=== PATIENT | female | born 1955 | race Caucasian/White ===

== ENCOUNTER 2017-03-27 11:51 | Observation (INO) | payer MEDICARE, SELFPAY ==
[2017-03-27] VITALS (12 sets, daily range): BP systolic 101–133; BP diastolic 47–97; PULSE 84–109; RESP 16–44; TEMP 36.7–36.9; O2SAT 94–100; BMI 29.2; BMI 29.9; BMI 27.9
--- NOTE | 2017-03-27 12:28 | EKG12_ITS ---
Test Reason : FALL Blood Pressure : / mmHG Vent. Rate : 087 BPM Atrial Rate : 087 BPM P-R Int : 110 ms QRS Dur : 068 ms QT Int : 394 ms P-R-T Axes : 049 041 -49 degrees QTc Int : 474 ms Sinus rhythm with short VA with Premature atrial complexes ST & T wave abnormality, consider inferior ischemia ST & T wave abnormality, consider anterior ischemia Abnormal ECG Confirmed by VIRGINIA LUEVANO ([id number]), editor house organ JOSE SOARES ([id number] on 03/30/2017 1:23:25 PM Referred By: MICHAEL Confirmed By:VIRGINIA LUEVANO
--- NOTE | 2017-03-27 12:28 | RAD_ITS ---
STUDY: X-RAY CHEST REASON FOR EXAM: Female, 61 years old. Chest pain. Cough. TECHNIQUE: Single AP portable view of the chest. COMPARISON: Comparison is made with prior study dated March 25, 2017. FINDINGS: EKG electrodes are seen. Mild degree of increased markings at the right lung base suggestive of a basilar atelectasis. No definite infiltration is seen. There is no demonstrated pleural abnormality. Normal size heart. Normal mediastinum and krystyna. Normal visualized pulmonary arteries. Normal visualized aortic arch and descending thoracic aorta. Normal visualized thoracic spine. Findings suggestive of an old right scapular fracture. There is no demonstrated abnormality of the visualized soft tissue structures of the upper abdomen. RAD/Chest 1 View (Portable) IMPRESSION: Increased markings in the right infrahilar region suggestive of atelectasis. Electronically Signed: Héctor Calabrese MD at 13:18 EST Tel [phone], Service support ,
[2017-03-27 12:38] LABS: Absolute Lymphocyte Count 1.27 X10^3/ul (0.83-4.51); Absolute Neutrophil Count 9.4 X10^3/uL (2.0-7.7); Basophil# 0.01 X10^3/uL; Basophil% 0.1 % (0-1); Hematocrit 34.8 % (37-47); Hemoglobin 10.9 g/dl (12.0-15.0); Lymphocyte # 1.27 X10^3/ul (4.0); Lymphocyte % 10.9 % (19-41); Mean Corp Hgb Conc 31.3 g/gl (32-36); Mean Corpuscular Volume 92.6 fL (81-99); Mean Platelet Vol. 13.8 fl (6.2-12.0); Monocyte% 7.7 % (0-10); Neutrophil # 9.41 X10^3/uL (2.7-7.7); Platelet Count 188 K/mm3 (150-450); RBC Distribution Width CV 15.3 % (11.6-14.6); RBC Distribution Width SD 51.4 fl (35.1-43.9); Red Blood Count 3.76 M/mm3 (4.2-5.4); White Blood Count 11.6 K/mm3 (4.4-11.0)
[2017-03-27] MEDS: Ondansetron 4 MG/2 ML Vial IV ×2 (12:38→20:41)
[2017-03-27] MEDS: 0.9% Normal Saline 1,000 ML 1000 ML IV (12:38)
[2017-03-27 12:55] LABS: Anion Gap 12 (5-15); BUN 22 mg/dL (7-18); Calcium,Total 8.6 mg/dL (8.5-10.1); Chloride 103 mmol/L (98-107); Creatinine, Serum 1.05 mg/dL (0.55-1.02); EST Glomerular Filtration Rate 56 mL/min (>60); Est Glom Filt Rate - Afr Amer 68 mL/min (>60); Estimated Creatinine Clearance 53.01 ml/min; Glucose 92 mg/dL (70-110); POSITIVE COUNT NO; POSITIVE DIFFERENTIAL NO; POSITIVE MORPHOLOGY NO; Potassium 3.8 mmol/L (3.5-5.1); Sodium Level 139 mmol/L (136-145)
--- NOTE | 2017-03-27 13:06 | NURSING ---
NEEDS VERIFIED. NO LW OR POA
[2017-03-27 14:21] LABS: Base Excess 0 mmol/L (-2 to +2); Bicarbonate 25.4 mmol/L (22-26); Blood Gas Specimen Type ART; O2 Delivery Device Nasal Can; PO2 64 mmHG (75-100); SITE L Brachial; SO2 91 % (95-99); Time Given 1412; Total Carbon Dioxide 27 mmol/L; pCO2 44.2 mmHg (35-45); pH 7.37 (7.35-7.45)
[2017-03-27 14:33] LABS: Bacteria 0 SEEN /hpf (None Seen); Mucous, Urine 0 SEEN /hpf (<or=2+); Red Blood Cells-Urine 0 SEEN /hpf (0-5); Squamous Epithelial Cells - UA 0 SEEN /hpf (5-10)
[2017-03-27 14:40] LABS: Color, Urine Yellow (Yellow); Glucose, Dipstick Normal (Normal); Ketone-Dipstick 5 mg/dl (Negative); Leukocyte Esterase-Dipstick 25 /ul (Negative); Nitrite-Dipstick Negative (Negative); Occult Blood-Urine Negative /ul (Negative); Protein-Dipstick Negative (Negative); Urine Bilirubin Dipstick Negative (Negative); Urine Clarity Sl. Cloudy (Clear); Urine Urobilinogen 1 mg/dl (Normal)
--- NOTE | 2017-03-27 14:44 | CT_ITS ---
STUDY: CTA CHEST REASON FOR EXAM: Female, 61 years old. History of right clavicular fracture and right rib fracture. Shortness of breath. RADIATION DOSAGE (If Supplied By Facility): CTDIvol = ( 6.98 ) mGy, DLP = ( 237.75 ) mGycm TECHNIQUE: The examination was performed with the intravenous administration of 75cc ml of Isovue 370 contrast material. Post-processing of the angiographic images was performed, with multiplanar reformation and 3D reconstruction. Individualized dose optimization techniques were used for this CT. COMPARISON: None. FINDINGS: Normal enhancement of the main pulmonary artery and right and left pulmonary arteries. Normal enhancement of the bilateral peripheral pulmonary arteries. There is no demonstrated pulmonary embolism. Normal thoracic aorta and visualized great vessels. There is no demonstrated aortic dissection. There is cardiomegaly. There are calcifications of the coronary arteries. Normal mediastinum. Normal hilar regions. Normal visualized trachea and bronchi. The lungs are well expanded. Mild degree of increased linear markings with focal infiltrate in the peripheral aspect of the right lower lobe. Bibasilar atelectasis worse on the right side. Normal pleura. Normal chest wall structures. The mineralization of the thoracic vertebra with loss of height of the lower dorsal vertebrae. Increased kyphosis. The distal lateral portion of the right clavicle is not well visualized. Normal visualized upper abdomen. CT/CTA Chest W/WO Contrast IMPRESSION: Bibasilar atelectasis slightly worse on the right side. Cardiomegaly. There is no evidence of pneumothorax. Electronically Signed: Héctor Calabrese MD at 15:43 EST Tel [phone], Service support ,
[2017-03-27 14:49] LABS: White Blood Cells 0-5 SEEN /hpf (0-5)
--- NOTE | 2017-03-27 15:51 | ED.DCSUM_ITS ---
- ER Visit Summary Date of Service: 03/27/17 Chief Complaint: Generalized weakness History of Present Illness: The patient is a [address] Mclaughlin. She reports that she has generalized weakness that began 2 days ago. States she has had a very poor appetite. On review of systems she reports that she has a cough every once in a while. She denies any abdominal pain. She does report she has been nausea and vomited 4 times a day. No blood or emesis. No diarrhea. Her last bowel movement was yesterday. He denies any other complaints. Physical Examination: Vitals: Stable. Afebrile. General: Well-nourished and well-developed. Head: Normocephalic atraumatic. Neck: Supple, no lymphadenopathy. No JVD. Nontender. Dry mucous membranes. Cardiovascular: Regular rate and rhythm. 2 out of 6 systolic murmur. Respiratory: No respiratory distress. Clear to auscultation bilaterally. Abdominal: Soft, nontender, nondistended, normal bowel sounds. No guarding, rebound, or peritoneal signs. Back: Nontender. Extremities: Nontender, no edema. Skin: Normal color, no rash. Neurologic: Alert and oriented ?3. Cranial nerves II through XII are intact. Normal strength and sensation. Psych: Depressed. Test Results: EKG is sinus at [address] changes. Is unchanged 2013. Troponin is negative. UA is negative. Chest x-ray shows increased markings right infrahilar region likely atelectasis. CBC is marked for a white count of 11.6 with 81 7 neutrophils and 11 lymphocytes. H&H of 10 point and 34.8. Chem- 7 more for BUN 22 and creatinine 1.05. CTA of the chest shows no PE or pneumothorax. There is a focal infiltrate in the peripheral right lower lobe. Emergency Department Course and Treatment: During her stay in the emergency department patient's pulse ox decreased into the 70s. She had oxygen placed and her pulse ox came back into the mid 90s. An ABG was obtained. She has a sat of 91% on 2 L nasal cannula. Given dose of Levaquin IV. Treatment Plan: Patient will be admitted to the hospital for further evaluation and treatment. Disposition: Admitted in improved condition. Impression: 1. Generalized weakness. 2. Hypoxia. 3. Pneumonia, community-acquired. This note was generated with Dragon dictation software. It may contain incorrect words, spelling, and punctuation that were not noted in review of the chart prior to signing ED Disposition - Plan for ED Patient: Chief Complaint: Fall Referrals: Dante Mclaughlin MD [Primary Care Provider] -
--- NOTE | 2017-03-27 16:10 | NURSING ---
MED SURG OBS RLL CAP YARELI
--- NOTE | 2017-03-27 16:57 | PCM.HP.STD ---
<Kait Rodriguez - Last Filed: 03/27/17 18:09> Problem List (1) GERD (gastroesophageal reflux disease) Status: Chronic (2) Depression Status: Chronic (3) CAP (community acquired pneumonia) Status: Acute History of Present Illness Date of Admission: 03/27/17 Chief Complaint: Weakness, nausea/vomiting, right rib pain. The patient is a 61 year old F who presents to the emergency room with generalized weakness, nausea/vomiting, right rib pain x2days. Recently presented to ED 03/25/2017 where she was found to have a right rib fractures and clavicle fracture status post mechanical fall. She complains of associated diaphoresis. Denies diarrhea. She states her rib pain from recent fracture is has not been well controlled at home on [place] which she was discharged with from ER. Patient states she has been unable to keep food/liquid down which has made her very weak and tired. She denies shortness of breath, cough. Her past medical history includes GERD, depression. She states she has been told her whole life she has a cardiac murmur. She states she has had an echocardiogram and no major issues were found. Denies other chronic/past medical history. Past Medical History Past Medical History (Chronic Problems): Chronic Problems GERD (gastroesophageal reflux disease) (Chronic) Depression (Chronic) Allergies No Known Allergies Allergy (Verified 03/27/17 11:57) Home Medications: Ambulatory Orders Medication Instructions Recorded Esomeprazole Mag Trihydrate 40 mg PO DAILY 03/30/13 [Nexium] Citalopram Hydrobromide [Celexa] 40 mg PO DAILY 04/14/13 Hydrocodone Bitart/Apap 5-325 1 - 2 tablet PO Q6H PRN PRN #20 03/25/17 [[place] 5/325] tablet Surgical History: appendectomy, tonsillectomy, - - Hand surgery and back surgery Psychiatric History: No pertinent psych hx CAN SLIDER History: No pertinent CAN SLIDER history Smoking Status: Never smoker Alcohol: None Drugs: None - *Family History Maternal History Items: Diabetes Paternal History Items: Cancer - Lung Review of Systems Constitutional: Reports: Chills, Weakness, Fatigue, - - Poor appetite. Denies: Fever HEENT: Denies: Head Aches, Sinus Congestion, Sinus Drainage Cardiovascular: Reports: Light Headedness. Denies: Chest Pain, Palpitations, Syncope Respiratory: Denies: Cough, Shortness of breath at rest, Sputum production Gastrointestinal: Denies: Abdominal Pain, Nausea, Vomiting Genitourinary: Denies: Dysuria Musculoskeletal: Reports: - - Right rib pain.. Denies: Joint Pain, Joint Tenderness Skin: Denies: Rash, Wounds Neurological: Denies: Numbness, Tingling, Focal weakness Psychiatric: Reports: Depression. Denies: Anxiety, Homicidal Ideations, Suicidal Ideations Hematologic/ Lymphatic: Denies: Easy Bruising, Easy Bleeding VTE Information - Inpt Only VTE Present on Admission: No VTE Mechan Device Prophylaxis: None VTE Pharm Prophylaxis ordered?: Yes Patient Problems: Active and Suspected Problems CAP (community acquired pneumonia) (Acute) - Physical Exam General: Alert, Oriented x3, Cooperative, No apparent distress HEENT: Atraumatic, PERRLA, EOMI, Normocephalic Oral: Dry Mucosa Neck: Supple, No JVD, Negative Carotid Bruits Lungs: Clear to auscultation, Diminished Cardiovascular: Regular rate, Regular Rhythm, Normal S1, Normal S2, Murmur Abdomen: Bowel Sounds Present, Soft, Non Tender, Non-Distended Extremities: No clubbing, No cyanosis, No edema, Capillary Refill Less than 3 Seconds Skin: No rashes, No breakdown Musculoskeletal: No Tenderness to Palpation of Joints or Extremities Neurological: Cranial nerves II-XII grossly intact, Neuro grossly intact Psych/Mental Status: Normal Affect, Appropriate Vital Signs Temp Pulse Resp BP Pulse Ox 98.5 F 94 16 102/59 L 100 03/27/17 11:52 03/27/17 16:37 03/27/17 16:37 03/27/17 16:37 03/27/17 16:37 Laboratory Tests Past 24 Hrs 03/27/17 16:15 Lactic Acid Pending Assessment/Plan Active and Suspected Problems CAP (community acquired pneumonia) (Acute) 1. Acute right lower lobe community-acquired pneumonia-chest x-ray in ER shows increased markings in the right infrahilar region. CTA showed bibasilar atelectasis slightly worse on the right side. WBC 11.6. Afebrile. Patient tachypneic on admission. Mild hypoxia. Blood cultures pending. IS/PEP therapy. DuoNeb and albuterol aerosols. Mucinex twice daily. Continue oxygen supplementation to maintain O2 at or above 90%, wean as tolerated. IV Rocephin and azithromycin. Send urine for strep and Legionella. Send sputum for culture. 2. Acute hypoxia-secondary to #1. Continue oxygen supplementation to maintain O2 at or above 90%. 3. Recent right rib fractures/clavicle fracture secondary to mechanical fall-IV morphine for pain. Patient can follow-up with ortho at discharge as previously scheduled. PT/OT. 4. Nausea/vomiting-associated mild dehydration. Suspect this is secondary to patient taking narcotic pain medication on an empty stomach. Possible gastroenteritis. Zofran as needed for nausea. IV fluids. Patient denies diarrhea. 5. GERD-continue home Nexium regimen. 6. Depression-continue Celexa. 7. Chronic normochromic normocytic anemia-at baseline, monitor CBC. 8. Cardiac murmur-echocardiogram 03/26/2012 shows an estimated ejection fraction of 55%, mild mitral valve prolapse, mild mitral valve insufficiency, pulmonary artery systolic pressure 44. DVT prophylaxis-heparin subcu. This patient was seen by LAMONT Grijalva under the supervision of Dr. Garsia. <Devin Garsia - Last Filed: 03/27/17 19:32> History of Present Illness Seen and examined. She came to ER with right-sided chest pain/rib pain from recent rib fracture along with tachypnea, hypoxia and feeling generalized weakness. She also complains of nausea/vomiting for past 2 days. [] Past Medical History Allergies No Known Allergies Allergy (Verified 03/27/17 11:57) - Physical Exam General: Alert, Oriented x3, Cooperative HEENT: Atraumatic, PERRLA, EOMI, Normocephalic Neck: Supple, No JVD, Negative Carotid Bruits Lungs: Clear to auscultation, No rhonchi, No wheeze, No rales, Diminished Cardiovascular: Regular rate, Murmur Abdomen: Bowel Sounds Present, Soft, Non Tender, Non-Distended Extremities: No edema, Capillary Refill Less than 3 Seconds Skin: No rashes, No breakdown Musculoskeletal: No Tenderness to Palpation of Joints or Extremities, Arthritic Changes Neurological: Cranial nerves II-XII grossly intact Psych/Mental Status: Normal Affect, Appropriate Vital Signs Temp Pulse Resp BP Pulse Ox 98.1 F 85 20 H 109/58 L 100 03/27/17 18:01 03/27/17 18:10 03/27/17 18:01 03/27/17 18:01 03/27/17 18:01 Oxygen Flow Rate 2 Oxygen Delivery Method Nasal Cannula Weight: 129 lb Body Mass Index (BMI) 27.9 Laboratory Tests Past 24 Hrs 03/27/17 16:15 Lactic Acid 1.6 Assessment/Plan This patient was seen in conjunction with LEGAL ACTIVITY ADJUDICATORKait. I have independently interviewed and examined the patient and reviewed pertinent history, examination findings, laboratory and plan of management. I have reviewed the note and agree with the documented findings with the few additional points. In brief, patient is admitted for acute right lower lobe community-acquired pneumonia with acute hypoxia respiratory failure. On IV Rocephin and Zithromax. I have discussed my assessment with Kait ANTONIO and orders have been reviewed. Code Visit Inpatient E&M: 55205 Init Hosp L3
--- NOTE | 2017-03-27 17:06 | HP.PCM_ITS ---
<Kait Rodriguez - Last Filed: 03/27/17 18:09> Problem List (1) GERD (gastroesophageal reflux disease) Status: Chronic (2) Depression Status: Chronic (3) CAP (community acquired pneumonia) Status: Acute History of Present Illness Date of Admission: 03/27/17 Chief Complaint: Weakness, nausea/vomiting, right rib pain. The patient is a 61 year old F who presents to the emergency room with generalized weakness, nausea/vomiting, right rib pain x2days. Recently presented to ED 03/25/2017 where she was found to have a right rib fractures and clavicle fracture status post mechanical fall. She complains of associated diaphoresis. Denies diarrhea. She states her rib pain from recent fracture is has not been well controlled at home on [place] which she was discharged with from ER. Patient states she has been unable to keep food/liquid down which has made her very weak and tired. She denies shortness of breath, cough. Her past medical history includes GERD, depression. She states she has been told her whole life she has a cardiac murmur. She states she has had an echocardiogram and no major issues were found. Denies other chronic/past medical history. Past Medical History Past Medical History (Chronic Problems): Chronic Problems GERD (gastroesophageal reflux disease) (Chronic) Depression (Chronic) Allergies No Known Allergies Allergy (Verified 03/27/17 11:57) Home Medications: Ambulatory Orders Medication Instructions Recorded Esomeprazole Mag Trihydrate 40 mg PO DAILY 03/30/13 [Nexium] Citalopram Hydrobromide [Celexa] 40 mg PO DAILY 04/14/13 Hydrocodone Bitart/Apap 5-325 1 - 2 tablet PO Q6H PRN PRN #20 03/25/17 [[place] 5/325] tablet Surgical History: appendectomy, tonsillectomy, - - Hand surgery and back surgery Psychiatric History: No pertinent psych hx FITNESS TECHNICIAN History: No pertinent FITNESS TECHNICIAN history Smoking Status: Never smoker Alcohol: None Drugs: None - *Family History Maternal History Items: Diabetes Paternal History Items: Cancer - Lung Review of Systems Constitutional: Reports: Chills, Weakness, Fatigue, - - Poor appetite. Denies: Fever HEENT: Denies: Head Aches, Sinus Congestion, Sinus Drainage Cardiovascular: Reports: Light Headedness. Denies: Chest Pain, Palpitations, Syncope Respiratory: Denies: Cough, Shortness of breath at rest, Sputum production Gastrointestinal: Denies: Abdominal Pain, Nausea, Vomiting Genitourinary: Denies: Dysuria Musculoskeletal: Reports: - - Right rib pain.. Denies: Joint Pain, Joint Tenderness Skin: Denies: Rash, Wounds Neurological: Denies: Numbness, Tingling, Focal weakness Psychiatric: Reports: Depression. Denies: Anxiety, Homicidal Ideations, Suicidal Ideations Hematologic/ Lymphatic: Denies: Easy Bruising, Easy Bleeding VTE Information - Inpt Only VTE Present on Admission: No VTE Mechan Device Prophylaxis: None VTE Pharm Prophylaxis ordered?: Yes Patient Problems: Active and Suspected Problems CAP (community acquired pneumonia) (Acute) - Physical Exam General: Alert, Oriented x3, Cooperative, No apparent distress HEENT: Atraumatic, PERRLA, EOMI, Normocephalic Oral: Dry Mucosa Neck: Supple, No JVD, Negative Carotid Bruits Lungs: Clear to auscultation, Diminished Cardiovascular: Regular rate, Regular Rhythm, Normal S1, Normal S2, Murmur Abdomen: Bowel Sounds Present, Soft, Non Tender, Non-Distended Extremities: No clubbing, No cyanosis, No edema, Capillary Refill Less than 3 Seconds Skin: No rashes, No breakdown Musculoskeletal: No Tenderness to Palpation of Joints or Extremities Neurological: Cranial nerves II-XII grossly intact, Neuro grossly intact Psych/Mental Status: Normal Affect, Appropriate Vital Signs Temp Pulse Resp BP Pulse Ox 98.5 F 94 16 102/59 L 100 03/27/17 11:52 03/27/17 16:37 03/27/17 16:37 03/27/17 16:37 03/27/17 16:37 Laboratory Tests Past 24 Hrs 03/27/17 16:15 Lactic Acid Pending Assessment/Plan Active and Suspected Problems CAP (community acquired pneumonia) (Acute) 1. Acute right lower lobe community-acquired pneumonia-chest x-ray in ER shows increased markings in the right infrahilar region. CTA showed bibasilar atelectasis slightly worse on the right side. WBC 11.6. Afebrile. Patient tachypneic on admission. Mild hypoxia. Blood cultures pending. IS/PEP therapy. DuoNeb and albuterol aerosols. Mucinex twice daily. Continue oxygen supplementation to maintain O2 at or above 90%, wean as tolerated. IV Rocephin and azithromycin. Send urine for strep and Legionella. Send sputum for culture. 2. Acute hypoxia-secondary to #1. Continue oxygen supplementation to maintain O2 at or above 90%. 3. Recent right rib fractures/clavicle fracture secondary to mechanical fall- IV morphine for pain. Patient can follow-up with ortho at discharge as previously scheduled. PT/OT. 4. Nausea/vomiting-associated mild dehydration. Suspect this is secondary to patient taking narcotic pain medication on an empty stomach. Possible gastroenteritis. Zofran as needed for nausea. IV fluids. Patient denies diarrhea. 5. GERD-continue home Nexium regimen. 6. Depression-continue Celexa. 7. Chronic normochromic normocytic anemia-at baseline, monitor CBC. 8. Cardiac murmur-echocardiogram 03/26/2012 shows an estimated ejection fraction of 55%, mild mitral valve prolapse, mild mitral valve insufficiency, pulmonary artery systolic pressure 44. DVT prophylaxis-heparin subcu. This patient was seen by LAMONT Grijalva under the supervision of Dr. Garsia. <Devin Garsia - Last Filed: 03/27/17 19:32> History of Present Illness Seen and examined. She came to ER with right-sided chest pain/rib pain from recent rib fracture along with tachypnea, hypoxia and feeling generalized weakness. She also complains of nausea/vomiting for past 2 days. [] Past Medical History Allergies No Known Allergies Allergy (Verified 03/27/17 11:57) - Physical Exam General: Alert, Oriented x3, Cooperative HEENT: Atraumatic, PERRLA, EOMI, Normocephalic Neck: Supple, No JVD, Negative Carotid Bruits Lungs: Clear to auscultation, No rhonchi, No wheeze, No rales, Diminished Cardiovascular: Regular rate, Murmur Abdomen: Bowel Sounds Present, Soft, Non Tender, Non-Distended Extremities: No edema, Capillary Refill Less than 3 Seconds Skin: No rashes, No breakdown Musculoskeletal: No Tenderness to Palpation of Joints or Extremities, Arthritic Changes Neurological: Cranial nerves II-XII grossly intact Psych/Mental Status: Normal Affect, Appropriate Vital Signs Temp Pulse Resp BP Pulse Ox 98.1 F 85 20 H 109/58 L 100 03/27/17 18:01 03/27/17 18:10 03/27/17 18:01 03/27/17 18:01 03/27/17 18:01 Oxygen Flow Rate 2 Oxygen Delivery Method Nasal Cannula Weight: 129 lb Body Mass Index (BMI) 27.9 Laboratory Tests Past 24 Hrs 03/27/17 16:15 Lactic Acid 1.6 Assessment/Plan This patient was seen in conjunction with SANITARY AIDEKait. I have independently interviewed and examined the patient and reviewed pertinent history, examination findings, laboratory and plan of management. I have reviewed the note and agree with the documented findings with the few additional points. In brief, patient is admitted for acute right lower lobe community-acquired pneumonia with acute hypoxia respiratory failure. On IV Rocephin and Zithromax. I have discussed my assessment with Kait ANTONIO and orders have been reviewed. Code Visit Inpatient E&M: 28774 Init Hosp L3
[2017-03-27 17:12] LABS: Lactic Acid 1.6 mmol/L (0.4-2.0)
[2017-03-27] MEDS: Ceftriaxone 1 GM/50 ML BAG IV (19:21)
[2017-03-27] MEDS: LORazepam 0.5 MG Tablet PO (21:37)
[2017-03-27] MEDS: Ipratropium/Albuterol Sulfate 3 ML AMPUL.NEB INHALATION (22:40)
[2017-03-28] VITALS (13 sets, daily range): BP systolic 95–115; BP diastolic 47–66; PULSE 80–128; RESP 18–20; TEMP 36.8–37.1; O2SAT 92–100
--- NOTE | 2017-03-28 05:07 | NURSING ---
pt not drinking enough. Pt encouraged to drink. If pt is not compliant and doesn't urinate soon will contact .
[2017-03-28] MEDS: 0.9% Normal Saline 1,000 ML 1000 ML IV (05:23)
[2017-03-28 06:09] LABS: Absolute Lymphocyte Count 1.24 X10^3/ul (0.83-4.51); Absolute Neutrophil Count 5.6 X10^3/uL (2.0-7.7); Basophil# 0.01 X10^3/uL; Basophil% 0.1 % (0-1); Eosinophil# 0.02 X10^3/uL; Eosinophils% 0.3 % (0-5); Hematocrit 30.9 % (37-47); Hemoglobin 9.7 g/dl (12.0-15.0); Lymphocyte # 1.24 X10^3/ul (4.0); Lymphocyte % 16.2 % (19-41); Mean Corp Hgb Conc 31.4 g/gl (32-36); Mean Corpuscular Hgb 29.2 pg (27.0-32.0); Mean Corpuscular Volume 93.1 fL (81-99); Mean Platelet Vol. 13.9 fl (6.2-12.0); Monocyte# 0.72 X10^3/uL; Monocyte% 9.4 % (0-10); Neutrophil # 5.64 X10^3/uL (2.7-7.7); Neutrophil % 73.7 % (47-70); Platelet Count 150 K/mm3 (150-450); RBC Distribution Width CV 15.1 % (11.6-14.6); RBC Distribution Width SD 50.4 fl (35.1-43.9); Red Blood Count 3.32 M/mm3 (4.2-5.4); White Blood Count 7.7 K/mm3 (4.4-11.0)
[2017-03-28 06:13] LABS: Anion Gap 8 (5-15); BUN 19 mg/dL (7-18); BUN/Creat Ratio 21.5 RATIO (10-20); Calcium,Total 7.9 mg/dL (8.5-10.1); Chloride 106 mmol/L (98-107); Creatinine, Serum 0.88 mg/dL (0.55-1.02); EST Glomerular Filtration Rate 68 mL/min (>60); Est Glom Filt Rate - Afr Amer 83 mL/min (>60); Estimated Creatinine Clearance 60.44 ml/min; Glucose 90 mg/dL (70-110); Potassium 3.8 mmol/L (3.5-5.1); Sodium Level 139 mmol/L (136-145)
[2017-03-28 06:19] LABS: POSITIVE COUNT NO; POSITIVE DIFFERENTIAL NO; POSITIVE MORPHOLOGY NO
[2017-03-28] MEDS: 0.9% Normal Saline 1,000 ML 100 ML IV ×2 (07:15→16:41)
[2017-03-28] MEDS: Ipratropium/Albuterol Sulfate 3 ML AMPUL.NEB INHALATION ×4 (07:16→19:24)
[2017-03-28] MEDS: guaiFENesin 600 MG Tablet 1200 MG PO (09:08)
[2017-03-28] MEDS: Pantoprazole Sodium 40 MG Tablet PO (09:08)
[2017-03-28] MEDS: Citalopram 40 MG TABLET PO (09:08)
[2017-03-28] MEDS: oxyCODONE 5 MG Tablet PO ×3 (10:27→21:53)
--- NOTE | 2017-03-28 10:39 | PCM.PROGNOTE ---
<Kait Rodriguez - Last Filed: 03/28/17 10:51> Patient Problems: Active and Suspected Problems CAP (community acquired pneumonia) (Acute) Subjective: Patient seen and examined. Continues to complain of right rib pain, nausea, generalized weakness. Denies shortness of breath, chest pain. Denies fever, chills. Denies cough. Denies other complaints. - Physical Exam General: Alert, Oriented x3, Cooperative, No apparent distress HEENT: Atraumatic, PERRLA, EOMI, Normocephalic Neck: Supple, No JVD, Negative Carotid Bruits Lungs: Clear to auscultation, Diminished Cardiovascular: Regular Rhythm, Normal S1, Normal S2, Murmur, Tachycardic Abdomen: Bowel Sounds Present, Soft, Non Tender, Non-Distended Extremities: No clubbing, No cyanosis, No edema Skin: No rashes, No breakdown Musculoskeletal: No Tenderness to Palpation of Joints or Extremities Neurological: Cranial nerves II-XII grossly intact Psych/Mental Status: Normal Affect, Appropriate Vital Signs Temp Pulse Resp BP Pulse Ox 98.7 F 113 H 20 H 104/56 L 96 03/28/17 09:05 03/28/17 09:05 03/28/17 09:05 03/28/17 09:05 03/28/17 09:05 Oxygen Flow Rate 1 Oxygen Delivery Method Room Air Weight: 58.513 kg Body Mass Index (BMI) 27.9 Intake and Output for Last 24 Hours 03/26/17 03/27/17 03/28/17 23:59 23:59 23:59 Intake Total 1309 / 1309 Output Total 300 / 300 Balance 1009 / 1009 Microbiology Past 72 Hours 03/28/17 07:10 Legionella Antigen - Final Urine, Clean Catch 03/28/17 07:10 Streptococcus pneumoniae Antigen (M - Final Urine, Clean Catch Laboratory Tests Past 24 Hrs 03/27/17 03/28/17 03/28/17 16:15 05:35 05:35 WBC 7.7 RBC 3.32 L Hgb 9.7 L Hct 30.9 L MCV 93.1 MCH 29.2 MCHC 31.4 L RDW 15.1 H RDW Differential 50.4 H Plt Count 150 MPV 13.9 H Immature Gran % (Auto) 0.300 Neut % (Auto) 73.7 H Lymph % (Auto) 16.2 L [place] % (Auto) 9.4 Eos % (Auto) 0.3 Baso % (Auto) 0.1 Absolute Neuts (auto) 5.6 Absolute Lymphs (auto) 1.24 Total Counted Not Reportable Sodium 139 Potassium 3.8 Chloride 106 Carbon Dioxide 25.0 Anion Gap 8 BUN 19 H Creatinine 0.88 Estim Creat Clear Calc 60.44 Est GFR (MDRD) Af Amer 83 Est GFR (MDRD) Non-Af 68 BUN/Creatinine Ratio 21.5 H Glucose 90 Lactic Acid 1.6 Calcium 7.9 L Assessment/Plan Active and Suspected Problems CAP (community acquired pneumonia) (Acute) Patient is a 61-year-old female admitted 03/27/2017 due to weakness, nausea/vomiting, right rib pain. 1. Acute right lower lobe community-acquired pneumonia-ruled out. Chest x-ray in ER shows increased markings in the right infrahilar region. CTA showed bibasilar atelectasis slightly worse on the right side. No leukocytosis. Patient is afebrile. Blood cultures were drawn in the emergency room, pending. Mild hypoxia on admission. DuoNeb and albuterol aerosols. Oxygen now stable on room air. Continue oxygen supplementation to maintain O2 at or above 90%, wean as tolerated. Suspect atelectasis is secondary to pain from rib fractures, causing respiratory splinting. Antibiotics discontinued. Continue to manage pain. Ambulate frequently, as tolerated. IS/PEP therapy. Urine negative for strep and Legionella. PT/OT. 2. Recent right rib fractures/clavicle fracture secondary to mechanical fall-IV morphine for pain. Patient can follow-up with ortho at discharge as previously scheduled. PT/OT. 3. Acute hypoxia-secondary to #2. Continue oxygen supplementation to maintain O2 at or above 90%. 4. Nausea/vomiting-associated mild dehydration. Suspect mild gastroenteritis. Zofran as needed for nausea. IV fluids. Patient denies diarrhea. Continue clear liquid diet. Can advance as tolerated. 5. GERD-continue home Nexium regimen. 6. Depression-continue Celexa. 7. Chronic normochromic normocytic anemia-at baseline, monitor CBC. 8. Cardiac murmur-echocardiogram 03/26/2012 shows an estimated ejection fraction of 55%, mild mitral valve prolapse, mild mitral valve insufficiency, pulmonary artery systolic pressure 44. DVT prophylaxis-heparin subcu. This patient was seen by LAMONT Grijalva under the supervision of Dr. Mckeon. <Maryanne Mckeon - Last Filed: 03/28/17 10:57> - Physical Exam Vital Signs Temp Pulse Resp BP Pulse Ox 98.7 F 113 H 20 H 104/56 L 96 03/28/17 09:05 03/28/17 09:05 03/28/17 09:05 03/28/17 09:05 03/28/17 09:05 Oxygen Flow Rate 1 Oxygen Delivery Method Room Air Weight: 58.513 kg Body Mass Index (BMI) 27.9 Intake and Output for Last 24 Hours 03/26/17 03/27/17 03/28/17 23:59 23:59 23:59 Intake Total 1309 / 1309 Output Total 300 / 300 Balance 1009 / 1009 Microbiology Past 72 Hours 03/28/17 07:10 Legionella Antigen - Final Urine, Clean Catch 03/28/17 07:10 Streptococcus pneumoniae Antigen (M - Final Urine, Clean Catch Laboratory Tests Past 24 Hrs 03/27/17 03/28/17 03/28/17 16:15 05:35 05:35 WBC 7.7 RBC 3.32 L Hgb 9.7 L Hct 30.9 L MCV 93.1 MCH 29.2 MCHC 31.4 L RDW 15.1 H RDW Differential 50.4 H Plt Count 150 MPV 13.9 H Immature Gran % (Auto) 0.300 Neut % (Auto) 73.7 H Lymph % (Auto) 16.2 L [place] % (Auto) 9.4 Eos % (Auto) 0.3 Baso % (Auto) 0.1 Absolute Neuts (auto) 5.6 Absolute Lymphs (auto) 1.24 Total Counted Not Reportable Sodium 139 Potassium 3.8 Chloride 106 Carbon Dioxide 25.0 Anion Gap 8 BUN 19 H Creatinine 0.88 Estim Creat Clear Calc 60.44 Est GFR (MDRD) Af Amer 83 Est GFR (MDRD) Non-Af 68 BUN/Creatinine Ratio 21.5 H Glucose 90 Lactic Acid 1.6 Calcium 7.9 L Assessment/Plan Seen patient and examined independently of nurse practitioner. History physical findings and assessment as above Patient was noted to be dizzy this morning at the time of exam. Vitals reviewed; will check orthostatic vitals. Patient physically examined, tender on the right side of the chest, labs reviewed, imaging reviewed, doubt pneumonia, believe is all due to atelectasis, will control pain, encourage use of incentive spirometer, continue to monito Code Visit Inpatient E&M: 10638 Subs Hosp L2
--- NOTE | 2017-03-28 10:49 | PN_ITS ---
<Kait Rodriguez - Last Filed: 03/28/17 10:51> Patient Problems: Active and Suspected Problems CAP (community acquired pneumonia) (Acute) Subjective: Patient seen and examined. Continues to complain of right rib pain, nausea, generalized weakness. Denies shortness of breath, chest pain. Denies fever, chills. Denies cough. Denies other complaints. - Physical Exam General: Alert, Oriented x3, Cooperative, No apparent distress HEENT: Atraumatic, PERRLA, EOMI, Normocephalic Neck: Supple, No JVD, Negative Carotid Bruits Lungs: Clear to auscultation, Diminished Cardiovascular: Regular Rhythm, Normal S1, Normal S2, Murmur, Tachycardic Abdomen: Bowel Sounds Present, Soft, Non Tender, Non-Distended Extremities: No clubbing, No cyanosis, No edema Skin: No rashes, No breakdown Musculoskeletal: No Tenderness to Palpation of Joints or Extremities Neurological: Cranial nerves II-XII grossly intact Psych/Mental Status: Normal Affect, Appropriate Vital Signs Temp Pulse Resp BP Pulse Ox 98.7 F 113 H 20 H 104/56 L 96 03/28/17 09:05 03/28/17 09:05 03/28/17 09:05 03/28/17 09:05 03/28/17 09:05 Oxygen Flow Rate 1 Oxygen Delivery Method Room Air Weight: 58.513 kg Body Mass Index (BMI) 27.9 Intake and Output for Last 24 Hours 03/26/17 03/27/17 03/28/17 23:59 23:59 23:59 Intake Total 1309 / 1309 Output Total 300 / 300 Balance 1009 / 1009 Microbiology Past 72 Hours 03/28/17 07:10 Legionella Antigen - Final Urine, Clean Catch 03/28/17 07:10 Streptococcus pneumoniae Antigen (M - Final Urine, Clean Catch Laboratory Tests Past 24 Hrs 03/27/17 03/28/17 03/28/17 16:15 05:35 05:35 WBC 7.7 RBC 3.32 L Hgb 9.7 L Hct 30.9 L MCV 93.1 MCH 29.2 MCHC 31.4 L RDW 15.1 H RDW Differential 50.4 H Plt Count 150 MPV 13.9 H Immature Gran % (Auto) 0.300 Neut % (Auto) 73.7 H Lymph % (Auto) 16.2 L [place] % (Auto) 9.4 Eos % (Auto) 0.3 Baso % (Auto) 0.1 Absolute Neuts (auto) 5.6 Absolute Lymphs (auto) 1.24 Total Counted Not Reportable Sodium 139 Potassium 3.8 Chloride 106 Carbon Dioxide 25.0 Anion Gap 8 BUN 19 H Creatinine 0.88 Estim Creat Clear Calc 60.44 Est GFR (MDRD) Af Amer 83 Est GFR (MDRD) Non-Af 68 BUN/Creatinine Ratio 21.5 H Glucose 90 Lactic Acid 1.6 Calcium 7.9 L Assessment/Plan Active and Suspected Problems CAP (community acquired pneumonia) (Acute) Patient is a 61-year-old female admitted 03/27/2017 due to weakness, nausea/ vomiting, right rib pain. 1. Acute right lower lobe community-acquired pneumonia-ruled out. Chest x-ray in ER shows increased markings in the right infrahilar region. CTA showed bibasilar atelectasis slightly worse on the right side. No leukocytosis. Patient is afebrile. Blood cultures were drawn in the emergency room, pending. Mild hypoxia on admission. DuoNeb and albuterol aerosols. Oxygen now stable on room air. Continue oxygen supplementation to maintain O2 at or above 90%, wean as tolerated. Suspect atelectasis is secondary to pain from rib fractures , causing respiratory splinting. Antibiotics discontinued. Continue to manage pain. Ambulate frequently, as tolerated. IS/PEP therapy. Urine negative for strep and Legionella. PT/OT. 2. Recent right rib fractures/clavicle fracture secondary to mechanical fall- IV morphine for pain. Patient can follow-up with ortho at discharge as previously scheduled. PT/OT. 3. Acute hypoxia-secondary to #2. Continue oxygen supplementation to maintain O2 at or above 90%. 4. Nausea/vomiting-associated mild dehydration. Suspect mild gastroenteritis. Zofran as needed for nausea. IV fluids. Patient denies diarrhea. Continue clear liquid diet. Can advance as tolerated. 5. GERD-continue home Nexium regimen. 6. Depression-continue Celexa. 7. Chronic normochromic normocytic anemia-at baseline, monitor CBC. 8. Cardiac murmur-echocardiogram 03/26/2012 shows an estimated ejection fraction of 55%, mild mitral valve prolapse, mild mitral valve insufficiency, pulmonary artery systolic pressure 44. DVT prophylaxis-heparin subcu. This patient was seen by LAMONT Grijalva under the supervision of Dr. Mckeon. <Maryanne Mckeon - Last Filed: 03/28/17 10:57> - Physical Exam Vital Signs Temp Pulse Resp BP Pulse Ox 98.7 F 113 H 20 H 104/56 L 96 03/28/17 09:05 03/28/17 09:05 03/28/17 09:05 03/28/17 09:05 03/28/17 09:05 Oxygen Flow Rate 1 Oxygen Delivery Method Room Air Weight: 58.513 kg Body Mass Index (BMI) 27.9 Intake and Output for Last 24 Hours 03/26/17 03/27/17 03/28/17 23:59 23:59 23:59 Intake Total 1309 / 1309 Output Total 300 / 300 Balance 1009 / 1009 Microbiology Past 72 Hours 03/28/17 07:10 Legionella Antigen - Final Urine, Clean Catch 03/28/17 07:10 Streptococcus pneumoniae Antigen (M - Final Urine, Clean Catch Laboratory Tests Past 24 Hrs 03/27/17 03/28/17 03/28/17 16:15 05:35 05:35 WBC 7.7 RBC 3.32 L Hgb 9.7 L Hct 30.9 L MCV 93.1 MCH 29.2 MCHC 31.4 L RDW 15.1 H RDW Differential 50.4 H Plt Count 150 MPV 13.9 H Immature Gran % (Auto) 0.300 Neut % (Auto) 73.7 H Lymph % (Auto) 16.2 L [place] % (Auto) 9.4 Eos % (Auto) 0.3 Baso % (Auto) 0.1 Absolute Neuts (auto) 5.6 Absolute Lymphs (auto) 1.24 Total Counted Not Reportable Sodium 139 Potassium 3.8 Chloride 106 Carbon Dioxide 25.0 Anion Gap 8 BUN 19 H Creatinine 0.88 Estim Creat Clear Calc 60.44 Est GFR (MDRD) Af Amer 83 Est GFR (MDRD) Non-Af 68 BUN/Creatinine Ratio 21.5 H Glucose 90 Lactic Acid 1.6 Calcium 7.9 L Assessment/Plan Seen patient and examined independently of nurse practitioner. History physical findings and assessment as above Patient was noted to be dizzy this morning at the time of exam. Vitals reviewed ; will check orthostatic vitals. Patient physically examined, tender on the right side of the chest, labs reviewed, imaging reviewed, doubt pneumonia, believe is all due to atelectasis, will control pain, encourage use of incentive spirometer, continue to monito Code Visit Inpatient E&M: 41710 Subs Hosp L2
[2017-03-28] MEDS: Ondansetron 4 MG/2 ML Vial IV (16:44)
--- NOTE | 2017-03-28 16:59 | CHAPLAIN ---
patient was asleep and did not disturb her
[2017-03-28] MEDS: 0.9% Normal Saline 1,000 ML 125 ML IV (23:21)
[2017-03-29] VITALS (18 sets, daily range): BP systolic 110–129; BP diastolic 52–82; PULSE 93–109; RESP 16–19; TEMP 36.5–37.7; O2SAT 60–99
[2017-03-29] MEDS: 0.9% Normal Saline 1,000 ML 999 ML IV ×2 (01:39→05:11)
[2017-03-29] MEDS: oxyCODONE 5 MG Tablet PO ×3 (05:11→21:25)
[2017-03-29] MEDS: Ipratropium/Albuterol Sulfate 3 ML AMPUL.NEB INHALATION ×3 (06:23→14:41)
--- NOTE | 2017-03-29 07:00 | RAD_ITS ---
STUDY: X-RAY CHEST REASON FOR EXAM: Female, 61 years old. Cough. TECHNIQUE: Single AP portable view of the chest. COMPARISON: Comparison is made with prior examination dated March 27, 2017. FINDINGS: EKG electrodes are seen. New increased markings at the left lung base suggestive of left basilar atelectasis. The right lung base is clear. There is no demonstrated pleural abnormality. Normal size heart. Normal mediastinum and krystyna. Normal visualized pulmonary arteries. There is atherosclerotic tortuosity of the aortic arch and descending thoracic aorta. Normal visualized thoracic spine. Normal visualized ribs, clavicles, and shoulders. There is no demonstrated abnormality of the visualized soft tissue structures of the upper abdomen. RAD/Chest 1 View (Portable) IMPRESSION: Mild increased markings at the left lung base suggestive of atelectasis. Electronically Signed: Héctor Calabrese MD at 9:22 EST Tel [phone], Service support ,
[2017-03-29 07:44] LABS: Anion Gap 11 (5-15); BUN 16 mg/dL (7-18); BUN/Creat Ratio 20.4 RATIO (10-20); Calcium,Total 7.2 mg/dL (8.5-10.1); Chloride 111 mmol/L (98-107); Creatinine, Serum 0.78 mg/dL (0.55-1.02); EST Glomerular Filtration Rate 79 mL/min (>60); Est Glom Filt Rate - Afr Amer 95 mL/min (>60); Estimated Creatinine Clearance 68.19 ml/min; Glucose 96 mg/dL (70-110); Potassium 3.6 mmol/L (3.5-5.1); Sodium Level 142 mmol/L (136-145)
[2017-03-29 08:07] LABS: Hematocrit 30.5 % (37-47); Hemoglobin 9.4 g/dl (12.0-15.0); Mean Corp Hgb Conc 30.8 g/gl (32-36); Mean Corpuscular Hgb 29.4 pg (27.0-32.0); Mean Corpuscular Volume 95.3 fL (81-99); Mean Platelet Vol. 14.4 fl (6.2-12.0); Platelet Count 151 K/mm3 (150-450); RBC Distribution Width CV 15.5 % (11.6-14.6); RBC Distribution Width SD 51.8 fl (35.1-43.9); White Blood Count 6.8 K/mm3 (4.4-11.0)
[2017-03-29] MEDS: 0.9% Normal Saline 1,000 ML 125 ML IV ×2 (08:10→21:14)
[2017-03-29 08:18] LABS: Scan Indicated on CBC? Y/N NO
--- NOTE | 2017-03-29 09:02 | PCM.PN.HOSP ---
Patient Problems: Active and Suspected Problems CAP (community acquired pneumonia) (Acute) Subjective: Patient was seen and examined. Still complains of right-sided chest pain. Noted events with patient had very low urine output and has received some boluses. Straight cath overnight and had less than 100 mils of urine, bladder scan showed no much urine. Patient denies being incontinent of urine. Denies any fever or chills. Remains on 2 L of oxygen. Objective: Physical Exam General: Alert, Oriented x3, Cooperative, No apparent distress HEENT: Atraumatic, PERRLA, EOMI, Normocephalic Neck: Supple, No JVD, Negative Carotid Bruits Lungs: Clear to auscultation, Diminished, tenderness over right lower ribs. Cardiovascular: Regular Rhythm, Normal S1, Normal S2, Murmur, Tachycardic Abdomen: Bowel Sounds Present, Soft, Non Tender, Non-Distended Extremities: No edema Skin: No rashes, No breakdown Musculoskeletal: No Tenderness to Palpation of Joints or Extremities Neurological: Cranial nerves II-XII grossly intact Psych/Mental Status: Normal Affect, Appropriate Vitals/I&O's: Vital Signs Temp Pulse Resp BP Pulse Ox 97.9 F 102 H 18 120/58 L 92 03/29/17 08:00 03/29/17 08:00 03/29/17 08:00 03/29/17 08:00 03/29/17 08:00 Oxygen Flow Rate 2 Oxygen Delivery Method Nasal Cannula Weight: 58.513 kg Body Mass Index (BMI) 27.9 Orthostatic Vital Signs Start: 03/28/17 11:40 Freq: PRN Status: Active Protocol: Activity Type Activity Date Activity User E-Sign Co-Sign Detail Recorded Client Recorded Date Recorded By Document 03/28/17 11:40 MAB [id number] 03/28/17 11:42 MAB 03/28/17 11:40 Orthostatic Vitals Standing -Blood Pressure (90/60-120/80) 114/66 -Extremity Use Left Arm -Pulse Rate (60-100) 128 H Sitting -Blood Pressure (90/60-120/80) 102/52 L -Extremity Use Left Arm -Pulse Rate (60-100) 123 H Lying -Blood Pressure (90/60-120/80) 95/47 L -Extremity Use Left Arm -Pulse Rate (60-100) 126 H Intake and Output for Last 24 Hours 03/27/17 03/28/17 03/29/17 23:59 23:59 23:59 Intake Total 4024 / 4024 2285 / 2285 Output Total 300 / 300 125 / 125 Balance 3724 / 3724 2160 / 2160 Microbiology Past 72 Hours 03/27/17 16:15 Blood Culture (Wb) - Anticubital Right Bacteria Detection (PCR) - Preliminary Staphylococcus epidermidis 03/27/17 16:15 Blood Culture (Wb) - Anticubital Right Blood Culture - Preliminary 03/28/17 07:10 Urine, Clean Catch Legionella Antigen - Final 03/28/17 07:10 Urine, Clean Catch Streptococcus pneumoniae Antigen (M - Final Laboratory Results 03/29/17 06:06: WBC 6.8, RBC 3.20 L, Hgb 9.4 L, Hct 30.5 L, MCV 95.3, MCH 29.4, MCHC 30.8 L, RDW 15.5 H, RDW Differential 51.8 H, Plt Count 151, MPV 14.4 H 03/29/17 06:06: Sodium 142, Potassium 3.6, Chloride 111 H, Carbon Dioxide 20.0 L, Anion Gap 11, BUN 16, Creatinine 0.78, Estim Creat Clear Calc 68.19, Est GFR (MDRD) Af Amer 95, Est GFR (MDRD) Non-Af 79, BUN/Creatinine Ratio 20.4 H, Glucose 96, Calcium 7.2 L Current Medications Acetaminophen (Tylenol) 650 mg PO Q4H PRN PRN PRN Reason: FEVER Albuterol Sulfate (Ventolin Aerosols) 2.5 mg INHALATION Q2H PRN PRN PRN Reason: SHORTNESS OF BREATH Albuterol/Ipratropium (Duoneb) 3 ml INHALATION Q4H.RT [facility] Last Admin: 03/29/17 06:23 Dose: 3 ml Citalopram Hydrobromide (Celexa) 40 mg PO DAILY [facility] Last Admin: 03/28/17 09:08 Dose: 40 mg Heparin Sodium (Porcine) (Heparin Na) 5,000 unit SC Q8 [facility] Last Admin: 03/29/17 05:11 Dose: 5,000 u Sodium Chloride () 1,000 mls @ 125 mls/hr IV .Q8H [facility] Last Admin: 03/29/17 08:10 Dose: 125 mls/hr Lorazepam (Ativan) 0.5 mg PO Q8H PRN PRN PRN Reason: ANXIETY Last Admin: 03/27/17 21:37 Dose: 0.5 mg Morphine Sulfate (Morphine) 2 - 4 mg IV Q3H PRN PRN PRN Reason: Severe Pain (pain scale 6-10) Last Admin: 03/28/17 07:15 Dose: 2 mg Morphine Sulfate (Morphine) 2 - 4 mg IV Q3H PRN PRN PRN Reason: Severe Pain (pain scale 6-10) Nutritional Formula (Lactose Free) (Ensure Clear) 120 ml PO 4X/DAY [facility] Last Admin: 03/28/17 21:53 Dose: 120 ml Ondansetron HCl (Zofran) 4 mg IV Q8H PRN PRN PRN Reason: NAUSEA Last Admin: 03/28/17 16:44 Dose: 4 mg Oxycodone HCl (Oxyir) 5 mg PO Q4H PRN PRN PRN Reason: SEVERE PAIN (6-10/10) Last Admin: 03/29/17 05:11 Dose: 5 mg Pantoprazole Sodium (Protonix) 40 mg PO DAILY [facility] Last Admin: 03/28/17 09:08 Dose: 40 mg Sodium Chloride () 5 - 30 ml IV UD PRN PRN Reason: SALINE FLUSH Assessment/Plan Active and Suspected Problems CAP (community acquired pneumonia) (Acute) Seen patient and examined independently of nurse practitioner. History physical findings and assessment as above Patient was noted to be dizzy this morning at the time of exam. Vitals reviewed; will check orthostatic vitals. Patient physically examined, tender on the right side of the chest, labs reviewed, imaging reviewed, doubt pneumonia, believe is all due to atelectasis, will control pain, encourage use of incentive spirometer, continue to monito
[2017-03-29] MEDS: Citalopram 40 MG TABLET PO (09:46)
[2017-03-29] MEDS: Ondansetron 4 MG/2 ML Vial IV (09:46)
[2017-03-29] MEDS: LORazepam 0.5 MG Tablet PO (09:46)
[2017-03-29] MEDS: Pantoprazole Sodium 40 MG Tablet PO (09:46)
[2017-03-29] MEDS: 0.9% NaCl Peripheral Flush Adult/Peds IV (09:46)
--- NOTE | 2017-03-29 10:30 | PCM.PROGNOTE ---
<Kait Rodriguez - Last Filed: 03/29/17 10:51> Patient Problems: Active and Suspected Problems CAP (community acquired pneumonia) (Acute) Subjective: Patient seen and examined. Complains of generalized weakness, nausea, right rib pain. She states she had a bad night. Nursing reports patient had urinary retention in which she was straight cathed. It reportedly took for nurses to straight cath the patient due to difficult insertion. Lerma catheter was placed this morning. Patient states she feels she may need to go to care home facility prior to discharge home. She lives alone and has had a recent fall at home resulting in right rib fractures. - Physical Exam General: Alert, Oriented x3, Cooperative, No apparent distress HEENT: Atraumatic, PERRLA, EOMI, Normocephalic Neck: Supple, No JVD, Negative Carotid Bruits Lungs: Clear to auscultation, Diminished Cardiovascular: Regular Rhythm, Normal S1, Normal S2, Murmur, Tachycardic Abdomen: Bowel Sounds Present, Soft, Non Tender, Non-Distended Extremities: No clubbing, No cyanosis, No edema, Capillary Refill Less than 3 Seconds Skin: No rashes, No breakdown Musculoskeletal: No Tenderness to Palpation of Joints or Extremities Neurological: Cranial nerves II-XII grossly intact, Neuro grossly intact Psych/Mental Status: Normal Affect, Appropriate Vital Signs Temp Pulse Resp BP Pulse Ox 97.7 F L 99 18 124/69 H 93 03/29/17 09:50 03/29/17 09:50 03/29/17 09:50 03/29/17 09:50 03/29/17 09:50 Oxygen Flow Rate 2 Oxygen Delivery Method Nasal Cannula Weight: 58.513 kg Body Mass Index (BMI) 27.9 Orthostatic Vital Signs Start: 03/28/17 11:40 Freq: PRN Status: Active Protocol: Activity Type Activity Date Activity User E-Sign Co-Sign Detail Recorded Client Recorded Date Recorded By Document 03/28/17 11:40 MAB [id number] 03/28/17 11:42 MAB 03/28/17 11:40 Orthostatic Vitals Standing -Blood Pressure (90/60-120/80) 114/66 -Extremity Use Left Arm -Pulse Rate (60-100) 128 H Sitting -Blood Pressure (90/60-120/80) 102/52 L -Extremity Use Left Arm -Pulse Rate (60-100) 123 H Lying -Blood Pressure (90/60-120/80) 95/47 L -Extremity Use Left Arm -Pulse Rate (60-100) 126 H Intake and Output for Last 24 Hours 03/27/17 03/28/17 03/29/17 23:59 23:59 23:59 Intake Total 4024 / 4024 2285 / 2285 Output Total 300 / 300 125 / 125 Balance 3724 / 3724 2160 / 2160 Microbiology Past 72 Hours 03/27/17 16:15 Bacteria Detection (PCR) - Preliminary Blood Culture (Wb) - Anticubital Right Staphylococcus epidermidis Blood Culture - Preliminary 03/28/17 07:10 Legionella Antigen - Final Urine, Clean Catch 03/28/17 07:10 Streptococcus pneumoniae Antigen (M - Final Urine, Clean Catch Laboratory Tests Past 24 Hrs 03/29/17 03/29/17 06:06 06:06 WBC 6.8 RBC 3.20 L Hgb 9.4 L Hct 30.5 L MCV 95.3 MCH 29.4 MCHC 30.8 L RDW 15.5 H RDW Differential 51.8 H Plt Count 151 MPV 14.4 H Sodium 142 Potassium 3.6 Chloride 111 H Carbon Dioxide 20.0 L Anion Gap 11 BUN 16 Creatinine 0.78 Estim Creat Clear Calc 68.19 Est GFR (MDRD) Af Amer 95 Est GFR (MDRD) Non-Af 79 BUN/Creatinine Ratio 20.4 H Glucose 96 Calcium 7.2 L Assessment/Plan Active and Suspected Problems CAP (community acquired pneumonia) (Acute) Patient is a 61-year-old female admitted 03/27/2017 due to weakness, nausea/vomiting, right rib pain. 1. Acute right lower lobe community-acquired pneumonia-ruled out. Chest x-ray in ER shows increased markings in the right infrahilar region. CTA showed bibasilar atelectasis slightly worse on the right side. No leukocytosis. Patient is afebrile. Blood cultures were drawn in the emergency room, pending. Mild hypoxia on admission. DuoNeb and albuterol aerosols. Oxygen now stable on room air. Continue oxygen supplementation to maintain O2 at or above 90%, wean as tolerated. Suspect atelectasis is secondary to pain from rib fractures, causing respiratory splinting. Antibiotics discontinued. Continue to manage pain. Ambulate frequently, as tolerated. IS/PEP therapy. Urine negative for strep and Legionella. PT/OT. Possible discharge to TCU or SNF. 2. Recent right rib fractures/clavicle fracture secondary to mechanical fall-IV morphine for pain. Patient can follow-up with ortho at discharge as previously scheduled. PT/OT. 3. Acute hypoxia-secondary to #2. Continue oxygen supplementation to maintain O2 at or above 90%. 4. Nausea/vomiting-associated mild dehydration. Suspect mild gastroenteritis. Zofran as needed for nausea. IV fluids. Patient denies diarrhea. Continue clear liquid diet. Can advance as tolerated. 5. Urinary retention-nursing reports patient had difficulty urinating overnight and had to be straight cathed, nursing had a difficult time completing straight cath. Lerma catheter placed this morning. Continue to monitor. Urinalysis and ER unremarkable. 6. GERD-continue home Nexium regimen. 7. Depression-continue Celexa. 8. Chronic normochromic normocytic anemia-at baseline, monitor CBC. 9. Cardiac murmur-echocardiogram 03/26/2012 shows an estimated ejection fraction of 55%, mild mitral valve prolapse, mild mitral valve insufficiency, pulmonary artery systolic pressure 44. Discharge planning: Patient discussed possibly going to TCU or other facility temporarily due to generalized weakness. She lives home alone with recent fall at home. Discussed with social work. DVT prophylaxis-heparin subcu. This patient was seen by LAMONT Grijalva under the supervision of Dr. Mckeon. <Maryanne Mckeon - Last Filed: 03/29/17 23:41> - Physical Exam Vital Signs Temp Pulse Resp BP Pulse Ox 98.5 F 93 18 122/81 H 99 03/29/17 20:55 03/29/17 20:55 03/29/17 20:55 03/29/17 20:55 03/29/17 20:55 Oxygen Flow Rate 2 Oxygen Delivery Method Nasal Cannula Weight: 58.513 kg Body Mass Index (BMI) 27.9 Intake and Output for Last 24 Hours 03/27/17 03/28/17 03/29/17 23:59 23:59 23:59 Intake Total 4024 / 4024 3485 / 3485 Output Total 300 / 300 400 / 400 Balance 3724 / 3724 3085 / 3085 Microbiology Past 72 Hours 03/27/17 16:15 Bacteria Detection (PCR) - Preliminary Blood Culture (Wb) - Anticubital Right Staphylococcus epidermidis Blood Culture - Preliminary 03/28/17 07:10 Legionella Antigen - Final Urine, Clean Catch 03/28/17 07:10 Streptococcus pneumoniae Antigen (M - Final Urine, Clean Catch Laboratory Tests Past 24 Hrs 03/29/17 03/29/17 06:06 06:06 WBC 6.8 RBC 3.20 L Hgb 9.4 L Hct 30.5 L MCV 95.3 MCH 29.4 MCHC 30.8 L RDW 15.5 H RDW Differential 51.8 H Plt Count 151 MPV 14.4 H Sodium 142 Potassium 3.6 Chloride 111 H Carbon Dioxide 20.0 L Anion Gap 11 BUN 16 Creatinine 0.78 Estim Creat Clear Calc 68.19 Est GFR (MDRD) Af Amer 95 Est GFR (MDRD) Non-Af 79 BUN/Creatinine Ratio 20.4 H Glucose 96 Calcium 7.2 L Assessment/Plan Patient was seen and examined independently of nurse practitioner. Hx and exam as above as well as assessment. Noted reports of low urine output with boluses of fluid given overnight, patient straight cath. Patient on IVF, unclear of urine incontinence. Will keep pt on lerma catheter for strict I & Os. Will continue with pain control. Blood culture growing staph epidemidis is likely a skin contaminant. Code Visit Inpatient E&M: 51556 Subs Hosp L2
--- NOTE | 2017-03-29 10:48 | PN_ITS ---
<Kait Rodriguez - Last Filed: 03/29/17 10:51> Patient Problems: Active and Suspected Problems CAP (community acquired pneumonia) (Acute) Subjective: Patient seen and examined. Complains of generalized weakness, nausea, right rib pain. She states she had a bad night. Nursing reports patient had urinary retention in which she was straight cathed. It reportedly took for nurses to straight cath the patient due to difficult insertion. Lerma catheter was placed this morning. Patient states she feels she may need to go to senior living facility prior to discharge home. She lives alone and has had a recent fall at home resulting in right rib fractures. - Physical Exam General: Alert, Oriented x3, Cooperative, No apparent distress HEENT: Atraumatic, PERRLA, EOMI, Normocephalic Neck: Supple, No JVD, Negative Carotid Bruits Lungs: Clear to auscultation, Diminished Cardiovascular: Regular Rhythm, Normal S1, Normal S2, Murmur, Tachycardic Abdomen: Bowel Sounds Present, Soft, Non Tender, Non-Distended Extremities: No clubbing, No cyanosis, No edema, Capillary Refill Less than 3 Seconds Skin: No rashes, No breakdown Musculoskeletal: No Tenderness to Palpation of Joints or Extremities Neurological: Cranial nerves II-XII grossly intact, Neuro grossly intact Psych/Mental Status: Normal Affect, Appropriate Vital Signs Temp Pulse Resp BP Pulse Ox 97.7 F L 99 18 124/69 H 93 03/29/17 09:50 03/29/17 09:50 03/29/17 09:50 03/29/17 09:50 03/29/17 09:50 Oxygen Flow Rate 2 Oxygen Delivery Method Nasal Cannula Weight: 58.513 kg Body Mass Index (BMI) 27.9 Orthostatic Vital Signs Start: 03/28/17 11:40 Freq: PRN Status: Active Protocol: Activity Type Activity Date Activity User E-Sign Co-Sign Detail Recorded Client Recorded Date Recorded By Document 03/28/17 11:40 MAB [id number] 03/28/17 11:42 MAB 03/28/17 11:40 Orthostatic Vitals Standing -Blood Pressure (90/60-120/80) 114/66 -Extremity Use Left Arm -Pulse Rate (60-100) 128 H Sitting -Blood Pressure (90/60-120/80) 102/52 L -Extremity Use Left Arm -Pulse Rate (60-100) 123 H Lying -Blood Pressure (90/60-120/80) 95/47 L -Extremity Use Left Arm -Pulse Rate (60-100) 126 H Intake and Output for Last 24 Hours 03/27/17 03/28/17 03/29/17 23:59 23:59 23:59 Intake Total 4024 / 4024 2285 / 2285 Output Total 300 / 300 125 / 125 Balance 3724 / 3724 2160 / 2160 Microbiology Past 72 Hours 03/27/17 16:15 Bacteria Detection (PCR) - Preliminary Blood Culture (Wb) - Anticubital Right Staphylococcus epidermidis Blood Culture - Preliminary 03/28/17 07:10 Legionella Antigen - Final Urine, Clean Catch 03/28/17 07:10 Streptococcus pneumoniae Antigen (M - Final Urine, Clean Catch Laboratory Tests Past 24 Hrs 03/29/17 03/29/17 06:06 06:06 WBC 6.8 RBC 3.20 L Hgb 9.4 L Hct 30.5 L MCV 95.3 MCH 29.4 MCHC 30.8 L RDW 15.5 H RDW Differential 51.8 H Plt Count 151 MPV 14.4 H Sodium 142 Potassium 3.6 Chloride 111 H Carbon Dioxide 20.0 L Anion Gap 11 BUN 16 Creatinine 0.78 Estim Creat Clear Calc 68.19 Est GFR (MDRD) Af Amer 95 Est GFR (MDRD) Non-Af 79 BUN/Creatinine Ratio 20.4 H Glucose 96 Calcium 7.2 L Assessment/Plan Active and Suspected Problems CAP (community acquired pneumonia) (Acute) Patient is a 61-year-old female admitted 03/27/2017 due to weakness, nausea/ vomiting, right rib pain. 1. Acute right lower lobe community-acquired pneumonia-ruled out. Chest x-ray in ER shows increased markings in the right infrahilar region. CTA showed bibasilar atelectasis slightly worse on the right side. No leukocytosis. Patient is afebrile. Blood cultures were drawn in the emergency room, pending. Mild hypoxia on admission. DuoNeb and albuterol aerosols. Oxygen now stable on room air. Continue oxygen supplementation to maintain O2 at or above 90%, wean as tolerated. Suspect atelectasis is secondary to pain from rib fractures , causing respiratory splinting. Antibiotics discontinued. Continue to manage pain. Ambulate frequently, as tolerated. IS/PEP therapy. Urine negative for strep and Legionella. PT/OT. Possible discharge to TCU or SNF. 2. Recent right rib fractures/clavicle fracture secondary to mechanical fall- IV morphine for pain. Patient can follow-up with ortho at discharge as previously scheduled. PT/OT. 3. Acute hypoxia-secondary to #2. Continue oxygen supplementation to maintain O2 at or above 90%. 4. Nausea/vomiting-associated mild dehydration. Suspect mild gastroenteritis. Zofran as needed for nausea. IV fluids. Patient denies diarrhea. Continue clear liquid diet. Can advance as tolerated. 5. Urinary retention-nursing reports patient had difficulty urinating overnight and had to be straight cathed, nursing had a difficult time completing straight cath. Lerma catheter placed this morning. Continue to monitor. Urinalysis and ER unremarkable. 6. GERD-continue home Nexium regimen. 7. Depression-continue Celexa. 8. Chronic normochromic normocytic anemia-at baseline, monitor CBC. 9. Cardiac murmur-echocardiogram 03/26/2012 shows an estimated ejection fraction of 55%, mild mitral valve prolapse, mild mitral valve insufficiency, pulmonary artery systolic pressure 44. Discharge planning: Patient discussed possibly going to TCU or other facility temporarily due to generalized weakness. She lives home alone with recent fall at home. Discussed with social work. DVT prophylaxis-heparin subcu. This patient was seen by LAMONT Grijalva under the supervision of Dr. Mckeon. <Maryanne Mckeon - Last Filed: 03/29/17 23:41> - Physical Exam Vital Signs Temp Pulse Resp BP Pulse Ox 98.5 F 93 18 122/81 H 99 03/29/17 20:55 03/29/17 20:55 03/29/17 20:55 03/29/17 20:55 03/29/17 20:55 Oxygen Flow Rate 2 Oxygen Delivery Method Nasal Cannula Weight: 58.513 kg Body Mass Index (BMI) 27.9 Intake and Output for Last 24 Hours 03/27/17 03/28/17 03/29/17 23:59 23:59 23:59 Intake Total 4024 / 4024 3485 / 3485 Output Total 300 / 300 400 / 400 Balance 3724 / 3724 3085 / 3085 Microbiology Past 72 Hours 03/27/17 16:15 Bacteria Detection (PCR) - Preliminary Blood Culture (Wb) - Anticubital Right Staphylococcus epidermidis Blood Culture - Preliminary 03/28/17 07:10 Legionella Antigen - Final Urine, Clean Catch 03/28/17 07:10 Streptococcus pneumoniae Antigen (M - Final Urine, Clean Catch Laboratory Tests Past 24 Hrs 03/29/17 03/29/17 06:06 06:06 WBC 6.8 RBC 3.20 L Hgb 9.4 L Hct 30.5 L MCV 95.3 MCH 29.4 MCHC 30.8 L RDW 15.5 H RDW Differential 51.8 H Plt Count 151 MPV 14.4 H Sodium 142 Potassium 3.6 Chloride 111 H Carbon Dioxide 20.0 L Anion Gap 11 BUN 16 Creatinine 0.78 Estim Creat Clear Calc 68.19 Est GFR (MDRD) Af Amer 95 Est GFR (MDRD) Non-Af 79 BUN/Creatinine Ratio 20.4 H Glucose 96 Calcium 7.2 L Assessment/Plan Patient was seen and examined independently of nurse practitioner. Hx and exam as above as well as assessment. Noted reports of low urine output with boluses of fluid given overnight, patient straight cath. Patient on IVF, unclear of urine incontinence. Will keep pt on lerma catheter for strict I & Os. Will continue with pain control. Blood culture growing staph epidemidis is likely a skin contaminant. Code Visit Inpatient E&M: 50696 Subs Hosp L2
--- NOTE | 2017-03-29 10:58 | CASEMGMT ---
Addendum entered by Tati Macias 03/29/17 12:18: SW spoke w/Yam[facility] in TCU, they can take pt and she will start precert. SW let pt know, she is agreeable. SW will continue to follow. LOCO Abbasi, SERVICE OFFICER Original Note: SW spoke w/pt in room in regard to discharge plan. Pt normally lives home alone, independent with all ADL's, uses no DME. Pt states her grandson comes over to help her once in a while but otherwise has no assist at home. Pt states feels she cannot care for herself at present, would not be able to return home. Pt agreeable to referral to TCU, she has not been there before. SW explained will find out about bed availability and let her know. SW called Yam[facility] in TCU, message left. SW awaiting a call back. LOCO Abbasi, SERVICE OFFICER
--- NOTE | 2017-03-29 15:53 | CHAPLAIN ---
Type of Pastoral Visit _x__ Initial Visit ___ Follow-up Visit ___ On-call Visit ___ General Patient Visit ___ Spiritual Assessment ___ Family Conference ___ Bereavement ___ Rapid Response ___ Code Blue ___ Other (describe below) Pastoral Care Referral From _x__ Patient ___ Family ___ Nurse ___ Physician ___ Instrument Technologist ___ Online Marketer ___ Other (describe below) Sacrament/Intervention _x__ Active listening ___ Anointing ___ Taoist ___ Bereavement ___ Communion ___ Jerica exploration ___ ___ Life review _x__ Prayer ___ Reconciliation ___ Sacrament of Sick ___ Supportive presence ___ Wedding ___ Other (describe below) Pastoral Comments patient says that she has had a hard life but that she was able to take care of herself up until now; pt says I'm feeling depressed because I'm not like I was before and I'm doing dumb things and forgetting; pt says her support is her one son and three grandchildren
[2017-03-30] VITALS (12 sets, daily range): BP systolic 100–126; BP diastolic 49–70; PULSE 86–100; RESP 18–20; TEMP 36.7–37; O2SAT 85–100
[2017-03-30] MEDS: 0.9% NaCl Peripheral Flush Adult/Peds IV (03:23)
[2017-03-30] MEDS: Ondansetron 4 MG/2 ML Vial IV (03:23)
[2017-03-30] MEDS: 0.9% Normal Saline 1,000 ML 125 ML IV ×3 (05:15→22:12)
[2017-03-30] MEDS: oxyCODONE 5 MG Tablet PO (05:34)
[2017-03-30] MEDS: Ipratropium/Albuterol Sulfate 3 ML AMPUL.NEB INHALATION ×3 (06:55→20:04)
[2017-03-30 07:30] LABS: Hematocrit 29.3 % (37-47); Hemoglobin 9.1 g/dl (12.0-15.0); Mean Corp Hgb Conc 31.1 g/gl (32-36); Mean Corpuscular Hgb 29.5 pg (27.0-32.0); Mean Corpuscular Volume 95.1 fL (81-99); Mean Platelet Vol. 13.7 fl (6.2-12.0); Platelet Count 148 K/mm3 (150-450); RBC Distribution Width CV 15.4 % (11.6-14.6); RBC Distribution Width SD 50.3 fl (35.1-43.9); Red Blood Count 3.08 M/mm3 (4.2-5.4); White Blood Count 5.3 K/mm3 (4.4-11.0)
[2017-03-30 07:38] LABS: Anion Gap 10 (5-15); BUN 14 mg/dL (7-18); BUN/Creat Ratio 20.1 RATIO (10-20); Calcium,Total 7.4 mg/dL (8.5-10.1); Chloride 113 mmol/L (98-107); EST Glomerular Filtration Rate 90 mL/min (>60); Est Glom Filt Rate - Afr Amer 109 mL/min (>60); Estimated Creatinine Clearance 75.99 ml/min; Glucose 86 mg/dL (70-110); Potassium 3.4 mmol/L (3.5-5.1); Sodium Level 144 mmol/L (136-145)
[2017-03-30 07:54] LABS: Scan Indicated on CBC? Y/N NO
[2017-03-30] MEDS: Pantoprazole Sodium 40 MG Tablet PO (09:44)
[2017-03-30] MEDS: Citalopram 40 MG TABLET PO (09:44)
--- NOTE | 2017-03-30 12:23 | CASEMGMT ---
Addendum entered by Tati Macias 03/30/17 16:26: SW spoke w/[facility], if pt decides to return home, they would be able to take pt for home health. SW will follow up tomorrow. LOCO Abbasi, DROP WIRE ALINER Original Note: Addendum entered by Tati Macias 03/30/17 16:07: SW spoke w/therapy after they worked w/pt this afternoon, they are still recommending short term placement. They explained spoke w/pt about it and explained to her that they do not feel she is safe to go home. SW met again w/pt this afternoon. Pt is somewhat agreeable to go for a short time, but still plans to speak w/her grandson tonjustice about staying w/her. SW inquired if her grandson would help her get dressed, as she is having a difficult time with this. She states will speak w/him. She states she does not want to go to a chcf. SW explained that this would be for short term, in TCU here in the hospital, not at a chcf in the community, with the idea of getting her stronger and then going home. SW asked if we can continue to see if insurance would authorize. Pt is okay with continuing the process for TCU, and may be agreeable to go to TCU short term. SW will follow up tomorrow. LOCO Abbasi, DROP WIRE ALINER Original Note: Pt told physician she can go home, does not need to go to TCU now. SW looked at OT, pt declined to participate today. SW met w/pt in room. Pt states she is feeling like she can go home, does not think she needs to go anywhere. SW inquired how it went with therapy today, she states she got up with the help of one person. SW confirmed pt lives alone, she states she has her walker and can use that to get ups. She also states her grandson who is 21 can stay w/her and help her, she states he already stays w/her about 4 nights per week. SW inquired if he is working, she states no, he stays home and helps his brother. SW inquired if her grandson stays w/her, who will help the other grandson. She states he will be fine on his own. SW looked up PT notes for today, pt also declined to participate w/PT. SW explained that she should participate in therapy so we can get a true sense of whether or not pt can go home. SW called therapy, they will come back this afternoon to see pt again. SW explained that therapy will be back later today, and encouraged her to participate. SW also asked her to call her grandson to see if he can truly stay w/her. If he is able, she may be able to return home safely. SW expressed concern about pt returning home and not truly being able to manage if by herself. Pt states understanding. SW will await for pt to see PT later today. LOCO Abbasi, DROP WIRE ALINER
--- NOTE | 2017-03-30 13:51 | PCM.PN.HOSP ---
Patient Problems: Active and Suspected Problems CAP (community acquired pneumonia) (Acute) Subjective: Patient was seen and examined. Complains still of feeling weak and having pain in the right side. Also has a wet cough, remains on 2 L of oxygen. Urine output still remains fair. Labs reviewed, Cr/BUN is normal. Waiting on insurance precertification to TCU Objective: Physical Exam General: Alert, Oriented x3, Cooperative, No apparent distress HEENT: Atraumatic, PERRLA, EOMI, Normocephalic Neck: Supple, No JVD, Negative Carotid Bruits Lungs: Clear to auscultation, diminished, tender over right side of chest Cardiovascular: Regular Rhythm, Normal S1, Normal S2, Murmur, Tachycardic Abdomen: Bowel Sounds Present, Soft, Non Tender, Non-Distended Extremities: Trace bilateral edema Skin: No rashes, No breakdown Musculoskeletal: No Tenderness to Palpation of Joints or Extremities Neurological: Cranial nerves II-XII grossly intact, Neuro grossly intact Psych/Mental Status: Normal Affect, Appropriate Vitals/I&O's: Vital Signs Temp Pulse Resp BP Pulse Ox 98.3 F 86 20 H 111/55 L 85 03/30/17 09:04 03/30/17 10:37 03/30/17 10:37 03/30/17 09:04 03/30/17 09:45 Oxygen Flow Rate 2 Oxygen Delivery Method Room Air Weight: 58.513 kg Body Mass Index (BMI) 27.9 Intake and Output for Last 24 Hours 03/28/17 03/29/17 03/30/17 23:59 23:59 23:59 Intake Total 4024 / 4024 3485 / 3485 1070 / 1070 Output Total 300 / 300 400 / 400 200 / 200 Balance 3724 / 3724 3085 / 3085 870 / 870 Microbiology Past 72 Hours 03/27/17 16:15 Blood Culture (Wb) - Anticubital Right Bacteria Detection (PCR) - Preliminary Staphylococcus epidermidis 03/27/17 16:15 Blood Culture (Wb) - Anticubital Right Blood Culture - Preliminary 03/28/17 07:10 Urine, Clean Catch Legionella Antigen - Final 03/28/17 07:10 Urine, Clean Catch Streptococcus pneumoniae Antigen (M - Final Laboratory Results 03/30/17 06:38: WBC 5.3, RBC 3.08 L, Hgb 9.1 L, Hct 29.3 L, MCV 95.1, MCH 29.5, MCHC 31.1 L, RDW 15.4 H, RDW Differential 50.3 H, Plt Count 148 L, MPV 13.7 H 03/30/17 06:38: Sodium 144, Potassium 3.4 L, Chloride 113 H, Carbon Dioxide 21.0, Anion Gap 10, BUN 14, Creatinine 0.70, Estim Creat Clear Calc 75.99, Est GFR (MDRD) Af Amer 109, Est GFR (MDRD) Non-Af 90, BUN/Creatinine Ratio 20.1 H, Glucose 86, Calcium 7.4 L Current Medications Acetaminophen (Tylenol) 650 mg PO Q4H PRN PRN PRN Reason: FEVER Albuterol Sulfate (Ventolin Aerosols) 2.5 mg INHALATION Q2H PRN PRN PRN Reason: SHORTNESS OF BREATH Albuterol/Ipratropium (Duoneb) 3 ml INHALATION Q4HWA.RT [facility] Citalopram Hydrobromide (Celexa) 40 mg PO DAILY [facility] Last Admin: 03/30/17 09:44 Dose: 40 mg Heparin Sodium (Porcine) (Heparin Na) 5,000 unit SC Q8 [facility] Last Admin: 03/30/17 05:35 Dose: 5,000 u Sodium Chloride () 1,000 mls @ 125 mls/hr IV .Q8H [facility] Last Admin: 03/30/17 12:34 Dose: 125 mls/hr Lorazepam (Ativan) 0.5 mg PO Q8H PRN PRN PRN Reason: ANXIETY Last Admin: 03/29/17 09:46 Dose: 0.5 mg Morphine Sulfate (Morphine) 2 - 4 mg IV Q3H PRN PRN PRN Reason: Severe Pain (pain scale 6-10) Last Admin: 03/28/17 07:15 Dose: 2 mg Morphine Sulfate (Morphine) 2 - 4 mg IV Q3H PRN PRN PRN Reason: Severe Pain (pain scale 6-10) Nutritional Formula (Lactose Free) (Ensure Clear) 120 ml PO 4X/DAY [facility] Last Admin: 03/30/17 09:43 Dose: 120 ml Ondansetron HCl (Zofran) 4 mg IV Q8H PRN PRN PRN Reason: NAUSEA Last Admin: 03/30/17 03:23 Dose: 4 mg Oxycodone HCl (Oxyir) 5 mg PO Q4H PRN PRN PRN Reason: SEVERE PAIN (6-10/10) Last Admin: 03/30/17 05:34 Dose: 5 mg Pantoprazole Sodium (Protonix) 40 mg PO DAILY [facility] Last Admin: 03/30/17 09:44 Dose: 40 mg Sodium Chloride () 5 - 30 ml IV UD PRN PRN Reason: SALINE FLUSH Last Admin: 03/30/17 03:23 Dose: 10 ml Assessment/Plan Active and Suspected Problems CAP (community acquired pneumonia) (Acute) Patient is a 61-year-old female admitted on 03/27/2017 due to weakness, nausea/vomiting, right rib pain. 1. Acute right sided chest pain secondary to rib fractures, acute lower lobe community-acquired pneumonia-ruled out. Pain is fairly controlled, using incentive spirometer 2. Recent right rib fractures/clavicle fracture secondary to mechanical fall, pain is controlled, on oxyir, IV morphine. 3. Acute hypoxia secondary to atelectasis, continues to be on incentive spirometer, wean off oxygen for SPo2>94% 4. Acute urinary retention, with low urine output, s/p lerma catheter, will continue to monitor urine output. 5. GERD-on Nexium 6. Depression, on Celexa. 7. Chronic normochromic normocytic anemia 8. Discharge planning: Discharge to TCU when bed is ready 9. DVT prophylaxis-heparin subcu.
--- NOTE | 2017-03-30 14:15 | PN_ITS ---
Patient Problems: Active and Suspected Problems CAP (community acquired pneumonia) (Acute) Subjective: Patient was seen and examined. Complains still of feeling weak and having pain in the right side. Also has a wet cough, remains on 2 L of oxygen. Urine output still remains fair. Labs reviewed, Cr/BUN is normal. Waiting on insurance precertification to TCU Objective: Physical Exam General: Alert, Oriented x3, Cooperative, No apparent distress HEENT: Atraumatic, PERRLA, EOMI, Normocephalic Neck: Supple, No JVD, Negative Carotid Bruits Lungs: Clear to auscultation, diminished, tender over right side of chest Cardiovascular: Regular Rhythm, Normal S1, Normal S2, Murmur, Tachycardic Abdomen: Bowel Sounds Present, Soft, Non Tender, Non-Distended Extremities: Trace bilateral edema Skin: No rashes, No breakdown Musculoskeletal: No Tenderness to Palpation of Joints or Extremities Neurological: Cranial nerves II-XII grossly intact, Neuro grossly intact Psych/Mental Status: Normal Affect, Appropriate Vitals/I&O's: Vital Signs Temp Pulse Resp BP Pulse Ox 98.3 F 86 20 H 111/55 L 85 03/30/17 09:04 03/30/17 10:37 03/30/17 10:37 03/30/17 09:04 03/30/17 09:45 Oxygen Flow Rate 2 Oxygen Delivery Method Room Air Weight: 58.513 kg Body Mass Index (BMI) 27.9 Intake and Output for Last 24 Hours 03/28/17 03/29/17 03/30/17 23:59 23:59 23:59 Intake Total 4024 / 4024 3485 / 3485 1070 / 1070 Output Total 300 / 300 400 / 400 200 / 200 Balance 3724 / 3724 3085 / 3085 870 / 870 Microbiology Past 72 Hours 03/27/17 16:15 Blood Culture (Wb) - Anticubital Right Bacteria Detection ( PCR) - Preliminary Staphylococcus epidermidis 03/27/17 16:15 Blood Culture (Wb) - Anticubital Right Blood Culture - Preliminary 03/28/17 07:10 Urine, Clean Catch Legionella Antigen - Final 03/28/17 07:10 Urine, Clean Catch Streptococcus pneumoniae Antigen (M - Final Laboratory Results 03/30/17 06:38: WBC 5.3, RBC 3.08 L, Hgb 9.1 L, Hct 29.3 L, MCV 95.1, MCH 29.5, MCHC 31.1 L, RDW 15.4 H, RDW Differential 50.3 H, Plt Count 148 L, MPV 13.7 H 03/30/17 06:38: Sodium 144, Potassium 3.4 L, Chloride 113 H, Carbon Dioxide 21.0 , Anion Gap 10, BUN 14, Creatinine 0.70, Estim Creat Clear Calc 75.99, Est GFR ( MDRD) Af Amer 109, Est GFR (MDRD) Non-Af 90, BUN/Creatinine Ratio 20.1 H, Glucose 86, Calcium 7.4 L Current Medications Acetaminophen (Tylenol) 650 mg PO Q4H PRN PRN PRN Reason: FEVER Albuterol Sulfate (Ventolin Aerosols) 2.5 mg INHALATION Q2H PRN PRN PRN Reason: SHORTNESS OF BREATH Albuterol/Ipratropium (Duoneb) 3 ml INHALATION Q4HWA.RT [facility] Citalopram Hydrobromide (Celexa) 40 mg PO DAILY [facility] Last Admin: 03/30/17 09:44 Dose: 40 mg Heparin Sodium (Porcine) (Heparin Na) 5,000 unit SC Q8 [facility] Last Admin: 03/30/17 05:35 Dose: 5,000 u Sodium Chloride () 1,000 mls @ 125 mls/hr IV .Q8H [facility] Last Admin: 03/30/17 12:34 Dose: 125 mls/hr Lorazepam (Ativan) 0.5 mg PO Q8H PRN PRN PRN Reason: ANXIETY Last Admin: 03/29/17 09:46 Dose: 0.5 mg Morphine Sulfate (Morphine) 2 - 4 mg IV Q3H PRN PRN PRN Reason: Severe Pain (pain scale 6-10) Last Admin: 03/28/17 07:15 Dose: 2 mg Morphine Sulfate (Morphine) 2 - 4 mg IV Q3H PRN PRN PRN Reason: Severe Pain (pain scale 6-10) Nutritional Formula (Lactose Free) (Ensure Clear) 120 ml PO 4X/DAY [facility] Last Admin: 03/30/17 09:43 Dose: 120 ml Ondansetron HCl (Zofran) 4 mg IV Q8H PRN PRN PRN Reason: NAUSEA Last Admin: 03/30/17 03:23 Dose: 4 mg Oxycodone HCl (Oxyir) 5 mg PO Q4H PRN PRN PRN Reason: SEVERE PAIN (6-10/10) Last Admin: 03/30/17 05:34 Dose: 5 mg Pantoprazole Sodium (Protonix) 40 mg PO DAILY [facility] Last Admin: 03/30/17 09:44 Dose: 40 mg Sodium Chloride () 5 - 30 ml IV UD PRN PRN Reason: SALINE FLUSH Last Admin: 03/30/17 03:23 Dose: 10 ml Assessment/Plan Active and Suspected Problems CAP (community acquired pneumonia) (Acute) Patient is a 61-year-old female admitted on 03/27/2017 due to weakness, nausea/ vomiting, right rib pain. 1. Acute right sided chest pain secondary to rib fractures, acute lower lobe community-acquired pneumonia-ruled out. Pain is fairly controlled, using incentive spirometer 2. Recent right rib fractures/clavicle fracture secondary to mechanical fall, pain is controlled, on oxyir, IV morphine. 3. Acute hypoxia secondary to atelectasis, continues to be on incentive spirometer, wean off oxygen for SPo2>94% 4. Acute urinary retention, with low urine output, s/p lerma catheter, will continue to monitor urine output. 5. GERD-on Nexium 6. Depression, on Celexa. 7. Chronic normochromic normocytic anemia 8. Discharge planning: Discharge to TCU when bed is ready 9. DVT prophylaxis-heparin subcu.
[2017-03-31] VITALS (7 sets, daily range): BP systolic 116–122; BP diastolic 65–97; PULSE 91–103; RESP 18–19; TEMP 36.6; O2SAT 94–99
[2017-03-31] MEDS: Ondansetron 4 MG/2 ML Vial IV (01:41)
[2017-03-31] MEDS: 0.9% NaCl Peripheral Flush Adult/Peds IV (01:42)
[2017-03-31] MEDS: oxyCODONE 5 MG Tablet PO (05:03)
[2017-03-31] MEDS: 0.9% Normal Saline 1,000 ML 125 ML IV (05:06)
--- NOTE | 2017-03-31 09:46 | CASEMGMT ---
Addendum entered by Tati Macias 03/31/17 11:18: SW spoke w/pt, she is agreeable to go to TCU today. She states does not want to be there too long. SW reassured pt that her insurance will not authorize her for too long, most likely. Pt states understanding. SW faxed discharge instructions to TCU, no further needs. LOCO Abbasi, [employer]IVER BOX TOE Original Note: Addendum entered by Tati Macias 03/31/17 11:13: Pt is approved to go to TCU, physician is aware and working on the discharge. LOCO Abbasi, [employer]IVER [employer]OX TOE Original Note: SW spoke w/physician, she spoke w/pt this morning and she is still agreeable to go to TCU. SW left Yamile a message in TCU to inquire about precert. SW will continue to follow. LOCO Abbasi, [employer]IVER BOX TOE
[2017-03-31] MEDS: Citalopram 40 MG TABLET PO (10:30)
[2017-03-31] MEDS: Pantoprazole Sodium 40 MG Tablet PO (10:30)
--- NOTE | 2017-03-31 11:06 | PCM.TXEXTCAR ---
- Diet Regular diet - Routine Orders/Code Status O2 Liters per Minute: 2L O2 Frequency: Continuous Keep PO Greater than or Equal to (%): 94 Routine Lab Work: CBC - in 3 days, BMP - in 1 day - Therapies Physical Therapy: Eval and Treat Occupational Therapy: Eval and Treat - Allergies/Procedures Done in Hospital Allergies/Adverse Reactions: Allergies No Known Allergies Allergy (Verified 03/27/17 11:57) Procedures: None - Type of Care/Length of Stay Estimated LOS: Convalescent Care Less Than 30 days Type of Care Needed: Skilled Rehab Potential: Good Prognosis: Good - Additional Orders/Day of Discharge Additional Orders: Encourage use of incentive spirometer Day of Discharge: 03/31/17 - Dietary and Speech Recommendations Dietitian Recommendations/Changes: Recommend advance LINH to Regular, No Gastric Stimulus/Low Residue modification when medically able. If po intake continues to be poor, consider alternate nutrition therapy. Please consult RD for recommendations. - Follow Up Care Primary Care Physician: Dante Mclaughlin MD [Primary Care Provider] - Please follow up with your Primary Care Physician in: within 2 weeks Please Follow Up With: Justo Coulter MD When: in 2-4 weeks
--- NOTE | 2017-03-31 11:16 | PCM.DC.SUM ---
Discharge Date and Diagnosis - Problem List Patient Problems: Active and Suspected Problems Weakness (Acute) Fall (Acute) Rib fracture (Acute) Clavicle fracture (Acute) Constipation (Acute) Date of Admission: 03/27/17 Date of Discharge: 03/31/17 - Primary Discharge Diagnosis Active and Suspected Problems CAP (community acquired pneumonia) (Acute) - Secondary Discharge Diagnosis Chronic Problems GERD (gastroesophageal reflux disease) (Chronic) Depression (Chronic) Hospital Course and Treatment Imaging Results: Clinical Impression(s) from Imaging Studies Chest X-Ray 03/27/17 12:28 IMPRESSION: Increased markings in the right infrahilar region suggestive of atelectasis. Electronically Signed: Héctor Calabrese MD at 13:18 EST Tel [phone], Service support , Chest CTA 03/27/17 14:44 IMPRESSION: Bibasilar atelectasis slightly worse on the right side. Cardiomegaly. There is no evidence of pneumothorax. Electronically Signed: Héctor Calabrese MD at 15:43 EST Tel [phone], Service support , Chest X-Ray 03/29/17 07:00 IMPRESSION: Mild increased markings at the left lung base suggestive of atelectasis. Electronically Signed: Héctor Calabrese MD at 9:22 EST Tel [phone], Service support , None Operations: None Procedures: None Summary of Care Provided: 61-year-old female admitted on 03/27/2017 due to weakness, nausea/vomiting, right rib pain. Had an episode of poor urine output, lerma catheter placed, IV fluids were given and fluid input and output were monitored. Active management was as follows: 1. Acute right sided chest pain secondary to rib fractures, acute lower lobe community-acquired pneumonia-ruled out. Pain is fairly controlled, encouraged using incentive spirometer 2. Recent right rib fractures/clavicle fracture secondary to mechanical fall, pain is controlled, on oxyir 3. Acute hypoxia secondary to atelectasis, continues to be on incentive spirometer, wean off oxygen for SPo2>94% 4. Acute urinary retention, with low urine output, s/p lerma catheter, will continue to monitor urine output. 5. GERD-on Nexium 6. Depression, on Celexa. 7. Chronic normochromic normocytic anemia Discharge Diet: Low fat/ Low Cholesterol, 2000 mg Sodium Diet Discharge Activity: Return to Normal Activity Home Medications: Medications to take at Discharge Esomeprazole Mag Trihydrate [Nexium] 40 mg PO DAILY 03/30/13 Citalopram Hydrobromide [Celexa] 40 mg PO DAILY 04/14/13 Bisacodyl [Dulcolax] 5 mg PO DAILY 03/31/17 Ensure Clear 120 ml PO 4X/DAY 03/31/17 Heparin Na 5,000 unit SC Q8 03/31/17 Ipratropium/Albuterol Sulfate [Duoneb] 3 ml INHALATION Q4HWA.RT 03/31/17 Lorazepam [Ativan] 0.5 mg PO BID PRN PRN #10 tab 03/31/17 Oxycodone [Oxyir] 5 mg PO Q4H PRN PRN #20 tab 03/31/17 Senna/Docusate Sodium [Senokot-S] 2 tablet PO BID PRN tablet 03/31/17 Following Prescrptions Were Given to Patient: Oxycodone [Oxyir] 5 mg PO Q4H PRN PRN #20 tab PRN Reason: Severe Pain (6-10/10) Lorazepam [Ativan] 0.5 mg PO BID PRN PRN #10 tab PRN Reason: Anxiety Primary Care Physician: Dante Mclaughlin MD [Primary Care Provider] - Please follow up with your Primary Care Physician in: within 2 weeks Please Follow Up With: Justo Coulter MD When: in 2-4 weeks Disposition: Group Home facility Minutes spent on discharge:: 25 Patient Condition:: Stable Meaningful Use Info Meaningful Use Diagnoses (Choose all that apply): None applicable Code Visit Inpatient E&M: 50737 Disch Hosp
[2017-03-31] MEDS: Bisacodyl 5 MG Tablet PO (15:07)
--- NOTE | 2017-03-31 15:41 | NURSING ---
LATE ENTRY - 1530 - PT TO TCU VIA BED
== END 2017-03-31 15:20 | disposition skilled nursing facility (03) ==
LOC: ED 12:36 → MS2 16:21
PROVIDERS: Nurse Practitioner Family; Admitting Provider Internal Medicine; Emergency Provider Emergency Medicine; Family Provider Family Medicine; PCP Family Medicine; Visit Provider Internal Medicine
DX: R53.1 Weakness (principal); J18.9 Pneumonia, unspecified organism; S22.31XA Fracture of one rib, right side, initial encounter for closed fracture; S42.001A Fracture of unspecified part of right clavicle, initial encounter for closed fracture; W18.30XA Fall on same level, unspecified, initial encounter; R01.1 Cardiac murmur, unspecified; K21.9 Gastro-esophageal reflux disease without esophagitis; F32.9 Major depressive disorder, single episode, unspecified; E86.0 Dehydration; D64.9 Anemia, unspecified; R33.9 Retention of urine, unspecified; Y92.009 Unspecified place in unspecified non-institutional (private) residence as the place of occurrence of the external cause; Z79.899 Other long term (current) drug therapy; R09.02 Hypoxemia; K59.00 Constipation, unspecified
CPT/HCPCS: 36415; 36600; 71045; 71275; 80048; 81001; 82803; 83605; 84484; 85025; 85027; 87040; 87149; 87449; 93005; 94640; 94667; 94668; 96361; 96365; 96367; 96372; 96375; 96376; 97110; 97116; 97162; 97166; 97535; 97802; 99218; 99285; J7030; J7050; Q9967; A4216; G0378; J0696; J2405

== ENCOUNTER 2017-03-31 15:46 | Inpatient (IN) | payer MEDICARE, SELFPAY ==
[2017-03-31 15:55] VITALS: BMI 32.9
--- NOTE | 2017-03-31 15:55 | NURSING ---
Pt arrived from [facility] at 15:45 via bed
--- NOTE | 2017-03-31 16:07 | PCM.HP.STD ---
Problem List (1) Weakness Status: Acute (2) Fall Status: Acute (3) Rib fracture Status: Acute (4) Clavicle fracture Status: Acute (5) Constipation Status: Acute (6) GERD (gastroesophageal reflux disease) Status: Chronic (7) Depression Status: Chronic (8) CAP (community acquired pneumonia) Status: Acute History of Present Illness Date of Admission: 03/31/17 Chief Complaint: Here for rehabilitation, strengthening, prior to discharge home alone. The patient is a 61 year old Female with below past medical history presented [address] [place] [address] Emergency Department 03/27/2017 with weakness. 03/27/2017 Chest X-ray right infrahilar atelectasis. 03/27/2017 EKG sinus rhythm with short WI interval, premature atrial contractions, ST&T wave abnormality, consider inferior ischemia, ST&T wave abnormality, consider anterior ischemia. 03/27/2017 CTA chest bibasilar atelectasis worse on right side, cardiomegaly, negative pulmonary embolism. Weakness x 3 days. Poor appetite. Occasional cough. Nausea, vomiting x 4 days. Troponin negative, UA negative, WBC 11.6 left shift, Hemoglobin 10, Hematocrit 34.8, BUN 22, Cr 1.05. Right lower lobe infiltrate noted. Levaquin IV given. 03/27/2017 Admit to Hospital. Recent fall with right rib fracture, right clavicle fracture. Pain not well controlled, stopped eating. IV Rocephin, Azithromycin, sputum, aerosol, urine antigen for s. pneumo, legionella. IV Morphine for rib fracture. Zofran for nausea. 03/29/2017 Chest X-ray left basilar atelectasis. 03/31/2017 Admit to TCU for rehabilitation, strengthening, prior to discharge home alone. Past Medical History Past Medical History (Chronic Problems): Chronic Problems GERD (gastroesophageal reflux disease) (Chronic) Depression (Chronic) Allergies No Known Allergies Allergy (Verified 03/27/17 11:57) Home Medications: Ambulatory Orders Medication Instructions Recorded Esomeprazole Mag Trihydrate 40 mg PO DAILY 03/30/13 [Nexium] Citalopram Hydrobromide [Celexa] 40 mg PO DAILY 04/14/13 Bisacodyl [Dulcolax] 5 mg PO DAILY 03/31/17 Ensure Clear 120 ml PO 4X/DAY 03/31/17 Heparin Na 5,000 unit SC Q8 03/31/17 Ipratropium/Albuterol Sulfate 3 ml INHALATION Q4HWA.RT 03/31/17 [Duoneb] Lorazepam [Ativan] 0.5 mg PO BID PRN PRN #10 tab 03/31/17 Oxycodone [Oxyir] 5 mg PO Q4H PRN PRN #20 tab 03/31/17 Senna/Docusate Sodium [Senokot-S] 2 tablet PO BID PRN tablet 03/31/17 Surgical History: appendectomy, tonsillectomy, - - Hand surgery, back surgery Psychiatric History: Depression 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 Denies: Chills, Fever, Weight Change HEENT: Denies: Head Aches, Sinus Congestion, Sinus Drainage Cardiovascular: Denies: Chest Pain, Palpitations Respiratory: Denies: Cough, Shortness of breath at rest, Sputum production Gastrointestinal: Denies: Abdominal Pain, Nausea, Vomiting Genitourinary: Denies: Dysuria Musculoskeletal: Denies: Joint Pain, Joint Tenderness Skin: Denies: Rash, Wounds Neurological: Denies: Numbness, Tingling, Focal weakness Psychiatric: Denies: Anxiety, Depression, Homicidal Ideations, Suicidal Ideations Hematologic/ Lymphatic: Denies: Easy Bruising, Easy Bleeding VTE Information - Inpt Only VTE Present on Admission: No VTE Mechan Device Prophylaxis: Knee High DAVY Hose VTE Pharm Prophylaxis ordered?: Yes Patient Problems: Active and Suspected Problems Weakness (Acute) Fall (Acute) Rib fracture (Acute) Clavicle fracture (Acute) Constipation (Acute) - Physical Exam General: Alert, Oriented x3, Cooperative HEENT: Atraumatic, PERRLA, EOMI, Normocephalic Neck: Supple, No JVD, Negative Carotid Bruits Lungs: Clear to auscultation, Normal air movement Cardiovascular: Regular rate, No murmurs Abdomen: Bowel Sounds Present, Soft, Non Tender, - - Full of stool. Extremities: No edema, Capillary Refill Less than 3 Seconds Skin: No rashes, No breakdown Musculoskeletal: No Tenderness to Palpation of Joints or Extremities Neurological: Cranial nerves II-XII grossly intact Psych/Mental Status: Normal Affect, Appropriate Assessment/Plan Active and Suspected Problems Weakness (Acute) Fall (Acute) Rib fracture (Acute) Clavicle fracture (Acute) Constipation (Acute) 61 year old female with below past medical history hospitalized for community acquired pneumonia, complicated by intractable pain from rib, clavicle fracture, admitted to TCU for rehabilitation, strengthening, prior to discharge home. Debility - PT/OT. Pain - Tylenol 1000MG Q8H PRN mild pain, Oxycodone 5MG Q4H PRN severe pain. Bowel - Golytely 1 Liter PO x 1 dose, Soap suds enema x 1, then Miralax 17GM daily, Senna/colace 1 tablet BID, Dulcolax 10MG PO daily PRN. Pneumonia vaccination - Administer Prevnar 13 and/Pneumovax 23 as necessary. DVT prophylaxis - Lovenox 40MG SC daily. GERD - Esomeprazole 40MG daily. Depression - Citalopram 40MG daily. Nutrition - Ensure Clear 120ML 4x/day. Shortness of breath - Duoneb 3ML Q4H WART. Anxiety - Lorazepam 0.5MG BID PRN.
[2017-03-31 16:08] VITALS: BP 141/60; PULSE 89; RESP 18; TEMP 36.3; O2SAT 96
--- NOTE | 2017-03-31 16:17 | HP.PCM_ITS ---
Problem List (1) Weakness Status: Acute (2) Fall Status: Acute (3) Rib fracture Status: Acute (4) Clavicle fracture Status: Acute (5) Constipation Status: Acute (6) GERD (gastroesophageal reflux disease) Status: Chronic (7) Depression Status: Chronic (8) CAP (community acquired pneumonia) Status: Acute History of Present Illness Date of Admission: 03/31/17 Chief Complaint: Here for rehabilitation, strengthening, prior to discharge home alone. The patient is a 61 year old Female with below past medical history presented [address] [place] [address] Emergency Department 03/27/2017 with weakness. 03/27/2017 Chest X-ray right infrahilar atelectasis. 03/27/2017 EKG sinus rhythm with short [place] interval, premature atrial contractions , ST&T wave abnormality, consider inferior ischemia, ST&T wave abnormality, consider anterior ischemia. 03/27/2017 CTA chest bibasilar atelectasis worse on right side, cardiomegaly, negative pulmonary embolism. Weakness x 3 days. Poor appetite. Occasional cough. Nausea, vomiting x 4 days. Troponin negative, UA negative, WBC 11.6 left shift, Hemoglobin 10, Hematocrit 34.8, BUN 22, Cr 1.05. Right lower lobe infiltrate noted. Levaquin IV given. 03/27/2017 Admit to Hospital. Recent fall with right rib fracture, right clavicle fracture. Pain not well controlled, stopped eating. IV Rocephin, Azithromycin, sputum, aerosol, urine antigen for s. pneumo, legionella. IV Morphine for rib fracture. Zofran for nausea. 03/29/2017 Chest X-ray left basilar atelectasis. 03/31/2017 Admit to TCU for rehabilitation, strengthening, prior to discharge home alone. Past Medical History Past Medical History (Chronic Problems): Chronic Problems GERD (gastroesophageal reflux disease) (Chronic) Depression (Chronic) Allergies No Known Allergies Allergy (Verified 03/27/17 11:57) Home Medications: Ambulatory Orders Medication Instructions Recorded Esomeprazole Mag Trihydrate 40 mg PO DAILY 03/30/13 [Nexium] Citalopram Hydrobromide [Celexa] 40 mg PO DAILY 04/14/13 Bisacodyl [Dulcolax] 5 mg PO DAILY 03/31/17 Ensure Clear 120 ml PO 4X/DAY 03/31/17 Heparin Na 5,000 unit SC Q8 03/31/17 Ipratropium/Albuterol Sulfate 3 ml INHALATION Q4HWA.RT 03/31/17 [Duoneb] Lorazepam [Ativan] 0.5 mg PO BID PRN PRN #10 tab 03/31/17 Oxycodone [Oxyir] 5 mg PO Q4H PRN PRN #20 tab 03/31/17 Senna/Docusate Sodium [Senokot-S] 2 tablet PO BID PRN tablet 03/31/17 Surgical History: appendectomy, tonsillectomy, - - Hand surgery, back surgery Psychiatric History: Depression 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 Denies: Chills, Fever, Weight Change HEENT: Denies: Head Aches, Sinus Congestion, Sinus Drainage Cardiovascular: Denies: Chest Pain, Palpitations Respiratory: Denies: Cough, Shortness of breath at rest, Sputum production Gastrointestinal: Denies: Abdominal Pain, Nausea, Vomiting Genitourinary: Denies: Dysuria Musculoskeletal: Denies: Joint Pain, Joint Tenderness Skin: Denies: Rash, Wounds Neurological: Denies: Numbness, Tingling, Focal weakness Psychiatric: Denies: Anxiety, Depression, Homicidal Ideations, Suicidal Ideations Hematologic/ Lymphatic: Denies: Easy Bruising, Easy Bleeding VTE Information - Inpt Only VTE Present on Admission: No VTE Mechan Device Prophylaxis: Knee High DAVY Hose VTE Pharm Prophylaxis ordered?: Yes Patient Problems: Active and Suspected Problems Weakness (Acute) Fall (Acute) Rib fracture (Acute) Clavicle fracture (Acute) Constipation (Acute) - Physical Exam General: Alert, Oriented x3, Cooperative HEENT: Atraumatic, PERRLA, EOMI, Normocephalic Neck: Supple, No JVD, Negative Carotid Bruits Lungs: Clear to auscultation, Normal air movement Cardiovascular: Regular rate, No murmurs Abdomen: Bowel Sounds Present, Soft, Non Tender, - - Full of stool. Extremities: No edema, Capillary Refill Less than 3 Seconds Skin: No rashes, No breakdown Musculoskeletal: No Tenderness to Palpation of Joints or Extremities Neurological: Cranial nerves II-XII grossly intact Psych/Mental Status: Normal Affect, Appropriate Assessment/Plan Active and Suspected Problems Weakness (Acute) Fall (Acute) Rib fracture (Acute) Clavicle fracture (Acute) Constipation (Acute) 61 year old female with below past medical history hospitalized for community acquired pneumonia, complicated by intractable pain from rib, clavicle fracture , admitted to TCU for rehabilitation, strengthening, prior to discharge home. * Debility - PT/OT. * Pain - Tylenol 1000MG Q8H PRN mild pain, Oxycodone 5MG Q4H PRN severe pain. * Bowel - Golytely 1 Liter PO x 1 dose, Soap suds enema x 1, then Miralax 17GM daily, Senna/colace 1 tablet BID, Dulcolax 10MG PO daily PRN. * Pneumonia vaccination - Administer Prevnar 13 and/Pneumovax 23 as necessary. * DVT prophylaxis - Lovenox 40MG SC daily. * GERD - Esomeprazole 40MG daily. * Depression - Citalopram 40MG daily. * Nutrition - Ensure Clear 120ML 4x/day. * Shortness of breath - Duoneb 3ML Q4H WART. * Anxiety - Lorazepam 0.5MG BID PRN.
--- NOTE | 2017-03-31 16:49 | NURSING ---
Dr. Ayala updated that pt cannot remember when she last had a BM, per [facility] nurse, no BM documented while in the hospital since 03/27/17. N.O. received and pt aware.
--- NOTE | 2017-03-31 16:52 | NURSING ---
Code status discussed with pt, pt would like to be a Full Code
[2017-03-31 19:45] VITALS: O2SAT 99
[2017-03-31] MEDS: Electrolyte Solution/Peg's 4000 ML 1000 ML PO (20:06)
[2017-03-31] MEDS: Senna/Docusate Sodium 1 Tablet PO (20:07)
--- NOTE | 2017-04-01 01:07 | PCM.PN.RX ---
<Rick Sim D - Last Filed: 04/01/17 01:07> Progress Note - Pharmacy Subjective: TCU Admission Objective: Allergies No Known Allergies Allergy (Verified 03/27/17 11:57) Home Medications Medication Instructions Recorded Esomeprazole Mag Trihydrate 40 mg PO DAILY 03/30/13 [Nexium] Citalopram Hydrobromide [Celexa] 40 mg PO DAILY 04/14/13 Bisacodyl [Dulcolax] 5 mg PO DAILY 03/31/17 Ensure Clear 120 ml PO 4X/DAY 03/31/17 Heparin Na 5,000 unit SC Q8 03/31/17 Ipratropium/Albuterol Sulfate 3 ml INHALATION Q4HWA.RT 03/31/17 [Duoneb] Lorazepam [Ativan] 0.5 mg PO BID PRN PRN #10 tab 03/31/17 Oxycodone [Oxyir] 5 mg PO Q4H PRN PRN #20 tab 03/31/17 Senna/Docusate Sodium [Senokot-S] 2 tablet PO BID PRN tablet 03/31/17 Current Medications Generic Name Dose Route Start Last Admin Trade Name Freq PRN Reason Stop Dose Admin Acetaminophen 1,000 mg 03/31/17 16:25 Tylenol PO Q8H PRN PRN MILD PAIN (1-3/10) Bisacodyl 10 mg 03/31/17 16:26 Dulcolax PO DAILY PRN Constipation Enoxaparin Sodium 40 mg 04/01/17 06:00 Lovenox SC DAILY@0600 [facility] Multi-Ingredient Cream 1 applic 04/01/17 06:00 Eucerin TOPICAL BID [facility] Protocol Nystatin 1 applic 04/01/17 06:00 Mycostatin Powder TOPICAL BID [facility] Protocol Polyethylene Glycol 17 gm 04/01/17 06:00 Miralax PO DAILY [facility] Senna/Docusate Sodium 1 tablet 03/31/17 18:00 03/31/17 20:07 Senokot-S, Echo-Colace PO 1 tablet BID [facility] Administration Tuberculin PPD 5 tu 04/01/17 10:00 Tubersol, Aplisol, Ppd ID 04/01/17 10:01 X1 ONE Tuberculin PPD 5 tu 04/08/17 10:00 Tubersol, Aplisol, Ppd ID 04/08/17 10:01 X1 ONE Problem List Weakness (Acute) Fall (Acute) Rib fracture (Acute) Clavicle fracture (Acute) Constipation (Acute) Vital Signs Temp Pulse Resp BP Pulse Ox 97.3 F L 89 18 141/60 H 99 03/31/17 16:08 03/31/17 16:08 03/31/17 16:08 03/31/17 16:08 03/31/17 19:45 Oxygen Flow Rate 2 Oxygen Delivery Method Nasal Cannula Weight: 69 kg Body Mass Index (BMI) 32.9 Assessment/Plan: 1) Pain APAP for mild pain. Continue to monitor prn medication use, daily pain scores. 2) Derm Moisturizer, nystatin topically. Continue to monitor clinically. 3) DVT PPx Enoxaparin daily. Continue to monitor for s/s bleeding/clot. Psychotropic Medications: None Unnecessary Medications: None Bowel Regimen: 4) Senna/s, PEG, prn bisacodyl. Continue to monitor prn medication use, for constipation/diarrhea. Date of Note:: 04/01/17 - Provider Comments Provider responsibility: Provider responsible to enter orders to implement recommendations <Claudy Ayala Chi - Last Filed: 04/01/17 08:49> Progress Note - Pharmacy Subjective: [] Objective: Allergies No Known Allergies Allergy (Verified 03/27/17 11:57) Home Medications Medication Instructions Recorded Esomeprazole Mag Trihydrate 40 mg PO DAILY 03/30/13 [Nexium] Citalopram Hydrobromide [Celexa] 40 mg PO DAILY 04/14/13 Bisacodyl [Dulcolax] 5 mg PO DAILY 03/31/17 Ensure Clear 120 ml PO 4X/DAY 03/31/17 Heparin Na 5,000 unit SC Q8 03/31/17 Ipratropium/Albuterol Sulfate 3 ml INHALATION Q4HWA.RT 03/31/17 [Duoneb] Lorazepam [Ativan] 0.5 mg PO BID PRN PRN #10 tab 03/31/17 Oxycodone [Oxyir] 5 mg PO Q4H PRN PRN #20 tab 03/31/17 Senna/Docusate Sodium [Senokot-S] 2 tablet PO BID PRN tablet 03/31/17 Current Medications Generic Name Dose Route Start Last Admin Trade Name Freq PRN Reason Stop Dose Admin Acetaminophen 1,000 mg 03/31/17 16:25 04/01/17 04:08 Tylenol PO 1,000 mg Q8H PRN PRN Administration MILD PAIN (1-310) Bisacodyl 10 mg 03/31/17 16:26 Dulcolax PO DAILY PRN Constipation Enoxaparin Sodium 40 mg 04/01/17 06:00 04/01/17 05:42 Lovenox SC 40 mg DAILY@0600 [facility] Administration Multi-Ingredient Cream 1 applic 04/01/17 06:00 04/01/17 04:15 Eucerin TOPICAL 1 applicatio BID [facility] Administration Protocol Nystatin 1 applic 04/01/17 06:00 04/01/17 04:17 Mycostatin Powder TOPICAL 1 applicatio BID [facility] Administration Protocol Polyethylene Glycol 17 gm 04/01/17 06:00 04/01/17 04:09 Miralax PO 17 gm DAILY [facility] Administration Senna/Docusate Sodium 1 tablet 03/31/17 18:00 04/01/17 04:09 Senokot-S, Echo-Colace PO 1 tablet BID [facility] Administration Tuberculin PPD 5 tu 04/01/17 10:00 Tubersol, Aplisol, Ppd ID 04/01/17 10:01 X1 ONE Tuberculin PPD 5 tu 04/08/17 10:00 Tubersol, Aplisol, Ppd ID 04/08/17 10:01 X1 ONE Problem List Weakness (Acute) Fall (Acute) Rib fracture (Acute) Clavicle fracture (Acute) Constipation (Acute) Vital Signs Temp Pulse Resp BP Pulse Ox 97.3 F L 89 18 141/60 H 97 03/31/17 16:08 03/31/17 16:08 03/31/17 16:08 03/31/17 16:08 04/01/17 07:14 Oxygen Flow Rate 2 Oxygen Delivery Method Nasal Cannula Weight: 69 kg Body Mass Index (BMI) 32.9 Sodium 140 mmol/L (136-145) 04/01/17 06:45 Potassium 3.7 mmol/L (3.5-5.1) 04/01/17 06:45 Chloride 108 mmol/L (98-107) H 04/01/17 06:45 Carbon Dioxide 19.0 mmol/L (21.0-32.0) L 04/01/17 06:45 Anion Gap 13 (5-15) 04/01/17 06:45 BUN 8 mg/dL (7-18) 04/01/17 06:45 Creatinine 0.62 mg/dL (0.55-1.02) 04/01/17 06:45 Est GFR (MDRD) Af Amer 124 mL/min (>60) 04/01/17 06:45 Est GFR (MDRD) Non-Af 102 mL/min (>60) 04/01/17 06:45 BUN/Creatinine Ratio 12.8 RATIO (10-20) 04/01/17 06:45 Glucose 64 mg/dL (70-110) L 04/01/17 06:45 Assessment/Plan: Psychotropic Medications: Unnecessary Medications: Bowel Regimen: - Provider Comments Provider responsibility: Provider responsible to enter orders to implement recommendations Provider Comments to Recommendations by Pharmacy: Agree
--- NOTE | 2017-04-01 01:10 | PHA.CONS_ITS ---
<Rick Sim D - Last Filed: 04/01/17 01:07> Progress Note - Pharmacy Subjective: TCU Admission Objective: Allergies No Known Allergies Allergy (Verified 03/27/17 11:57) Home Medications Medication Instructions Recorded Esomeprazole Mag Trihydrate 40 mg PO DAILY 03/30/13 [Nexium] Citalopram Hydrobromide [Celexa] 40 mg PO DAILY 04/14/13 Bisacodyl [Dulcolax] 5 mg PO DAILY 03/31/17 Ensure Clear 120 ml PO 4X/DAY 03/31/17 Heparin Na 5,000 unit SC Q8 03/31/17 Ipratropium/Albuterol Sulfate 3 ml INHALATION Q4HWA.RT 03/31/17 [Duoneb] Lorazepam [Ativan] 0.5 mg PO BID PRN PRN #10 tab 03/31/17 Oxycodone [Oxyir] 5 mg PO Q4H PRN PRN #20 tab 03/31/17 Senna/Docusate Sodium [Senokot-S] 2 tablet PO BID PRN tablet 03/31/17 Current Medications Generic Name Dose Route Start Last Admin Trade Name Freq PRN Reason Stop Dose Admin Acetaminophen 1,000 mg 03/31/17 16:25 Tylenol PO Q8H PRN PRN MILD PAIN (1-3/10) Bisacodyl 10 mg 03/31/17 16:26 Dulcolax PO DAILY PRN Constipation Enoxaparin Sodium 40 mg 04/01/17 06:00 Lovenox SC DAILY@0600 [facility] Multi-Ingredient Cream 1 applic 04/01/17 06:00 Eucerin TOPICAL BID [facility] Protocol Nystatin 1 applic 04/01/17 06:00 Mycostatin Powder TOPICAL BID [facility] Protocol Polyethylene Glycol 17 gm 04/01/17 06:00 Miralax PO DAILY [facility] Senna/Docusate Sodium 1 tablet 03/31/17 18:00 03/31/17 20:07 Senokot-S, Echo-Colace PO 1 tablet BID [facility] Administration Tuberculin PPD 5 tu 04/01/17 10:00 Tubersol, Aplisol, Ppd ID 04/01/17 10:01 X1 ONE Tuberculin PPD 5 tu 04/08/17 10:00 Tubersol, Aplisol, Ppd ID 04/08/17 10:01 X1 ONE Problem List Weakness (Acute) Fall (Acute) Rib fracture (Acute) Clavicle fracture (Acute) Constipation (Acute) Vital Signs Temp Pulse Resp BP Pulse Ox 97.3 F L 89 18 141/60 H 99 03/31/17 16:08 03/31/17 16:08 03/31/17 16:08 03/31/17 16:08 03/31/17 19:45 Oxygen Flow Rate 2 Oxygen Delivery Method Nasal Cannula Weight: 69 kg Body Mass Index (BMI) 32.9 Assessment/Plan: 1) Pain APAP for mild pain. Continue to monitor prn medication use, daily pain scores. 2) Derm Moisturizer, nystatin topically. Continue to monitor clinically. 3) DVT PPx Enoxaparin daily. Continue to monitor for s/s bleeding/clot. Psychotropic Medications: None Unnecessary Medications: None Bowel Regimen: 4) Senna/s, PEG, prn bisacodyl. Continue to monitor prn medication use, for constipation/diarrhea. Date of Note:: 04/01/17 - Provider Comments Provider responsibility: Provider responsible to enter orders to implement recommendations <Claudy Ayala Chi - Last Filed: 04/01/17 08:49> Progress Note - Pharmacy Subjective: [] Objective: Allergies No Known Allergies Allergy (Verified 03/27/17 11:57) Home Medications Medication Instructions Recorded Esomeprazole Mag Trihydrate 40 mg PO DAILY 03/30/13 [Nexium] Citalopram Hydrobromide [Celexa] 40 mg PO DAILY 04/14/13 Bisacodyl [Dulcolax] 5 mg PO DAILY 03/31/17 Ensure Clear 120 ml PO 4X/DAY 03/31/17 Heparin Na 5,000 unit SC Q8 03/31/17 Ipratropium/Albuterol Sulfate 3 ml INHALATION Q4HWA.RT 03/31/17 [Duoneb] Lorazepam [Ativan] 0.5 mg PO BID PRN PRN #10 tab 03/31/17 Oxycodone [Oxyir] 5 mg PO Q4H PRN PRN #20 tab 03/31/17 Senna/Docusate Sodium [Senokot-S] 2 tablet PO BID PRN tablet 03/31/17 Current Medications Generic Name Dose Route Start Last Admin Trade Name Freq PRN Reason Stop Dose Admin Acetaminophen 1,000 mg 03/31/17 16:25 04/01/17 04:08 Tylenol PO 1,000 mg Q8H PRN PRN Administration MILD PAIN (1-310) Bisacodyl 10 mg 03/31/17 16:26 Dulcolax PO DAILY PRN Constipation Enoxaparin Sodium 40 mg 04/01/17 06:00 04/01/17 05:42 Lovenox SC 40 mg DAILY@0600 [facility] Administration Multi-Ingredient Cream 1 applic 04/01/17 06:00 04/01/17 04:15 Eucerin TOPICAL 1 applicatio BID [facility] Administration Protocol Nystatin 1 applic 04/01/17 06:00 04/01/17 04:17 Mycostatin Powder TOPICAL 1 applicatio BID [facility] Administration Protocol Polyethylene Glycol 17 gm 04/01/17 06:00 04/01/17 04:09 Miralax PO 17 gm DAILY [facility] Administration Senna/Docusate Sodium 1 tablet 03/31/17 18:00 04/01/17 04:09 Senokot-S, Echo-Colace PO 1 tablet BID [facility] Administration Tuberculin PPD 5 tu 04/01/17 10:00 Tubersol, Aplisol, Ppd ID 04/01/17 10:01 X1 ONE Tuberculin PPD 5 tu 04/08/17 10:00 Tubersol, Aplisol, Ppd ID 04/08/17 10:01 X1 ONE Problem List Weakness (Acute) Fall (Acute) Rib fracture (Acute) Clavicle fracture (Acute) Constipation (Acute) Vital Signs Temp Pulse Resp BP Pulse Ox 97.3 F L 89 18 141/60 H 97 03/31/17 16:08 03/31/17 16:08 03/31/17 16:08 03/31/17 16:08 04/01/17 07:14 Oxygen Flow Rate 2 Oxygen Delivery Method Nasal Cannula Weight: 69 kg Body Mass Index (BMI) 32.9 Sodium 140 mmol/L (136-145) 04/01/17 06:45 Potassium 3.7 mmol/L (3.5-5.1) 04/01/17 06:45 Chloride 108 mmol/L (98-107) H 04/01/17 06:45 Carbon Dioxide 19.0 mmol/L (21.0-32.0) L 04/01/17 06:45 Anion Gap 13 (5-15) 04/01/17 06:45 BUN 8 mg/dL (7-18) 04/01/17 06:45 Creatinine 0.62 mg/dL (0.55-1.02) 04/01/17 06:45 Est GFR (MDRD) Af Amer 124 mL/min (>60) 04/01/17 06:45 Est GFR (MDRD) Non-Af 102 mL/min (>60) 04/01/17 06:45 BUN/Creatinine Ratio 12.8 RATIO (10-20) 04/01/17 06:45 Glucose 64 mg/dL (70-110) L 04/01/17 06:45 Assessment/Plan: Psychotropic Medications: Unnecessary Medications: Bowel Regimen: - Provider Comments Provider responsibility: Provider responsible to enter orders to implement recommendations Provider Comments to Recommendations by Pharmacy: Agree
[2017-04-01] MEDS: Acetaminophen 500 MG Tablet 1000 MG PO (04:08)
[2017-04-01] MEDS: Polyethylene Glycol 3350 17 GM PACKET PO (04:09)
[2017-04-01] MEDS: Senna/Docusate Sodium 1 Tablet PO ×2 (04:09→16:48)
[2017-04-01] MEDS: Nystatin Powder 15gm Bottle 1 APPLIC TOPICAL ×2 (04:17→16:49)
[2017-04-01] MEDS: Enoxaparin 40 MG/0.4 ML Syringe SC (05:42)
[2017-04-01 07:14] VITALS: O2SAT 97
[2017-04-01 07:15] LABS: Absolute Lymphocyte Count 0.96 X10^3/ul (0.83-4.51); Absolute Neutrophil Count 3.5 X10^3/uL (2.0-7.7); Basophil# 0.01 X10^3/uL; Basophil% 0.2 % (0-1); Eosinophil# 0.12 X10^3/uL; Eosinophils% 2.3 % (0-5); Hematocrit 30.1 % (37-47); Hemoglobin 9.5 g/dl (12.0-15.0); Lymphocyte # 0.96 X10^3/ul (4.0); Lymphocyte % 18.6 % (19-41); Mean Corp Hgb Conc 31.6 g/gl (32-36); Mean Corpuscular Hgb 29.2 pg (27.0-32.0); Mean Corpuscular Volume 92.6 fL (81-99); Mean Platelet Vol. 12.2 fl (6.2-12.0); Monocyte# 0.52 X10^3/uL; Monocyte% 10.1 % (0-10); Neutrophil # 3.52 X10^3/uL (2.7-7.7); Neutrophil % 68.4 % (47-70); Platelet Count 187 K/mm3 (150-450); RBC Distribution Width CV 15.6 % (11.6-14.6); RBC Distribution Width SD 51.9 fl (35.1-43.9); Red Blood Count 3.25 M/mm3 (4.2-5.4); White Blood Count 5.2 K/mm3 (4.4-11.0)
[2017-04-01 07:16] LABS: POSITIVE COUNT NO; POSITIVE DIFFERENTIAL NO; POSITIVE MORPHOLOGY NO
[2017-04-01 07:43] LABS: Anion Gap 13 (5-15); BUN 8 mg/dL (7-18); BUN/Creat Ratio 12.8 RATIO (10-20); Calcium,Total 7.9 mg/dL (8.5-10.1); Chloride 108 mmol/L (98-107); Creatinine, Serum 0.62 mg/dL (0.55-1.02); EST Glomerular Filtration Rate 102 mL/min (>60); Est Glom Filt Rate - Afr Amer 124 mL/min (>60); Estimated Creatinine Clearance 101.17 ml/min; Glucose 64 mg/dL (70-110); Potassium 3.7 mmol/L (3.5-5.1); Sodium Level 140 mmol/L (136-145)
--- NOTE | 2017-04-01 09:35 | NURSING ---
DR MATHEWS NOTIFIED OF PT REQUESTING ATIVAN AND PAIN MED. NEW ORDER RECEIVED.
--- NOTE | 2017-04-01 09:37 | NURSING ---
DR MATHEWS REVIEWED LABS, NEW ORDER IRON SUPPLEMENT
[2017-04-01] MEDS: Tuberculin,Purif.prot.deriv. 50 TU/ML Vial 5 ML ID (10:36)
[2017-04-01 15:47] VITALS: BP 119/67; PULSE 83; RESP 18; TEMP 36.7; O2SAT 100
[2017-04-01] MEDS: oxyCODONE 5 MG Tablet PO (16:48)
--- NOTE | 2017-04-01 16:52 | NURSING ---
Pt very upset and crying Pt states she is very painful and afraid she won't recover. This nurse reassured PT that the staff would take good care of her. Pt still crying at this time. Will continue to monitor, will Notify Kirti VILLASENOR
[2017-04-01 21:25] VITALS: PULSE 74; RESP 18; O2SAT 97
[2017-04-02] MEDS: oxyCODONE 5 MG Tablet PO ×2 (02:05→20:12)
[2017-04-02] MEDS: Pantoprazole Sodium 40 MG Tablet PO (05:22)
[2017-04-02] MEDS: Citalopram 40 MG TABLET PO (05:22)
[2017-04-02] MEDS: LORazepam 0.5 MG Tablet PO (05:22)
[2017-04-02] MEDS: Nystatin Powder 15gm Bottle 1 APPLIC TOPICAL ×2 (05:22→18:02)
[2017-04-02] MEDS: Enoxaparin 40 MG/0.4 ML Syringe SC (05:23)
[2017-04-02] MEDS: Iron Polysaccharide Complex 150 MG CAPSULE PO (07:35)
[2017-04-02 16:00] VITALS: BP 137/81; PULSE 89; RESP 18; TEMP 36.8; O2SAT 99
[2017-04-02] MEDS: Senna/Docusate Sodium 1 Tablet PO (18:01)
[2017-04-02] MEDS: Mirtazapine 15 MG Tablet 7.5 MG PO (20:14)
[2017-04-02 20:15] VITALS: PULSE 86; RESP 16; O2SAT 98
[2017-04-03] MEDS: Nystatin Powder 15gm Bottle 1 APPLIC TOPICAL ×2 (05:42→18:03)
[2017-04-03] MEDS: Polyethylene Glycol 3350 17 GM PACKET PO (05:43)
[2017-04-03] MEDS: Citalopram 40 MG TABLET PO (05:43)
[2017-04-03] MEDS: Enoxaparin 40 MG/0.4 ML Syringe SC (05:43)
[2017-04-03] MEDS: Senna/Docusate Sodium 1 Tablet PO ×2 (05:43→18:01)
[2017-04-03] MEDS: Pantoprazole Sodium 40 MG Tablet PO (05:43)
[2017-04-03] MEDS: oxyCODONE 5 MG Tablet PO ×3 (07:55→22:05)
[2017-04-03] MEDS: Iron Polysaccharide Complex 150 MG CAPSULE PO (07:55)
[2017-04-03 11:27] VITALS: O2SAT 95
[2017-04-03 15:32] VITALS: BP 121/60; PULSE 84; RESP 16; TEMP 36.4; O2SAT 99
[2017-04-03] MEDS: Mirtazapine 15 MG Tablet 7.5 MG PO (20:19)
[2017-04-03 20:26] VITALS: PULSE 72; RESP 18; O2SAT 97
[2017-04-04] MEDS: LORazepam 0.5 MG Tablet PO (01:23)
[2017-04-04] MEDS: oxyCODONE 5 MG Tablet PO ×4 (02:05→19:42)
[2017-04-04] MEDS: Nystatin Powder 15gm Bottle 1 APPLIC TOPICAL ×2 (06:18→19:42)
[2017-04-04] MEDS: Senna/Docusate Sodium 1 Tablet PO ×2 (06:21→16:57)
[2017-04-04] MEDS: Pantoprazole Sodium 40 MG Tablet PO (06:21)
[2017-04-04] MEDS: Polyethylene Glycol 3350 17 GM PACKET PO (06:22)
[2017-04-04] MEDS: Citalopram 40 MG TABLET PO (06:22)
[2017-04-04] MEDS: Enoxaparin 40 MG/0.4 ML Syringe SC (06:22)
[2017-04-04] MEDS: Iron Polysaccharide Complex 150 MG CAPSULE PO (07:43)
[2017-04-04 10:00] VITALS: PULSE 86; RESP 18; O2SAT 97
--- NOTE | 2017-04-04 11:38 | NURSING ---
REVIEWED W/DR MATHEWS THAT PT HAS HAD FLORES IN PLACE SINCE 03/29 D/T ACUTE URINARY RETENTION.PT NOT ON ANY URINARY MEDS AND NO UROLOGIST CONSULT IN PLACE. NEW ORDER TO D/C FLORES AND START VOIDING TRIAL
--- NOTE | 2017-04-04 11:49 | NURSING ---
REMOVED FLORES AT 11:45. PT TOLERATED WELL.
[2017-04-04 15:43] VITALS: BP 116/63; PULSE 80; RESP 18; TEMP 36.8; O2SAT 99
--- NOTE | 2017-04-04 16:59 | NURSING ---
PT WAS 97% ON .5L. JACKLYN JENSEN SAID TO TAKE PT OFF 02. WENT BACK IN TO ROOM AN HOUR LATER WITH AID IN ROOM AND PT STATED SHE FELT WOOZY AND DIDNT WANT TO GET UP. CHECKED PT OXYGEN ON ROOM AIR AND WAS 77%. PUT 02 BACK ON AT .05L AND PT OXYGEN WENT UP TO 91%. REPORTED TO JACKLYN JENSEN WILL CONTINUE TO MONITOR
[2017-04-04] MEDS: Mirtazapine 15 MG Tablet 7.5 MG PO (19:42)
--- NOTE | 2017-04-04 21:57 | PCA ---
Assisted patient to bathroom after supper. Voided 25cc, bladder scanned for 206. Toileted patient again at 9pm and voided 400cc, bladder scanned for 67. RN notified.
[2017-04-05] MEDS: LORazepam 0.5 MG Tablet PO (00:11)
[2017-04-05] MEDS: oxyCODONE 5 MG Tablet PO ×3 (00:11→12:36)
[2017-04-05] MEDS: Enoxaparin 40 MG/0.4 ML Syringe SC (04:38)
[2017-04-05] MEDS: Polyethylene Glycol 3350 17 GM PACKET PO (04:38)
[2017-04-05] MEDS: Nystatin Powder 15gm Bottle 1 APPLIC TOPICAL ×2 (04:38→17:52)
[2017-04-05] MEDS: Citalopram 40 MG TABLET PO (04:39)
[2017-04-05] MEDS: Pantoprazole Sodium 40 MG Tablet PO (04:40)
[2017-04-05] MEDS: Senna/Docusate Sodium 1 Tablet PO ×2 (04:40→17:51)
[2017-04-05 07:15] VITALS: O2SAT 99
[2017-04-05] MEDS: Iron Polysaccharide Complex 150 MG CAPSULE PO (08:52)
--- NOTE | 2017-04-05 09:46 | CASEMGMT ---
Plan of care meeting held. Resident present as well as resident son, Roshan. No discharge date set at this time. Resident plans to continue with further care and treatment on the Transitional Care unit at this time. Resident does plan to discharge home with grandson to stay with resident in the home for 24hr care. Resident does have an insurance update due today, 04/05/17. Support given. Will continue to follow. Dory TIPTON, REGISTERED APPRAISER
--- NOTE | 2017-04-05 10:21 | CASEMGMT ---
Insurance Clinical information faxed. Pending continued stay approval at this time. Auth#[id number] Dory TIPTON, KELP OR SEAGRASS GATHERER
[2017-04-05 15:54] VITALS: BP 99/45; PULSE 88; RESP 16; TEMP 36.4; O2SAT 98
[2017-04-05] MEDS: Mirtazapine 15 MG Tablet 7.5 MG PO (21:15)
[2017-04-05 22:00] VITALS: PULSE 87; RESP 18; O2SAT 97
[2017-04-06] MEDS: oxyCODONE 5 MG Tablet PO ×2 (00:48→20:02)
[2017-04-06] MEDS: Enoxaparin 40 MG/0.4 ML Syringe SC (06:54)
[2017-04-06] MEDS: Polyethylene Glycol 3350 17 GM PACKET PO (06:54)
[2017-04-06] MEDS: Citalopram 40 MG TABLET PO (06:55)
[2017-04-06] MEDS: Nystatin Powder 15gm Bottle 1 APPLIC TOPICAL ×2 (06:56→18:59)
[2017-04-06] MEDS: Pantoprazole Sodium 40 MG Tablet PO (06:56)
[2017-04-06] MEDS: Senna/Docusate Sodium 1 Tablet PO (06:56)
[2017-04-06] MEDS: Iron Polysaccharide Complex 150 MG CAPSULE PO (06:57)
[2017-04-06 07:42] VITALS: O2SAT 98
[2017-04-06] MEDS: Tamsulosin HCl 0.4 MG Capsule PO (11:05)
[2017-04-06] MEDS: Acetaminophen 500 MG Tablet 1000 MG PO (11:07)
--- NOTE | 2017-04-06 14:12 | CASEMGMT ---
Brief interview for mental status (BIMS) and resident mood interview (PHQ-9) completed on this day. BIMS score 15/15. PHQ-9 score 09/29.
[2017-04-06 15:20] VITALS: BP 101/46; PULSE 80; RESP 18; TEMP 36.9; O2SAT 97
[2017-04-06 20:00] VITALS: BP 128/64; PULSE 88; RESP 18; TEMP 36.6; O2SAT 98
[2017-04-06] MEDS: Mirtazapine 15 MG Tablet 7.5 MG PO (20:03)
[2017-04-06 23:02] VITALS: PULSE 80; RESP 18; O2SAT 98
[2017-04-07] MEDS: Nystatin Powder 15gm Bottle 1 APPLIC TOPICAL ×2 (05:30→17:00)
[2017-04-07] MEDS: Enoxaparin 40 MG/0.4 ML Syringe SC (05:32)
[2017-04-07] MEDS: Pantoprazole Sodium 40 MG Tablet PO (05:32)
[2017-04-07] MEDS: Polyethylene Glycol 3350 17 GM PACKET PO (05:32)
[2017-04-07] MEDS: Senna/Docusate Sodium 1 Tablet PO ×2 (05:32→16:59)
[2017-04-07] MEDS: Citalopram 40 MG TABLET PO (05:32)
[2017-04-07] MEDS: oxyCODONE 5 MG Tablet PO ×2 (05:36→20:06)
[2017-04-07] MEDS: Iron Polysaccharide Complex 150 MG CAPSULE PO (08:21)
[2017-04-07 10:00] VITALS: PULSE 77; RESP 18
[2017-04-07 10:46] VITALS: O2SAT 96
[2017-04-07 16:00] VITALS: BP 109/49; PULSE 84; RESP 16; TEMP 36.8; O2SAT 99
[2017-04-07] MEDS: Tamsulosin HCl 0.4 MG Capsule PO (16:58)
[2017-04-07] MEDS: Mirtazapine 15 MG Tablet 7.5 MG PO (20:06)
[2017-04-08] MEDS: oxyCODONE 5 MG Tablet PO ×2 (03:57→20:41)
[2017-04-08] MEDS: Senna/Docusate Sodium 1 Tablet PO ×2 (03:59→17:12)
[2017-04-08] MEDS: Pantoprazole Sodium 40 MG Tablet PO (04:00)
[2017-04-08] MEDS: Citalopram 40 MG TABLET PO (04:00)
[2017-04-08] MEDS: Nystatin Powder 15gm Bottle 1 APPLIC TOPICAL ×2 (04:01→17:12)
[2017-04-08] MEDS: Enoxaparin 40 MG/0.4 ML Syringe SC (06:26)
[2017-04-08 06:30] VITALS: PULSE 70; RESP 16; O2SAT 93
[2017-04-08 06:34] VITALS: O2SAT 96
[2017-04-08 09:25] LABS: Absolute Neutrophil Count 4.1 X10^3/uL (2.0-7.7); Basophil# 0.02 X10^3/uL; Basophil% 0.2 % (0-1); Eosinophil# 0.38 X10^3/uL; Eosinophils% 4.3 % (0-5); Hematocrit 35.1 % (37-47); Hemoglobin 11.3 g/dl (12.0-15.0); Lymphocyte % 38.2 % (19-41); Mean Corp Hgb Conc 32.2 g/gl (32-36); Mean Corpuscular Hgb 29.9 pg (27.0-32.0); Mean Corpuscular Volume 92.9 fL (81-99); Mean Platelet Vol. 13.1 fl (6.2-12.0); Monocyte# 0.95 X10^3/uL; Monocyte% 10.7 % (0-10); Neutrophil # 4.11 X10^3/uL (2.7-7.7); Neutrophil % 46.2 % (47-70); Platelet Count 246 K/mm3 (150-450); RBC Distribution Width CV 17.3 % (11.6-14.6); RBC Distribution Width SD 53.7 fl (35.1-43.9); Red Blood Count 3.78 M/mm3 (4.2-5.4); White Blood Count 8.9 K/mm3 (4.4-11.0)
[2017-04-08 09:38] LABS: POSITIVE COUNT NO; POSITIVE DIFFERENTIAL NO; POSITIVE MORPHOLOGY NO
[2017-04-08 09:41] LABS: Anion Gap 11 (5-15); BUN 8 mg/dL (7-18); BUN/Creat Ratio 8.7 RATIO (10-20); Calcium,Total 8.2 mg/dL (8.5-10.1); Chloride 102 mmol/L (98-107); Creatinine, Serum 0.92 mg/dL (0.55-1.02); EST Glomerular Filtration Rate 65 mL/min (>60); Est Glom Filt Rate - Afr Amer 79 mL/min (>60); Estimated Creatinine Clearance 61.16 ml/min; Glucose 94 mg/dL (74-106); Sodium Level 143 mmol/L (136-145)
[2017-04-08] MEDS: Iron Polysaccharide Complex 150 MG CAPSULE PO (10:30)
[2017-04-08] MEDS: Tuberculin,Purif.prot.deriv. 50 TU/ML Vial 5 ML ID (10:31)
--- NOTE | 2017-04-08 13:37 | NURSING ---
Dr. Ayala reviewed labs, N.O. for K-dur, recheck BMP on 04/10/17, pt aware of new orders
[2017-04-08 16:00] VITALS: BP 114/64; PULSE 84; RESP 22; TEMP 36.6; O2SAT 95
[2017-04-08] MEDS: Tamsulosin HCl 0.4 MG Capsule PO (17:12)
[2017-04-08] MEDS: Mirtazapine 15 MG Tablet 7.5 MG PO (20:39)
[2017-04-09 06:50] VITALS: O2SAT 97
[2017-04-09] MEDS: Pantoprazole Sodium 40 MG Tablet PO (07:02)
[2017-04-09] MEDS: Enoxaparin 40 MG/0.4 ML Syringe SC (07:02)
[2017-04-09] MEDS: Nystatin Powder 15gm Bottle 1 APPLIC TOPICAL ×2 (07:02→19:59)
[2017-04-09] MEDS: Citalopram 40 MG TABLET PO (07:02)
[2017-04-09] MEDS: Senna/Docusate Sodium 1 Tablet PO ×2 (07:03→17:40)
[2017-04-09] MEDS: Iron Polysaccharide Complex 150 MG CAPSULE PO (08:06)
[2017-04-09 09:53] VITALS: PULSE 89; RESP 18; O2SAT 98
[2017-04-09 15:32] VITALS: BP 142/94; PULSE 91; RESP 18; TEMP 36.6; O2SAT 97
[2017-04-09 16:11] VITALS: BP 119/67; PULSE 83
[2017-04-09] MEDS: Tamsulosin HCl 0.4 MG Capsule PO (17:40)
[2017-04-09] MEDS: Mirtazapine 15 MG Tablet 7.5 MG PO (19:56)
[2017-04-09] MEDS: oxyCODONE 5 MG Tablet PO (23:46)
[2017-04-10] MEDS: Polyethylene Glycol 3350 17 GM PACKET PO (04:12)
[2017-04-10] MEDS: Enoxaparin 40 MG/0.4 ML Syringe SC (04:12)
[2017-04-10] MEDS: Citalopram 40 MG TABLET PO (04:12)
[2017-04-10] MEDS: Senna/Docusate Sodium 1 Tablet PO ×2 (04:12→17:00)
[2017-04-10] MEDS: Pantoprazole Sodium 40 MG Tablet PO (04:12)
[2017-04-10] MEDS: Nystatin Powder 15gm Bottle 1 APPLIC TOPICAL ×2 (04:13→20:22)
[2017-04-10 06:23] LABS: Anion Gap 7 (5-15); BUN 10 mg/dL (7-18); BUN/Creat Ratio 13.3 RATIO (10-20); Chloride 106 mmol/L (98-107); Creatinine, Serum 0.75 mg/dL (0.55-1.02); EST Glomerular Filtration Rate 83 mL/min (>60); Est Glom Filt Rate - Afr Amer 100 mL/min (>60); Estimated Creatinine Clearance 75.03 ml/min; Glucose 89 mg/dL (74-106); Sodium Level 143 mmol/L (136-145)
[2017-04-10] MEDS: Iron Polysaccharide Complex 150 MG CAPSULE PO (07:54)
[2017-04-10] MEDS: Acetaminophen 500 MG Tablet 1000 MG PO (09:31)
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
[2017-04-10 15:07] VITALS: O2SAT 97
[2017-04-10 15:08] VITALS: BP 96/56; PULSE 78; RESP 14; TEMP 35.8; O2SAT 98
--- NOTE | 2017-04-10 16:20 | CASEMGMT ---
Insurance Continued stay approved with next update due on 04/12/17. Auth#[id number] Dory TIPTON, DIRECTOR POST
[2017-04-10] MEDS: Tamsulosin HCl 0.4 MG Capsule PO (17:00)
[2017-04-10 20:00] VITALS: BP 110/59; PULSE 76; PULSE 78; RESP 16; TEMP 36.8; O2SAT 96
[2017-04-10] MEDS: Mirtazapine 15 MG Tablet 7.5 MG PO (20:21)
[2017-04-11] MEDS: Acetaminophen 500 MG Tablet 1000 MG PO (02:52)
[2017-04-11] MEDS: Senna/Docusate Sodium 1 Tablet PO ×2 (04:27→17:34)
[2017-04-11] MEDS: Polyethylene Glycol 3350 17 GM PACKET PO (04:27)
[2017-04-11] MEDS: Citalopram 40 MG TABLET PO (04:27)
[2017-04-11] MEDS: Nystatin Powder 15gm Bottle 1 APPLIC TOPICAL ×2 (04:28→17:36)
[2017-04-11] MEDS: Pantoprazole Sodium 40 MG Tablet PO (04:28)
[2017-04-11] MEDS: Enoxaparin 40 MG/0.4 ML Syringe SC (05:08)
[2017-04-11 07:50] VITALS: O2SAT 96
[2017-04-11] MEDS: Iron Polysaccharide Complex 150 MG CAPSULE PO (07:53)
--- NOTE | 2017-04-11 09:31 | CASEMGMT ---
Brief interview for mental status (BIMS) and resident mood interview (PHQ-9) completed on this day. BIMS score 15. PHQ-9 score 07/30
--- NOTE | 2017-04-11 10:16 | CASEMGMT ---
Social Work Spoke with resident in room. Resident requesting for discharge date to be set for 04/13/17. Spoke with staff/therapy, 04/13/17 is an agreeable date at this time. Resident plans to discharge home with resident adult grandson to be staying with resident to offer care and support. Resident reporting to require a cane. Resident does not have a preference of [employer], [employer] to be utilized as [employer] is in network with resident insurance. Resident also currently on oxygen and this is new for resident, nursing planning to trial resident on room air. Physical and Occupational therapy are recommending for resident to have continued services at time of discharge through home health care. Resident is agreeable to recommendation and requesting for home health care to be set up through [facility] ([facility]). Resident requesting for this social work assistant to contact resident family about discharge information. Telephone call to resident son, Roshan, no answer. A voicemail was left for Roshan. Resident family does plan to provide transportation home for resident at time of discharge. Support given. [facility] This social work assistant making referral for physical and occupational therapy. Order to be completed. Will fax order for cane to [employer] when obtained. Will follow up on need for oxygen. Proposed discharge date: 04/13/17 PLAN: Will discharge home with family and home health care. Dory TIPTON, LOG SNAKER
[2017-04-11 10:52] VITALS: RESP 18; O2SAT 88; O2SAT 92
[2017-04-11 15:55] VITALS: BP 99/46; PULSE 76; RESP 16; TEMP 36.4; O2SAT 98
[2017-04-11] MEDS: Tamsulosin HCl 0.4 MG Capsule PO (17:34)
--- NOTE | 2017-04-11 18:18 | NURSING ---
Addendum entered by Kirti Keenan 04/11/17 18:19: for her PCP appt. Original Note: Dr Ayala aware of pt pulse ox on room air when sleeping, drops in 80's, but during activity when awake hangs 93% on RA. Dr Ayala will recommend sleep study after discharge.
[2017-04-11] MEDS: Mirtazapine 15 MG Tablet 7.5 MG PO (20:28)
[2017-04-11 20:30] VITALS: BP 118/69; PULSE 82; RESP 16; TEMP 36.8; O2SAT 97
--- NOTE | 2017-04-11 21:43 | PCM.DC ---
- Discharge Diagnoses Current Active Problems: Current Active and Chronic Problems Constipation (Acute) Clavicle fracture (Acute) Rib fracture (Acute) Fall (Acute) Weakness (Acute) You will use the following diet at home:: No restrictions, Regular Your food should be the consistency of: Regular Your liquids should be the consistency of: Regular/Thin Discharge Activity: Return to Normal Activity, May Drive, May Shower, Use Walker Weight Bearing Status: Weight bearing as tolerated Call your doctor if you observe: Fever of 101 or Higher, Inability to urinate, Inability to have a bowel movement, Shortness of breath, Chest pain, Uncontrolled pain Allergies/Adverse Reactions: Allergies No Known Allergies Allergy (Verified 03/27/17 11:57) Medications to take at Discharge Esomeprazole Mag Trihydrate [Nexium] 40 mg PO DAILY 03/30/13 Citalopram Hydrobromide [Celexa] 40 mg PO DAILY 04/14/13 Heparin Na 5,000 unit SC Q8 03/31/17 Lorazepam [Ativan] 0.5 mg PO BID PRN PRN #10 tab 03/31/17 Oxycodone [Oxyir] 5 mg PO Q4H PRN PRN #20 tab 03/31/17 Acetaminophen [Tylenol] 1,000 mg PO Q8H PRN PRN tablet 04/11/17 Citalopram [Celexa] 40 mg PO DAILY tablet 04/11/17 Iron Polysaccharide Complex [Ferrex 150] 150 mg PO DAILYCM #30 cap 04/11/17 Lorazepam [Ativan] 0.5 mg PO Q8H PRN #45 tablet 04/11/17 Mineral Oil/Petrolatum,White [Eucerin] 1 applic TOPICAL BID jar 04/11/17 Mirtazapine [Remeron] 7.5 mg PO QHS #30 tab 04/11/17 Nystatin Powder [Mycostatin Powder] 1 applic TOPICAL BID bottle 04/11/17 Oxycodone [Oxyir] 5 mg PO Q4H PRN PRN #30 tablet 04/11/17 Polyethylene Glycol 3350 [Miralax] 17 gm PO DAILY #30 packet 04/11/17 Potassium Chloride [K-Dur] 20 meq PO DAILYCM #30 tab 04/11/17 Tamsulosin HCl [Flomax] 0.4 mg PO DAILY@1730 #30 cap 04/11/17 The following prescriptions were given: Oxycodone [Oxyir] 5 mg PO Q4H PRN PRN #30 tablet PRN Reason: Severe Pain (-12/13) Iron Polysaccharide Complex [Ferrex 150] 150 mg PO DAILYCM #30 cap Lorazepam [Ativan] 0.5 mg PO Q8H PRN #45 tablet PRN Reason: ANXIETY Mirtazapine [Remeron] 7.5 mg PO QHS #30 tab Polyethylene Glycol 3350 [Miralax] 17 gm PO DAILY #30 packet Potassium Chloride [K-Dur] 20 meq PO DAILYCM #30 tab Tamsulosin HCl [Flomax] 0.4 mg PO DAILY@1730 #30 cap Primary Care Physician: Dante Mclaughlin MD [Primary Care Provider] - Please follow up with your Primary Care Physician in: 1 week. Please Follow Up With: Dr. Coulter When: 2-4 weeks Proposed Discharge Date: 04/13/17
--- NOTE | 2017-04-11 21:45 | PCM.DC.SUM ---
Discharge Date and Diagnosis - Problem List Patient Problems: Active and Suspected Problems Constipation (Acute) Clavicle fracture (Acute) Rib fracture (Acute) Fall (Acute) Weakness (Acute) Date of Admission: 03/31/17 Date of Discharge: 04/13/17 - Primary Discharge Diagnosis Active and Suspected Problems Constipation (Acute) Clavicle fracture (Acute) Rib fracture (Acute) Fall (Acute) Weakness (Acute) - Secondary Discharge Diagnosis Chronic Problems Depression (Chronic) GERD (gastroesophageal reflux disease) (Chronic) Hospital Course and Treatment Imaging Results: 03/31/17 16:16 Diet: Regular Diet Diet Comments: No Gastric Stimulus/Low Residue Labs (Last 48 Hours) 04/10/17 05:05 Sodium 143 Potassium 4.0 Chloride 106 Carbon Dioxide 30.0 Anion Gap 7 BUN 10 Creatinine 0.75 Estim Creat Clear Calc 75.03 Est GFR (MDRD) Af Amer 100 Est GFR (MDRD) Non-Af 83 BUN/Creatinine Ratio 13.3 Glucose 89 Calcium 8.0 L Operations: None Procedures: None Summary of Care Provided: The patient is a 61 year old Female with below past medical history hospitalized for community acquired pneumonia, complicated by intractable pain from rib, clavicle fracture, admitted to TCU for rehabilitation, strengthening. Will discharge home with grandson to live with resident. Home health ordered. On TCU, resident's night time pulsox less than 80% on room air, consider formal sleep study as outpatient with primary care provider. Discharge Diet: No Restrictions Discharge Activity: Return to Normal Activity, May Drive, May Shower, Use Walker Weight Bearing Status: Weight bearing as tolerated Call your doctor if you observe: Fever of 101 or Higher, Inability to urinate, Inability to have a bowel movement, Shortness of breath, Chest pain, Uncontrolled pain Home Medications: Medications to take at Discharge Esomeprazole Mag Trihydrate [Nexium] 40 mg PO DAILY 03/30/13 Citalopram Hydrobromide [Celexa] 40 mg PO DAILY 04/14/13 Heparin Na 5,000 unit SC Q8 03/31/17 Lorazepam [Ativan] 0.5 mg PO BID PRN PRN #10 tab 03/31/17 Oxycodone [Oxyir] 5 mg PO Q4H PRN PRN #20 tab 03/31/17 Acetaminophen [Tylenol] 1,000 mg PO Q8H PRN PRN tablet 04/11/17 Citalopram [Celexa] 40 mg PO DAILY tablet 04/11/17 Iron Polysaccharide Complex [Ferrex 150] 150 mg PO DAILYCM #30 cap 04/11/17 Lorazepam [Ativan] 0.5 mg PO Q8H PRN #45 tablet 04/11/17 Mineral Oil/Petrolatum,White [Eucerin] 1 applic TOPICAL BID jar 04/11/17 Mirtazapine [Remeron] 7.5 mg PO QHS #30 tab 04/11/17 Nystatin Powder [Mycostatin Powder] 1 applic TOPICAL BID bottle 04/11/17 Oxycodone [Oxyir] 5 mg PO Q4H PRN PRN #30 tablet 04/11/17 Polyethylene Glycol 3350 [Miralax] 17 gm PO DAILY #30 packet 04/11/17 Potassium Chloride [K-Dur] 20 meq PO DAILYCM #30 tab 04/11/17 Tamsulosin HCl [Flomax] 0.4 mg PO DAILY@1730 #30 cap 04/11/17 Following Prescrptions Were Given to Patient: Oxycodone [Oxyir] 5 mg PO Q4H PRN PRN #30 tablet PRN Reason: Severe Pain (6-12/13) Iron Polysaccharide Complex [Ferrex 150] 150 mg PO DAILYCM #30 cap Lorazepam [Ativan] 0.5 mg PO Q8H PRN #45 tablet PRN Reason: ANXIETY Mirtazapine [Remeron] 7.5 mg PO QHS #30 tab Polyethylene Glycol 3350 [Miralax] 17 gm PO DAILY #30 packet Potassium Chloride [K-Dur] 20 meq PO DAILYCM #30 tab Tamsulosin HCl [Flomax] 0.4 mg PO DAILY@1730 #30 cap Primary Care Physician: Dante Mclaughlin MD [Primary Care Provider] - Please follow up with your Primary Care Physician in: 1 week. Please Follow Up With: Dr. Coulter When: 2-4 weeks Disposition: Home with Home Health Minutes spent on discharge:: 35 Patient Condition:: Stable Meaningful Use Info Meaningful Use Diagnoses (Choose all that apply): None applicable
--- NOTE | 2017-04-11 21:49 | HHNOTE_ITS ---
Home Health Note - Plan Overview of reason of hospitalization: The patient is a 61 year old Female with below past medical history hospitalized for community acquired pneumonia, complicated by intractable pain from rib, clavicle fracture, admitted to TCU for rehabilitation, strengthening. Will discharge home with grandson to live with resident. Home health ordered. On TCU, resident's night time pulsox less than 80% on room air, consider formal sleep study as outpatient with primary care provider. Problems: Patient was seen for Constipation (Acute) Clavicle fracture (Acute) Rib fracture (Acute) Fall (Acute) Weakness (Acute) Complete List of Medical Problems Constipation (Acute) Clavicle fracture (Acute) Rib fracture (Acute) Fall (Acute) Weakness (Acute) CAP (community acquired pneumonia) (Acute) Depression (Chronic) GERD (gastroesophageal reflux disease) (Chronic) - Requirements and Reasons Disciplines Needed/Ordered: Physical Therapy Reason for Disciplines: Gait Training, Stair Training, Fall Prevention, Home Safety/Equipment Instruction, Balance and/or Posture Training, Transfer Training Related To: Limited/Poor Endurance, Unsteady Gait/Balance, Fall Risk Patient is unable to leave the home: Without Aid of Supportive Devices (crutches , cane, wheelchair, walker), Without the assistance of another person - Additional Disciplines Additional Disciplines Needed/Ordered: Occupational Therapy
[2017-04-12] MEDS: Acetaminophen 500 MG Tablet 1000 MG PO (01:57)
[2017-04-12] MEDS: Nystatin Powder 15gm Bottle 1 APPLIC TOPICAL ×2 (05:42→17:56)
[2017-04-12] MEDS: Enoxaparin 40 MG/0.4 ML Syringe SC (05:43)
[2017-04-12] MEDS: Pantoprazole Sodium 40 MG Tablet PO (05:43)
[2017-04-12] MEDS: Senna/Docusate Sodium 1 Tablet PO ×2 (05:43→17:56)
[2017-04-12] MEDS: Polyethylene Glycol 3350 17 GM PACKET PO (05:43)
[2017-04-12] MEDS: Citalopram 40 MG TABLET PO (05:43)
[2017-04-12 07:00] VITALS: O2SAT 97
[2017-04-12] MEDS: Iron Polysaccharide Complex 150 MG CAPSULE PO (07:46)
--- NOTE | 2017-04-12 09:57 | CASEMGMT ---
Social Work Faxed order for straight cane to [facility]. Resident family aware that cane will need to be picked up from [facility]. Nursing still assessing for need of oxygen. Proposed discharge: 04/13/17 PLAN: Discharge home with grandson to be with resident at all times along with home health services. Dory TIPTON, LANDFILL GRADER
[2017-04-12 10:00] VITALS: PULSE 92; RESP 16; O2SAT 88
--- NOTE | 2017-04-12 11:26 | CASEMGMT ---
Insurance Clinical information faxed. Pending continued stay approval at this time. Auth#[id number] Dory TIPTON, INVESTOR RELATIONS ANALYST
--- NOTE | 2017-04-12 13:50 | CASEMGMT ---
Social Work Nursing reporting that resident has been on room air for the day and will not qualify for home oxygen. Proposed discharge date: 04/13/17 PLAN: Discharge home with grandson to be staying with resident and home health services. Dory TIPTON, ROLLER SKATE REPAIRER
[2017-04-12 16:00] VITALS: BP 113/49; PULSE 92; RESP 16; TEMP 36.8; O2SAT 88
[2017-04-12] MEDS: Tamsulosin HCl 0.4 MG Capsule PO (17:56)
[2017-04-12] MEDS: Mirtazapine 15 MG Tablet 7.5 MG PO (19:57)
[2017-04-12] MEDS: oxyCODONE 5 MG Tablet PO (19:57)
[2017-04-13] MEDS: Enoxaparin 40 MG/0.4 ML Syringe SC (06:16)
[2017-04-13] MEDS: oxyCODONE 5 MG Tablet PO (06:17)
[2017-04-13] MEDS: Nystatin Powder 15gm Bottle 1 APPLIC TOPICAL (06:18)
[2017-04-13] MEDS: Citalopram 40 MG TABLET PO (06:18)
[2017-04-13] MEDS: Pantoprazole Sodium 40 MG Tablet PO (06:19)
[2017-04-13] MEDS: LORazepam 0.5 MG Tablet PO (06:20)
[2017-04-13 07:19] VITALS: O2SAT 90
[2017-04-13] MEDS: Iron Polysaccharide Complex 150 MG CAPSULE PO (07:47)
[2017-04-13 09:30] VITALS: PULSE 63; RESP 18; O2SAT 93
--- NOTE | 2017-04-13 11:12 | CASEMGMT ---
Insurance Notified [employer] of resident discharge on 04/13/17 to home with home health services. Auth#[id number] Dory TIPTON, COP
[2017-04-13 12:04] VITALS: BP 95/60; PULSE 101; RESP 18; TEMP 36.6; O2SAT 94
--- NOTE | 2017-04-13 13:56 | MDS.RN ---
Information for the mds was obtained from review of the clinical record, interview of resident, staff, and direct observation of resident's care.
== END 2017-04-13 10:15 | disposition home health service (06) | DRG 948 ==
PROVIDERS: Admitting Provider Family Medicine Geriatric Medicine; Family Provider Family Medicine; PCP Family Medicine; Visit Provider Family Medicine Geriatric Medicine
DX: R53.81 Other malaise (principal); F32.9 Major depressive disorder, single episode, unspecified; S22.31XD Fracture of one rib, right side, subsequent encounter for fracture with routine healing; K21.9 Gastro-esophageal reflux disease without esophagitis; S42.001D Fracture of unspecified part of right clavicle, subsequent encounter for fracture with routine healing; W19.XXXD Unspecified fall, subsequent encounter; Z79.899 Other long term (current) drug therapy; F41.9 Anxiety disorder, unspecified; K59.09 Other constipation; Z87.01 Personal history of pneumonia (recurrent)
CPT/HCPCS: 36415; 80048; 85025; 97110; 97116; 97162; 97166; 97530; 97535; 97802

== ENCOUNTER 2018-02-11 23:36 | Inpatient (IN) | payer MEDICARE, SELFPAY ==
[2018-02-11 23:38] VITALS: BP 124/53; PULSE 87; RESP 24; TEMP 36.3; O2SAT 100; BMI 44.3
[2018-02-12] VITALS (14 sets, daily range): BP systolic 98–121; BP diastolic 49–61; PULSE 85–108; RESP 16–30; TEMP 36.8–37.5; O2SAT 94–100; BMI 26.2
--- NOTE | 2018-02-12 00:11 | EKG12_ITS ---
Test Reason : N/V Blood Pressure : / mmHG Vent. Rate : 086 BPM Atrial Rate : 086 BPM P-R Int : 108 ms QRS Dur : 074 ms QT Int : 434 ms P-R-T Axes : 035 027 -86 degrees QTc Int : 519 ms Sinus rhythm with short NJ ST & T wave abnormality, consider inferior ischemia Abnormal ECG Confirmed by WILY GARZA, BELLA ([id number]), assistant film editor JOSE SOARES ([id number]) on 02/16/2018 10:18:09 AM Referred By: LILIAN Confirmed By:BELLA JULIEN MD
--- NOTE | 2018-02-12 00:11 | RAD_ITS ---
HISTORY: PT STATES N/V/D SINCE ABOUT 3PM MONDAY EXAM: XR Chest 1 View: Portable COMPARISON: Portable chest 03/29/2017 and CTA chest 03/27/2017 FINDINGS: EKG leads in place. Mild cardiomegaly, unchanged. Left basilar mild subsegmental atelectasis or scarring. No vascular congestion, pleural effusion, or pulmonary consolidation. No pneumothorax. Probable small hiatal hernia. Atherosclerotic thoracic aorta. Remote fracture of the distal right clavicle. RAD/Chest 1 View (Portable) IMPRESSION: 1. Left basilar mild subsegmental atelectasis or scarring. 2. Cardiomegaly, unchanged. 3. No CHF. at 0051 Reported and signed by: Roni Hopper MD Electronically Signed: Roni Hopper, at 0:48 EST Tel , Service support ,
--- NOTE | 2018-02-12 00:12 | RAD_ITS ---
HISTORY: N-V-D SINCE 3 PM MONDAYNG TUBE PLACEMENT EXAM: Abdominal series portable 1 view COMPARISON: None FINDINGS: NG tube in place with the tube tip in the region of the distal stomach. Generalized paucity of intestinal gas and this correlates with the history of vomiting and diarrhea. No suspicious calcifications. Remote trauma of the right superior and inferior pubic rami. RAD/Abdomen Single View (Portable) IMPRESSION: 1. Good position of the NG tube. 2. Paucity of intestinal gas. Please see above comment. at 0223 Reported and signed by: Roni Hopper MD Electronically Signed: Roni Hopper, at 2:21 EST Tel , Service support ,
[2018-02-12] MEDS: 0.9% Normal Saline 1,000 ML 1000 ML IV (00:22)
[2018-02-12 00:28] LABS: Absolute Lymphocyte Count 1.01 X10^3/ul (0.83-4.51); Absolute Neutrophil Count 8.6 X10^3/uL (2.0-7.7); Basophil# 0.02 X10^3/uL; Basophil% 0.2 % (0-1); Eosinophil# 0.01 X10^3/uL; Eosinophils% 0.1 % (0-5); Hematocrit 40.9 % (37-47); Hemoglobin 13.2 g/dl (12.0-15.0); Lymphocyte # 1.01 X10^3/ul (4.0); Lymphocyte % 9.9 % (19-41); Mean Corp Hgb Conc 32.3 g/gl (32-36); Mean Corpuscular Hgb 30.8 pg (27.0-32.0); Mean Corpuscular Volume 95.6 fL (81-99); Mean Platelet Vol. 13.7 fl (6.2-12.0); Monocyte% 5.9 % (0-10); Neutrophil # 8.57 X10^3/uL (2.7-7.7); Neutrophil % 83.7 % (47-70); Platelet Count 252 K/mm3 (150-450); RBC Distribution Width CV 14.7 % (11.6-14.6); Red Blood Count 4.28 M/mm3 (4.2-5.4); White Blood Count 10.2 K/mm3 (4.4-11.0)
[2018-02-12 00:29] LABS: POSITIVE COUNT NO; POSITIVE DIFFERENTIAL NO; POSITIVE MORPHOLOGY NO
[2018-02-12] MEDS: Ondansetron 4 MG/2 ML Vial IV ×2 (00:30→08:37)
[2018-02-12 00:39] LABS: International Normalized Ratio 0.9; Prothrombin Time (Protime)PT. 12.2 SECONDS (11.7-14.9)
--- NOTE | 2018-02-12 00:39 | ED.RN ---
VAN ATTEMPT X2. UNSUCCESSFUL. REQUESTING LIDOCAINE INHALATION FROM DR QUINTANA
[2018-02-12 00:40] LABS: ALB/GLOB Ratio 1.1 RATIO (0.9-2.4); AST(SGOT) 10 U/L (15-37); Alanine Aminotransfer ALT/SGPT 10 U/L (13-56); Albumin, Serum 3.5 g/dL (3.2-5.0); Alkaline Phosphatase 85 U/L (45-117); Anion Gap 12 (5-15); BUN 13 mg/dL (7-18); BUN/Creat Ratio 10.2 RATIO (10-20); Calcium,Total 8.9 mg/dL (8.5-10.1); Chloride 104 mmol/L (98-107); Creatinine, Serum 1.28 mg/dL (0.55-1.02); EST Glomerular Filtration Rate 45 mL/min (>60); Est Glom Filt Rate - Afr Amer 54 mL/min (>60); Estimated Creatinine Clearance 69.75 ml/min; Globulin 3.1 g/dL (2.2-4.2); Glucose 155 mg/dL (74-106); Potassium 4.6 mmol/L (3.5-5.1); Protein, Total 6.6 g/dL (6.4-8.2); Sodium Level 136 mmol/L (136-145)
[2018-02-12 00:43] LABS: Partial Thromboplast Time < 20.0 Seconds (24.1-36.2)
[2018-02-12] MEDS: Lidocaine 4% 5 ML Ampul 2 ML INHALATION (00:45)
--- NOTE | 2018-02-12 00:48 | ED.RN ---
DR QUINTANA NOTIFIED OF LACTIC ACID RESULTS
[2018-02-12 00:49] LABS: Lactic Acid 4.8 mmol/L (0.4-2.0)
--- NOTE | 2018-02-12 01:55 | ED.VISSUMM ---
- ER Visit Summary Date of Service: 02/12/18 Chief Complaint: Nausea, vomiting, diarrhea History of Present Illness: The patient is a 62 F presenting with nausea, vomiting, diarrhea. She states this started earlier this afternoon. She has had several episodes of both vomiting and diarrhea. She denies bright red blood in her stool or emesis. She has had dark emesis. She has had a mild cough. She denies abdominal pain. Denies chest pain or shortness of breath. Denies fever. Physical Examination: Vitals are stable. Patient is afebrile. Alert no acute distress. HEENT exam pale conjunctivae Neck is supple. Lungs are clear and equal bilaterally. Heart is regular rate and rhythm. Abdomen is soft nontender nondistended. No guarding or rebound Extremities are unremarkable. Skin is warm and dry. No focal neurologic deficit. Remainder of exam is unremarkable. Emergency Department Course and Treatment: EKG is sinus rate of 86 with no acute ischemic changes. She was given IV fluids, Zofran, Phenergan. NG tube was placed for coffee-ground emesis. CBC is unremarkable. Chemistries show glucose 155, creatinine 1.28. Troponin is negative. Lactic acid is 4.8. Chest x-ray shows cardiomegaly, scarring. Stool is guaiac negative. Gastroccult positive. Discussed with Dr. Rodrigues. She requested repeat lactic acid and CT scan abdomen. Repeat lactic acid is 1.7. Dr. Rodrigues reviewed her CT scan and is agreeable for admission to hospitalist with consultation to surgery. She was given Protonix IV. CT abdomen shows NG tube tip lies within the stomach body and the stomach is decompressed. Nonspecific diffuse colitis and mild distal ileitis. Crohn's disease would be included in the differential. Cholelithiasis. No biliary dilatation. Age-indeterminate compression fractures of the T11, T12, and L1. Additional remote fractures of the right superior and inferior pubic rami. Mild left atrial enlargement. Posterior bibasilar chronic atelectasis/scarring, worse on the right. Urinalysis unremarkable other than ketones. Discussed with the hospitalist for admission. Disposition: Admission Impression: Vomiting and diarrhea, upper GI bleed, lactic acidosis This note was generated with [employer] dictation software. It may contain incorrect words, spelling, and punctuation that were not noted in review of the chart prior to signing ED Disposition - Plan for ED Patient: Chief Complaint: Nausea/Vomiting/Diarrhea Referrals: Dante Mclaughlin MD [Primary Care Provider] -
[2018-02-12] MEDS: proMETHazine 25 MG/ML Syringe 6.25 MG IV ×2 (01:59→03:34)
--- NOTE | 2018-02-12 02:32 | RAD_ITS ---
HISTORY: REPOSTIONED NG TUBE EXAM: KUB 0234 hours COMPARISON: KUB 0125 hours FINDINGS: Single view exam of the lower chest and upper abdomen. The NG tube remains in good position with the tube tip in the region of the distal stomach. Otherwise, no significant change. Relative paucity of intestinal gas. IMPRESSION: The NG tube remains in good position. at 0251 Reported and signed by: Roni Hopper MD Electronically Signed: Roni Hopper, at 2:49 EST Tel , Service support , RAD/Abdomen Single View (Portable)
[2018-02-12] MEDS: 0.9% Normal Saline 1,000 ML 999 ML IV (02:54)
--- NOTE | 2018-02-12 03:04 | CT_ITS ---
HISTORY: N/V ABDOMINAL PAIN. NG TUBE IN PLACE. LIMITED RETURN TECHNIQUE: Helically acquired images were obtained of the abdomen and pelvis following IV contrast. A radiation dose optimization technique was used for this scan. IV Contrast dosage and agent: 100 cc [id number] contrast Oral contrast: None. COMPARISON: CTA chest 03/27/2017 and abdominal x-ray 02/12/2018 FINDINGS: LOWER CHEST: Posterior bibasilar chronic scarring/atelectasis, worse on the right, without significant change compared to previous CT exam. Left atrial mild enlargement. NG tube in place with the tube tip within the stomach body. The stomach is decompressed. The gallbladder is normally distended and shows numerous small dependent stones. No biliary dilatation or pericholecystic inflammatory changes. Left hepatic lobe 0.9 cm simple cyst, unchanged. The liver is normal in size and shows no suspicious lesion. The spleen and pancreas show no CT abnormality. Bilateral renal excretion of contrast without evidence of hydronephrosis, nephritis, or suspicious renal lesion. The adrenal glands are not enlarged. Abdominal aorta is normal in caliber. IVC is patent. No ascites or retroperitoneal lymphadenopathy. CT/Abdomen/Pelvis WITH Contrast IMPRESSION: Individualized dose optimization techniques were used for this CT. at 0923 Reported and signed by: Roni Hopper MD Electronically Signed: Roni Hopper, at 6:29 EST Tel , Service support ,
[2018-02-12 04:21] LABS: Reflex Lactate? Y
[2018-02-12 05:31] LABS: Lactic Acid 1.7 mmol/L (0.4-2.0)
[2018-02-12 06:34] LABS: Red Blood Cells-Urine 0 SEEN /hpf (0-5)
[2018-02-12 06:42] LABS: Color, Urine Yellow (Yellow); Glucose, Dipstick Normal (Normal); Ketone-Dipstick 50 mg/dl (Negative); Leukocyte Esterase-Dipstick 25 /ul (Negative); Nitrite-Dipstick Negative (Negative); Occult Blood-Urine Negative /ul (Negative); Protein-Dipstick Negative (Negative); Urine Bilirubin Dipstick Negative (Negative); Urine Clarity Clear (Clear); Urine Urobilinogen Normal (Normal)
[2018-02-12 06:50] LABS: Bacteria RARE /hpf (None Seen); Mucous, Urine RARE /hpf (<or=2+); Squamous Epithelial Cells - UA 0-5 SEEN /hpf (5-10); White Blood Cells 0-5 SEEN /hpf (0-5)
--- NOTE | 2018-02-12 07:14 | PCM.CONS.GEN ---
Reason for Consult Date of Consultation: 02/12/18 History of Present Illness: The patient is a 62 year old F presents to ER due to nausea vomiting, diarrhea which started mid last week, but has continued to worsen. Patient arrived in ER with a normal white blood count with a slight left shift, she did have a lactic acidosis of 4.8 which upon rehydration came down to 1.7. CT abdomen pelvis was done which showed some diffuse nonspecific colitis/thickening of the distal ileum. Patient denies any history of Crohn's disease or any family history of Crohn's or ulcerative colitis. She denies any history of previous scopes. Patient denies any history of abdominal pain or current abdominal pain. NG was placed in the ER due to the patient stating that she had dark emesis. He was checked and was occult positive. Currently her hemoglobin is stable. Patient is normally on Nexium daily which she states controls her GERD symptoms. Patient was given Protonix IV in the ER. Past Medical History Past Medical History (Chronic Problems): Chronic Problems Depression (Chronic) GERD (gastroesophageal reflux disease) (Chronic) Allergies No Known Allergies Allergy (Verified 02/11/18 23:37) Home Medications: Ambulatory Orders Medication Instructions Recorded Esomeprazole Mag Trihydrate 40 mg PO DAILY 03/30/13 [Nexium] Citalopram [Celexa] 40 mg PO DAILY 02/12/18 Surgical History: appendectomy, tonsillectomy, - - Hand surgery, back surgery, csection Psychiatric History: Depression DIRECTOR OF PUBLICATIONS History: No pertinent DIRECTOR OF PUBLICATIONS history Smoking Status: Never smoker - *Family History Maternal History Items: Diabetes Paternal History Items: Cancer - Lung Review of Systems Constitutional: Denies: Chills, Fever Gastrointestinal: Reports: Diarrhea, Nausea, Vomiting. Denies: Abdominal Pain Patient Problems: Active and Suspected Problems Gastroenteritis (Acute) - Physical Exam General: Alert, Oriented x3, Cooperative, No apparent distress HEENT: - - NG in place Lungs: Normal air movement Cardiovascular: Tachycardic - Low 100s Abdomen: Soft, Non Tender - No peritoneal signs, Non-Distended Extremities: No clubbing, No cyanosis, No edema Neurological: Cranial nerves II-XII grossly intact Psych/Mental Status: Normal Affect Vital Signs Temp Pulse Resp BP Pulse Ox 97.4 F L 103 H 22 H 102/61 100 02/11/18 23:38 02/12/18 07:10 02/12/18 07:10 02/12/18 07:10 02/12/18 07:10 Oxygen Flow Rate (L/min) 4 Oxygen Delivery Method Nasal Cannula Weight: 219 lb 5.759 oz Body Mass Index (BMI) 44.3 Microbiology Past 72 Hours 02/12/18 01:35 Gastric Occult Blood - Final Gastric Fluid/Contents Occult Blood Positive 02/12/18 01:00 Stool Occult Blood (ERNIE) - Final Stool Laboratory Tests Past 24 Hrs 02/12/18 02/12/18 02/12/18 00:10 00:10 00:10 WBC 10.2 RBC 4.28 Hgb 13.2 Hct 40.9 MCV 95.6 MCH 30.8 MCHC 32.3 RDW 14.7 H RDW Differential 51.0 H Plt Count 252 MPV 13.7 H Immature Gran % (Auto) 0.200 Neut % (Auto) 83.7 H Lymph % (Auto) 9.9 L [place] % (Auto) 5.9 Eos % (Auto) 0.1 Baso % (Auto) 0.2 Absolute Neuts (auto) 8.6 H Absolute Lymphs (auto) 1.01 Total Counted Not Reportable PT 12.2 INR 0.9 APTT < 20.0 L Sodium 136 Potassium 4.6 Chloride 104 Carbon Dioxide 20.0 L Anion Gap 12 BUN 13 Creatinine 1.28 H Estim Creat Clear Calc 69.75 Est GFR (MDRD) Af Amer 54 L Est GFR (MDRD) Non-Af 45 L BUN/Creatinine Ratio 10.2 Glucose 155 H Lactic Acid Calcium 8.9 Total Bilirubin 0.70 AST 10 L ALT 10 L Alkaline Phosphatase 85 Troponin I < 0.015 Total Protein 6.6 Albumin 3.5 Globulin 3.1 Albumin/Globulin Ratio 1.1 Urine Color Urine Clarity Urine pH Ur Specific [place] Urine Protein Urine Glucose (UA) Urine Ketones Urine Occult Blood Urine Nitrite Urine Bilirubin Urine Urobilinogen Ur Leukocyte Esterase Urine RBC Urine WBC Ur Squamous Epith Cells Urine Bacteria Urine Mucus 02/12/18 02/12/18 02/12/18 00:20 04:21 04:40 WBC RBC Hgb Hct MCV MCH MCHC RDW RDW Differential Plt Count MPV Immature Gran % (Auto) Neut % (Auto) Lymph % (Auto) [place] % (Auto) Eos % (Auto) Baso % (Auto) Absolute Neuts (auto) Absolute Lymphs (auto) Total Counted PT INR APTT Sodium Potassium Chloride Carbon Dioxide Anion Gap BUN Creatinine Estim Creat Clear Calc Est GFR (MDRD) Af Amer Est GFR (MDRD) Non-Af BUN/Creatinine Ratio Glucose Lactic Acid 4.8 H* 1.7 Cancelled Calcium Total Bilirubin AST ALT Alkaline Phosphatase Troponin I Total Protein Albumin Globulin Albumin/Globulin Ratio Urine Color Urine Clarity Urine pH Ur Specific [place] Urine Protein Urine Glucose (UA) Urine Ketones Urine Occult Blood Urine Nitrite Urine Bilirubin Urine Urobilinogen Ur Leukocyte Esterase Urine RBC Urine WBC Ur Squamous Epith Cells Urine Bacteria Urine Mucus 02/12/18 06:25 WBC RBC Hgb Hct MCV MCH MCHC RDW RDW Differential Plt Count MPV Immature Gran % (Auto) Neut % (Auto) Lymph % (Auto) [place] % (Auto) Eos % (Auto) Baso % (Auto) Absolute Neuts (auto) Absolute Lymphs (auto) Total Counted PT INR APTT Sodium Potassium Chloride Carbon Dioxide Anion Gap BUN Creatinine Estim Creat Clear Calc Est GFR (MDRD) Af Amer Est GFR (MDRD) Non-Af BUN/Creatinine Ratio Glucose Lactic Acid Calcium Total Bilirubin AST ALT Alkaline Phosphatase Troponin I Total Protein Albumin Globulin Albumin/Globulin Ratio Urine Color Yellow Urine Clarity Clear Urine pH 8.0 Ur Specific [place] 1.010 Urine Protein Negative Urine Glucose (UA) Normal Urine Ketones 50 H Urine Occult Blood Negative Urine Nitrite Negative Urine Bilirubin Negative Urine Urobilinogen Normal Ur Leukocyte Esterase 25 H Urine RBC 0 SEEN Urine WBC 0-5 SEEN Ur Squamous Epith Cells 0-5 SEEN Urine Bacteria RARE Urine Mucus RARE Assessment/Plan All Active Problems UGI bleed (Resolved) Gastroenteritis (Acute) RADHA (acute kidney injury) (Resolved) Lactic acidosis (Resolved) SIRS (systemic inflammatory response syndrome) (Resolved) 62-year-old female with nausea/vomiting/diarrhea, emesis occult positive, nonspecific thickening of the colon and distal ileum 1. Continue n.p.o./IV fluids/NG. CT abdomen pelvis not show dilated small bowel or dilated stomach but with all the recent nausea vomiting not unreasonable to keep the NG temporarily. 2. Nonspecific colitis recommend starting Cipro Flagyl, also checking stool studies for the diarrhea. Marian Rodrigues M.D. Pager: [phone] [facility] [address] [place] [address], Outpatient Pavilion, [address] [place] [address] Office: [phone] Code Visit Inpatient E&M: 21511 Init Hosp L2
--- NOTE | 2018-02-12 07:18 | CON.PCM_ITS ---
Reason for Consult Date of Consultation: 02/12/18 History of Present Illness: The patient is a 62 year old F presents to ER due to nausea vomiting, diarrhea which started mid last week, but has continued to worsen. Patient arrived in ER with a normal white blood count with a slight left shift, she did have a lactic acidosis of 4.8 which upon rehydration came down to 1.7. CT abdomen pelvis was done which showed some diffuse nonspecific colitis/thickening of the distal ileum. Patient denies any history of Crohn's disease or any family history of Crohn's or ulcerative colitis. She denies any history of previous scopes. Patient denies any history of abdominal pain or current abdominal pain. NG was placed in the ER due to the patient stating that she had dark emesis. He was checked and was occult positive. Currently her hemoglobin is stable. Patient is normally on Nexium daily which she states controls her GERD symptoms. Patient was given Protonix IV in the ER. Past Medical History Past Medical History (Chronic Problems): Chronic Problems Depression (Chronic) GERD (gastroesophageal reflux disease) (Chronic) Allergies No Known Allergies Allergy (Verified 02/11/18 23:37) Home Medications: Ambulatory Orders Medication Instructions Recorded Esomeprazole Mag Trihydrate 40 mg PO DAILY 03/30/13 [Nexium] Citalopram [Celexa] 40 mg PO DAILY 02/12/18 Surgical History: appendectomy, tonsillectomy, - - Hand surgery, back surgery, csection Psychiatric History: Depression UNDERWRITING DIRECTOR History: No pertinent UNDERWRITING DIRECTOR history Smoking Status: Never smoker - *Family History Maternal History Items: Diabetes Paternal History Items: Cancer - Lung Review of Systems Constitutional: Denies: Chills, Fever Gastrointestinal: Reports: Diarrhea, Nausea, Vomiting. Denies: Abdominal Pain Patient Problems: Active and Suspected Problems Gastroenteritis (Acute) - Physical Exam General: Alert, Oriented x3, Cooperative, No apparent distress HEENT: - - NG in place Lungs: Normal air movement Cardiovascular: Tachycardic - Low 100s Abdomen: Soft, Non Tender - No peritoneal signs, Non-Distended Extremities: No clubbing, No cyanosis, No edema Neurological: Cranial nerves II-XII grossly intact Psych/Mental Status: Normal Affect Vital Signs Temp Pulse Resp BP Pulse Ox 97.4 F L 103 H 22 H 102/61 100 02/11/18 23:38 02/12/18 07:10 02/12/18 07:10 02/12/18 07:10 02/12/18 07:10 Oxygen Flow Rate (L/min) 4 Oxygen Delivery Method Nasal Cannula Weight: 219 lb 5.759 oz Body Mass Index (BMI) 44.3 Microbiology Past 72 Hours 02/12/18 01:35 Gastric Occult Blood - Final Gastric Fluid/Contents Occult Blood Positive 02/12/18 01:00 Stool Occult Blood (ERNIE) - Final Stool Laboratory Tests Past 24 Hrs 02/12/18 02/12/18 02/12/18 00:10 00:10 00:10 WBC 10.2 RBC 4.28 Hgb 13.2 Hct 40.9 MCV 95.6 MCH 30.8 MCHC 32.3 RDW 14.7 H RDW Differential 51.0 H Plt Count 252 MPV 13.7 H Immature Gran % (Auto) 0.200 Neut % (Auto) 83.7 H Lymph % (Auto) 9.9 L [place] % (Auto) 5.9 Eos % (Auto) 0.1 Baso % (Auto) 0.2 Absolute Neuts (auto) 8.6 H Absolute Lymphs (auto) 1.01 Total Counted Not Reportable PT 12.2 INR 0.9 APTT < 20.0 L Sodium 136 Potassium 4.6 Chloride 104 Carbon Dioxide 20.0 L Anion Gap 12 BUN 13 Creatinine 1.28 H Estim Creat Clear Calc 69.75 Est GFR (MDRD) Af Amer 54 L Est GFR (MDRD) Non-Af 45 L BUN/Creatinine Ratio 10.2 Glucose 155 H Lactic Acid Calcium 8.9 Total Bilirubin 0.70 AST 10 L ALT 10 L Alkaline Phosphatase 85 Troponin I < 0.015 Total Protein 6.6 Albumin 3.5 Globulin 3.1 Albumin/Globulin Ratio 1.1 Urine Color Urine Clarity Urine pH Ur Specific [place] [employer] Urine Protein Urine Glucose (UA) Urine Ketones Urine Occult Blood Urine Nitrite Urine Bilirubin Urine Urobilinogen Ur Leukocyte Esterase Urine RBC Urine WBC Ur Squamous Epith Cells Urine Bacteria Urine Mucus 02/12/18 02/12/18 02/12/18 00:20 04:21 04:40 WBC RBC Hgb Hct MCV MCH MCHC RDW RDW Differential Plt Count MPV Immature Gran % (Auto) Neut % (Auto) Lymph % (Auto) [place] % (Auto) Eos % (Auto) Baso % (Auto) Absolute Neuts (auto) Absolute Lymphs (auto) Total Counted PT INR APTT Sodium Potassium Chloride Carbon Dioxide Anion Gap BUN Creatinine Estim Creat Clear Calc Est GFR (MDRD) Af Amer Est GFR (MDRD) Non-Af BUN/Creatinine Ratio Glucose Lactic Acid 4.8 H* 1.7 Cancelled Calcium Total Bilirubin AST ALT Alkaline Phosphatase Troponin I Total Protein Albumin Globulin Albumin/Globulin Ratio Urine Color Urine Clarity Urine pH Ur Specific [place] [employer] Urine Protein Urine Glucose (UA) Urine Ketones Urine Occult Blood Urine Nitrite Urine Bilirubin Urine Urobilinogen Ur Leukocyte Esterase Urine RBC Urine WBC Ur Squamous Epith Cells Urine Bacteria Urine Mucus 02/12/18 06:25 WBC RBC Hgb Hct MCV MCH MCHC RDW RDW Differential Plt Count MPV Immature Gran % (Auto) Neut % (Auto) Lymph % (Auto) [place] % (Auto) Eos % (Auto) Baso % (Auto) Absolute Neuts (auto) Absolute Lymphs (auto) Total Counted PT INR APTT Sodium Potassium Chloride Carbon Dioxide Anion Gap BUN Creatinine Estim Creat Clear Calc Est GFR (MDRD) Af Amer Est GFR (MDRD) Non-Af BUN/Creatinine Ratio Glucose Lactic Acid Calcium Total Bilirubin AST ALT Alkaline Phosphatase Troponin I Total Protein Albumin Globulin Albumin/Globulin Ratio Urine Color Yellow Urine Clarity Clear Urine pH 8.0 Ur Specific [place] [employer] 1.010 Urine Protein Negative Urine Glucose (UA) Normal Urine Ketones 50 H Urine Occult Blood Negative Urine Nitrite Negative Urine Bilirubin Negative Urine Urobilinogen Normal Ur Leukocyte Esterase 25 H Urine RBC 0 SEEN Urine WBC 0-5 SEEN Ur Squamous Epith Cells 0-5 SEEN Urine Bacteria RARE Urine Mucus RARE Assessment/Plan All Active Problems UGI bleed (Resolved) Gastroenteritis (Acute) RADHA (acute kidney injury) (Resolved) Lactic acidosis (Resolved) SIRS (systemic inflammatory response syndrome) (Resolved) 62-year-old female with nausea/vomiting/diarrhea, emesis occult positive, nonspecific thickening of the colon and distal ileum 1. Continue n.p.o./IV fluids/NG. CT abdomen pelvis not show dilated small bowel or dilated stomach but with all the recent nausea vomiting not unreasonable to keep the NG temporarily. 2. Nonspecific colitis recommend starting Cipro Flagyl, also checking stool studies for the diarrhea. Marian Rodrigues M.D. Pager: [phone] [facility] [address] [place] [address], Outpatient Pavilion, [address] [place] [address] Office: [phone] Code Visit Inpatient E&M: 41880 Init Hosp L2
[2018-02-12] MEDS: Acetaminophen 325 MG Tablet 650 MG PO (08:37)
[2018-02-12] MEDS: 0.9% NaCl Peripheral Flush Adult/Peds IV (08:37)
--- NOTE | 2018-02-12 09:26 | CASEMGMT ---
Social Work Note Advanced directives on pt's echart. SW printed and placed copies of advanced directives in pt's chart. Funmi Chavez SQL REPORT WRITER, REAL ESTATE ANALYST
--- NOTE | 2018-02-12 11:00 | CASEMGMT ---
JACKLYN ARREAGA Face to Face with patient for initial transition planning/care coordination assessment. RN GIBSON introduced self and role at [facility]. Patient lying in bed, alert and oriented. Patient willing to participate in assessment and is able to answer all questions appropriately. Care providers, pharmacy, and demographics verified. Patient wishes to discharge home, denies need for home health at this time. Patient states she has no further needs or concerns at this time. CM to follow for discharge planning needs that may arise. PCP: Lissette Specialists: None Preferred Pharmacy: [facility] Insurance: [employer] Prescription Benefit: [employer] MCR Living Will/HPOA: Yes sonRoshan Jr LNOK: Son Living Arrangements: Lives alone in 1st floor apartment. Independent Transportation: Self/Son DME/HHC: None. [facility] HHC in the past Disposition Plan: Patient to discharge home with family support and follow-up plans in place. Funmi LINDSEY, RN, CM
[2018-02-12] MEDS: Ciprofloxacin 400 MG/200 ML BAG 200 MG IV ×2 (11:18→21:37)
--- NOTE | 2018-02-12 11:22 | PCM.HP.STD ---
Problem List (1) UGI bleed Status: Acute (2) Gastroenteritis Status: Acute (3) RADHA (acute kidney injury) Status: Acute (4) Lactic acidosis Status: Acute (5) SIRS (systemic inflammatory response syndrome) Status: Acute History of Present Illness Date of Admission: 02/12/18 Chief Complaint: Nausea, vomiting, coffee ground emesis. The patient is a 62 year old F presents with a 1 day history of nausea and vomiting. Patient states that she did see some coffee-ground emesis. Denies any abdominal pain. Presented to the emergency room and was found to have lactic acid 4.8, creatinine of 1.28 and nonspecific diffuse colitis and mild distal ileitis. General surgery was consulted. Patient received IV Protonix, Zofran and an NG tube was placed in the emergency room. Patient was Hemoccult negative but was gastric occult positive. Had GI bleeds before nor has she ever had a history of Crohn's disease or ulcerative colitis. 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 Denies: Chills, Fever, Night Sweats Eyes: Denies: Blurred vision, Double vision HEENT: Denies: Head Aches, Sinus Congestion, Sinus Drainage Cardiovascular: Denies: Chest Pain, Palpitations Respiratory: Denies: Cough, Shortness of breath at rest, Sputum production Gastrointestinal: Reports: Hematemesis, Nausea, Vomiting. Denies: Abdominal Pain, Hematochezia Genitourinary: Denies: Dysuria Musculoskeletal: Denies: Joint Pain, Joint Tenderness Skin: Denies: Rash, Wounds Neurological: Reports: Balance problems. Denies: Focal weakness, Numbness, Tingling Psychiatric: Denies: Anxiety, Depression Hematologic/ Lymphatic: Denies: Easy Bruising, Easy Bleeding, Hx of blood clot Comment: A 10 point review of systems were negative except as mentioned in the history of present illness and the other review of systems. VTE Information - Inpt Only VTE Present on Admission: No VTE Mechan Device Prophylaxis: SCD's VTE Pharm Prophylaxis ordered?: No Reason prophylaxis not ordered:: Medical Contraindication Patient Problems: Active and Suspected Problems UGI bleed (Acute) Gastroenteritis (Acute) RADHA (acute kidney injury) (Acute) Lactic acidosis (Acute) SIRS (systemic inflammatory response syndrome) (Acute) - Physical Exam General: Alert, Cooperative, No apparent distress HEENT: Atraumatic, Normocephalic Oral: No Gingival or Mucosal Lesions/ Ulcerations, Dry Mucosa Neck: No Nodes, Thyroid Normal Size and Texture Lungs: Clear to auscultation, Normal air movement, No rhonchi, No wheeze Cardiovascular: Regular rate, Regular Rhythm, Normal S1, Normal S2, No murmurs Abdomen: Soft, Non Tender, Non-Distended, Hypoactive Bowel Sounds Extremities: No edema, No Calf Tenderness Skin: No rashes, No breakdown Musculoskeletal: No Tenderness to Palpation of Joints or Extremities, No Muscle Wasting Neurological: - - no clonus. Psych/Mental Status: Normal Affect, Appropriate Vital Signs Temp Pulse Resp BP Pulse Ox 37.5 C H 108 H 20 H 118/56 L 99 02/12/18 08:05 02/12/18 08:05 02/12/18 08:05 02/12/18 08:05 02/12/18 08:30 Oxygen Flow Rate (L/min) 2 Oxygen Delivery Method Nasal Cannula Weight: 58.831 kg Body Mass Index (BMI) 26.2 Intake and Output for Last 24 Hours 02/10/18 02/11/18 02/12/18 23:59 23:59 23:59 Intake Total 50 / 50 Output Total 175 / 175 Balance -125 / -125 Microbiology Past 72 Hours 02/12/18 01:35 Gastric Occult Blood - Final Gastric Fluid/Contents Occult Blood Positive 02/12/18 01:00 Stool Occult Blood (ERNIE) - Final Stool Laboratory Tests Past 24 Hrs 02/12/18 02/12/18 02/12/18 00:10 00:10 00:10 WBC 10.2 RBC 4.28 Hgb 13.2 Hct 40.9 MCV 95.6 MCH 30.8 MCHC 32.3 RDW 14.7 H RDW Differential 51.0 H Plt Count 252 MPV 13.7 H Immature Gran % (Auto) 0.200 Neut % (Auto) 83.7 H Lymph % (Auto) 9.9 L [place] % (Auto) 5.9 Eos % (Auto) 0.1 Baso % (Auto) 0.2 Absolute Neuts (auto) 8.6 H Absolute Lymphs (auto) 1.01 Total Counted Not Reportable PT 12.2 INR 0.9 APTT < 20.0 L Sodium 136 Potassium 4.6 Chloride 104 Carbon Dioxide 20.0 L Anion Gap 12 BUN 13 Creatinine 1.28 H Estim Creat Clear Calc 69.75 Est GFR (MDRD) Af Amer 54 L Est GFR (MDRD) Non-Af 45 L BUN/Creatinine Ratio 10.2 Glucose 155 H Lactic Acid Calcium 8.9 Total Bilirubin 0.70 AST 10 L ALT 10 L Alkaline Phosphatase 85 Troponin I < 0.015 Total Protein 6.6 Albumin 3.5 Globulin 3.1 Albumin/Globulin Ratio 1.1 Urine Color Urine Clarity Urine pH Ur Specific Gray Urine Protein Urine Glucose (UA) Urine Ketones Urine Occult Blood Urine Nitrite Urine Bilirubin Urine Urobilinogen Ur Leukocyte Esterase Urine RBC Urine WBC Ur Squamous Epith Cells Urine Bacteria Urine Mucus 02/12/18 02/12/18 02/12/18 00:20 04:21 04:40 WBC RBC Hgb Hct MCV MCH MCHC RDW RDW Differential Plt Count MPV Immature Gran % (Auto) Neut % (Auto) Lymph % (Auto) [place] % (Auto) Eos % (Auto) Baso % (Auto) Absolute Neuts (auto) Absolute Lymphs (auto) Total Counted PT INR APTT Sodium Potassium Chloride Carbon Dioxide Anion Gap BUN Creatinine Estim Creat Clear Calc Est GFR (MDRD) Af Amer Est GFR (MDRD) Non-Af BUN/Creatinine Ratio Glucose Lactic Acid 4.8 H* 1.7 Cancelled Calcium Total Bilirubin AST ALT Alkaline Phosphatase Troponin I Total Protein Albumin Globulin Albumin/Globulin Ratio Urine Color Urine Clarity Urine pH Ur Specific Gray Urine Protein Urine Glucose (UA) Urine Ketones Urine Occult Blood Urine Nitrite Urine Bilirubin Urine Urobilinogen Ur Leukocyte Esterase Urine RBC Urine WBC Ur Squamous Epith Cells Urine Bacteria Urine Mucus 02/12/18 06:25 WBC RBC Hgb Hct MCV MCH MCHC RDW RDW Differential Plt Count MPV Immature Gran % (Auto) Neut % (Auto) Lymph % (Auto) [place] % (Auto) Eos % (Auto) Baso % (Auto) Absolute Neuts (auto) Absolute Lymphs (auto) Total Counted PT INR APTT Sodium Potassium Chloride Carbon Dioxide Anion Gap BUN Creatinine Estim Creat Clear Calc Est GFR (MDRD) Af Amer Est GFR (MDRD) Non-Af BUN/Creatinine Ratio Glucose Lactic Acid Calcium Total Bilirubin AST ALT Alkaline Phosphatase Troponin I Total Protein Albumin Globulin Albumin/Globulin Ratio Urine Color Yellow Urine Clarity Clear Urine pH 8.0 Ur Specific Gray 1.010 Urine Protein Negative Urine Glucose (UA) Normal Urine Ketones 50 H Urine Occult Blood Negative Urine Nitrite Negative Urine Bilirubin Negative Urine Urobilinogen Normal Ur Leukocyte Esterase 25 H Urine RBC 0 SEEN Urine WBC 0-5 SEEN Ur Squamous Epith Cells 0-5 SEEN Urine Bacteria RARE Urine Mucus RARE Clinical Impression(s) from Imaging Studies Chest X-Ray 02/12/18 00:11 IMPRESSION: 1. Left basilar mild subsegmental atelectasis or scarring. 2. Cardiomegaly, unchanged. 3. No CHF. at 0051 Reported and signed by: Roni Hopper MD Electronically Signed: Roni Hopper, at 0:48 EST Tel , Service support , KUB X-Ray 02/12/18 00:12 IMPRESSION: 1. Good position of the NG tube. 2. Paucity of intestinal gas. Please see above comment. at 0223 Reported and signed by: Roni Hopper MD Electronically Signed: Roni Hopper, at 2:21 EST Tel , Service support , KUB X-Ray 02/12/18 02:32 Abdomen/Pelvis CT 02/12/18 03:04 IMPRESSION: Individualized dose optimization techniques were used for this CT. at 0923 Reported and signed by: Roni Hopper MD Electronically Signed: Roni Hopper, at 6:29 EST Tel , Service support , ADDENDUM: 02/12/18 0930 IMPRESSION: 1. The NG tube tip lies within the stomach body and the stomach is decompressed. 2. Nonspecific diffuse colitis and mild distal ileitis. Crohn's disease would be included in the differential. 3. Cholelithiasis. No biliary dilatation. 4. Age-indeterminate compression fractures of the T11, T12, and L1 vertebra. Additional remote fractures of the right superior and inferior pubic rami. 5. Mild left atrial enlargement. 6. Posterior bibasilar chronic atelectasis/scarring, worse on the right. Individualized dose optimization techniques were used for this CT. at 0923 Reported and signed by: Roni Hopper MD Electronically Signed: Roni Hopper, at 6:44 EST Tel , Service support , Assessment/Plan All Active Problems UGI bleed (Acute) Gastroenteritis (Acute) RADHA (acute kidney injury) (Acute) Lactic acidosis (Acute) SIRS (systemic inflammatory response syndrome) (Acute) Constipation (Acute) Clavicle fracture (Acute) Rib fracture (Acute) Fall (Acute) Weakness (Acute) CAP (community acquired pneumonia) (Acute) 1. Upper GI bleed Patient had some coffee-ground emesis. On IV Protonix General surgery on consult May be related with a Nenita-Hebert tear from retching Will return remove NG tube if patient has no further vomiting this afternoon 2. Systemic inflammatory response syndrome Presumably due to gastroenteritis Supportive management 3. Suspected gastroenteritis Doubt Crohn's disease or ulcerative colitis. Doubt ischemic colitis despite lactic acid being initially elevated as patient had no abdominal pain Empiric ciprofloxacin and Flagyl 4. Acute kidney injury Likely prerenal IV fluids Reevaluate 5. DVT prophylaxis with SCDs as chemical prophylaxis contraindicated due to upper GI bleed. 6. Lactic acidosis: Likely with dehydration Code Visit Inpatient E&M: 03720 Init Hosp L3
--- NOTE | 2018-02-12 11:26 | HP.PCM_ITS ---
Problem List (1) UGI bleed Status: Acute (2) Gastroenteritis Status: Acute (3) RADHA (acute kidney injury) Status: Acute (4) Lactic acidosis Status: Acute (5) SIRS (systemic inflammatory response syndrome) Status: Acute History of Present Illness Date of Admission: 02/12/18 Chief Complaint: Nausea, vomiting, coffee ground emesis. The patient is a 62 year old F presents with a 1 day history of nausea and vomiting. Patient states that she did see some coffee-ground emesis. Denies any abdominal pain. Presented to the emergency room and was found to have lactic acid 4.8, creatinine of 1.28 and nonspecific diffuse colitis and mild distal ileitis. General surgery was consulted. Patient received IV Protonix, Zofran and an NG tube was placed in the emergency room. Patient was Hemoccult negative but was gastric occult positive. Had GI bleeds before nor has she ever had a history of Crohn's disease or ulcerative colitis. [] Past Medical History Past Medical History (Chronic Problems): Chronic Problems Depression (Chronic) GERD (gastroesophageal reflux disease) (Chronic) Allergies No Known Allergies Allergy (Verified 02/11/18 23:37) Home Medications: Ambulatory Orders Medication Instructions Recorded Esomeprazole Mag Trihydrate 40 mg PO DAILY 03/30/13 [Nexium] Citalopram [Celexa] 40 mg PO DAILY 02/12/18 Surgical History: appendectomy, tonsillectomy, - - Hand surgery, back surgery, csection Psychiatric History: Depression [employer] HAND History: No pertinent [employer] history Smoking Status: Never smoker - *Family History Maternal History Items: Diabetes Paternal History Items: Cancer - Lung Review of Systems Constitutional: Reports: Anorexia. Denies: Chills, Fever, Night Sweats Eyes: Denies: Blurred vision, Double vision HEENT: Denies: Head Aches, Sinus Congestion, Sinus Drainage Cardiovascular: Denies: Chest Pain, Palpitations Respiratory: Denies: Cough, Shortness of breath at rest, Sputum production Gastrointestinal: Reports: Hematemesis, Nausea, Vomiting. Denies: Abdominal Pain, Hematochezia Genitourinary: Denies: Dysuria Musculoskeletal: Denies: Joint Pain, Joint Tenderness Skin: Denies: Rash, Wounds Neurological: Reports: Balance problems. Denies: Focal weakness, Numbness, Tingling Psychiatric: Denies: Anxiety, Depression Hematologic/ Lymphatic: Denies: Easy Bruising, Easy Bleeding, Hx of blood clot Comment: A 10 point review of systems were negative except as mentioned in the history of present illness and the other review of systems. VTE Information - Inpt Only VTE Present on Admission: No VTE Mechan Device Prophylaxis: SCD's VTE Pharm Prophylaxis ordered?: No Reason prophylaxis not ordered:: Medical Contraindication Patient Problems: Active and Suspected Problems UGI bleed (Acute) Gastroenteritis (Acute) RADHA (acute kidney injury) (Acute) Lactic acidosis (Acute) SIRS (systemic inflammatory response syndrome) (Acute) - Physical Exam General: Alert, Cooperative, No apparent distress HEENT: Atraumatic, Normocephalic Oral: No Gingival or Mucosal Lesions/ Ulcerations, Dry Mucosa Neck: No Nodes, Thyroid Normal Size and Texture Lungs: Clear to auscultation, Normal air movement, No rhonchi, No wheeze Cardiovascular: Regular rate, Regular Rhythm, Normal S1, Normal S2, No murmurs Abdomen: Soft, Non Tender, Non-Distended, Hypoactive Bowel Sounds Extremities: No edema, No Calf Tenderness Skin: No rashes, No breakdown Musculoskeletal: No Tenderness to Palpation of Joints or Extremities, No Muscle Wasting Neurological: - - no clonus. Psych/Mental Status: Normal Affect, Appropriate Vital Signs Temp Pulse Resp BP Pulse Ox 37.5 C H 108 H 20 H 118/56 L 99 02/12/18 08:05 02/12/18 08:05 02/12/18 08:05 02/12/18 08:05 02/12/18 08:30 Oxygen Flow Rate (L/min) 2 Oxygen Delivery Method Nasal Cannula Weight: 58.831 kg Body Mass Index (BMI) 26.2 Intake and Output for Last 24 Hours 02/10/18 02/11/18 02/12/18 23:59 23:59 23:59 Intake Total 50 / 50 Output Total 175 / 175 Balance -125 / -125 Microbiology Past 72 Hours 02/12/18 01:35 Gastric Occult Blood - Final Gastric Fluid/Contents Occult Blood Positive 02/12/18 01:00 Stool Occult Blood (ERNIE) - Final Stool Laboratory Tests Past 24 Hrs 02/12/18 02/12/18 02/12/18 00:10 00:10 00:10 WBC 10.2 RBC 4.28 Hgb 13.2 Hct 40.9 MCV 95.6 MCH 30.8 MCHC 32.3 RDW 14.7 H RDW Differential 51.0 H Plt Count 252 MPV 13.7 H Immature Gran % (Auto) 0.200 Neut % (Auto) 83.7 H Lymph % (Auto) 9.9 L [place] % (Auto) 5.9 Eos % (Auto) 0.1 Baso % (Auto) 0.2 Absolute Neuts (auto) 8.6 H Absolute Lymphs (auto) 1.01 Total Counted Not Reportable PT 12.2 INR 0.9 APTT < 20.0 L Sodium 136 Potassium 4.6 Chloride 104 Carbon Dioxide 20.0 L Anion Gap 12 BUN 13 Creatinine 1.28 H Estim Creat Clear Calc 69.75 Est GFR (MDRD) Af Amer 54 L Est GFR (MDRD) Non-Af 45 L BUN/Creatinine Ratio 10.2 Glucose 155 H Lactic Acid Calcium 8.9 Total Bilirubin 0.70 AST 10 L ALT 10 L Alkaline Phosphatase 85 Troponin I < 0.015 Total Protein 6.6 Albumin 3.5 Globulin 3.1 Albumin/Globulin Ratio 1.1 Urine Color Urine Clarity Urine pH Ur Specific [place] Urine Protein Urine Glucose (UA) Urine Ketones Urine Occult Blood Urine Nitrite Urine Bilirubin Urine Urobilinogen Ur Leukocyte Esterase Urine RBC Urine WBC Ur Squamous Epith Cells Urine Bacteria Urine Mucus 02/12/18 02/12/18 02/12/18 00:20 04:21 04:40 WBC RBC Hgb Hct MCV MCH MCHC RDW RDW Differential Plt Count MPV Immature Gran % (Auto) Neut % (Auto) Lymph % (Auto) [place] % (Auto) Eos % (Auto) Baso % (Auto) Absolute Neuts (auto) Absolute Lymphs (auto) Total Counted PT INR APTT Sodium Potassium Chloride Carbon Dioxide Anion Gap BUN Creatinine Estim Creat Clear Calc Est GFR (MDRD) Af Amer Est GFR (MDRD) Non-Af BUN/Creatinine Ratio Glucose Lactic Acid 4.8 H* 1.7 Cancelled Calcium Total Bilirubin AST ALT Alkaline Phosphatase Troponin I Total Protein Albumin Globulin Albumin/Globulin Ratio Urine Color Urine Clarity Urine pH Ur Specific [place] Urine Protein Urine Glucose (UA) Urine Ketones Urine Occult Blood Urine Nitrite Urine Bilirubin Urine Urobilinogen Ur Leukocyte Esterase Urine RBC Urine WBC Ur Squamous Epith Cells Urine Bacteria Urine Mucus 02/12/18 06:25 WBC RBC Hgb Hct MCV MCH MCHC RDW RDW Differential Plt Count MPV Immature Gran % (Auto) Neut % (Auto) Lymph % (Auto) [place] % (Auto) Eos % (Auto) Baso % (Auto) Absolute Neuts (auto) Absolute Lymphs (auto) Total Counted PT INR APTT Sodium Potassium Chloride Carbon Dioxide Anion Gap BUN Creatinine Estim Creat Clear Calc Est GFR (MDRD) Af Amer Est GFR (MDRD) Non-Af BUN/Creatinine Ratio Glucose Lactic Acid Calcium Total Bilirubin AST ALT Alkaline Phosphatase Troponin I Total Protein Albumin Globulin Albumin/Globulin Ratio Urine Color Yellow Urine Clarity Clear Urine pH 8.0 Ur Specific [place] 1.010 Urine Protein Negative Urine Glucose (UA) Normal Urine Ketones 50 H Urine Occult Blood Negative Urine Nitrite Negative Urine Bilirubin Negative Urine Urobilinogen Normal Ur Leukocyte Esterase 25 H Urine RBC 0 SEEN Urine WBC 0-5 SEEN Ur Squamous Epith Cells 0-5 SEEN Urine Bacteria RARE Urine Mucus RARE Clinical Impression(s) from Imaging Studies Chest X-Ray 02/12/18 00:11 IMPRESSION: 1. Left basilar mild subsegmental atelectasis or scarring. 2. Cardiomegaly, unchanged. 3. No CHF. at 0051 Reported and signed by: Roni Hopper MD Electronically Signed: Roni Hopper, at 0:48 EST Tel , Service support , KUB X-Ray 02/12/18 00:12 IMPRESSION: 1. Good position of the NG tube. 2. Paucity of intestinal gas. Please see above comment. at 0223 Reported and signed by: Roni Hopper MD Electronically Signed: Roni Hopper, at 2:21 EST Tel , Service support , KUB X-Ray 02/12/18 02:32 Abdomen/Pelvis CT 02/12/18 03:04 IMPRESSION: Individualized dose optimization techniques were used for this CT. at 0923 Reported and signed by: Roni Hopper MD Electronically Signed: Roni Hopper, at 6:29 EST Tel , Service support , ADDENDUM: 02/12/18 0930 IMPRESSION: 1. The NG tube tip lies within the stomach body and the stomach is decompressed. 2. Nonspecific diffuse colitis and mild distal ileitis. Crohn's disease would be included in the differential. 3. Cholelithiasis. No biliary dilatation. 4. Age-indeterminate compression fractures of the T11, T12, and L1 vertebra. Additional remote fractures of the right superior and inferior pubic rami. 5. Mild left atrial enlargement. 6. Posterior bibasilar chronic atelectasis/scarring, worse on the right. Individualized dose optimization techniques were used for this CT. at 0923 Reported and signed by: Roni Hopper MD Electronically Signed: Roni Hopper, at 6:44 EST Tel , Service support , Assessment/Plan All Active Problems UGI bleed (Acute) Gastroenteritis (Acute) RADHA (acute kidney injury) (Acute) Lactic acidosis (Acute) SIRS (systemic inflammatory response syndrome) (Acute) Constipation (Acute) Clavicle fracture (Acute) Rib fracture (Acute) Fall (Acute) Weakness (Acute) CAP (community acquired pneumonia) (Acute) 1. Upper GI bleed * Patient had some coffee-ground emesis. * On IV Protonix * General surgery on consult * May be related with a Nenita-Hebert tear from retching * Will return remove NG tube if patient has no further vomiting this afternoon 2. Systemic inflammatory response syndrome * Presumably due to gastroenteritis * Supportive management 3. Suspected gastroenteritis * Doubt Crohn's disease or ulcerative colitis. * Doubt ischemic colitis despite lactic acid being initially elevated as patient had no abdominal pain * Empiric ciprofloxacin and Flagyl 4. Acute kidney injury * Likely prerenal * IV fluids * Reevaluate 5. DVT prophylaxis with SCDs as chemical prophylaxis contraindicated due to upper GI bleed. 6. Lactic acidosis: Likely with dehydration Code Visit Inpatient E&M: 97340 Init Hosp L3
[2018-02-12 12:18] LABS: Absolute Neutrophil Count 7.4 X10^3/uL (2.0-7.7); Basophil# 0.01 X10^3/uL; Basophil% 0.1 % (0-1); Hematocrit 33.3 % (37-47); Hemoglobin 10.4 g/dl (12.0-15.0); Mean Corp Hgb Conc 31.2 g/gl (32-36); Mean Corpuscular Hgb 30.3 pg (27.0-32.0); Mean Corpuscular Volume 97.1 fL (81-99); Mean Platelet Vol. 13.6 fl (6.2-12.0); Monocyte# 0.64 X10^3/uL; Neutrophil # 7.44 X10^3/uL (2.7-7.7); Neutrophil % 81.7 % (47-70); Platelet Count 192 K/mm3 (150-450); RBC Distribution Width SD 52.8 fl (35.1-43.9); Red Blood Count 3.43 M/mm3 (4.2-5.4); White Blood Count 9.1 K/mm3 (4.4-11.0)
[2018-02-12 12:32] LABS: POSITIVE COUNT NO; POSITIVE DIFFERENTIAL NO; POSITIVE MORPHOLOGY NO
[2018-02-12] MEDS: 0.9% Normal Saline 1,000 ML 100 ML IV (14:30)
--- NOTE | 2018-02-12 14:54 | CHAPLAIN ---
Type of Pastoral Visit _x__ Initial Visit ___ Follow-up Visit ___ On-call Visit ___ General Patient Visit ___ Spiritual Assessment ___ Family Conference ___ Bereavement ___ Rapid Response ___ Code Blue ___ Other (describe below) Pastoral Care Referral From _x__ Patient ___ Family ___ Nurse ___ Physician ___ Leather Goods I Assembler ___ Pitch Worker ___ Other (describe below) Sacrament/Intervention _x__ Active listening ___ Anointing ___ Buddhist ___ Bereavement ___ Communion _x__ Jerica exploration ___ _x__ Life review _x__ Prayer ___ Reconciliation ___ Sacrament of Sick _x__ Supportive presence ___ Wedding ___ Other (describe below) Pastoral Comments patient speaks of very little support except from a granddaughter; pt is ; pt has questions of spiritual nature; pt speaks about having lots of stress and burdens in life; pt is open to prayer and future visits from chemistry technologist
[2018-02-13] VITALS (7 sets, daily range): BP systolic 87–116; BP diastolic 40–63; PULSE 90–100; RESP 16–18; TEMP 36.1–37.4; O2SAT 90–98
[2018-02-13] MEDS: 0.9% Normal Saline 1,000 ML 100 ML IV (03:54)
[2018-02-13 06:16] LABS: Absolute Neutrophil Count 7.8 X10^3/uL (2.0-7.7); Basophil# 0.02 X10^3/uL; Basophil% 0.2 % (0-1); Eosinophil# 0.08 X10^3/uL; Eosinophils% 0.8 % (0-5); Hematocrit 32.9 % (37-47); Hemoglobin 10.2 g/dl (12.0-15.0); Mean Corpuscular Hgb 30.5 pg (27.0-32.0); Mean Corpuscular Volume 98.5 fL (81-99); Mean Platelet Vol. 13.4 fl (6.2-12.0); Monocyte# 0.85 X10^3/uL; Monocyte% 8.5 % (0-10); Neutrophil # 7.81 X10^3/uL (2.7-7.7); Neutrophil % 78.3 % (47-70); Platelet Count 168 K/mm3 (150-450); RBC Distribution Width CV 15.2 % (11.6-14.6); RBC Distribution Width SD 54.6 fl (35.1-43.9); Red Blood Count 3.34 M/mm3 (4.2-5.4)
[2018-02-13 06:17] LABS: POSITIVE COUNT NO; POSITIVE DIFFERENTIAL NO; POSITIVE MORPHOLOGY NO
[2018-02-13 06:42] LABS: Anion Gap 10 (5-15); BUN 11 mg/dL (7-18); Calcium,Total 7.3 mg/dL (8.5-10.1); Chloride 113 mmol/L (98-107); EST Glomerular Filtration Rate 59 mL/min (>60); Est Glom Filt Rate - Afr Amer 72 mL/min (>60); Estimated Creatinine Clearance 52.78 ml/min; Glucose 70 mg/dL (74-106); Potassium 3.6 mmol/L (3.5-5.1); Sodium Level 145 mmol/L (136-145)
--- NOTE | 2018-02-13 08:03 | PCM.PN.SRG ---
Patient Problems: Active and Suspected Problems UGI bleed (Acute) Gastroenteritis (Acute) RADHA (acute kidney injury) (Acute) Lactic acidosis (Acute) SIRS (systemic inflammatory response syndrome) (Acute) Subjective: pt denies n/v, no BM - Physical Exam General: Alert, Oriented x3, Cooperative, No apparent distress Lungs: Normal air movement Abdomen: Soft, Non Tender, Non-Distended Vital Signs Temp Pulse Resp BP Pulse Ox 99.4 F H 100 16 97/45 L 98 02/13/18 07:29 02/13/18 07:29 02/13/18 07:29 02/13/18 07:29 02/13/18 07:41 Oxygen Flow Rate (L/min) 2 Oxygen Delivery Method Room Air Weight: 129 lb 11.2 oz Body Mass Index (BMI) 26.2 Intake and Output for Last 24 Hours 02/11/18 02/12/18 02/13/18 23:59 23:59 23:59 Intake Total 1246 / 1246 1317 / 1317 Output Total 225 / 225 770 / 770 Balance 1021 / 1021 547 / 547 Microbiology Past 72 Hours 02/12/18 01:35 Gastric Occult Blood - Final Gastric Fluid/Contents Occult Blood Positive 02/12/18 01:00 Stool Occult Blood (ERNIE) - Final Stool Laboratory Tests Past 24 Hrs 02/12/18 02/13/18 02/13/18 11:55 06:02 06:02 WBC 9.1 10.0 RBC 3.43 L 3.34 L Hgb 10.4 L 10.2 L Hct 33.3 L 32.9 L MCV 97.1 98.5 MCH 30.3 30.5 MCHC 31.2 L 31.0 L RDW 15.0 H 15.2 H RDW Differential 52.8 H 54.6 H Plt Count 192 168 MPV 13.6 H 13.4 H Immature Gran % (Auto) 0.200 0.200 Neut % (Auto) 81.7 H 78.3 H Lymph % (Auto) 11.0 L 12.0 L [place] % (Auto) 7.0 8.5 Eos % (Auto) 0.0 0.8 Baso % (Auto) 0.1 0.2 Absolute Neuts (auto) 7.4 7.8 H Absolute Lymphs (auto) 1.00 1.20 Total Counted Not Reportable Not Reportable Sodium 145 Potassium 3.6 Chloride 113 H Carbon Dioxide 22.0 Anion Gap 10 BUN 11 Creatinine 1.00 Estim Creat Clear Calc 52.78 Est GFR (MDRD) Af Amer 72 Est GFR (MDRD) Non-Af 59 L BUN/Creatinine Ratio 11.0 Glucose 70 L Calcium 7.3 L Medical Necessity - Tobacco Use Smoking Status: Never smoker Assessment/Plan All Active Problems UGI bleed (Acute) Gastroenteritis (Acute) RADHA (acute kidney injury) (Acute) Lactic acidosis (Acute) SIRS (systemic inflammatory response syndrome) (Acute) Constipation (Acute) Clavicle fracture (Acute) Rib fracture (Acute) Fall (Acute) Weakness (Acute) CAP (community acquired pneumonia) (Acute) 62-year-old female with nausea/vomiting/diarrhea, emesis occult positive, nonspecific thickening of the colon and distal ileum, patient denies abdominal pain 1. Advance diet to clears 2. Nonspecific colitis on Cipro Flagyl, also checking stool studies for the diarrhea, no BM currently, patient still denies any abdominal pain 3. continue protonix, Hb 10.2 (10.4), as long as patient's hemoglobin remains fairly stable along with vital signs, no need for an urgent scope patient can get an EGD as an outpatient plus or minus colonoscopy. Marian Rodrigues M.D. Pager: [phone] [facility] [address] [place] [address], [facility], [address] [place] [id number] Office: [phone]
--- NOTE | 2018-02-13 08:07 | PN.SURG_ITS ---
Patient Problems: Active and Suspected Problems UGI bleed (Acute) Gastroenteritis (Acute) RADHA (acute kidney injury) (Acute) Lactic acidosis (Acute) SIRS (systemic inflammatory response syndrome) (Acute) Subjective: pt denies n/v, no BM - Physical Exam General: Alert, Oriented x3, Cooperative, No apparent distress Lungs: Normal air movement Abdomen: Soft, Non Tender, Non-Distended Vital Signs Temp Pulse Resp BP Pulse Ox 99.4 F H 100 16 97/45 L 98 02/13/18 07:29 02/13/18 07:29 02/13/18 07:29 02/13/18 07:29 02/13/18 07:41 Oxygen Flow Rate (L/min) 2 Oxygen Delivery Method Room Air Weight: 129 lb 11.2 oz Body Mass Index (BMI) 26.2 Intake and Output for Last 24 Hours 02/11/18 02/12/18 02/13/18 23:59 23:59 23:59 Intake Total 1246 / 1246 1317 / 1317 Output Total 225 / 225 770 / 770 Balance 1021 / 1021 547 / 547 Microbiology Past 72 Hours 02/12/18 01:35 Gastric Occult Blood - Final Gastric Fluid/Contents Occult Blood Positive 02/12/18 01:00 Stool Occult Blood (ERNIE) - Final Stool Laboratory Tests Past 24 Hrs 02/12/18 02/13/18 02/13/18 11:55 06:02 06:02 WBC 9.1 10.0 RBC 3.43 L 3.34 L Hgb 10.4 L 10.2 L Hct 33.3 L 32.9 L MCV 97.1 98.5 MCH 30.3 30.5 MCHC 31.2 L 31.0 L RDW 15.0 H 15.2 H RDW Differential 52.8 H 54.6 H Plt Count 192 168 MPV 13.6 H 13.4 H Immature Gran % (Auto) 0.200 0.200 Neut % (Auto) 81.7 H 78.3 H Lymph % (Auto) 11.0 L 12.0 L Edgar % (Auto) 7.0 8.5 Eos % (Auto) 0.0 0.8 Baso % (Auto) 0.1 0.2 Absolute Neuts (auto) 7.4 7.8 H Absolute Lymphs (auto) 1.00 1.20 Total Counted Not Reportable Not Reportable Sodium 145 Potassium 3.6 Chloride 113 H Carbon Dioxide 22.0 Anion Gap 10 BUN 11 Creatinine 1.00 Estim Creat Clear Calc 52.78 Est GFR (MDRD) Af Amer 72 Est GFR (MDRD) Non-Af 59 L BUN/Creatinine Ratio 11.0 Glucose 70 L Calcium 7.3 L Medical Necessity - Tobacco Use Smoking Status: Never smoker Assessment/Plan All Active Problems UGI bleed (Acute) Gastroenteritis (Acute) RADHA (acute kidney injury) (Acute) Lactic acidosis (Acute) SIRS (systemic inflammatory response syndrome) (Acute) Constipation (Acute) Clavicle fracture (Acute) Rib fracture (Acute) Fall (Acute) Weakness (Acute) CAP (community acquired pneumonia) (Acute) 62-year-old female with nausea/vomiting/diarrhea, emesis occult positive, nonspecific thickening of the colon and distal ileum, patient denies abdominal pain 1. Advance diet to clears 2. Nonspecific colitis on Cipro Flagyl, also checking stool studies for the diarrhea, no BM currently, patient still denies any abdominal pain 3. continue protonix, Hb 10.2 (10.4), as long as patient's hemoglobin remains fairly stable along with vital signs, no need for an urgent scope patient can get an EGD as an outpatient plus or minus colonoscopy. Marian Rodrigues M.D. Pager: [phone] [facility] [address] [place] [address], [facility], [address] [place] [id number] Office: [phone]
[2018-02-13] MEDS: Ciprofloxacin 400 MG/200 ML BAG 200 MG IV ×2 (10:10→23:39)
[2018-02-13] MEDS: Acetaminophen 325 MG Tablet 650 MG PO (10:10)
--- NOTE | 2018-02-13 10:24 | PCM.PN.HOSP ---
Patient Problems: Active and Suspected Problems Gastroenteritis (Acute) Subjective: No further vomiting but states that she is spitting up to small bites of Jell-O and clear liquids at this time. No abdominal pain. Vitals/I&O's: Vital Signs Temp Pulse Resp BP Pulse Ox 37.0 C 90 18 103/44 L 93 02/13/18 09:12 02/13/18 09:12 02/13/18 09:12 02/13/18 09:12 02/13/18 09:12 Oxygen Flow Rate (L/min) 2 Oxygen Delivery Method Room Air Weight: 58.831 kg Body Mass Index (BMI) 26.2 Intake and Output for Last 24 Hours 02/11/18 02/12/18 02/13/18 23:59 23:59 23:59 Intake Total 1246 / 1246 1317 / 1317 Output Total 225 / 225 770 / 770 Balance 1021 / 1021 547 / 547 General: Alert, Cooperative, No apparent distress HEENT: Atraumatic, Normocephalic Oral: Moist Mucosa, No Gingival or Mucosal Lesions/ Ulcerations Neck: No Nodes, Thyroid Normal Size and Texture Lungs: Clear to auscultation, Normal air movement, No rhonchi, No wheeze Cardiovascular: Regular rate, Regular Rhythm, Normal S1, Normal S2, No murmurs Abdomen: Bowel Sounds Present, Soft, Non Tender, Non-Distended, No Hepato-splenomegaly Extremities: No edema, No Calf Tenderness Skin: No rashes Musculoskeletal: No Tenderness to Palpation of Joints or Extremities, No Muscle Wasting Psych/Mental Status: Normal Affect, Appropriate Microbiology Past 72 Hours 02/12/18 01:35 Gastric Fluid/Contents Gastric Occult Blood - Final Occult Blood Positive 02/12/18 01:00 Stool Stool Occult Blood (ERNIE) - Final Laboratory Results 02/12/18 11:55: WBC 9.1, RBC 3.43 L, Hgb 10.4 L, Hct 33.3 L, MCV 97.1, MCH 30.3, MCHC 31.2 L, RDW 15.0 H, RDW Differential 52.8 H, Plt Count 192, MPV 13.6 H, Immature Gran % (Auto) 0.200, Neut % (Auto) 81.7 H, Lymph % (Auto) 11.0 L, [place] % (Auto) 7.0, Eos % (Auto) 0.0, Baso % (Auto) 0.1, Absolute Neuts (auto) 7.4, Absolute Lymphs (auto) 1.00, Total Counted Not Reportable 02/13/18 06:02: Sodium 145, Potassium 3.6, Chloride 113 H, Carbon Dioxide 22.0, Anion Gap 10, BUN 11, Creatinine 1.00, Estim Creat Clear Calc 52.78, Est GFR (MDRD) Af Amer 72, Est GFR (MDRD) Non-Af 59 L, BUN/Creatinine Ratio 11.0, Glucose 70 L, Calcium 7.3 L 02/13/18 06:02: WBC 10.0, RBC 3.34 L, Hgb 10.2 L, Hct 32.9 L, MCV 98.5, MCH 30.5, MCHC 31.0 L, RDW 15.2 H, RDW Differential 54.6 H, Plt Count 168, MPV 13.4 H, Immature Gran % (Auto) 0.200, Neut % (Auto) 78.3 H, Lymph % (Auto) 12.0 L, [place] % (Auto) 8.5, Eos % (Auto) 0.8, Baso % (Auto) 0.2, Absolute Neuts (auto) 7.8 H, Absolute Lymphs (auto) 1.20, Total Counted Not Reportable Current Medications Acetaminophen (Tylenol) 650 mg PO Q6H PRN PRN PRN Reason: Mild Pain (1-3)/Temp > 100.7 F Last Admin: 02/13/18 10:10 Dose: 325 mg Sodium Chloride () 1,000 mls @ 100 mls/hr IV .Q10H [facility] Last Admin: 02/13/18 03:54 Dose: 100 mls/hr Pantoprazole Sodium 40 mg/ (Sodium Chloride) 110 mls @ 330 mls/hr IV Q12 [facility] Last Admin: 02/13/18 09:19 Dose: 330 mls/hr Ciprofloxacin (Cipro) 400 mg in 200 mls @ 200 mls/hr IV Q12 [facility] Last Admin: 02/13/18 10:10 Dose: 200 mls/hr Metronidazole (Flagyl) 500 mg in 100 mls @ 100 mls/hr IV Q8 [facility] Last Admin: 02/13/18 06:02 Dose: 100 mls/hr Magnesium Hydroxide (Milk Of Magnesia) 30 ml PO DAILY PRN PRN PRN Reason: Constipation Morphine Sulfate () 2 - 4 mg IV Q4H PRN PRN PRN Reason: MOD-SEVERE PAIN (-12/13) Nutritional Formula (Lactose Free) (Ensure Clear) 120 ml PO 4X/DAY OFELIA Last Admin: 02/13/18 10:10 Dose: 20 ml Ondansetron HCl (Zofran) 4 mg IV Q8H PRN PRN PRN Reason: NAUSEA Last Admin: 02/12/18 08:37 Dose: 4 mg Sodium Chloride () 5 - 15 ml IV UD PRN PRN Reason: SALINE FLUSH Last Admin: 02/12/18 08:37 Dose: 10 ml Medical Necessity - Tobacco Use Smoking Status: Never smoker Assessment/Plan All Active Problems UGI bleed (Resolved) Gastroenteritis (Acute) RADHA (acute kidney injury) (Resolved) Lactic acidosis (Resolved) SIRS (systemic inflammatory response syndrome) (Resolved) 1. Upper GI bleed Resolved patient had some coffee-ground emesis. On IV Protonix General surgery on consult May be related with a Nenita-Hebert tear from retching NG tube removed on the . 2. Systemic inflammatory response syndrome Resolved presumably due to gastroenteritis Supportive management 3. Suspected gastroenteritis Improved though still having some spitting up with sips of liquids doubt Crohn's disease or ulcerative colitis. Doubt ischemic colitis despite lactic acid being initially elevated as patient had no abdominal pain Empiric ciprofloxacin and Flagyl 4. Acute kidney injury Resolved likely prerenal IV fluids Reevaluate 5. DVT prophylaxis with SCDs as chemical prophylaxis contraindicated due to upper GI bleed. 6. Lactic acidosis: Resolved likely with dehydration 7. Disposition: We will see how patient tolerates a clear liquid diet and if so then diet can be advanced and if she tolerates that then she likely could be discharged. Code Visit Inpatient E&M: 72102 Subs Hosp L2
--- NOTE | 2018-02-13 10:28 | PN_ITS ---
Patient Problems: Active and Suspected Problems Gastroenteritis (Acute) Subjective: No further vomiting but states that she is spitting up to small bites of Jell-O and clear liquids at this time. No abdominal pain. Vitals/I&O's: Vital Signs Temp Pulse Resp BP Pulse Ox 37.0 C 90 18 103/44 L 93 02/13/18 09:12 02/13/18 09:12 02/13/18 09:12 02/13/18 09:12 02/13/18 09:12 Oxygen Flow Rate (L/min) 2 Oxygen Delivery Method Room Air Weight: 58.831 kg Body Mass Index (BMI) 26.2 Intake and Output for Last 24 Hours 02/11/18 02/12/18 02/13/18 23:59 23:59 23:59 Intake Total 1246 / 1246 1317 / 1317 Output Total 225 / 225 770 / 770 Balance 1021 / 1021 547 / 547 General: Alert, Cooperative, No apparent distress HEENT: Atraumatic, Normocephalic Oral: Moist Mucosa, No Gingival or Mucosal Lesions/ Ulcerations Neck: No Nodes, Thyroid Normal Size and Texture Lungs: Clear to auscultation, Normal air movement, No rhonchi, No wheeze Cardiovascular: Regular rate, Regular Rhythm, Normal S1, Normal S2, No murmurs Abdomen: Bowel Sounds Present, Soft, Non Tender, Non-Distended, No Hepato- splenomegaly Extremities: No edema, No Calf Tenderness Skin: No rashes Musculoskeletal: No Tenderness to Palpation of Joints or Extremities, No Muscle Wasting Psych/Mental Status: Normal Affect, Appropriate Microbiology Past 72 Hours 02/12/18 01:35 Gastric Fluid/Contents Gastric Occult Blood - Final Occult Blood Positive 02/12/18 01:00 Stool Stool Occult Blood (ERNIE) - Final Laboratory Results 02/12/18 11:55: WBC 9.1, RBC 3.43 L, Hgb 10.4 L, Hct 33.3 L, MCV 97.1, MCH 30.3, MCHC 31.2 L, RDW 15.0 H, RDW Differential 52.8 H, Plt Count 192, MPV 13.6 H, Immature Gran % (Auto) 0.200, Neut % (Auto) 81.7 H, Lymph % (Auto) 11.0 L, [place] % (Auto) 7.0, Eos % (Auto) 0.0, Baso % (Auto) 0.1, Absolute Neuts (auto) 7.4, Absolute Lymphs (auto) 1.00, Total Counted Not Reportable 02/13/18 06:02: Sodium 145, Potassium 3.6, Chloride 113 H, Carbon Dioxide 22.0, Anion Gap 10, BUN 11, Creatinine 1.00, Estim Creat Clear Calc 52.78, Est GFR (MDRD) Af Amer 72, Est GFR (MDRD) Non-Af 59 L, BUN/Creatinine Ratio 11.0, Glucose 70 L, Calcium 7.3 L 02/13/18 06:02: WBC 10.0, RBC 3.34 L, Hgb 10.2 L, Hct 32.9 L, MCV 98.5, MCH 30.5, MCHC 31.0 L, RDW 15.2 H, RDW Differential 54.6 H, Plt Count 168, MPV 13.4 H, Immature Gran % (Auto) 0.200, Neut % (Auto) 78.3 H, Lymph % (Auto) 12.0 L, [place]irt % (Auto) 8.5, Eos % (Auto) 0.8, Baso % (Auto) 0.2, Absolute Neuts (auto) 7.8 H, Absolute Lymphs (auto) 1.20, Total Counted Not Reportable Current Medications Acetaminophen (Tylenol) 650 mg PO Q6H PRN PRN PRN Reason: Mild Pain (1-3)/Temp > 100.7 F Last Admin: 02/13/18 10:10 Dose: 325 mg Sodium Chloride () 1,000 mls @ 100 mls/hr IV .Q10H [facility] Last Admin: 02/13/18 03:54 Dose: 100 mls/hr Pantoprazole Sodium 40 mg/ (Sodium Chloride) 110 mls @ 330 mls/hr IV Q12 [facility] Last Admin: 02/13/18 09:19 Dose: 330 mls/hr Ciprofloxacin (Cipro) 400 mg in 200 mls @ 200 mls/hr IV Q12 [facility] Last Admin: 02/13/18 10:10 Dose: 200 mls/hr Metronidazole (Flagyl) 500 mg in 100 mls @ 100 mls/hr IV Q8 [facility] Last Admin: 02/13/18 06:02 Dose: 100 mls/hr Magnesium Hydroxide (Milk Of Magnesia) 30 ml PO DAILY PRN PRN PRN Reason: Constipation Morphine Sulfate () 2 - 4 mg IV Q4H PRN PRN PRN Reason: MOD-SEVERE PAIN (-12/13) Nutritional Formula (Lactose Free) (Ensure Clear) 120 ml PO 4X/DAY OFELIA Last Admin: 02/13/18 10:10 Dose: 20 ml Ondansetron HCl (Zofran) 4 mg IV Q8H PRN PRN PRN Reason: NAUSEA Last Admin: 02/12/18 08:37 Dose: 4 mg Sodium Chloride () 5 - 15 ml IV UD PRN PRN Reason: SALINE FLUSH Last Admin: 02/12/18 08:37 Dose: 10 ml Medical Necessity - Tobacco Use Smoking Status: Never smoker Assessment/Plan All Active Problems UGI bleed (Resolved) Gastroenteritis (Acute) RADHA (acute kidney injury) (Resolved) Lactic acidosis (Resolved) SIRS (systemic inflammatory response syndrome) (Resolved) 1. Upper GI bleed * Resolved * patient had some coffee-ground emesis. * On IV Protonix * General surgery on consult * May be related with a Nenita-Hebert tear from retching * NG tube removed on the . 2. Systemic inflammatory response syndrome * Resolved * presumably due to gastroenteritis * Supportive management 3. Suspected gastroenteritis * Improved though still having some spitting up with sips of liquids * doubt Crohn's disease or ulcerative colitis. * Doubt ischemic colitis despite lactic acid being initially elevated as patient had no abdominal pain * Empiric ciprofloxacin and Flagyl 4. Acute kidney injury * Resolved * likely prerenal * IV fluids * Reevaluate 5. DVT prophylaxis with SCDs as chemical prophylaxis contraindicated due to upper GI bleed. 6. Lactic acidosis: * Resolved * likely with dehydration 7. Disposition: We will see how patient tolerates a clear liquid diet and if so then diet can be advanced and if she tolerates that then she likely could be discharged. Code Visit Inpatient E&M: 30233 Subs Hosp L2
[2018-02-13] MEDS: 0.9% Normal Saline 1,000 ML 150 ML IV (17:06)
[2018-02-13] MEDS: Ondansetron 4 MG/2 ML Vial IV (18:31)
[2018-02-13] MEDS: 0.9% NaCl Peripheral Flush Adult/Peds IV (18:31)
[2018-02-14] MEDS: 0.9% Normal Saline 1,000 ML 150 ML IV ×3 (00:30→17:34)
[2018-02-14 03:11] VITALS: BP 125/58; PULSE 93; RESP 14; TEMP 37; O2SAT 98
[2018-02-14 08:08] VITALS: BP 124/61; PULSE 99; RESP 18; TEMP 36.6; O2SAT 95
--- NOTE | 2018-02-14 09:34 | PN_ITS ---
Patient Problems: Active and Suspected Problems Gastroenteritis (Acute) Subjective: Coughing up yellow phlegm. This complaint is some pain when she swallows more prominent on the left side. For the winter if she tries to sit up or eat anything that she starts coughing and that comes back up. Patient is never had this issue before. Objective: Patient was coughing up some yellow phlegm. Had the patient actually eat some Jell-O which she was able to get down though she did demonstrate some discomfort upon swallowing. Vitals/I&O's: Vital Signs Temp Pulse Resp BP Pulse Ox 36.6 C 99 18 124/61 H 95 02/14/18 08:08 02/14/18 08:08 02/14/18 08:08 02/14/18 08:08 02/14/18 08:08 Oxygen Flow Rate (L/min) 1 Oxygen Delivery Method Room Air Weight: 58.831 kg Body Mass Index (BMI) 26.2 Intake and Output for Last 24 Hours 02/12/18 02/13/18 02/14/18 23:59 23:59 23:59 Intake Total 1246 / 1246 2826 / 2826 2051 Output Total 225 / 225 970 / 970 300 / 300 Balance 1021 / 1021 1856 / 1856 1752 / 175 General: Alert, No apparent distress HEENT: Atraumatic, Normocephalic Oral: - - Poor dentition. Some slight posterior pharyngeal erythema on the left. Neck: No Nodes, Thyroid Normal Size and Texture Lungs: Clear to auscultation, Normal air movement, No rhonchi, No wheeze Cardiovascular: Regular rate, Regular Rhythm, Normal S1, Normal S2, No murmurs Abdomen: Bowel Sounds Present, Soft, Non Tender, Non-Distended, No Hepato- splenomegaly Extremities: No edema, No Calf Tenderness Skin: No rashes, No breakdown Musculoskeletal: No Tenderness to Palpation of Joints or Extremities, No Muscle Wasting Psych/Mental Status: Normal Affect, Appropriate Microbiology Past 72 Hours 02/13/18 14:18 Stool Stool Lactoferrin - Final 02/12/18 01:35 Gastric Fluid/Contents Gastric Occult Blood - Final Occult Blood Positive 02/12/18 01:00 Stool Stool Occult Blood (ERNIE) - Final Current Medications Acetaminophen (Tylenol) 650 mg PO Q6H PRN PRN PRN Reason: Mild Pain (1-3)/Temp > 100.7 F Last Admin: 02/13/18 10:10 Dose: 325 mg Pantoprazole Sodium 40 mg/ (Sodium Chloride) 110 mls @ 330 mls/hr IV Q12 [facility] Last Admin: 02/13/18 23:11 Dose: 330 mls/hr Ciprofloxacin (Cipro) 400 mg in 200 mls @ 200 mls/hr IV Q12 [facility] Last Admin: 02/13/18 23:39 Dose: 200 mls/hr Metronidazole (Flagyl) 500 mg in 100 mls @ 100 mls/hr IV Q8 [facility] Last Admin: 02/14/18 05:45 Dose: 100 mls/hr Sodium Chloride () 1,000 mls @ 150 mls/hr IV .Q6H40M [facility] Last Admin: 02/14/18 00:30 Dose: 150 mls/hr Magnesium Hydroxide (Milk Of Magnesia) 30 ml PO DAILY PRN PRN PRN Reason: Constipation Morphine Sulfate () 2 - 4 mg IV Q4H PRN PRN PRN Reason: MOD-SEVERE PAIN (4-1010) Nutritional Formula (Lactose Free) (Ensure Clear) 120 ml PO 4X/DAY [facility] Last Admin: 02/13/18 23:11 Dose: Not Given Ondansetron HCl (Zofran) 4 mg IV Q8H PRN PRN PRN Reason: NAUSEA Last Admin: 02/13/18 18:31 Dose: 4 mg Promethazine HCl (Phenergan) 6.25 mg IV Q6H PRN PRN PRN Reason: NAUSEA/VOMITING Sodium Chloride () 5 - 15 ml IV UD PRN PRN Reason: SALINE FLUSH Last Admin: 02/13/18 18:31 Dose: 5 ml Medical Necessity - Tobacco Use Smoking Status: Never smoker Assessment/Plan All Active Problems UGI bleed (Resolved) Gastroenteritis (Acute) RADHA (acute kidney injury) (Resolved) Lactic acidosis (Resolved) SIRS (systemic inflammatory response syndrome) (Resolved) 1. Upper GI bleed * Resolved * patient had some coffee-ground emesis. * On IV Protonix * General surgery on consult * May be related with a Nenita-Hebert tear from retching * NG tube removed on the . 2. Systemic inflammatory response syndrome * Resolved * presumably due to gastroenteritis * Supportive management 3. Suspected gastroenteritis * Improved though still having some spitting up with sips of liquids * doubt Crohn's disease or ulcerative colitis. * Doubt ischemic colitis despite lactic acid being initially elevated as patient had no abdominal pain * Empiric ciprofloxacin and Flagyl 4. Acute kidney injury * Resolved * likely prerenal * IV fluids * Reevaluate 5. DVT prophylaxis with SCDs as chemical prophylaxis contraindicated due to upper GI bleed. 6. Lactic acidosis: * Resolved * likely with dehydration 7. Disposition: We will see how patient tolerates a clear liquid diet and if so then diet can be advanced and if she tolerates that then she likely could be discharged. Code Visit Inpatient E&M: 32681 Subs Hosp L2
[2018-02-14] MEDS: Ciprofloxacin 400 MG/200 ML BAG 200 MG IV ×2 (09:35→20:34)
[2018-02-14] MEDS: Ondansetron 4 MG/2 ML Vial IV (10:49)
[2018-02-14 10:51] VITALS: O2SAT 97
--- NOTE | 2018-02-14 11:21 | PCM.PN.SRG ---
Patient Problems: Active and Suspected Problems Gastroenteritis (Acute) Subjective: richard clears, but spitting up yellow mucus per pt typically after she coughs, she isn't spitting up any of the clears, +diarrhea-brown, stool cx neg, +fecal WBC - Physical Exam General: Alert, Oriented x3, Cooperative, No apparent distress Abdomen: Soft, Non Tender, Non-Distended Vital Signs Temp Pulse Resp BP Pulse Ox 98 F 99 18 124/61 H 97 02/14/18 08:08 02/14/18 08:08 02/14/18 08:08 02/14/18 08:08 02/14/18 10:51 Oxygen Flow Rate (L/min) 1 Oxygen Delivery Method Room Air Weight: 129 lb 11.2 oz Body Mass Index (BMI) 26.2 Intake and Output for Last 24 Hours 02/12/18 02/13/18 02/14/18 23:59 23:59 23:59 Intake Total 1246 / 1246 2826 / 2826 2051 / 2051 Output Total 225 / 225 970 / 970 300 / 300 Balance 1021 / 1021 1856 / 1856 1752 / 1752 Microbiology Past 72 Hours 02/13/18 14:18 Enteric Bacteriology - Final Stool 02/13/18 14:18 Stool Lactoferrin - Final Stool 02/12/18 01:35 Gastric Occult Blood - Final Gastric Fluid/Contents Occult Blood Positive 02/12/18 01:00 Stool Occult Blood (ERNIE) - Final Stool Medical Necessity - Tobacco Use Smoking Status: Never smoker Assessment/Plan All Active Problems UGI bleed (Resolved) Gastroenteritis (Acute) RADHA (acute kidney injury) (Resolved) Lactic acidosis (Resolved) SIRS (systemic inflammatory response syndrome) (Resolved) 62-year-old female with nausea/vomiting/diarrhea, emesis occult positive, nonspecific thickening of the colon and distal ileum, patient denies abdominal pain 1. richard clears ok to try to advance 2. Nonspecific colitis on Cipro Flagyl, also checking stool studies for the diarrhea, cx-neg, +fecal WBC, patient still denies any abdominal pain 3. continue protonix, no plans for an urgent scope patient can get an EGD as an outpatient plus or minus colonoscopy. Marian Rodrigues M.D. Pager: [phone] [facility] [address] [place] [address], [facility], [address] [place] [address] Office: [phone] Code Visit Inpatient E&M: 22923 Subs Hosp L1
--- NOTE | 2018-02-14 11:25 | PN.SURG_ITS ---
Patient Problems: Active and Suspected Problems Gastroenteritis (Acute) Subjective: richard clears, but spitting up yellow mucus per pt typically after she coughs, she isn't spitting up any of the clears, +diarrhea-brown, stool cx neg, +fecal WBC - Physical Exam General: Alert, Oriented x3, Cooperative, No apparent distress Abdomen: Soft, Non Tender, Non-Distended Vital Signs Temp Pulse Resp BP Pulse Ox 98 F 99 18 124/61 H 97 02/14/18 08:08 02/14/18 08:08 02/14/18 08:08 02/14/18 08:08 02/14/18 10:51 Oxygen Flow Rate (L/min) 1 Oxygen Delivery Method Room Air Weight: 129 lb 11.2 oz Body Mass Index (BMI) 26.2 Intake and Output for Last 24 Hours 02/12/18 02/13/18 02/14/18 23:59 23:59 23:59 Intake Total 1246 / 1246 2826 / 2826 2051 / 2051 Output Total 225 / 225 970 / 970 300 / 300 Balance 1021 / 1021 1856 / 1856 1752 / 1752 Microbiology Past 72 Hours 02/13/18 14:18 Enteric Bacteriology - Final Stool 02/13/18 14:18 Stool Lactoferrin - Final Stool 02/12/18 01:35 Gastric Occult Blood - Final Gastric Fluid/Contents Occult Blood Positive 02/12/18 01:00 Stool Occult Blood (ERNIE) - Final Stool Medical Necessity - Tobacco Use Smoking Status: Never smoker Assessment/Plan All Active Problems UGI bleed (Resolved) Gastroenteritis (Acute) RADHA (acute kidney injury) (Resolved) Lactic acidosis (Resolved) SIRS (systemic inflammatory response syndrome) (Resolved) 62-year-old female with nausea/vomiting/diarrhea, emesis occult positive, nonspecific thickening of the colon and distal ileum, patient denies abdominal pain 1. richard clears ok to try to advance 2. Nonspecific colitis on Cipro Flagyl, also checking stool studies for the diarrhea, cx-neg, +fecal WBC, patient still denies any abdominal pain 3. continue protonix, no plans for an urgent scope patient can get an EGD as an outpatient plus or minus colonoscopy. Marian Rodrigues M.D. Pager: [phone] [facility] [address] [place] [address], [facility], [address] [place] [address] Office: [phone] Code Visit Inpatient E&M: 32729 Subs Hosp L1
[2018-02-14 11:31] VITALS: BP 125/54; PULSE 95; RESP 16; TEMP 36.9; O2SAT 93
[2018-02-14 15:02] VITALS: BP 106/60; PULSE 96; RESP 16; TEMP 36.6; O2SAT 93
--- NOTE | 2018-02-14 16:36 | CHAPLAIN ---
Type of Pastoral Visit ___ Initial Visit _x__ Follow-up Visit ___ On-call Visit ___ General Patient Visit ___ Spiritual Assessment ___ Family Conference ___ Bereavement ___ Rapid Response ___ Code Blue ___ Other (describe below) Pastoral Care Referral From _x__ Patient ___ Family ___ Nurse ___ Physician ___ Service Now Developer ___ Inventory Checker ___ Other (describe below) Sacrament/Intervention _x__ Active listening ___ Anointing ___ Yarsani ___ Bereavement ___ Communion _x__ Jerica exploration ___ _x__ Life review _x__ Prayer ___ Reconciliation ___ Sacrament of Sick _x__ Supportive presence ___ Wedding ___ Other (describe below) Pastoral Comments patient has questions about spiritual life and heaven
[2018-02-14 20:23] VITALS: BP 115/54; PULSE 99; RESP 16; TEMP 36.7; O2SAT 95
[2018-02-15 03:20] VITALS: BP 122/65; PULSE 93; RESP 18; TEMP 36.7; O2SAT 96
[2018-02-15] MEDS: metroNIDAZOLE 500 MG Tablet PO (05:33)
[2018-02-15 07:37] VITALS: BP 135/70; PULSE 82; RESP 16; TEMP 36.8; O2SAT 94
[2018-02-15 07:39] VITALS: BP 124/66; PULSE 93; RESP 16; TEMP 36.8; O2SAT 94
[2018-02-15 07:50] VITALS: O2SAT 92
--- NOTE | 2018-02-15 08:18 | PCM.PN.SRG ---
Patient Problems: Active and Suspected Problems Gastroenteritis (Acute) Subjective: pt sore throat is better, richard fulls, no further spitting up of mucus, no abd pain/n/v - Physical Exam General: Alert, Oriented x3, Cooperative, No apparent distress Abdomen: Soft, Non Tender, Non-Distended Vital Signs Temp Pulse Resp BP Pulse Ox 98.3 F 93 16 124/66 H 94 02/15/18 07:39 02/15/18 07:39 02/15/18 07:39 02/15/18 07:39 02/15/18 07:39 Oxygen Flow Rate (L/min) 1 Oxygen Delivery Method Room Air Weight: 129 lb 11.2 oz Body Mass Index (BMI) 26.2 Intake and Output for Last 24 Hours 02/13/18 02/14/18 02/15/18 23:59 23:59 23:59 Intake Total 2826 / 2826 3964 / 3964 1594 / 1594 Output Total 970 / 970 500 / 500 Balance 1856 / 1856 3464 / 3464 1594 / 1594 Microbiology Past 72 Hours 02/13/18 14:18 Enteric Bacteriology - Final Stool 02/13/18 14:18 Stool Lactoferrin - Final Stool Medical Necessity - Tobacco Use Smoking Status: Never smoker Assessment/Plan All Active Problems UGI bleed (Resolved) Gastroenteritis (Acute) RADHA (acute kidney injury) (Resolved) Lactic acidosis (Resolved) SIRS (systemic inflammatory response syndrome) (Resolved) 62-year-old female with nausea/vomiting/diarrhea, emesis occult positive-Hb stable, nonspecific thickening of the colon and distal ileum 1. advance to regular diet 2. Nonspecific colitis continue Cipro Flagyl, stool studies neg. Marian Rodrigues M.D. Pager: [phone] [facility] [address] [place] [address], Outpatient [facility], [address] [place] [address] Office: [phone]
[2018-02-15] MEDS: Ciprofloxacin 500 MG Tablet PO (09:21)
[2018-02-15] MEDS: Pantoprazole Sodium 40 MG Tablet PO (09:21)
--- NOTE | 2018-02-15 09:21 | DCINST_ITS ---
- Discharge Diagnoses Current Active Problems: Current Active and Chronic Problems Gastroenteritis (Acute) You will use the following diet at home:: No restrictions Your food should be the consistency of: Regular Call your doctor if you observe: - - worsening abdominal pain. intractable nausea and vomiting. Allergies/Adverse Reactions: Allergies No Known Allergies Allergy (Verified 02/11/18 23:37) Medications to take at Discharge Esomeprazole Mag Trihydrate [Nexium] 40 mg PO DAILY 03/30/13 Citalopram [Celexa] 40 mg PO DAILY 02/12/18 Ciprofloxacin [Cipro] 500 mg PO BID #8 tablet 02/15/18 Metronidazole [Flagyl] 500 mg PO TID #12 tablet 02/15/18 Ondansetron [Zofran] 8 mg PO Q8H PRN PRN #15 tablet 02/15/18 The following prescriptions were given: Ondansetron [Zofran] 8 mg PO Q8H PRN PRN #15 tablet PRN Reason: nausea, vomiting Ciprofloxacin [Cipro] 500 mg PO BID #8 tablet Metronidazole [Flagyl] 500 mg PO TID #12 tablet Primary Care Physician: Dante Mclaughlin MD [Primary Care Provider] - Within 2 Weeks Test Results: Test results from this visit will be discussed in further detail at your follow- up appointment, if applicable. Proposed Discharge Date: 02/15/18
--- NOTE | 2018-02-15 09:21 | PCM.DC.SUM ---
Discharge Date and Diagnosis - Problem List Patient Problems: Active and Suspected Problems Gastroenteritis (Acute) Date of Admission: 02/12/18 Date of Discharge: 02/15/18 - Primary Discharge Diagnosis Active and Suspected Problems Gastroenteritis (Acute) - Secondary Discharge Diagnosis Chronic Problems Depression (Chronic) GERD (gastroesophageal reflux disease) (Chronic) Hospital Course and Treatment Imaging Results: Clinical Impression(s) from Imaging Studies Chest X-Ray 02/12/18 00:11 IMPRESSION: 1. Left basilar mild subsegmental atelectasis or scarring. 2. Cardiomegaly, unchanged. 3. No CHF. at 0051 Reported and signed by: Roni Hopper MD Electronically Signed: Roni Hopper, at 0:48 EST Tel , Service support , KUB X-Ray 02/12/18 00:12 IMPRESSION: 1. Good position of the NG tube. 2. Paucity of intestinal gas. Please see above comment. at 0223 Reported and signed by: Roni Hopper MD Electronically Signed: Roni Hopper, at 2:21 EST Tel , Service support , KUB X-Ray 02/12/18 02:32 Abdomen/Pelvis CT 02/12/18 03:04 IMPRESSION: Individualized dose optimization techniques were used for this CT. at 0923 Reported and signed by: Roni Hopper MD Electronically Signed: Roni Hopper, at 6:29 EST Tel , Service support , ADDENDUM: 02/12/18 0930 IMPRESSION: 1. The NG tube tip lies within the stomach body and the stomach is decompressed. 2. Nonspecific diffuse colitis and mild distal ileitis. Crohn's disease would be included in the differential. 3. Cholelithiasis. No biliary dilatation. 4. Age-indeterminate compression fractures of the T11, T12, and L1 vertebra. Additional remote fractures of the right superior and inferior pubic rami. 5. Mild left atrial enlargement. 6. Posterior bibasilar chronic atelectasis/scarring, worse on the right. Individualized dose optimization techniques were used for this CT. at 0923 Reported and signed by: Roni Hopper MD Electronically Signed: Roni Hopper, at 6:44 EST Tel , Service support , Lianne Rodrigues MD--General Surgery. Operations: None Procedures: None Summary of Care Provided: The patient is a 62 year old F resents with nausea, vomiting and coffee-ground emesis. Patient presented to the emergency room given her symptoms. Labs showed lactic acid of 4.8, creatinine 1.28 and a CAT scan showed diffuse colitis and mild distal ileitis. Given the coffee-ground emesis general surgery was consulted. Patient had no further episodes of vomiting particularly no coffee-ground emesis. Patient received fluids as well as antibiotics with ciprofloxacin and Flagyl. Patient had stool cultures that were negative. Patient was occult blood positive from the NG tube that she had placed which was subsequently removed. In regards to the patient's coffee-ground emesis may have been resolved. No additional workup at this time. In regards to patient's gastroenteritis, is felt that this probably viral the patient was started on antibiotics empirically given the findings on the CAT scan. Patient had a slow recovery and today is been tolerating food without further vomiting. Patient did note some difficulty in swallowing appear on the left side. No obvious lymphadenopathy noted. Patient does have very poor dentition throughout and is been advised that the patient follow-up with a dentist to have teeth extracted. Unclear which teeth will need to be extracted but certainly her front ones which are practically wasted away at this point time. The patient that this is not the cause of any of her symptoms but it could lead to further dental caries and potential infections down the road. [] Patient Problems: Active and Suspected Problems Gastroenteritis (Acute) - Physical Exam General: Alert, Cooperative, No apparent distress HEENT: Atraumatic, Normocephalic Oral: Moist Mucosa, No Gingival or Mucosal Lesions/ Ulcerations, - - poor dentition Neck: No Nodes, Thyroid Normal Size and Texture Lungs: Clear to auscultation, Normal air movement, No rhonchi, No wheeze Cardiovascular: Regular rate, Regular Rhythm, Normal S1, Normal S2, No murmurs Abdomen: Bowel Sounds Present, Soft, Non Tender, Non-Distended, No Hepato-splenomegaly Extremities: No edema, No Calf Tenderness Vital Signs Temp Pulse Resp BP Pulse Ox 36.8 C 93 16 124/66 H 92 02/15/18 07:39 02/15/18 07:39 02/15/18 07:39 02/15/18 07:39 02/15/18 07:50 Oxygen Flow Rate (L/min) 1 Oxygen Delivery Method Room Air Weight: 58.831 kg Body Mass Index (BMI) 26.2 Intake and Output for Last 24 Hours 02/13/18 02/14/18 02/15/18 23:59 23:59 23:59 Intake Total 2826 / 2826 3964 / 3964 1594 / 1594 Output Total 970 / 970 500 / 500 Balance 1856 / 1856 3464 / 3464 1594 / 1594 Microbiology Past 72 Hours 02/13/18 14:18 Enteric Bacteriology - Final Stool 02/13/18 14:18 Stool Lactoferrin - Final Stool Discharge Diet: No Restrictions Discharge Activity: Return to Normal Activity Call your doctor if you observe: - - worsening abdominal pain. intractable nausea and vomiting. Home Medications: Medications to take at Discharge Esomeprazole Mag Trihydrate [Nexium] 40 mg PO DAILY 03/30/13 Citalopram [Celexa] 40 mg PO DAILY 02/12/18 Ciprofloxacin [Cipro] 500 mg PO BID #8 tablet 02/15/18 Metronidazole [Flagyl] 500 mg PO TID #12 tablet 02/15/18 Ondansetron [Zofran] 8 mg PO Q8H PRN PRN #15 tablet 02/15/18 Following Prescrptions Were Given to Patient: Ondansetron [Zofran] 8 mg PO Q8H PRN PRN #15 tablet PRN Reason: nausea, vomiting Ciprofloxacin [Cipro] 500 mg PO BID #8 tablet Metronidazole [Flagyl] 500 mg PO TID #12 tablet Primary Care Physician: Dante Mclaughlin MD [Primary Care Provider] - Within 2 Weeks Disposition: Home Minutes spent on discharge:: 32 Patient Condition:: Good Medical Necessity - Tobacco Use Smoking Status: Never smoker Meaningful Use Info Meaningful Use Diagnoses (Choose all that apply): None applicable Code Visit Inpatient E&M: 69458 Disch Hosp
--- NOTE | 2018-02-15 09:26 | DS.PCM_ITS ---
Discharge Date and Diagnosis - Problem List Patient Problems: Active and Suspected Problems Gastroenteritis (Acute) Date of Admission: 02/12/18 Date of Discharge: 02/15/18 - Primary Discharge Diagnosis Active and Suspected Problems Gastroenteritis (Acute) - Secondary Discharge Diagnosis Chronic Problems Depression (Chronic) GERD (gastroesophageal reflux disease) (Chronic) Hospital Course and Treatment Imaging Results: Clinical Impression(s) from Imaging Studies Chest X-Ray 02/12/18 00:11 IMPRESSION: 1. Left basilar mild subsegmental atelectasis or scarring. 2. Cardiomegaly, unchanged. 3. No CHF. at 0051 Reported and signed by: Roni Hopper MD Electronically Signed: Roni Hopper, at 0:48 EST Tel , Service support , KUB X-Ray 02/12/18 00:12 IMPRESSION: 1. Good position of the NG tube. 2. Paucity of intestinal gas. Please see above comment. at 0223 Reported and signed by: Roni Hopper MD Electronically Signed: Roni Hopper, at 2:21 EST Tel , Service support , KUB X-Ray 02/12/18 02:32 Abdomen/Pelvis CT 02/12/18 03:04 IMPRESSION: Individualized dose optimization techniques were used for this CT. at 0923 Reported and signed by: Roni Hopper MD Electronically Signed: Roni Hopper, at 6:29 EST Tel , Service support , ADDENDUM: 02/12/18 0930 IMPRESSION: 1. The NG tube tip lies within the stomach body and the stomach is decompressed. 2. Nonspecific diffuse colitis and mild distal ileitis. Crohn's disease would be included in the differential. 3. Cholelithiasis. No biliary dilatation. 4. Age-indeterminate compression fractures of the T11, T12, and L1 vertebra. Additional remote fractures of the right superior and inferior pubic rami. 5. Mild left atrial enlargement. 6. Posterior bibasilar chronic atelectasis/scarring, worse on the right. Individualized dose optimization techniques were used for this CT. at 0923 Reported and signed by: Roni Hopper MD Electronically Signed: Roni Hopper, at 6:44 EST Tel , Service support , Lianne Rodrigues MD--General Surgery. Operations: None Procedures: None Summary of Care Provided: The patient is a 62 year old F resents with nausea, vomiting and coffee-ground emesis. Patient presented to the emergency room given her symptoms. Labs showed lactic acid of 4.8, creatinine 1.28 and a CAT scan showed diffuse colitis and mild distal ileitis. Given the coffee-ground emesis general surgery was consulted. Patient had no further episodes of vomiting particularly no coffee- ground emesis. Patient received fluids as well as antibiotics with ciprofloxacin and Flagyl. Patient had stool cultures that were negative. Patient was occult blood positive from the NG tube that she had placed which was subsequently removed. In regards to the patient's coffee-ground emesis may have been resolved. No additional workup at this time. In regards to patient's gas troenteritis, is felt that this probably viral the patient was started on antibiotics empirically given the findings on the CAT scan. Patient had a slow recovery and today is been tolerating food without further vomiting. Patient did note some difficulty in swallowing appear on the left side. No obvious lymphadenopathy noted. Patient does have very poor dentition throughout and is been advised that the patient follow-up with a dentist to have teeth extracted. Unclear which teeth will need to be extracted but certainly her front ones which are practically wasted away at this point time. The patient that this is not the cause of any of her symptoms but it could lead to further dental caries and potential infections down the road. [] Patient Problems: Active and Suspected Problems Gastroenteritis (Acute) - Physical Exam General: Alert, Cooperative, No apparent distress HEENT: Atraumatic, Normocephalic Oral: Moist Mucosa, No Gingival or Mucosal Lesions/ Ulcerations, - - poor dentition Neck: No Nodes, Thyroid Normal Size and Texture Lungs: Clear to auscultation, Normal air movement, No rhonchi, No wheeze Cardiovascular: Regular rate, Regular Rhythm, Normal S1, Normal S2, No murmurs Abdomen: Bowel Sounds Present, Soft, Non Tender, Non-Distended, No Hepato- splenomegaly Extremities: No edema, No Calf Tenderness Vital Signs Temp Pulse Resp BP Pulse Ox 36.8 C 93 16 124/66 H 92 02/15/18 07:39 02/15/18 07:39 02/15/18 07:39 02/15/18 07:39 02/15/18 07:50 Oxygen Flow Rate (L/min) 1 Oxygen Delivery Method Room Air Weight: 58.831 kg Body Mass Index (BMI) 26.2 Intake and Output for Last 24 Hours 02/13/18 02/14/18 02/15/18 23:59 23:59 23:59 Intake Total 2826 / 2826 3964 / 3964 1594 / 1594 Output Total 970 / 970 500 / 500 Balance 1856 / 1856 3464 / 3464 1594 / 1594 Microbiology Past 72 Hours 02/13/18 14:18 Enteric Bacteriology - Final Stool 02/13/18 14:18 Stool Lactoferrin - Final Stool Discharge Diet: No Restrictions Discharge Activity: Return to Normal Activity Call your doctor if you observe: - - worsening abdominal pain. intractable nausea and vomiting. Home Medications: Medications to take at Discharge Esomeprazole Mag Trihydrate [Nexium] 40 mg PO DAILY 03/30/13 Citalopram [Celexa] 40 mg PO DAILY 02/12/18 Ciprofloxacin [Cipro] 500 mg PO BID #8 tablet 02/15/18 Metronidazole [Flagyl] 500 mg PO TID #12 tablet 02/15/18 Ondansetron [Zofran] 8 mg PO Q8H PRN PRN #15 tablet 02/15/18 Following Prescrptions Were Given to Patient: Ondansetron [Zofran] 8 mg PO Q8H PRN PRN #15 tablet PRN Reason: nausea, vomiting Ciprofloxacin [Cipro] 500 mg PO BID #8 tablet Metronidazole [Flagyl] 500 mg PO TID #12 tablet Primary Care Physician: Dante Mclaughlin MD [Primary Care Provider] - Within 2 Weeks Disposition: Home Minutes spent on discharge:: 32 Patient Condition:: Good Medical Necessity - Tobacco Use Smoking Status: Never smoker Meaningful Use Info Meaningful Use Diagnoses (Choose all that apply): None applicable Code Visit Inpatient E&M: 92357 Disch Hosp
== END 2018-02-15 11:36 | disposition home or self-care (01) | DRG 369 ==
LOC: ED 02-12 00:27 → MS3 02-12 07:18
PROVIDERS: Emergency Provider Emergency Medicine; Family Provider Family Medicine; PCP Family Medicine
DX: K22.6 Gastro-esophageal laceration-hemorrhage syndrome (principal); N17.9 Acute kidney failure, unspecified; E87.2 Acidosis; R65.10 Systemic inflammatory response syndrome (SIRS) of non-infectious origin without acute organ dysfunction; A08.4 Viral intestinal infection, unspecified; K21.9 Gastro-esophageal reflux disease without esophagitis; F32.9 Major depressive disorder, single episode, unspecified; Z23 Encounter for immunization
CPT/HCPCS: 36415; 71045; 74018; 74177; 80048; 80053; 81001; 82271; 82274; 83605; 83630; 84484; 85025; 85610; 85730; 87506; 93005; 94640; 97802; 99285; J7030; Q9967; 90686; A4216; J0744; J2405

== ENCOUNTER 2018-05-30 06:41 | Inpatient (IN) | payer MEDICARE, SELFPAY ==
[2018-02-12 08:05] VITALS: BMI 26.2
[2018-05-30] VITALS (11 sets, daily range): BP systolic 96–122; BP diastolic 55–76; PULSE 106–132; RESP 19–28; TEMP 36.2–36.8; O2SAT 98–100; BMI 22.8
--- NOTE | 2018-05-30 07:05 | RAD_ITS ---
STUDY: X-RAY CHEST REASON FOR EXAM: Female, 63 years old. Cough. TECHNIQUE: Single AP portable view of the chest. COMPARISON: 02/12/2018. FINDINGS: There is mild chronic interstitial prominence in the upper lung munoz. There is no demonstrated focal pulmonary infiltrate. There is no demonstrated pleural abnormality. There is borderline cardiomegaly. Normal mediastinum and krystyna. Normal visualized pulmonary arteries. Normal visualized aortic arch and descending thoracic aorta. Normal visualized thoracic spine. Normal visualized ribs, clavicles, and shoulders. There is no demonstrated abnormality of the visualized soft tissue structures of the upper abdomen. RAD/Chest 1 View (Portable) IMPRESSION: Borderline heart size. Mild chronic interstitial changes. No evidence for acute cardiopulmonary pathology. Electronically Signed: Mack Henry MD at 7:49 EDT , Service support ,
--- NOTE | 2018-05-30 07:05 | EKG12_ITS ---
Test Reason : GENERAL ILLNESS Blood Pressure : / mmHG Vent. Rate : 108 BPM Atrial Rate : 108 BPM P-R Int : 122 ms QRS Dur : 072 ms QT Int : 386 ms P-R-T Axes : 000 015 206 degrees QTc Int : 517 ms Sinus tachycardia with occasional Premature ventricular complexes ST & T wave abnormality, consider inferolateral ischemia Confirmed by WILY GARZA, EBLLA ([id number]), features editor NICOLASA LUEVANO ([id number]) on 05/31/2018 1:09:13 PM Referred By: BETSY Confirmed By:BELLA JULIEN MD
--- NOTE | 2018-05-30 07:24 | ED.VISSUMM ---
- ER Visit Summary Date of Service: 05/30/18 Chief Complaint: I just do not feel well History of Present Illness: The patient is a 63 F who is much older than her stated age. She reports feeling generalized fatigue, body aches, decreased p.o. intake for the past 1 week. She denies focal chest pain or abdominal pain. She does not feel short of breath. She has rare cough. Although she is not eating or drinking as much she states she still urinating normally. She denies having fever. Physical Examination: Blood pressure is 122/76, temperature 97.7, heart rate 132, respiratory rate 20, pulse ox 99% on room air. Patient is a cachectic appearing female. Head and neck examination reveals moist mucous membranes. Heart is tachycardic and regular. Lungs sounds are clear. Abdomen is soft with no focal tenderness. Active bowel sounds are noted. Neuro exam reveals no focal deficits. Test Results: EKG is sinus at [address]. Portable chest x-ray shows borderline heart size. There is mild chronic interstitial changes. No acute pathology. CBC was normal white count. Hemoglobin is 10.3. Chemistry studies significant only for creatinine 1.15. This is slightly above her priors. Emergency Department Course and Treatment: Patient is given Zofran and IV fluids. Heart rate remains elevated between 105 and 115. Patient attempted to get up to bedside commode to provide a urine sample, but staff states she was so weak they practically had to pick her up. Patient is noted to drop her O2 sats when she sleeps. When she wakes and talks to staff she will return her oxygen saturations to the high 90s. She is placed on nasal cannula at this time as she keeps napping while waiting for results. Patient advised me that did not want to stay in the hospital when I first saw her. At this time patient remains very weak and was not even able to support herself to get to the bedside commode. I advised the patient that I do not feel that she is safe for home at this time. Patient has agreed to hospitalization. I spoken with the hospitalist. Treatment Plan: [] Disposition: Admit Impression: 1. Generalized weakness 2. Sleep apnea This note was generated with Triondation software. It may contain incorrect words, spelling, and punctuation that were not noted in review of the chart prior to signing ED Disposition - Plan for ED Patient: Referrals: Elderbrock,Dante, MD [Primary Care Provider] -
[2018-05-30 07:39] LABS: Anion Gap 10 (5-15); BUN 13 mg/dL (7-18); BUN/Creat Ratio 11.3 RATIO (10-20); Calcium,Total 8.3 mg/dL (8.5-10.1); Chloride 108 mmol/L (98-107); Creatinine, Serum 1.15 mg/dL (0.55-1.02); EST Glomerular Filtration Rate 50 mL/min (>60); Est Glom Filt Rate - Afr Amer 61 mL/min (>60); Estimated Creatinine Clearance 35.03 ml/min; Glucose 93 mg/dL (74-106); Potassium 3.9 mmol/L (3.5-5.1); Sodium Level 143 mmol/L (136-145)
[2018-05-30] MEDS: Ondansetron 4 MG/2 ML Vial IV (07:47)
[2018-05-30 08:28] LABS: Absolute Lymphocyte Count 1.65 X10^3/ul (0.83-4.51); Absolute Neutrophil Count 4.5 X10^3/uL (2.0-7.7); Basophil# 0.01 X10^3/uL; Basophil% 0.1 % (0-1); Eosinophil# 0.02 X10^3/uL; Eosinophils% 0.3 % (0-5); Hematocrit 32.3 % (37-47); Hemoglobin 10.3 g/dl (12.0-15.0); Lymphocyte # 1.65 X10^3/ul (4.0); Lymphocyte % 22.8 % (19-41); Mean Corp Hgb Conc 31.9 g/gl (32-36); Mean Corpuscular Hgb 28.9 pg (27.0-32.0); Mean Corpuscular Volume 90.7 fL (81-99); Monocyte# 1.01 X10^3/uL; Neutrophil # 4.53 X10^3/uL (2.7-7.7); Neutrophil % 62.7 % (47-70); Platelet Count 198 K/mm3 (150-450); RBC Distribution Width CV 16.9 % (11.6-14.6); RBC Distribution Width SD 54.8 fl (35.1-43.9); Red Blood Count 3.56 M/mm3 (4.2-5.4); White Blood Count 7.2 K/mm3 (4.4-11.0)
[2018-05-30 08:29] LABS: Differential Indicated SCAN CRITERIA MET; POSITIVE COUNT NO; POSITIVE DIFFERENTIAL NO; POSITIVE MORPHOLOGY YES
[2018-05-30 08:30] LABS: Differential Comment SCANNED; Platelet Estimate ADEQUATE (ADEQ); Platelet Morphology LARGE
[2018-05-30] MEDS: 0.9% Normal Saline 1,000 ML 150 ML IV ×2 (10:43→12:42)
--- NOTE | 2018-05-30 10:45 | ED.RN ---
Pt has declining O2 sat while sleeping. Saturation has dropped to 60's while sleeping though rebounds quickly upon waking. O2 2L on pt to supplement. pt also needed increased assist to bsc though was unable to urinate.
--- NOTE | 2018-05-30 10:47 | NURSING ---
DR NAYLOR FOR DR URIAS
--- NOTE | 2018-05-30 10:52 | NURSING ---
MED SURG SEMENTI WEAKNESS, SLEEP APNEA
[2018-05-30] MEDS: Ensure Clear 120 ML Liquid PO ×3 (13:02→21:13)
--- NOTE | 2018-05-30 13:02 | HP.PCM_ITS ---
Problem List (1) Depression Status: Chronic (2) GERD (gastroesophageal reflux disease) Status: Chronic (3) Fall Status: Chronic (4) Weakness Status: Acute (5) Normochromic normocytic anemia Status: Chronic (6) Atrophic vaginitis Status: Chronic (7) Poor dental hygiene Status: Chronic History of Present Illness Date of Admission: 05/30/18 Chief Complaint: I do not feel well. The patient is a 63 year old F with a past medical history of depression, GERD, cholelithiasis, alopecia and normochromic normocytic anemia who presented to the emergency department at [facility] on 05/30/2018 complaining of not feeling well. She tells me that she felt well until approximately 1 month ago when she developed a cough. She did not have myalgias, arthralgias, sore throat or cephalgia. The cough has improved however she now feels extremely weak and she has been falling. She is lightheaded when she stands up and gets weak and wobbly. She has not had syncope. When she sits down the ligh theadedness goes away. She also complains of food not tasting good and having no appetite. She has frequent heartburn even though she has taken Nexium 40 mg daily for several years. She was admitted to [facility] in February 2018 for gastroenteritis and had coffee-ground emesis at that time but no endoscopy was performed. He has been losing weight and her clothes are getting big on her but she does not have a scale and has not been weighed. She denies nausea and she has not had emesis. She denies diarrhea and also denies abdominal pain. She denies dysuria, flank pain. She has not had a PAP or a MMG in many years and does not know if she has ever had an endoscopy. Vital signs of presentation to the emergency room were temp 97.7, pulse rate 132, blood pressure 122/76, respiratory rate 20 and she was 99% saturated on room air. White blood cell count is 7.2 with an unremarkable differential. Hemoglobin is 10.3 with an MCV of 90.7, down from 98.5 in February 2018. The RDW is increased to 16.9 and the platelets are within normal limits. The BMP shows a BUN of 13 and a creatinine of 1.15, up from 1.0 in February 2018. Chest x-ray shows no infiltrates, pleural effusions or pulmonary vascular congestion. There is some increased interstitial markings in the bases secondary to scarring. When she fell asleep in the ED the pulse ox dropped into the 70's and when she was awakened it came right back up. she has never had a sleep study. She is being admitted to the hospital for observation for generalized weakness. Past Medical History Past Medical History (Chronic Problems): Chronic Problems Normochromic normocytic anemia (Chronic) Atrophic vaginitis (Chronic) Poor dental hygiene (Chronic) Fall (Chronic) Depression (Chronic) GERD (gastroesophageal reflux disease) (Chronic) Allergies No Known Allergies Allergy (Verified 02/11/18 23:37) Home Medications: Ambulatory Orders Medication Instructions Recorded Esomeprazole Mag Trihydrate 40 mg PO DAILY 03/30/13 [Nexium] Citalopram [Celexa] 40 mg PO DAILY 02/12/18 Surgical History: appendectomy, tonsillectomy, - - Hand surgery, back surgery, csection Psychiatric History: 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 Denies: Fever Eyes: Denies: Blurred vision HEENT: Denies: Difficulty Hearing, Difficulty Swallowing, Head Aches, Post Nasal Drip, Sinus Congestion, Sinus Drainage, Sore Throat Cardiovascular: Reports: Light Headedness - when standing. Denies: Chest Pain, Palpitations, Syncope Respiratory: Reports: Cough - occasional........sick with a worse cough 1 month ago and has been getting weaker ever since. Denies: Shortness of breath at rest, Sputum production Gastrointestinal: Reports: - - Frequent heartburn. Denies: Abdominal Pain, Nausea, Vomiting Genitourinary: Denies: Dysuria, Retention Gynecological: Denies: Vaginal discharge Musculoskeletal: Denies: Joint Pain, Joint Tenderness Skin: Denies: Jaundice, Rash, Wounds Neurological: Reports: Balance problems. Denies: Change in Speech, Slurred speech, Confusion, Difficulty swallowing, Focal weakness, Headaches, Numbness, Tingling, Tremor, Seizures Psychiatric: Reports: Depression. Denies: Anxiety, Homicidal Ideations, Suicidal Ideations Endocrine: Reports: Change in Body Habitus - losing weight Hematologic/ Lymphatic: Denies: Easy Bruising, Easy Bleeding, Hx of blood clot VTE Information - Inpt Only VTE Present on Admission: No VTE Mechan Device Prophylaxis: SCD's, Knee High DAVY Hose VTE Pharm Prophylaxis ordered?: Yes - Physical Exam General: Alert, Oriented x3, Cooperative, No apparent distress, - - Pale, sparse hair on her head for several years now.......no pubic hair either. She does have eyebrows HEENT: Atraumatic, PERRLA, EOMI, Normocephalic Oral: Dry Mucosa, - - the tongue is smooth and appears atrophic Neck: Supple, No JVD, Negative Carotid Bruits, No Nodes, No Nuchal Rigidity, Trachea Midline Lungs: Clear to auscultation, No rhonchi, No wheeze, No rales Cardiovascular: Regular Rhythm, Normal S1, Normal S2, No murmurs, No rub noted, No Gallop, Tachycardic Abdomen: Bowel Sounds Present, Soft, Non Tender, Non-Distended, No Hepato- splenomegaly, - - No masses palpated and no guarding with palpation Extremities: No cyanosis, No edema, No Calf Tenderness, Clubbing, Peripheral Pulses Normal Skin: No rashes, No breakdown Musculoskeletal: Arthritic Changes, Muscle Wasting - RUE due to an old work related injury when she fractured her wrist.......multiple surgeries for this Neurological: Cranial nerves II-XII grossly intact, Neuro grossly intact Psych/Mental Status: Appropriate, Flat Affect Vital Signs Temp Pulse Resp BP Pulse Ox 97.2 F L 109 H 20 H 105/61 100 05/30/18 11:59 05/30/18 11:59 05/30/18 11:59 05/30/18 11:59 05/30/18 11:59 Oxygen Flow Rate (L/min) 2 Oxygen Delivery Method Nasal Cannula Weight: 116 lb 13.52 oz Body Mass Index (BMI) 22.8 Laboratory Tests Past 24 Hrs 05/30/18 05/30/18 07:20 07:20 WBC 7.2 RBC 3.56 L Hgb 10.3 L Hct 32.3 L MCV 90.7 MCH 28.9 MCHC 31.9 L RDW 16.9 H RDW Differential 54.8 H Plt Count 198 Immature Gran % (Auto) 0.100 Neut % (Auto) 62.7 Lymph % (Auto) 22.8 [place] % (Auto) 14.0 H Eos % (Auto) 0.3 Baso % (Auto) 0.1 Absolute Neuts (auto) 4.5 Absolute Lymphs (auto) 1.65 Total Counted Not Reportable Differential Comment SCANNED Platelet Estimate ADEQUATE Plt Morphology Comment LARGE Sodium 143 Potassium 3.9 Chloride 108 H Carbon Dioxide 25.0 Anion Gap 10 BUN 13 Creatinine 1.15 H Estim Creat Clear Calc 35.03 Est GFR (MDRD) Af Amer 61 Est GFR (MDRD) Non-Af 50 L BUN/Creatinine Ratio 11.3 Glucose 93 Calcium 8.3 L Assessment/Plan All Active Problems Weakness (Acute) RADHA (acute kidney injury) (Resolved) CAP (community acquired pneumonia) (Resolved) Gastroenteritis (Resolved) Lactic acidosis (Resolved) SIRS (systemic inflammatory response syndrome) (Resolved) UGI bleed (Resolved) Impressions 1. generalized weakness and debility 2. N/N anemia with a increased RDW 3. GERD - on Nexium for a very long time but continues to have heart burn 4. Depression - started 2 years ago when her . Has had a lot of loss in her life. Has never seen a counsellor....Dr. Mclaughlin prescribes Celexa and there has been no change in the dose over the past 2 years 5. Atrophic deformed R forearm secondary to work related fracture in the past with multiple surgeries 6. alopecia - WHY? Denies any hx of thyroid disease 7. Dehydration 8. Suspected orthostatic hypotension with frequent falls 9. Atrophic vaginitis Hemoccult stool, iron studies, reticulocyte count, B12, folate, TSH, T4 Orthostatic vital signs Attempted straight cath and got in the urethra but there was no urine.......she had gone just prior to coming to the hospital and has had poor intake recently. the vaginal introitus is very small Decrease the Celexa to 20 mg daily Behavioral health consult regarding depression Will need to have an EGD and possibly a colon too....beata since she needs to have heartburn despite a PPI. Long-term use of PPIs are also associated with gastric polyps and dysplasia/malignancy. May need to go to SNF ....PT and OT consults ordered Code Visit OBSV E&M: [id number] Initial observation care L3
--- NOTE | 2018-05-30 13:31 | CASEMGMT ---
RN CM Assessment Presentation: Weakness. Intro role of CM and purpose of RN CM assessment. Pt is awake, alert and able to participate in dc planning. Demographics, PCP and Pharmacy verified. Pt states she has been progressively weaker with falls @ home. Cannot do stairs in her home so is staying on main floor. PCP: Dr. Mclaughlin Preferred [facility]acy: [facility] Insurance: [employer] [facility] PPO Prescription Benefit: yes LNOK: Roshan Lagos, son Living Arrangements: Pt states she lives in two story duplex with bedrooms, bath upstairs. No bathroom on main floor. Pt states she has not been able to go up stairs and was using BSC on main floor. States her neighbor was emptying this for her. Grandson stays with her a few times a week to help, otherwise pt is alone. Transportation: drives. DME: cane, BSC only HHC: Referral made to [facility] for dc. Anticipate will need RN, PT/OT, aide and SW if pt is able to return home. -RN GIBSON spoke at length with pt re: possible SNF on dc (Has been to TCU previously). Pt stated I won't go there until my dying breath. RN CM explained difference between terminal system operator stay, and short term skilled stay for rehab with intent to return home. RN CM also explained that TCU is a short term unit with goals to return pts to home environment. Discussed prior authorization from insurance is received to assure payment prior to dc to any SNF. Pt has [employer] PPO. RN CM let pt know PT/OT would be seeing her and would also give recommendations for dc plan. Per Dr. Ray, pt is agreeable to consider TCU- call to referral line to put name on list in event pt needs on dc. Patient DC goals: Home with home health DC PLAN: undetermined. Pt's name is on TCU list and tentative referral also made to [facility]. Cheikh REYESN JACKLYN MORALES
[2018-05-30 14:08] LABS: Immature Platelet Fraction 21.2 % (1.0-7.9); RET-HE 29.3 pg (30-35); Reticulocyte Count 2.09 % (0.5-1.5)
[2018-05-30 14:42] LABS: AST(SGOT) 37 U/L (15-37); Alanine Aminotransfer ALT/SGPT 21 U/L (13-56); Albumin, Serum 3.1 g/dL (3.2-5.0); Alkaline Phosphatase 66 U/L (45-117); Ferritin 87 ng/mL (8-252); Globulin 2.3 g/dL (2.2-4.2); Iron 146 ug/dL (50-170); Iron Binding Capacity,Total 255 ug/dL (250-450); Magnesium 1.8 mg/dL (1.6-2.6); PERCENT IRON SATURATION 57.3 % (15.0-55.0); Phosphorus 2.3 mg/dL (2.5-4.9); Protein, Total 5.4 g/dL (6.4-8.2); T4 Free Direct 1.48 ng/dL (0.76-1.46); Thyroid Stim Hormone (TSH) 2.47 uIU/mL (0.358-3.74)
[2018-05-30 14:46] LABS: Vitamin B12 379 pg/mL (211-911)
--- NOTE | 2018-05-30 14:57 | PCA ---
Sent a fax to [facility] office to obtain medical records . Have not received any at this time.
--- NOTE | 2018-05-30 16:00 | CASEMGMT ---
Social Work Note SW reviewed pt's notes from previous visits. This SW reviewed advanced directives on 02/12/2018. Per note on 02/12/2018 Advanced directives on pt's echart. SW printed and placed copies of advanced directives in pt's chart. Funmi Chavez PROGRAM DIR, MAINFRAME SYSTEMS ENGINEER
--- NOTE | 2018-05-30 17:15 | CHAPLAIN ---
Type of Pastoral Visit _x__ Initial Visit ___ Follow-up Visit ___ On-call Visit ___ General Patient Visit ___ Spiritual Assessment ___ Family Conference ___ Bereavement ___ Rapid Response ___ Code Blue ___ Other (describe below) Pastoral Care Referral From _x__ Patient ___ Family _x__ Nurse ___ Physician ___ Quality Control Scientist ___ Roll Clamp Operator ___ Other (describe below) Sacrament/Intervention _x__ Active listening ___ Anointing ___ Presybeterian ___ Bereavement ___ Communion _x__ Jerica exploration ___ _x__ Life review _x__ Prayer ___ Reconciliation ___ Sacrament of Sick _x__ Supportive presence ___ Wedding ___ Other (describe below) Pastoral Comments time given to listen to patient's fears and anxiety; pt reviews family concerns and high stress; pt speaks of being afraid; pt has desire to go home and she wants to live to see her grandchildren grow up
[2018-05-30] MEDS: Acetaminophen 325 MG Tablet 650 MG PO (18:38)
[2018-05-30] MEDS: Citalopram 20 MG Tablet PO (18:39)
[2018-05-30] MEDS: Lactated Ringers 1,000 ML 100 ML IV (21:58)
[2018-05-31] VITALS (11 sets, daily range): BP systolic 104–133; BP diastolic 41–91; PULSE 100–122; RESP 18–20; TEMP 36.4–36.8; O2SAT 93–100
[2018-05-31] MEDS: Acetaminophen 325 MG Tablet 650 MG PO (00:10)
[2018-05-31] MEDS: clonazePAM 0.5 MG Tablet PO (00:11)
[2018-05-31] MEDS: Ibuprofen 400 MG Tablet PO (03:32)
[2018-05-31 06:53] LABS: Hematocrit 31.3 % (37-47); Hemoglobin 10.1 g/dl (12.0-15.0); Mean Corp Hgb Conc 32.3 g/gl (32-36); Mean Corpuscular Volume 89.9 fL (81-99); Platelet Count 175 K/mm3 (150-450); RBC Distribution Width SD 54.5 fl (35.1-43.9); Red Blood Count 3.48 M/mm3 (4.2-5.4); White Blood Count 6.8 K/mm3 (4.4-11.0)
[2018-05-31 06:55] LABS: Scan Indicated on CBC? Y/N YES- FLAGS NOTED
[2018-05-31 06:56] LABS: Anion Gap 9 (5-15); BUN 14 mg/dL (7-18); BUN/Creat Ratio 12.8 RATIO (10-20); Calcium,Total 8.1 mg/dL (8.5-10.1); Chloride 111 mmol/L (98-107); Cholesterol 130 mg/dL (200); Creatinine, Serum 1.09 mg/dL (0.55-1.02); EST Glomerular Filtration Rate 54 mL/min (>60); Est Glom Filt Rate - Afr Amer 65 mL/min (>60); Estimated Creatinine Clearance 36.96 ml/min; Glucose 90 mg/dL (74-106); High Density Lipoprotein 71 mg/dL; Magnesium 1.8 mg/dL (1.6-2.6); Phosphorus 2.9 mg/dL (2.5-4.9); Potassium 3.1 mmol/L (3.5-5.1); Sodium Level 144 mmol/L (136-145); Triglycerides 115 mg/dL; Very Low Density Lipoprotein 23 mg/dL (5-40)
[2018-05-31 07:19] LABS: Differential Comment SCAN
--- NOTE | 2018-05-31 07:53 | PCM.PROGNOTE ---
Subjective: All events of the past 24 hours of been reviewed. Despite hydration she remains tachycardic. Blood pressure stable. She is 100% saturated on room air. All lab was personally reviewed. Hemoglobin is stable at 10.1. Iron studies were within normal limits and the B12 and folate were also normal. TSH is 2.47 and the free T4 is elevated at 1.48. Mag and phos are within normal limits. Triglycerides are 115. Total cholesterol is 130 with an LDL of 36 and an HDL of 71. Stool was Hemoccult positive. she was sleeping when I entered the room. She was difficult to arouse. Affect is very flat. She walked 45 feet today with WW and PT. HAd to take severeal breaks due to fatigue. She is c/o of back pain and Tylenol was effective.....she was not taking anything for pain at home. Objective: PHYSICAL EXAM: GENERAL: Drowsy, lethargic, oriented X 3, pale, sleeping a lot ORAL: moist mucosa, no mucosal lesions NECK: No JVD, supple, trachea midline LUNGS: CTA, symmetric chest expansion HEART: regular rhythm with increased resting heart rate, Normal S1 and S2, no rub, no gallop, no murmur ABDOMEN: soft, NT, ND, BS present, no guarding with palpation EXTREMITIES: no edema, no cyanosis, no calf tenderness SKIN: No rashes, no breakdown NEUROLOGIC: no focal neurologic deficits PSYCH: Flat affect - Physical Exam Vital Signs Temp Pulse Resp BP Pulse Ox 97.6 F L 122 H 18 113/91 H 93 05/31/18 02:09 05/31/18 03:04 05/31/18 02:09 05/31/18 02:09 05/31/18 07:51 Oxygen Flow Rate (L/min) 2 Oxygen Delivery Method Room Air Weight: 116 lb 13.52 oz Body Mass Index (BMI) 22.8 Orthostatic Vital Signs Start: 05/30/18 16:21 Freq: q24h Status: Active Protocol: Activity Type Activity Date Activity User E-Sign Co-Sign Detail Recorded Client Recorded Date Recorded By Document 05/30/18 16:21 AEC [id number] 05/30/18 16:26 AEC 05/30/18 16:21 Orthostatic Vitals Standing -Blood Pressure (90/60-120/80 mm Hg) 96/71 -Extremity Use Left Arm -Pulse Rate (60-100 beats/min) 126 H Sitting -Blood Pressure (90/60-120/80 mm Hg) 110/61 -Extremity Use Left Arm -Pulse Rate (60-100 beats/min) 116 H Lying -Blood Pressure (90/60-120/80 mm Hg) 102/64 -Extremity Use Left Arm -Pulse Rate (60-100 beats/min) 110 H Intake and Output for Last 24 Hours 05/29/18 05/30/18 05/31/18 23:59 23:59 23:59 Intake Total 384 / 384 1194 / 1194 Balance 384 / 384 1194 / 1194 Microbiology Past 72 Hours 05/31/18 03:10 Stool Occult Blood (ERNIE) - Final Stool Occult Blood Positive Laboratory Tests Past 24 Hrs 05/30/18 05/30/18 05/30/18 07:20 07:20 07:20 WBC 7.2 RBC 3.56 L Hgb 10.3 L Hct 32.3 L MCV 90.7 MCH 28.9 MCHC 31.9 L RDW 16.9 H RDW Differential 54.8 H Plt Count 198 Immature Gran % (Auto) 0.100 Neut % (Auto) 62.7 Lymph % (Auto) 22.8 [place] % (Auto) 14.0 H Eos % (Auto) 0.3 Baso % (Auto) 0.1 Absolute Neuts (auto) 4.5 Absolute Lymphs (auto) 1.65 Total Counted Not Reportable Differential Comment SCANNED Platelet Estimate ADEQUATE Immature Plt Fraction 21.2 H Plt Morphology Comment LARGE Retic Count 2.09 H Immature Retic Fraction 16.50 H Retic Hgb Equivalent 29.3 L Sodium Potassium Chloride Carbon Dioxide Anion Gap BUN Creatinine Estim Creat Clear Calc Est GFR (MDRD) Af Amer Est GFR (MDRD) Non-Af BUN/Creatinine Ratio Glucose Calcium Phosphorus 2.3 L Magnesium 1.8 Iron 146 TIBC 255 Iron Saturation 57.3 H Ferritin 87 Total Bilirubin 0.40 Direct Bilirubin 0.10 AST 37 ALT 21 Alkaline Phosphatase 66 Total Protein 5.4 L Albumin 3.1 L Globulin 2.3 Triglycerides Cholesterol LDL Cholesterol VLDL Cholesterol HDL Cholesterol Vitamin B12 Folate 7.70 TSH 2.47 Free T4 1.48 H 05/30/18 05/31/18 05/31/18 07:20 06:10 06:10 WBC 6.8 RBC 3.48 L Hgb 10.1 L Hct 31.3 L MCV 89.9 MCH 29.0 MCHC 32.3 RDW 17.0 H RDW Differential 54.5 H Plt Count 175 Immature Gran % (Auto) Neut % (Auto) Lymph % (Auto) [place] % (Auto) Eos % (Auto) Baso % (Auto) Absolute Neuts (auto) Absolute Lymphs (auto) Total Counted Differential Comment SCAN Platelet Estimate Immature Plt Fraction Plt Morphology Comment Retic Count Immature Retic Fraction Retic Hgb Equivalent Sodium 144 Potassium 3.1 L Chloride 111 H Carbon Dioxide 24.0 Anion Gap 9 BUN 14 Creatinine 1.09 H Estim Creat Clear Calc 36.96 Est GFR (MDRD) Af Amer 65 Est GFR (MDRD) Non-Af 54 L BUN/Creatinine Ratio 12.8 Glucose 90 Calcium 8.1 L Phosphorus 2.9 Magnesium 1.8 Iron TIBC Iron Saturation Ferritin Total Bilirubin Direct Bilirubin AST ALT Alkaline Phosphatase Total Protein Albumin Globulin Triglycerides 115 Cholesterol 130 LDL Cholesterol 36 VLDL Cholesterol 23 HDL Cholesterol 71 Vitamin B12 379 Folate TSH Free T4 Medical Necessity - Tobacco Use Smoking Status: Never smoker Tobacco Use: Non-smoker Assessment/Plan All Active Problems Weakness (Acute) RADHA (acute kidney injury) (Resolved) CAP (community acquired pneumonia) (Resolved) Gastroenteritis (Resolved) Lactic acidosis (Resolved) SIRS (systemic inflammatory response syndrome) (Resolved) UGI bleed (Resolved) Impressions 1. generalized weakness and debility - I suspect depression plays a big part in this along with deconditioning 2. N/N anemia with a increased RDW 3. GERD - on Nexium for a very long time but continues to have heart burn 4. Depression - started 2 years ago when her . Has had a lot of loss in her life. Has never seen a counsellor....Dr. Mclaughlin prescribes Celexa and there has been no change in the dose over the past 2 years 5. Atrophic deformed R forearm secondary to work related fracture in the past with multiple surgeries 6. alopecia - WHY? Denies any hx of thyroid disease and the TSH is normal...T4 is a tad increased...this can be seen with Nexium. Nexium can also cause Alopecia and apathy 7. Dehydration 8. Suspected orthostatic hypotension with frequent falls 9. Atrophic vaginitis 10. Hemoccult positive stool 11. Acute renal failure with urinary incontinence and retention consult Dr. Lr for upper and lower endoscopy Consult Dr. Sweeney for urine retention. She will need a pelvic exam at some point but, she is so atrophic this will be very difficult. Ultrasound of the kidney and bladder Recheck CBC and BMP in the a.m. Continue efforts to try and collect a urine specimen for UA and culture I was unable to get any urine with straight cath yesterday and felt it may be due to severe hydration but she has been hydrated and still with minimal urine OP. Await the results of the US and if hydronephrosis will try ago to insert a [facility] consult Will likely need to go to SNF at [place] She needs to have psychotherapy in addition to medication for depression. Has been on the same lama of Celexa for 2-3 years now and has never had any psychotherapy........she presents as being severely depressed Code Visit Inpatient E&M: [id number] Subs Hosp L3
[2018-05-31 08:21] LABS: Free T3 1.9 pg/mL (2.18-3.98)
[2018-05-31] MEDS: 0.9% Normal Saline 1,000 ML 999 ML IV (08:44)
[2018-05-31] MEDS: Potassium Chloride 10mEq/100mL 10 MEQ/100 ML IV.SOLN. 100 MEQ IV BOLUS ×2 (08:52→09:54)
[2018-05-31] MEDS: Citalopram 20 MG Tablet PO (09:11)
[2018-05-31] MEDS: Enoxaparin 40 MG/0.4 ML Syringe SC (09:11)
[2018-05-31] MEDS: Ensure Clear 120 ML Liquid PO ×3 (09:14→21:28)
--- NOTE | 2018-05-31 13:49 | CASEMGMT ---
Addendum entered by Brandon Tinoco 05/31/18 15:27: Per Anabelle Nick. pt has been taken off the TCU list as she is anticipating to go home. Cheikh MORALES Original Note: Addendum entered by Brandon Tinoco 05/31/18 13:56: Discussed dc plan with pt, and @ this time, pt plans to return home and is agreeable to [facility]. Original Note: JACKLYN CM Note: ROMERO form completed and explained to patient re: Observation status appropriateness for treatment for weakness and debility. Explained pt has [employer] insurance and outpt billing is per their guidelines. Self Administered medications are generally not paid under Observation status. Pt did not have further questions and signed form. Copy given to her and signed form placed in chart. Cheikh MARTINEZM
--- NOTE | 2018-05-31 18:01 | US_ITS ---
STUDY: RENAL ULTRASOUND - COMPLETE REASON FOR EXAM: Female, 63 years old. Urinary retention. Acute renal failure. TECHNIQUE: Ultrasound evaluation of the kidneys was performed with real-time and static vivar-scale imaging. COMPARISON: None. FINDINGS: RIGHT KIDNEY: with moderate renal atrophy. The right kidney measures 6.4 cm x 3.1 cm x 3.0 cm. There is diffuse thinning of the renal cortex. The renal cortex measures 0.4 cm. There is no right renal mass or cyst. There are no right renal calculi. There is no right hydronephrosis. DISTAL RIGHT URETER: There is non-visualization of the distal right ureter. There is no demonstrated right ureterovesical junction calculus. There is no demonstrated right ureteral jet. LEFT KIDNEY: with moderate renal atrophy. The left kidney measures 7 cm x 3.3 cm x 4.2 cm. There is diffuse thinning of the renal cortex. The renal cortex measures 0.8 cm. There is no left renal mass or cyst. There are no left renal calculi. There is no left hydronephrosis. DISTAL LEFT URETER: There is non-visualization of the distal left ureter. There is no demonstrated left ureterovesical junction calculus. There is no demonstrated left ureteral jet. BLADDER: The distended urinary bladder has a volume of 284 ml. There is a normal wall thickness of the distended urinary bladder. There is no demonstrated mass within the urinary bladder. There are no demonstrated bladder calculi. US/Kidney and Bladder IMPRESSION: Bilateral renal atrophy. Electronically Signed: Héctor Calabrese, at 9:41 EDT , Service support ,
[2018-05-31] MEDS: Electrolyte Solution/Peg's 4000 ML PO (20:03)
[2018-05-31] MEDS: Ondansetron 4 MG/2 ML Vial IV (21:37)
[2018-05-31] MEDS: 0.9% NaCl Peripheral Flush Adult/Peds IV (21:37)
--- NOTE | 2018-05-31 21:42 | PCM.CONS.GEN ---
Reason for Consult Date of Consultation: 05/31/18 Reason for Consultation: Hemoccult positive stools History of Present Illness: The patient is a 63 year old F who presented to [facility] in February with a complaint of blood per rectum.this was felt to be likely secondary to diarrhea and possibly gastroenteritis but the time she also had coffee-ground emesis. She did not have endoscopy at that time. It was recommended she have upper and lower endoscopies outpatient. This did not occur. the patient is now admitted with a complaint of overall not feeling well. She states she's had a cough and has otherwise been feeling relatively poorly for the past month. She now feels weak and she feels she has been falling. She notes that food does not taste well. She notes heartburn and reflux symptoms even though she's been taking Nexium. The patient has a history of reflux, depression, cholelithiasis. She has a mild normochromic normocytic anemia. She has not had upper endoscopy and she's not had lower endoscopy. Past Medical History Past Medical History (Chronic Problems): Chronic Problems Normochromic normocytic anemia (Chronic) Atrophic vaginitis (Chronic) Poor dental hygiene (Chronic) Fall (Chronic) Depression (Chronic) GERD (gastroesophageal reflux disease) (Chronic) Allergies No Known Allergies Allergy (Verified 02/11/18 23:37) Home Medications: Ambulatory Orders Medication Instructions Recorded Esomeprazole Mag Trihydrate 40 mg PO DAILY 03/30/13 [Nexium] Citalopram [Celexa] 40 mg PO DAILY 02/12/18 Surgical History: appendectomy, tonsillectomy, - - Hand surgery, back surgery, csection Psychiatric History: Depression PUBLIC HEALTH DOCTOR History: No pertinent PUBLIC HEALTH DOCTOR history, - - atrophic vaginitis Lives: Alone - but her grandson comes over to stay with her a few days a week Smoking Status: Never smoker Tobacco Use: Non-smoker Alcohol: None Drugs: None - *Family History Maternal History Items: Diabetes Paternal History Items: Cancer - Lung Review of Systems Constitutional: Reports: Malaise, Weakness, Weight Change HEENT: Denies: Head Aches, Sinus Congestion, Sinus Drainage Cardiovascular: Denies: Chest Pain, Palpitations Respiratory: Denies: Cough, Shortness of breath at rest, Sputum production Gastrointestinal: Denies: Abdominal Pain, Nausea, Vomiting Genitourinary: Denies: Dysuria Musculoskeletal: Denies: Joint Pain, Joint Tenderness - Physical Exam General: Alert, Oriented x3, - - patient does appear somewhat frail Lungs: Clear to auscultation, Diminished Cardiovascular: Regular rate, Regular Rhythm Abdomen: Bowel Sounds Present, Soft, Non Tender Vital Signs Temp Pulse Resp BP Pulse Ox 98.3 F 108 H 20 H 104/48 L 95 05/31/18 20:14 05/31/18 20:14 05/31/18 20:14 05/31/18 20:14 05/31/18 20:14 Oxygen Flow Rate (L/min) 2 Oxygen Delivery Method Room Air Weight: 53 kg Body Mass Index (BMI) 22.8 Orthostatic Vital Signs Start: 05/30/18 16:21 Freq: q24h Status: Active Protocol: Activity Type Activity Date Activity User E-Sign Co-Sign Detail Recorded Client Recorded Date Recorded By Document 05/31/18 17:30 CHELSEA [id number] 05/31/18 17:45 CHELSEA 05/31/18 17:30 Orthostatic Vitals Standing -Blood Pressure (90/60-120/80) 133/60 H -Extremity Use Right Arm -Pulse Rate (60-100) 107 H Sitting -Blood Pressure (90/60-120/80) 118/47 L -Extremity Use Right Arm -Pulse Rate (60-100) 101 H Lying -Blood Pressure (90/60-120/80) 133/41 H -Extremity Use Right Arm -Pulse Rate (60-100) 101 H Intake and Output for Last 24 Hours 05/29/18 05/30/18 05/31/18 23:59 23:59 23:59 Intake Total 384 / 384 3309 / 3309 Balance 384 / 384 3309 / 3309 Microbiology Past 72 Hours 05/31/18 03:10 Stool Occult Blood (ERNIE) - Final Stool Occult Blood Positive Laboratory Tests Past 24 Hrs 05/31/18 05/31/18 05/31/18 06:10 06:10 06:30 WBC 6.8 RBC 3.48 L Hgb 10.1 L Hct 31.3 L MCV 89.9 MCH 29.0 MCHC 32.3 RDW 17.0 H RDW Differential 54.5 H Plt Count 175 Differential Comment SCAN Sodium 144 Potassium 3.1 L Chloride 111 H Carbon Dioxide 24.0 Anion Gap 9 BUN 14 Creatinine 1.09 H Estim Creat Clear Calc 36.96 Est GFR (MDRD) Af Amer 65 Est GFR (MDRD) Non-Af 54 L BUN/Creatinine Ratio 12.8 Glucose 90 Calcium 8.1 L Phosphorus 2.9 Magnesium 1.8 Triglycerides 115 Cholesterol 130 LDL Cholesterol 36 VLDL Cholesterol 23 HDL Cholesterol 71 Free T3 pg/dL 1.9 L Assessment/Plan All Active Problems Weakness (Acute) RADHA (acute kidney injury) (Resolved) CAP (community acquired pneumonia) (Resolved) Gastroenteritis (Resolved) Lactic acidosis (Resolved) SIRS (systemic inflammatory response syndrome) (Resolved) UGI bleed (Resolved) Hemoccult positive stools, coffee ground emesis in February, no previous endoscopy, mild normocytic anemia area I plan to perform upper and lower endoscopy. The patient says the risks, benefits, possible complications and consents to the procedure. We will plan for bowel prep today and plan for endoscopy tomorrow.
--- NOTE | 2018-05-31 21:46 | CON.PCM_ITS ---
Reason for Consult Date of Consultation: 05/31/18 Reason for Consultation: Hemoccult positive stools History of Present Illness: The patient is a 63 year old F who presented to [facility] in February with a complaint of blood per rectum.this was felt to be likely secon steve to diarrhea and possibly gastroenteritis but the time she also had coffee- ground emesis. She did not have endoscopy at that time. It was recommended she have upper and lower endoscopies outpatient. This did not occur. the patient is now admitted with a complaint of overall not feeling well. She states she's had a cough and has otherwise been feeling relatively poorly for the past month. She now feels weak and she feels she has been falling. She notes that food does not taste well. She notes heartburn and reflux symptoms even though she's been taking Nexium. The patient has a history of reflux, depression, cholelithiasis. She has a mild normochromic normocytic anemia. She has not had upper endoscopy and she's not had lower endoscopy. Past Medical History Past Medical History (Chronic Problems): Chronic Problems Normochromic normocytic anemia (Chronic) Atrophic vaginitis (Chronic) Poor dental hygiene (Chronic) Fall (Chronic) Depression (Chronic) GERD (gastroesophageal reflux disease) (Chronic) Allergies No Known Allergies Allergy (Verified 02/11/18 23:37) Home Medications: Ambulatory Orders Medication Instructions Recorded Esomeprazole Mag Trihydrate 40 mg PO DAILY 03/30/13 [Nexium] Citalopram [Celexa] 40 mg PO DAILY 02/12/18 Surgical History: appendectomy, tonsillectomy, - - Hand surgery, back surgery, csection Psychiatric History: Depression UNIX SYSTEM ADMINISTRATOR History: No pertinent UNIX SYSTEM ADMINISTRATOR history, - - atrophic vaginitis Lives: Alone - but her grandson comes over to stay with her a few days a week Smoking Status: Never smoker Tobacco Use: Non-smoker Alcohol: None Drugs: None - *Family History Maternal History Items: Diabetes Paternal History Items: Cancer - Lung Review of Systems Constitutional: Reports: Malaise, Weakness, Weight Change HEENT: Denies: Head Aches, Sinus Congestion, Sinus Drainage Cardiovascular: Denies: Chest Pain, Palpitations Respiratory: Denies: Cough, Shortness of breath at rest, Sputum production Gastrointestinal: Denies: Abdominal Pain, Nausea, Vomiting Genitourinary: Denies: Dysuria Musculoskeletal: Denies: Joint Pain, Joint Tenderness - Physical Exam General: Alert, Oriented x3, - - patient does appear somewhat frail Lungs: Clear to auscultation, Diminished Cardiovascular: Regular rate, Regular Rhythm Abdomen: Bowel Sounds Present, Soft, Non Tender Vital Signs Temp Pulse Resp BP Pulse Ox 98.3 F 108 H 20 H 104/48 L 95 05/31/18 20:14 05/31/18 20:14 05/31/18 20:14 05/31/18 20:14 05/31/18 20:14 Oxygen Flow Rate (L/min) 2 Oxygen Delivery Method Room Air Weight: 53 kg Body Mass Index (BMI) 22.8 Orthostatic Vital Signs Start: 05/30/18 16:21 Freq: q24h Status: Active Protocol: Activity Type Activity Date Activity User E-Sign Co-Sign Detail Recorded Client Recorded Date Recorded By Document 05/31/18 17:30 CHELSEA [id number] 05/31/18 17:45 CHELSEA 05/31/18 17:30 Orthostatic Vitals Standing -Blood Pressure (90/60-120/80) 133/60 H -Extremity Use Right Arm -Pulse Rate (60-100) 107 H Sitting -Blood Pressure (90/60-120/80) 118/47 L -Extremity Use Right Arm -Pulse Rate (60-100) 101 H Lying -Blood Pressure (90/60-120/80) 133/41 H -Extremity Use Right Arm -Pulse Rate (60-100) 101 H Intake and Output for Last 24 Hours 05/29/18 05/30/18 05/31/18 23:59 23:59 23:59 Intake Total 384 / 384 3309 / 3309 Balance 384 / 384 3309 / 3309 Microbiology Past 72 Hours 05/31/18 03:10 Stool Occult Blood (ERNIE) - Final Stool Occult Blood Positive Laboratory Tests Past 24 Hrs 05/31/18 05/31/18 05/31/18 06:10 06:10 06:30 WBC 6.8 RBC 3.48 L Hgb 10.1 L Hct 31.3 L MCV 89.9 MCH 29.0 MCHC 32.3 RDW 17.0 H RDW Differential 54.5 H Plt Count 175 Differential Comment SCAN Sodium 144 Potassium 3.1 L Chloride 111 H Carbon Dioxide 24.0 Anion Gap 9 BUN 14 Creatinine 1.09 H Estim Creat Clear Calc 36.96 Est GFR (MDRD) Af Amer 65 Est GFR (MDRD) Non-Af 54 L BUN/Creatinine Ratio 12.8 Glucose 90 Calcium 8.1 L Phosphorus 2.9 Magnesium 1.8 Triglycerides 115 Cholesterol 130 LDL Cholesterol 36 VLDL Cholesterol 23 HDL Cholesterol 71 Free T3 pg/dL 1.9 L Assessment/Plan All Active Problems Weakness (Acute) RADHA (acute kidney injury) (Resolved) CAP (community acquired pneumonia) (Resolved) Gastroenteritis (Resolved) Lactic acidosis (Resolved) SIRS (systemic inflammatory response syndrome) (Resolved) UGI bleed (Resolved) Hemoccult positive stools, coffee ground emesis in February, no previous endoscopy, mild normocytic anemia area I plan to perform upper and lower endoscopy. The patient says the risks, benefits, possible complications and consents to the procedure. We will plan for bowel prep today and plan for endoscopy tomorrow.
[2018-06-01] VITALS (9 sets, daily range): BP systolic 110–140; BP diastolic 55–63; PULSE 98–116; RESP 16–18; TEMP 36.6–36.8; O2SAT 93–95
[2018-06-01] MEDS: clonazePAM 0.5 MG Tablet PO (00:05)
[2018-06-01 01:06] LABS: Bacteria 0 SEEN /hpf (None Seen); Mucous, Urine 0 SEEN /hpf (<or=2+); Red Blood Cells-Urine 0 SEEN /hpf (0-5)
[2018-06-01 01:11] LABS: Color, Urine Yellow (Yellow); Glucose, Dipstick Normal (Normal); Ketone-Dipstick 15 mg/dl (Negative); Leukocyte Esterase-Dipstick 500 /ul (Negative); Nitrite-Dipstick Negative (Negative); Occult Blood-Urine Negative /ul (Negative); Protein-Dipstick Negative (Negative); Urine Clarity Clear (Clear); Urine Urobilinogen 1 mg/dl (Normal)
[2018-06-01 01:12] LABS: Urine Bilirubin Dipstick 1 mg/dL (Negative)
[2018-06-01 01:18] LABS: Squamous Epithelial Cells - UA 0-5 SEEN /hpf (5-10); White Blood Cells 0-5 SEEN /hpf (0-5)
--- NOTE | 2018-06-01 06:33 | NURSING ---
pt refusing cyndie york & scd's. Pt only drank 500 ml of bowel prep. This am pt states she does not want the procedure. Dr. Lr aware.
[2018-06-01 07:09] LABS: Hematocrit 30.5 % (37-47); Hemoglobin 9.5 g/dl (12.0-15.0); Mean Corp Hgb Conc 31.1 g/gl (32-36); Mean Corpuscular Hgb 29.2 pg (27.0-32.0); Mean Corpuscular Volume 93.8 fL (81-99); Mean Platelet Vol. 14.1 fl (6.2-12.0); Platelet Count 166 K/mm3 (150-450); RBC Distribution Width CV 17.4 % (11.6-14.6); Red Blood Count 3.25 M/mm3 (4.2-5.4); White Blood Count 7.6 K/mm3 (4.4-11.0)
[2018-06-01 07:10] LABS: Scan Indicated on CBC? Y/N NO
[2018-06-01 07:11] LABS: International Normalized Ratio 1.1; Partial Thromboplast Time 25.8 Seconds (24.1-36.2)
[2018-06-01 07:38] LABS: Anion Gap 7 (5-15); BUN 12 mg/dL (7-18); BUN/Creat Ratio 15.1 RATIO (10-20); Calcium,Total 7.7 mg/dL (8.5-10.1); Chloride 115 mmol/L (98-107); Creatinine, Serum 0.79 mg/dL (0.55-1.02); EST Glomerular Filtration Rate 77 mL/min (>60); Est Glom Filt Rate - Afr Amer 93 mL/min (>60); Glucose 85 mg/dL (74-106); Potassium 3.7 mmol/L (3.5-5.1); Sodium Level 144 mmol/L (136-145)
--- NOTE | 2018-06-01 09:11 | CON.PCM_ITS ---
Problem List (1) Incomplete bladder emptying Status: Acute (2) Vaginal atrophy Status: Acute (3) Urinary incontinence Status: Acute Reason for Consult Date of Consultation: 06/01/18 Reason for Consultation: incomplete bladder emptying, vaginal atrophy and urinary incontinence History of Present Illness: The patient is a 63 year old F who has not followed up with medical care on a regular basis. She is admitted with generalized weakness, Hemoccult positive stools and will be undergoing endoscopy sometime today. She has been having incontinence here at the hospital and on straight catheterization there was observation of an extremely atrophic and stenotic vaginal introitus with difficulty obtaining urine. Her postvoid residuals were approximately 250 cc. She reports that at home she does not have any voiding difficulties. She reports voiding 4-5 times during the day and up 1-2 times at night. She denies urinary incontinence at home. No hematuria, non-smoker. She is not sexually active and denies history of vaginal infections although she does report intermittent discharge. She does not have issues with urinary tract infections. She does have diarrhea. She still has her uterus and ovaries. There is no history of female cancers. She has not followed up regularly for Pap smears etc. She is currently asking to be discharged home. Past Medical History Past Medical History (Chronic Problems): Chronic Problems Normochromic normocytic anemia (Chronic) Atrophic vaginitis (Chronic) Poor dental hygiene (Chronic) Fall (Chronic) Depression (Chronic) GERD (gastroesophageal reflux disease) (Chronic) Allergies No Known Allergies Allergy (Verified 02/11/18 23:37) Home Medications: Ambulatory Orders Medication Instructions Recorded Esomeprazole Mag Trihydrate 40 mg PO DAILY 03/30/13 [Nexium] Citalopram [Celexa] 40 mg PO DAILY 02/12/18 Surgical History: appendectomy, tonsillectomy, - - Hand surgery, back surgery, csection Psychiatric History: Depression DEPUTY DIRECTOR OF NURSING History: No pertinent DEPUTY DIRECTOR OF NURSING history, - - atrophic vaginitis Lives: Alone - but her grandson comes over to stay with her a few days a week Smoking Status: Never smoker Tobacco Use: Non-smoker Alcohol: None Drugs: None - *Family History Maternal History Items: Diabetes Paternal History Items: Cancer - Lung Review of Systems Constitutional: Reports: Malaise, Weakness, Fatigue Eyes: Denies: Vision Change HEENT: Denies: Difficulty Hearing Respiratory: Denies: Shortness of Breath Gastrointestinal: Reports: Diarrhea, Hematochezia Genitourinary: Reports: Incontinence, Nocturia, Retention, Urgency. Denies: Dysuria, Frequency, Hematuria Gynecological: Denies: Sexual concerns, Vaginal bleeding, Vaginal discharge, Vaginal itching Skin: Denies: Rash Neurological: Denies: Slurred speech Patient Problems: Active and Suspected Problems Incomplete bladder emptying (Acute) Vaginal atrophy (Acute) Urinary incontinence (Acute) - Physical Exam General: Alert, Oriented x3, Cooperative, No apparent distress HEENT: Atraumatic, Normocephalic Oral: Dry Mucosa Neck: Trachea Midline Lungs: Normal air movement Cardiovascular: Regular Rhythm Abdomen: Soft Skin: No rashes Neurological: Cranial nerves II-XII grossly intact Psych/Mental Status: Normal Affect Vital Signs Temp Pulse Resp BP Pulse Ox 98.2 F 102 H 18 117/59 L 94 06/01/18 08:56 06/01/18 08:56 06/01/18 08:56 06/01/18 08:56 06/01/18 07:20 Oxygen Flow Rate (L/min) 2 Oxygen Delivery Method Room Air Weight: 53 kg Body Mass Index (BMI) 22.8 Orthostatic Vital Signs Start: 05/30/18 16:21 Freq: q24h Status: Active Protocol: Activity Type Activity Date Activity User E-Sign Co-Sign Detail Recorded Client Recorded Date Recorded By Document 05/31/18 17:30 CHELSEA [id number] 05/31/18 17:45 CHELSEA 05/31/18 17:30 Orthostatic Vitals Standing -Blood Pressure (90/60-120/80) 133/60 H -Extremity Use Right Arm -Pulse Rate (60-100) 107 H Sitting -Blood Pressure (90/60-120/80) 118/47 L -Extremity Use Right Arm -Pulse Rate (60-100) 101 H Lying -Blood Pressure (90/60-120/80) 133/41 H -Extremity Use Right Arm -Pulse Rate (60-100) 101 H Intake and Output for Last 24 Hours 05/30/18 05/31/18 06/01/18 23:59 23:59 23:59 Intake Total 384 / 384 3309 / 3309 1714 / 1714 Output Total 500 / 500 Balance 384 / 384 2809 / 2809 1714 / 1714 Microbiology Past 72 Hours 03/28/19 03:10 Stool Occult Blood (ERNIE) - Final Stool Occult Blood Positive Laboratory Tests Past 24 Hrs 05/31/18 06/01/18 06/01/18 23:45 06:20 06:20 WBC 7.6 RBC 3.25 L Hgb 9.5 L Hct 30.5 L MCV 93.8 MCH 29.2 MCHC 31.1 L RDW 17.4 H RDW Differential 59.0 H Plt Count 166 MPV 14.1 H PT INR APTT Sodium 144 Potassium 3.7 Chloride 115 H Carbon Dioxide 22.0 Anion Gap 7 BUN 12 Creatinine 0.79 Estim Creat Clear Calc 51.00 Est GFR (MDRD) Af Amer 93 Est GFR (MDRD) Non-Af 77 BUN/Creatinine Ratio 15.1 Glucose 85 Calcium 7.7 L Urine Color Yellow Urine Clarity Clear Urine pH 6.0 Ur Specific [place]ikert 1.010 Urine Protein Negative Urine Glucose (UA) Normal Urine Ketones 15 H Urine Occult Blood Negative Urine Nitrite Negative Urine Bilirubin 1 H Urine Urobilinogen 1 H Ur Leukocyte Esterase 500 H Urine RBC 0 SEEN Urine WBC 0-5 SEEN Ur Squamous Epith Cells 0-5 SEEN Urine Bacteria 0 SEEN Urine Mucus 0 SEEN 06/01/18 06:20 WBC RBC Hgb Hct MCV MCH MCHC RDW RDW Differential Plt Count MPV PT 14.0 INR 1.1 APTT 25.8 Sodium Potassium Chloride Carbon Dioxide Anion Gap BUN Creatinine Estim Creat Clear Calc Est GFR (MDRD) Af Amer Est GFR (MDRD) Non-Af BUN/Creatinine Ratio Glucose Calcium Urine Color Urine Clarity Urine pH Ur Specific [place] Urine Protein Urine Glucose (UA) Urine Ketones Urine Occult Blood Urine Nitrite Urine Bilirubin Urine Urobilinogen Ur Leukocyte Esterase Urine RBC Urine WBC Ur Squamous Epith Cells Urine Bacteria Urine Mucus Assessment/Plan All Active Problems Incomplete bladder emptying (Acute) Vaginal atrophy (Acute) Urinary incontinence (Acute) Weakness (Acute) RADHA (acute kidney injury) (Resolved) CAP (community acquired pneumonia) (Resolved) Gastroenteritis (Resolved) Lactic acidosis (Resolved) SIRS (systemic inflammatory response syndrome) (Resolved) UGI bleed (Resolved) Urine culture pending. Start vaginal estrogen replacement. I reviewed images from renal u/s, no hydronephrosis appreciated. Await radiologic review. Ok from urologic standpoint to leave lerma out at present time. Can follow as outpatient for further evaluation and treatment. Please call with questions/concerns.
[2018-06-01] MEDS: buPROPion (XL) 150 MG TABLET.XL PO (10:53)
[2018-06-01] MEDS: Enoxaparin 40 MG/0.4 ML Syringe SC (10:53)
[2018-06-01] MEDS: Citalopram 20 MG Tablet PO (10:53)
[2018-06-01] MEDS: Ensure Clear 120 ML Liquid PO (10:53)
[2018-06-01] MEDS: Acetaminophen 325 MG Tablet 650 MG PO (11:06)
--- NOTE | 2018-06-01 12:24 | CASEMGMT ---
Social Work Note MOUNA received consult for to see pt due to depression. MOUNA placed a call to Brian in and left him a message regarding referral. MOUNA asked Brian to call this worker back in the event he is unable to see pt today. Funmi Chavez DEBEADER,FARMWORKER GENERAL
--- NOTE | 2018-06-01 14:16 | CASEMGMT ---
Addendum entered by Funmi Chavez 06/01/18 15:02: Green sheet on chart for home with [facility] Original Note: Social Work Note SW hasn't heard anything from Brian in regarding referral. SW met with pt in regards to depression. SW introduced self and role at [facility]. Pt is alert and orientated x4. Pt confirms that she wishes to discharge home with [facility]. Per previous notes, pt is able to discharge home with [facility]. Pt states that she has a history of depression and anxiety. Pt states that she currently takes medication for her depression and her medications are prescribed through her PCP Dr. Mclaughlin. Pt states that she has feelings of hopelessness, worthlessness, and useless. Pt states it's hard when I don't feel good physically. SW offered support to pt. Pt denied any current suicidal/homicidal thoughts/plans/ideations. Pt states that her grandson is good support for her and he is waiting for her at her home currently. Pt states that she has been through a lot. SW asked pt to elaborate on this. Pt states that she and her got a divorce and then he became sick with cancer. Pt states that she took care of her for 4 years by herself until he . Pt states that she lost one of her grandsons 11 days after he was born and one of his other grandsons has cystic fibrosis. Pt states that her only child is her son who isn't involve in her life except for when he has to be. Pt states that her marriage was lousy with her and she was raised by lousy parents. MOUNA again offered support to pt and validated that pt has been through a lot. Pt states that other than her grandson her sister is good support for her and has visited her in the hospital. Pt states she has never seen a counselor but states that she thinks it may be a good idea. SW explained that counseling could be beneficial to pt and it could help her cope with the loss that she has experienced. MOUNA provided pt with resources for counseling agencies and educated pt on behavior health through the hospital. MOUNA provided pt with [facility] and encouraged pt to drew or other agency to get involved with counseling. Pt states understanding, denied additional needs or concerns at this time. Plan: Pt to return home with [facility] and counseling resources Funmi Chavez SENIOR BUSINESS BROKER, LEASE OUT MAN
--- NOTE | 2018-06-01 15:23 | NURSING ---
2 FEMALES ARRIVE AT NURSE STATION DESK, STATES PT SAYS SHE IS DONE WITH TREATMENT AND WANTS TO LEAVE, AND WANTS TO KNOW WHEN MD WILL BE UP TO SEE HER, SHE WANTS TO LEAVE. INFORMED VISITORS THAT HOSPITALIST ROUNDS ON PATIENTS THROUGHOUT THE DAY WITH NO SET TIMES GIVEN D/T FOR ROUNDING. FEMALE STATES WELL SHE IS READY TO LEAVE, SHE DOESN'T WANT ANY MORE TREATMENT, SHE IS JUST DONE AND WANTS TO GO HOME. SHE DOESN'T CARE IF THE DOCTOR SEES HER OR NOT. INFORMED VISITORS PT NURSE IS AT LUNCH AND SAID NURSE WILL INFORM PRIMARY RN, ALSO CORTEXT TO MD TO INFORM.
--- NOTE | 2018-06-01 15:30 | NURSING ---
SAID NURSE TO ROOM- UPDATED MD AWARE OF PT CONCERNS AND FAMILY/PT UPDATD MD RESPONDED THAT SHE IS BUSY ON ANOTHER FLOOR BUT ANTICIPATES BEING UP TO SEE PT IN 30-60 MINUTES. PT STATES I WANT TO GO HOME. ASKED IF PT AGREEABLE TO WAIT UNTIL MD COMES UP TO SEE HER AND THEN CAN DISCUSS WITH MD, PT STATES SHE IS AGREEABLE TO WAIT UNTIL MD COMES TO SEE HER. VISITORS REMAIN AT THE BEDSIDE AND SUPPORT PT IN HER DECISION TO WAIT AND SPEAK WITH MD.
--- NOTE | 2018-06-01 17:23 | DCINST_ITS ---
- Discharge Diagnoses Current Active Problems: Current Active and Chronic Problems Normochromic normocytic anemia (Chronic) Atrophic vaginitis (Chronic) Poor dental hygiene (Chronic) Incomplete bladder emptying (Acute) Vaginal atrophy (Acute) Urinary incontinence (Acute) You will use the following diet at home:: No restrictions Your food should be the consistency of: Regular Your liquids should be the consistency of: Regular/Thin Discharge Activity: Return to Normal Activity, - - start a walking program and work up to walking 30 minutes a day Call your doctor if you observe: Fever of 101 or Higher, Shortness of breath, Dizziness, Fainting spells, Chest pain, - - throwing up blood or blood in the stool Instructions: ED Vaginitis Atrophic, Depression Affects Your Mind and Body, What Can Cause Depression?, Counseling for Depression, Depression: Tips to Help Yourself, Know the Signs and Symptoms of Depression Additional Instructions: I decreased the Celexa dose because it can make you sleepy and lethargic. Yopu will now be taking 20 mg a day. I added a second antidepressant that does not make you sleepy and it is called Wellbutrin. you will take the Wellbutrin once a day in the morning. You need to have Dr. Lr look in your stomach and colon.......you can follow up with him in the office and he can schedule it as and outpatient. I also want to follow up with Dr. Sweeney...the woman urologist that saw you. you need a pelvic exam and you are retaining urine......and you have a lot of atrophy in the vaginal area. We have prescribed a vaginal cream that you will use , and Monday to help improve the integrity of the skin in the urogenital area. Pending Tests on Discharge: urine culture Allergies/Adverse Reactions: Allergies No Known Allergies Allergy (Verified 02/11/18 23:37) Medications to take at Discharge Esomeprazole Mag Trihydrate [Nexium] 40 mg PO DAILY 03/30/13 Citalopram [Celexa] 20 mg PO DAILY #30 tablet 06/01/18 Estradiol [Estrace] 1 gm VAGINAL [id number]@2200 #12 cream.appl 06/01/18 buPROPion XL [Wellbutrin Xl] 150 mg PO DAILY #30 tablet.xl 03/29/19 The following prescriptions were given: buPROPion XL [Wellbutrin Xl] 150 mg PO DAILY #30 tablet.xl Citalopram [Celexa] 20 mg PO DAILY #30 tablet Estradiol [Estrace] 1 gm VAGINAL MoWeFr@2200 #12 cream.appl Primary Care Physician: Dante Mclaughlin MD [Primary Care Provider] - Please follow up with your Primary Care Physician in: 2-3 weeks Test Results: Test results from this visit will be discussed in further detail at your follow- up appointment, if applicable. Please Follow Up With: Khoi Lr MD When: next week Please Follow Up With: Isabelle Sweeney MD When: call the office Monday for an appointment Proposed Discharge Date: 06/01/18
--- NOTE | 2018-06-01 17:26 | DS.PCM_ITS ---
Discharge Date and Diagnosis Date of Admission: 05/30/18 Date of Discharge: 06/01/18 - Primary Discharge Diagnosis Active and Suspected Problems lethargy and generalized weakness Incomplete bladder emptying (Acute) Vaginal atrophy (Acute) Urinary incontinence (Acute) - Secondary Discharge Diagnosis Chronic Problems Lethargy (Chronic) Uncontrolled depression (Chronic) Normochromic normocytic anemia (Chronic) Atrophic vaginitis (Chronic) Poor dental hygiene (Chronic) Fall (Chronic) Depression (Chronic) GERD (gastroesophageal reflux disease) (Chronic) alopecia Hospital Course and Treatment Imaging Results: Clinical Impression(s) from Imaging Studies Chest X-Ray 05/30/18 07:05 IMPRESSION: Borderline heart size. Mild chronic interstitial changes. No evidence for acute cardiopulmonary pathology. Electronically Signed: Mack Henry MD at 7:49 EDT , Service support , Renal Ultrasound 05/31/18 18:01 IMPRESSION: Bilateral renal atrophy. Electronically Signed: Héctor Calabrese, at 9:41 EDT , Service support , Microbiology 05/31/18 23:45 Urine Catheter - Catheter Urine Culture - Final Culture exhibits no growth. 05/31/18 03:10 Stool Stool Occult Blood (ERNIE) - Final Occult Blood Positive Dr. Khoi Lr - General surgery Dr.Holly Sweeney - urology Operations: None Procedures: None Summary of Care Provided: The patient is a 63 year old F who presented to the ED at [facility] c/o extreme fatigue and weakness. Her PMH is + for depression, GERD, UGI bleed in Feb 2018, cholelithiasis, alopecia and N/N anemia. She had been previously admitted to the hospital in February of 2018 with coffee ground emesis. No endoscopy was done at that time and she had not seen a doctor since then. She c/o heartburn despite being on Nexium for several years. She also c/o lightheadedness when standing. Lab at admission was remarkable for anemia. PE was significant for alopecia, atrophic vaginitis, very poor dental hygiene and she was pale and appeared deconditioned. Her affect was very flat and she told me that she had been depressed since her 2 years prior to this visit. She had been taking Celexa 40 mg daily with no improvement. She denied ever receiving psychotherapy. A hemoccult stool was positive. She was kept on a PPI and Dr. Lr was consulted for upper and lower endoscopy. Bladder scan was + for urine retention and Dr. Sweeney was consulted. Kidney and bladder US showed BL renal atrophy. Dr. Sweeney recommended estrogen cream and she will follow up with the pt in the office for pelvic exam and further work-up. Celexa was decreased to 20 mg daily and she was started on Wellbutrin. IV fluids and ELYTE replacement were ordered. The first 2 days of the admission she was very lethargic and unmotivated to do anything.......required a lot of encouragement to participate with PT. On the 3rd day she was to begin the prep for colonoscopy and she told me she wanted to be discharged and she would follow up as an OP. I tried to convince her to stay because she has not followed up in the past but, her siblings were in the room and they stated they would make sure she followed up. She was discharged home with RX's for Estrogen cream, Wellbutrin XL and Celexa 20 mg. She will continue Nexium. She was advised to follow up with her PCP within a week or 2 and also to follow up with Dr. Lr and Dr. Lr as soon as possible. alert and oriented X3, sitting in a chair. Better energy than the proceeding few days. Lungs - CTA H - RRR with no gallop Abd - soft , NT, ND, bowel sounds present No edema - Physical Exam Vital Signs Temp Pulse Resp BP Pulse Ox 97.8 F 104 H 18 110/59 L 95 06/01/18 14:14 06/01/18 14:14 06/01/18 14:14 06/01/18 14:14 06/01/18 14:14 Oxygen Flow Rate (L/min) 2 Oxygen Delivery Method Room Air Weight: 116 lb 13.52 oz Body Mass Index (BMI) 22.8 Orthostatic Vital Signs Start: 05/30/18 16:21 Freq: q24h Status: Active Protocol: Activity Type Activity Date Activity User E-Sign Co-Sign Detail Recorded Client Recorded Date Recorded By Document 05/31/18 17:30 CHELSEA [id number] 05/31/18 17:45 CHELSEA 05/31/18 17:30 Orthostatic Vitals Standing -Blood Pressure (90/60-120/80 mm Hg) 133/60 H -Extremity Use Right Arm -Pulse Rate (60-100 beats/min) 107 H Sitting -Blood Pressure (90/60-120/80 mm Hg) 118/47 L -Extremity Use Right Arm -Pulse Rate (60-100 beats/min) 101 H Lying -Blood Pressure (90/60-120/80 mm Hg) 133/41 H -Extremity Use Right Arm -Pulse Rate (60-100 beats/min) 101 H Intake and Output for Last 24 Hours 05/30/18 05/31/18 06/01/18 23:59 23:59 23:59 Intake Total 384 / 384 3309 / 3309 1714 / 1714 Output Total 500 / 500 Balance 384 / 384 2809 / 2809 1714 / 1714 Microbiology Past 72 Hours 05/31/18 03:10 Stool Occult Blood (ERNIE) - Final Stool Occult Blood Positive Laboratory Tests Past 24 Hrs 05/31/18 06/01/18 06/01/18 23:45 06:20 06:20 WBC 7.6 RBC 3.25 L Hgb 9.5 L Hct 30.5 L MCV 93.8 MCH 29.2 MCHC 31.1 L RDW 17.4 H RDW Differential 59.0 H Plt Count 166 MPV 14.1 H PT INR APTT Sodium 144 Potassium 3.7 Chloride 115 H Carbon Dioxide 22.0 Anion Gap 7 BUN 12 Creatinine 0.79 Estim Creat Clear Calc 51.00 Est GFR (MDRD) Af Amer 93 Est GFR (MDRD) Non-Af 77 BUN/Creatinine Ratio 15.1 Glucose 85 Calcium 7.7 L Urine Color Yellow Urine Clarity Clear Urine pH 6.0 Ur Specific [place] 1.010 Urine Protein Negative Urine Glucose (UA) Normal Urine Ketones 15 H Urine Occult Blood Negative Urine Nitrite Negative Urine Bilirubin 1 H Urine Urobilinogen 1 H Ur Leukocyte Esterase 500 H Urine RBC 0 SEEN Urine WBC 0-5 SEEN Ur Squamous Epith Cells 0-5 SEEN Urine Bacteria 0 SEEN Urine Mucus 0 SEEN 06/01/18 06:20 WBC RBC Hgb Hct MCV MCH MCHC RDW RDW Differential Plt Count MPV PT 14.0 INR 1.1 APTT 25.8 Sodium Potassium Chloride Carbon Dioxide Anion Gap BUN Creatinine Estim Creat Clear Calc Est GFR (MDRD) Af Amer Est GFR (MDRD) Non-Af BUN/Creatinine Ratio Glucose Calcium Urine Color Urine Clarity Urine pH Ur Specific [place] Urine Protein Urine Glucose (UA) Urine Ketones Urine Occult Blood Urine Nitrite Urine Bilirubin Urine Urobilinogen Ur Leukocyte Esterase Urine RBC Urine WBC Ur Squamous Epith Cells Urine Bacteria Urine Mucus Discharge Activity: Return to Normal Activity, - - start a walking program and work up to walking 30 minutes a day Call your doctor if you observe: Fever of 101 or Higher, Shortness of breath, Dizziness, Fainting spells, Chest pain, - - throwing up blood or blood in the stool Home Medications: Medications to take at Discharge Esomeprazole Mag Trihydrate [Nexium] 40 mg PO DAILY 03/30/13 Citalopram [Celexa] 20 mg PO DAILY #30 tablet 06/01/18 Estradiol [Estrace] 1 gm VAGINAL [id number]@2200 #12 cream.[email or web address] 06/01/18 buPROPion XL [Wellbutrin Xl] 150 mg PO DAILY #30 tablet.xl 06/01/18 Following Prescrptions Were Given to Patient: buPROPion XL [Wellbutrin Xl] 150 mg PO DAILY #30 tablet.xl Citalopram [Celexa] 20 mg PO DAILY #30 tablet Estradiol [Estrace] 1 gm VAGINAL MoWeFr@2200 #12 cream.[email or web address] Primary Care Physician: Dante Mclaughlin MD [Primary Care Provider] - Please follow up with your Primary Care Physician in: 2-3 weeks Please Follow Up With: Khoi Lr MD When: next week Please Follow Up With: Isabelle Sweeney MD When: call the office Monday for an appointment Patient Instructions: Depression Affects Your Mind and Body, What Can Cause Depression?, Counseling for Depression, Depression: Tips to Help Yourself, Know the Signs and Symptoms of Depression, ED Vaginitis Atrophic Disposition: Home Minutes spent on discharge:: 35 Patient Condition:: Stable Medical Necessity - Tobacco Use Smoking Status: Never smoker Tobacco Use: Non-smoker Meaningful Use Info Meaningful Use Diagnoses (Choose all that apply): None applicable Code Visit Inpatient E&M: 73254 Disch Hosp
--- NOTE | 2018-06-01 18:05 | PCM.PN.SRG ---
Subjective: I decided I don't want endoscopy. - Physical Exam Vital Signs Temp Pulse Resp BP Pulse Ox 98.1 F 98 18 140/55 H 95 06/01/18 17:45 06/01/18 17:45 06/01/18 17:45 06/01/18 17:45 06/01/18 17:45 Oxygen Flow Rate (L/min) 2 Oxygen Delivery Method Room Air Weight: 53 kg Body Mass Index (BMI) 22.8 Intake and Output for Last 24 Hours 05/30/18 05/31/18 06/01/18 23:59 23:59 23:59 Intake Total 384 / 384 3309 / 3309 1714 / 1714 Output Total 500 / 500 Balance 384 / 384 2809 / 2809 1714 / 1714 Microbiology Past 72 Hours 05/31/18 03:10 Stool Occult Blood (ERNIE) - Final Stool Occult Blood Positive Laboratory Tests Past 24 Hrs 05/31/18 06/01/18 06/01/18 23:45 06:20 06:20 WBC 7.6 RBC 3.25 L Hgb 9.5 L Hct 30.5 L MCV 93.8 MCH 29.2 MCHC 31.1 L RDW 17.4 H RDW Differential 59.0 H Plt Count 166 MPV 14.1 H PT INR APTT Sodium 144 Potassium 3.7 Chloride 115 H Carbon Dioxide 22.0 Anion Gap 7 BUN 12 Creatinine 0.79 Estim Creat Clear Calc 51.00 Est GFR (MDRD) Af Amer 93 Est GFR (MDRD) Non-Af 77 BUN/Creatinine Ratio 15.1 Glucose 85 Calcium 7.7 L Urine Color Yellow Urine Clarity Clear Urine pH 6.0 Ur Specific [place] 1.010 Urine Protein Negative Urine Glucose (UA) Normal Urine Ketones 15 H Urine Occult Blood Negative Urine Nitrite Negative Urine Bilirubin 1 H Urine Urobilinogen 1 H Ur Leukocyte Esterase 500 H Urine RBC 0 SEEN Urine WBC 0-5 SEEN Ur Squamous Epith Cells 0-5 SEEN Urine Bacteria 0 SEEN Urine Mucus 0 SEEN 06/01/18 06:20 WBC RBC Hgb Hct MCV MCH MCHC RDW RDW Differential Plt Count MPV PT 14.0 INR 1.1 APTT 25.8 Sodium Potassium Chloride Carbon Dioxide Anion Gap BUN Creatinine Estim Creat Clear Calc Est GFR (MDRD) Af Amer Est GFR (MDRD) Non-Af BUN/Creatinine Ratio Glucose Calcium Urine Color Urine Clarity Urine pH Ur Specific [place] Urine Protein Urine Glucose (UA) Urine Ketones Urine Occult Blood Urine Nitrite Urine Bilirubin Urine Urobilinogen Ur Leukocyte Esterase Urine RBC Urine WBC Ur Squamous Epith Cells Urine Bacteria Urine Mucus Medical Necessity - Tobacco Use Smoking Status: Never smoker Tobacco Use: Non-smoker Assessment/Plan All Active Problems Incomplete bladder emptying (Acute) Vaginal atrophy (Acute) Urinary incontinence (Acute) Weakness (Acute) RADHA (acute kidney injury) (Resolved) CAP (community acquired pneumonia) (Resolved) Gastroenteritis (Resolved) Lactic acidosis (Resolved) SIRS (systemic inflammatory response syndrome) (Resolved) UGI bleed (Resolved) Hemoccult positive stools, coffee ground emesis in February, no previous endoscopy, mild normocytic anemia area I planned to perform upper and lower endoscopy. the patient is morning states she is now which she take the bowel prep and does not wish to have either upper or lower endoscopy. I've asked her to contact me or my office if she changes her opinion.
== END 2018-06-01 17:53 | disposition home or self-care (01) | DRG 948 ==
LOC: ED 07:58 → MS2 11:06
PROVIDERS: Anesthesiology; Admitting Provider Internal Medicine; Emergency Provider Emergency Medicine; Family Provider Family Medicine; PCP Family Medicine; Visit Provider Internal Medicine
DX: R53.1 Weakness (principal); N17.9 Acute kidney failure, unspecified; F32.9 Major depressive disorder, single episode, unspecified; K21.9 Gastro-esophageal reflux disease without esophagitis; N95.2 Postmenopausal atrophic vaginitis; D64.9 Anemia, unspecified; R33.9 Retention of urine, unspecified; R32 Unspecified urinary incontinence
CPT/HCPCS: 36415; 71045; 76770; 80048; 80061; 80076; 81001; 82274; 82607; 82728; 82746; 83540; 83550; 83735; 84100; 84439; 84443; 84481; 85025; 85027; 85045; 85610; 85730; 87086; 93005; 97162; 97166; 97530; 97802; 99283; J7030; J7040; J7120; A4216; J2405

== ENCOUNTER 2018-07-14 23:36 | Inpatient (IN) | payer MEDICARE, SELFPAY ==
[2018-05-30 11:56] VITALS: BMI 22.8
[2018-07-14 23:41] VITALS: BP 113/80; PULSE 100; RESP 18; TEMP 36.5; O2SAT 99; BMI 20.7
[2018-07-15] VITALS (15 sets, daily range): BP systolic 101–130; BP diastolic 56–93; PULSE 71–144; RESP 15–20; TEMP 36.7–37.1; O2SAT 93–100; BMI 19.0
[2018-07-15] MEDS: 0.9% Normal Saline 1,000 ML 999 ML IV (00:34)
[2018-07-15] MEDS: Ondansetron 4 MG/2 ML Vial IV (00:34)
[2018-07-15 00:46] LABS: Absolute Lymphocyte Count 1.55 X10^3/ul (0.83-4.51); Absolute Neutrophil Count 11.4 X10^3/uL (2.0-7.7); Basophil# 0.01 X10^3/uL; Basophil% 0.1 % (0-1); Eosinophil# 0.01 X10^3/uL; Eosinophils% 0.1 % (0-5); Hematocrit 40.5 % (37-47); Hemoglobin 13.2 g/dl (12.0-15.0); Lymphocyte # 1.55 X10^3/ul (4.0); Lymphocyte % 10.7 % (19-41); Mean Corp Hgb Conc 32.6 g/gl (32-36); Mean Corpuscular Hgb 28.3 pg (27.0-32.0); Mean Corpuscular Volume 86.7 fL (81-99); Monocyte# 1.43 X10^3/uL; Monocyte% 9.9 % (0-10); Neutrophil # 11.37 X10^3/uL (2.7-7.7); Neutrophil % 78.8 % (47-70); Platelet Count 155 K/mm3 (150-450); RBC Distribution Width CV 16.9 % (11.6-14.6); RBC Distribution Width SD 53.5 fl (35.1-43.9); Red Blood Count 4.67 M/mm3 (4.2-5.4); White Blood Count 14.4 K/mm3 (4.4-11.0)
[2018-07-15 00:47] LABS: Differential Indicated SCAN CRITERIA MET; POSITIVE COUNT NO; POSITIVE DIFFERENTIAL NO; POSITIVE MORPHOLOGY YES
[2018-07-15 00:57] LABS: AST(SGOT) 14 U/L (15-37); Alanine Aminotransfer ALT/SGPT 20 U/L (13-56); Albumin, Serum 3.1 g/dL (3.2-5.0); Alkaline Phosphatase 76 U/L (45-117); Anion Gap 19 (5-15); BUN 26 mg/dL (7-18); BUN/Creat Ratio 25.5 RATIO (10-20); Calcium,Total 8.8 mg/dL (8.5-10.1); Chloride 97 mmol/L (98-107); Creatinine, Serum 1.02 mg/dL (0.55-1.02); EST Glomerular Filtration Rate 58 mL/min (>60); Est Glom Filt Rate - Afr Amer 70 mL/min (>60); Glucose 81 mg/dL (74-106); Lipase 87 U/L (73-393); Protein, Total 6.1 g/dL (6.4-8.2); Sodium Level 134 mmol/L (136-145)
[2018-07-15 01:16] LABS: Differential Comment SCAN; Platelet Estimate ADEQUATE (ADEQ); Platelet Morphology LARGE
[2018-07-15] MEDS: proMETHazine 25 MG/ML Syringe 6.25 MG IV ×2 (01:25→07:02)
[2018-07-15 01:29] LABS: International Normalized Ratio 1.4; Partial Thromboplast Time 23.6 Seconds (24.1-36.2); Prothrombin Time (Protime)PT. 16.7 SECONDS (11.7-14.9)
--- NOTE | 2018-07-15 01:54 | PCM.HP.STD ---
Problem List (1) GI bleed Status: Acute Qualifiers: GI bleed type/associated pathology: unspecified gastrointestinal hemorrhage type Qualified Code(s): K92.2 - Gastrointestinal hemorrhage, unspecified (2) Anxiety and depression Status: Chronic (3) GERD (gastroesophageal reflux disease) Status: Chronic Qualifiers: Esophagitis presence: esophagitis presence not specified Qualified Code(s): K21.9 - Gastro-esophageal reflux disease without esophagitis History of Present Illness Date of Admission: 07/15/18 Chief Complaint: Nausea, emesis, intractable. The patient is a 63 y/o F w/ PMHx: Anxiety and Depression, GERD, Hx GI bleed 01/[address] Lr with recommendation for endoscopies but did not follow-up who presents to the [facility] ED on 07/15/18 with history of onset intractable nausea, emesis with onset coffee ground emesis without any associated abdominal pain starting the evening prior. Patient notes that stools have been discolored, occasionally yellow but not black nor sticky tar appearance. She has been serially evaluated per Dr. Lr and strongly advised to have endoscopies but has serially declined. Discussed importance of abiding w/ plan for endoscopies. Work-up in the ED included T 97.7, HR 100, BP 113/80, RR 18, 99% on RA, CBC w/ WBC 14.4, Hgb 13.2, Plts 155 with L shift, coags w/ PT 16.7, INR 1.4, PTT 23.6, CMP w/ Na 134, Chl 97, CO2 18, AG 19, BUN/Cr 26/1.02, glucose 81, AST/ALT 14/20, lipase 87, s/p T+S per ED. In the ED patient ministered normal saline, Phenergan, Zofran, pantoprazole bolus. Patient is fatigued but notes that nausea has improved since ED regimen especially following Phenergan. Past Medical History Past Medical History (Chronic Problems): Chronic Problems Anxiety and depression (Chronic) Lethargy (Chronic) Uncontrolled depression (Chronic) Normochromic normocytic anemia (Chronic) Atrophic vaginitis (Chronic) Poor dental hygiene (Chronic) Fall (Chronic) Depression (Chronic) GERD (gastroesophageal reflux disease) (Chronic) Allergies No Known Allergies Allergy (Verified 07/14/18 23:37) Home Medications: Ambulatory Orders Medication Instructions Recorded Fluoxetine [Prozac] 20 mg PO DAILY 07/15/18 Hydrocodone/Acetaminophen 1 - 2 each PO Q6H PRN 07/15/18 [Hydrocodon-Acetaminophen 5-325] Pantoprazole Sodium [Protonix] 40 mg PO DAILY 07/15/18 Surgical History: appendectomy, tonsillectomy, - - Hand surgery, back surgery, csection Psychiatric History: Depression PERSONAL LOAN SPECIALIST History: No pertinent PERSONAL LOAN SPECIALIST history, - - atrophic vaginitis Lives: Alone Smoking Status: Never smoker Tobacco Use: Non-smoker Alcohol: None Drugs: None - *Family History Maternal History Items: Diabetes Paternal History Items: Cancer - Lung Review of Systems Constitutional: Reports: Anorexia, Malaise, Weakness, Fatigue. Denies: Chills, Fever, Weight Change HEENT: Denies: Head Aches, Sinus Congestion, Sinus Drainage Cardiovascular: Denies: Chest Pain, Palpitations Respiratory: Denies: Cough, Shortness of breath at rest, Sputum production Gastrointestinal: Reports: Hematemesis - Coffee ground., Nausea, Vomiting. Denies: Abdominal Pain Genitourinary: Reports: Incontinence. Denies: Dysuria Musculoskeletal: Reports: Back Pain, Joint Pain. Denies: Joint Tenderness Skin: Denies: Rash, Wounds Neurological: Denies: Numbness, Tingling, Focal weakness Psychiatric: Reports: Anxiety, Depression. Denies: Homicidal Ideations, Suicidal Ideations Hematologic/ Lymphatic: Reports: Anemia. Denies: Easy Bruising, Easy Bleeding VTE Information - Inpt Only VTE Present on Admission: No VTE Mechan Device Prophylaxis: SCD's VTE Pharm Prophylaxis ordered?: No Reason prophylaxis not ordered:: Medical Contraindication Patient Problems: Active and Suspected Problems GI bleed (Acute) Subjective: Seated upright in ED bed, fatigued appearance, notes mild improvement especially following Phenergan. Objective: Physical Examination: General: awakens to stimuli, intermittently alert, oriented x 3 and cooperative, seated upright in the ED bed, very fatigued appearance, notes feeling mildly improved. Skin: normal color, turgor, no icterus, cyanosis. HEENT: AT/NC, EOMI, PERRLA, dry MM, no carotid bruits or JVD noted. Lungs: Diminished breath sounds throughout, greater bilateral bases, no rales, ronchi or wheezing. Heart: Mildly tachycardic with regular rhythm; no gallop, rub audible. Abdomen: soft, thin cachectic appearance, NTTP, ND, normal BS, no HSM. Extremities: no cyanosis, clubbing, or edema. Neurological: patient awakens to stimuli, intermittently alert, oriented x 3; cognitive function intact; pupils equally reactive to light and accomodation; cranial nerves II-XII grossly normal, moving all 4 extremities, no focal deficits, strength severely global decrease secondary to acute presentation. Psychiatric: affect appears fatigued, flat, no acute evidence of depressive or anxiety feelings. - Physical Exam Vital Signs Temp Pulse Resp BP Pulse Ox 98.6 F 100 19 H 114/93 H 99 07/15/18 01:37 07/15/18 01:37 07/15/18 01:37 07/15/18 01:37 07/15/18 01:37 Oxygen Delivery Method Room Air Weight: 106 lb 4.205 oz Body Mass Index (BMI) 20.7 Laboratory Tests Past 24 Hrs 07/15/18 07/15/18 07/15/18 00:20 00:20 00:50 WBC 14.4 H RBC 4.67 Hgb 13.2 Hct 40.5 MCV 86.7 MCH 28.3 MCHC 32.6 RDW 16.9 H RDW Differential 53.5 H Plt Count 155 Immature Gran % (Auto) 0.400 Neut % (Auto) 78.8 H Lymph % (Auto) 10.7 L [place] % (Auto) 9.9 Eos % (Auto) 0.1 Baso % (Auto) 0.1 Absolute Neuts (auto) 11.4 H Absolute Lymphs (auto) 1.55 Total Counted Not Reportable Differential Comment SCAN Platelet Estimate ADEQUATE Plt Morphology Comment LARGE PT 16.7 H INR 1.4 APTT 23.6 L Sodium 134 L Potassium 4.0 Chloride 97 L Carbon Dioxide 18.0 L Anion Gap 19 H BUN 26 H Creatinine 1.02 Estim Creat Clear Calc 39.50 Est GFR (MDRD) Af Amer 70 Est GFR (MDRD) Non-Af 58 L BUN/Creatinine Ratio 25.5 H Glucose 81 Calcium 8.8 Total Bilirubin 0.80 AST 14 L ALT 20 Alkaline Phosphatase 76 Total Protein 6.1 L Albumin 3.1 L Globulin 3.0 Albumin/Globulin Ratio 1.0 Lipase 87 Blood Type Antibody Screen 07/15/18 00:50 WBC RBC Hgb Hct MCV MCH MCHC RDW RDW Differential Plt Count Immature Gran % (Auto) Neut % (Auto) Lymph % (Auto) [place] % (Auto) Eos % (Auto) Baso % (Auto) Absolute Neuts (auto) Absolute Lymphs (auto) Total Counted Differential Comment Platelet Estimate Plt Morphology Comment PT INR APTT Sodium Potassium Chloride Carbon Dioxide Anion Gap BUN Creatinine Estim Creat Clear Calc Est GFR (MDRD) Af Amer Est GFR (MDRD) Non-Af BUN/Creatinine Ratio Glucose Calcium Total Bilirubin AST ALT Alkaline Phosphatase Total Protein Albumin Globulin Albumin/Globulin Ratio Lipase Blood Type A POSITIVE Antibody Screen NEGATIVE Assessment/Plan All Active Problems GI bleed (Acute) Incomplete bladder emptying (Acute) Vaginal atrophy (Acute) Urinary incontinence (Acute) Weakness (Acute) RADHA (acute kidney injury) (Resolved) CAP (community acquired pneumonia) (Resolved) Gastroenteritis (Resolved) Lactic acidosis (Resolved) SIRS (systemic inflammatory response syndrome) (Resolved) UGI bleed (Resolved) The patient is a 63 y/o F w/ PMHx: Anxiety and Depression, GERD, Hx GI bleed 01/[address] Lr with recommendation for endoscopies but did not follow-up who presents to the [facility] ED on 07/15/18 with history of onset intractable nausea, emesis with onset coffee ground emesis without any associated abdominal pain starting the evening prior. (1) Acute GI Bleed w/ Hx Chronic Anemia: Patient with nausea and emesis with occasional coffee-ground appearing emesis, admission Hgb 13.2, prior admission 9.5 last noted, dehydrated appearance upon presentation however, will admit to PCU, maintain on monitor, maintain on IVFs, obtain serial H+H q 4 hours, T+S for PRBC per ED w/ T+C administration if appropriate, maintain on IV PPI, maintain NPO status. Following w/ Dr. Lr, consulted, pending. Again, strongly encourage patient and family to at least undergo upper endoscopy. (2) Anxiety and Depression: Continue home prozac regimen. (3) Severe protein calorie malnutrition: Evidence per habitus, obvious muscle and fat loss, nutrition consulted. (4) GERD: PPI. (5) DVT Prophylaxis: SCDs, defer chemoprophylaxis given acute presentation #1. Code Visit Inpatient E&M: 22315 Init Hosp L3
[2018-07-15 02:13] LABS: Lactic Acid 4.4 mmol/L (0.4-2.0)
--- NOTE | 2018-07-15 03:05 | NURSING ---
This nurse took over care of this patient at this time. Report received from Yisel Pyle RN.
[2018-07-15] MEDS: 0.9% Normal Saline 1,000 ML 125 ML IV ×3 (03:24→20:50)
[2018-07-15 03:37] LABS: Hematocrit 37.4 % (37-47); Hemoglobin 12.3 g/dl (12.0-15.0)
--- NOTE | 2018-07-15 04:07 | ED.DCSUM_ITS ---
- ER Visit Summary Date of Service: 07/15/18 Chief Complaint: Nausea and vomiting History of Present Illness: The patient is a 63 F who presents with nausea and vomiting. Patient has a prior history of upper GI bleed. She states that she developed nausea vomiting a day which was initially mucus but then developed into coffee-ground emesis. She denies any associated pain. No diarrhea. Patient has had prior similar symptoms in upper and lower endoscopies were recommended as an outpatient but she did not follow-up. After last hospitalization she had Hemoccult positive stool and endoscopy was again recommended but on follow-up surgery visit she did not want to have this done. Physical Examination: Heart rate 100 vitals otherwise normal Moist mucous membranes Heart regular tachycardia Lungs clear Abdomen soft nontender nondistended Alert Test Results: Labs notable for white count 14.4, bicarbonate 18.0. INR 1.4. Type and screen was sent. Emergency Department Course and Treatment: Patient was treated with IV fluids, Zofran. She was given a Protonix bolus and drip. She continued have nausea with dry heaving so was given IV Phenergan. Patient discussed with the hospitalist and admitted. Treatment Plan: [] Disposition: Admit Impression: Upper GI bleed This note was generated with [employer] dictation software. It may contain incorrect words, spelling, and punctuation that were not noted in review of the chart prior to signing ED Disposition - Plan for ED Patient: Disposition: Acute Care [facility]
[2018-07-15 05:55] LABS: Reflex Lactate? Y
[2018-07-15 06:50] LABS: Hematocrit 34.3 % (37-47); Hemoglobin 11.1 g/dl (12.0-15.0)
[2018-07-15] MEDS: 0.9% NaCl Peripheral Flush Adult/Peds IV ×3 (07:02→07:13)
[2018-07-15 07:17] LABS: AST(SGOT) 16 U/L (15-37); Alanine Aminotransfer ALT/SGPT 15 U/L (13-56); Albumin, Serum 2.3 g/dL (3.2-5.0); Alkaline Phosphatase 56 U/L (45-117); Anion Gap 12 (5-15); BUN 23 mg/dL (7-18); BUN/Creat Ratio 29.1 RATIO (10-20); Calcium,Total 7.1 mg/dL (8.5-10.1); Chloride 108 mmol/L (98-107); Creatinine, Serum 0.79 mg/dL (0.55-1.02); EST Glomerular Filtration Rate 78 mL/min (>60); Est Glom Filt Rate - Afr Amer 94 mL/min (>60); Estimated Creatinine Clearance 49.54 ml/min; Globulin 2.3 g/dL (2.2-4.2); Glucose 83 mg/dL (74-106); Lactic Acid 1.4 mmol/L (0.4-2.0); Potassium 3.3 mmol/L (3.5-5.1); Protein, Total 4.6 g/dL (6.4-8.2); Sodium Level 137 mmol/L (136-145)
--- NOTE | 2018-07-15 10:49 | PCM.PROGNOTE ---
<Kait Rodriguez - Last Filed: 07/15/18 11:28> Patient Problems: Active and Suspected Problems GI bleed (Acute) Subjective: Patient seen and examined. Drowsy this morning. Denies further emesis. - Physical Exam General: Oriented x3, Cooperative, Lethargic HEENT: Atraumatic, PERRLA, EOMI, Normocephalic Neck: Supple, No JVD, Negative Carotid Bruits Lungs: Clear to auscultation, Normal air movement Cardiovascular: Regular rate, Regular Rhythm, Normal S1, Normal S2, No murmurs Abdomen: Bowel Sounds Present, Soft, Non Tender, Non-Distended Extremities: No clubbing, No cyanosis, No edema, Capillary Refill Less than 3 Seconds Skin: No rashes, No breakdown Musculoskeletal: No Tenderness to Palpation of Joints or Extremities Neurological: Cranial nerves II-XII grossly intact, Neuro grossly intact Psych/Mental Status: Normal Affect, Appropriate Vital Signs Temp Pulse Resp BP Pulse Ox 98.0 F 104 H 16 130/73 H 100 07/15/18 08:34 07/15/18 08:34 07/15/18 08:34 07/15/18 08:34 07/15/18 08:34 Oxygen Delivery Method Room Air Weight: 97 lb 7.109 oz Body Mass Index (BMI) 19.0 Intake and Output for Last 24 Hours 07/13/18 07/14/18 07/15/18 23:59 23:59 23:59 Intake Total 412 / 412 Output Total 0 / 0 Balance 412 / 412 Laboratory Tests Past 24 Hrs 07/15/18 07/15/18 07/15/18 00:20 00:20 00:20 WBC 14.4 H RBC 4.67 Hgb 13.2 Hct 40.5 MCV 86.7 MCH 28.3 MCHC 32.6 RDW 16.9 H RDW Differential 53.5 H Plt Count 155 Immature Gran % (Auto) 0.400 Neut % (Auto) 78.8 H Lymph % (Auto) 10.7 L Wallace % (Auto) 9.9 Eos % (Auto) 0.1 Baso % (Auto) 0.1 Absolute Neuts (auto) 11.4 H Absolute Lymphs (auto) 1.55 Total Counted Not Reportable Differential Comment SCAN Platelet Estimate ADEQUATE Plt Morphology Comment LARGE PT INR APTT Sodium 134 L Potassium 4.0 Chloride 97 L Carbon Dioxide 18.0 L Anion Gap 19 H BUN 26 H Creatinine 1.02 Estim Creat Clear Calc 39.50 Est GFR (MDRD) Af Amer 70 Est GFR (MDRD) Non-Af 58 L BUN/Creatinine Ratio 25.5 H Glucose 81 Lactic Acid Calcium 8.8 Total Bilirubin 0.80 AST 14 L ALT 20 Alkaline Phosphatase 76 Total Protein 6.1 L Albumin 3.1 L Globulin 3.0 Albumin/Globulin Ratio 1.0 Lipase 87 Acetone Level SMALL H Blood Type Antibody Screen 07/15/18 07/15/18 07/15/18 00:20 00:50 00:50 WBC RBC Hgb Hct MCV MCH MCHC RDW RDW Differential Plt Count Immature Gran % (Auto) Neut % (Auto) Lymph % (Auto) Wallace % (Auto) Eos % (Auto) Baso % (Auto) Absolute Neuts (auto) Absolute Lymphs (auto) Total Counted Differential Comment Platelet Estimate Plt Morphology Comment PT 16.7 H INR 1.4 APTT 23.6 L Sodium Potassium Chloride Carbon Dioxide Anion Gap BUN Creatinine Estim Creat Clear Calc Est GFR (MDRD) Af Amer Est GFR (MDRD) Non-Af BUN/Creatinine Ratio Glucose Lactic Acid 4.4 H* Calcium Total Bilirubin AST ALT Alkaline Phosphatase Total Protein Albumin Globulin Albumin/Globulin Ratio Lipase Acetone Level Blood Type A POSITIVE Antibody Screen NEGATIVE 07/15/18 07/15/18 07/15/18 03:14 06:44 06:44 WBC RBC Hgb 12.3 11.1 L Hct 37.4 34.3 L MCV MCH MCHC RDW RDW Differential Plt Count Immature Gran % (Auto) Neut % (Auto) Lymph % (Auto) Wallace % (Auto) Eos % (Auto) Baso % (Auto) Absolute Neuts (auto) Absolute Lymphs (auto) Total Counted Differential Comment Platelet Estimate Plt Morphology Comment PT INR APTT Sodium 137 Potassium 3.3 L Chloride 108 H Carbon Dioxide 17.0 L Anion Gap 12 BUN 23 H Creatinine 0.79 Estim Creat Clear Calc 49.54 Est GFR (MDRD) Af Amer 94 Est GFR (MDRD) Non-Af 78 BUN/Creatinine Ratio 29.1 H Glucose 83 Lactic Acid Calcium 7.1 L Total Bilirubin 0.50 AST 16 ALT 15 Alkaline Phosphatase 56 Total Protein 4.6 L Albumin 2.3 L Globulin 2.3 Albumin/Globulin Ratio 1.0 Lipase Acetone Level Blood Type Antibody Screen 07/15/18 06:44 WBC RBC Hgb Hct MCV MCH MCHC RDW RDW Differential Plt Count Immature Gran % (Auto) Neut % (Auto) Lymph % (Auto) Wallace % (Auto) Eos % (Auto) Baso % (Auto) Absolute Neuts (auto) Absolute Lymphs (auto) Total Counted Differential Comment Platelet Estimate Plt Morphology Comment PT INR APTT Sodium Potassium Chloride Carbon Dioxide Anion Gap BUN Creatinine Estim Creat Clear Calc Est GFR (MDRD) Af Amer Est GFR (MDRD) Non-Af BUN/Creatinine Ratio Glucose Lactic Acid 1.4 Calcium Total Bilirubin AST ALT Alkaline Phosphatase Total Protein Albumin Globulin Albumin/Globulin Ratio Lipase Acetone Level Blood Type Antibody Screen Medical Necessity - Tobacco Use Smoking Status: Never smoker Tobacco Use: Non-smoker Assessment/Plan All Active Problems GI bleed (Acute) Incomplete bladder emptying (Acute) Vaginal atrophy (Acute) Urinary incontinence (Acute) Weakness (Acute) RADHA (acute kidney injury) (Resolved) CAP (community acquired pneumonia) (Resolved) Gastroenteritis (Resolved) Lactic acidosis (Resolved) SIRS (systemic inflammatory response syndrome) (Resolved) UGI bleed (Resolved) 1. Acute GI bleed-serial H&H. N.p.o. IV PPI. Dr. Lr, general surgery on consult. Anticipate upper endoscopy tomorrow. No further emesis at this time. 2. Chronic normocytic anemia-stable, trend CBC. 3. Anxiety/depression-continue home Prozac regimen 4. Severe protein calorie malnutrition-BMI 19, cachectic. Nutrition consult. 5. GERD-Protonix drip. DVT prophylaxis-SCDs This patient was seen by NIMISHA GriajlvaC under the supervision of Dr. Alexandre. <Dillan Alexandre - Last Filed: 07/15/18 12:31> - Physical Exam Vital Signs Temp Pulse Resp BP Pulse Ox 98.0 F 99 16 130/73 H 100 07/15/18 08:34 07/15/18 12:04 07/15/18 08:34 07/15/18 08:34 07/15/18 08:34 Oxygen Delivery Method Room Air Weight: 44.2 kg Body Mass Index (BMI) 19.0 Intake and Output for Last 24 Hours 07/13/18 07/14/18 07/15/18 23:59 23:59 23:59 Intake Total 1171 / 1171 Output Total 0 / 0 Balance 1171 / 1171 Laboratory Tests Past 24 Hrs 07/15/18 07/15/18 07/15/18 00:20 00:20 00:20 WBC 14.4 H RBC 4.67 Hgb 13.2 Hct 40.5 MCV 86.7 MCH 28.3 MCHC 32.6 RDW 16.9 H RDW Differential 53.5 H Plt Count 155 Immature Gran % (Auto) 0.400 Neut % (Auto) 78.8 H Lymph % (Auto) 10.7 L Wallace % (Auto) 9.9 Eos % (Auto) 0.1 Baso % (Auto) 0.1 Absolute Neuts (auto) 11.4 H Absolute Lymphs (auto) 1.55 Total Counted Not Reportable Differential Comment SCAN Platelet Estimate ADEQUATE Plt Morphology Comment LARGE PT INR APTT Sodium 134 L Potassium 4.0 Chloride 97 L Carbon Dioxide 18.0 L Anion Gap 19 H BUN 26 H Creatinine 1.02 Estim Creat Clear Calc 39.50 Est GFR (MDRD) Af Amer 70 Est GFR (MDRD) Non-Af 58 L BUN/Creatinine Ratio 25.5 H Glucose 81 Lactic Acid Calcium 8.8 Magnesium Total Bilirubin 0.80 AST 14 L ALT 20 Alkaline Phosphatase 76 Total Protein 6.1 L Albumin 3.1 L Globulin 3.0 Albumin/Globulin Ratio 1.0 Lipase 87 Acetone Level SMALL H Blood Type Antibody Screen 07/15/18 07/15/18 07/15/18 00:20 00:50 00:50 WBC RBC Hgb Hct MCV MCH MCHC RDW RDW Differential Plt Count Immature Gran % (Auto) Neut % (Auto) Lymph % (Auto) Wallace % (Auto) Eos % (Auto) Baso % (Auto) Absolute Neuts (auto) Absolute Lymphs (auto) Total Counted Differential Comment Platelet Estimate Plt Morphology Comment PT 16.7 H INR 1.4 APTT 23.6 L Sodium Potassium Chloride Carbon Dioxide Anion Gap BUN Creatinine Estim Creat Clear Calc Est GFR (MDRD) Af Amer Est GFR (MDRD) Non-Af BUN/Creatinine Ratio Glucose Lactic Acid 4.4 H* Calcium Magnesium Total Bilirubin AST ALT Alkaline Phosphatase Total Protein Albumin Globulin Albumin/Globulin Ratio Lipase Acetone Level Blood Type A POSITIVE Antibody Screen NEGATIVE 07/15/18 07/15/18 07/15/18 03:14 06:44 06:44 WBC RBC Hgb 12.3 11.1 L Hct 37.4 34.3 L MCV MCH MCHC RDW RDW Differential Plt Count Immature Gran % (Auto) Neut % (Auto) Lymph % (Auto) Wallace % (Auto) Eos % (Auto) Baso % (Auto) Absolute Neuts (auto) Absolute Lymphs (auto) Total Counted Differential Comment Platelet Estimate Plt Morphology Comment PT INR APTT Sodium 137 Potassium 3.3 L Chloride 108 H Carbon Dioxide 17.0 L Anion Gap 12 BUN 23 H Creatinine 0.79 Estim Creat Clear Calc 49.54 Est GFR (MDRD) Af Amer 94 Est GFR (MDRD) Non-Af 78 BUN/Creatinine Ratio 29.1 H Glucose 83 Lactic Acid Calcium 7.1 L Magnesium Total Bilirubin 0.50 AST 16 ALT 15 Alkaline Phosphatase 56 Total Protein 4.6 L Albumin 2.3 L Globulin 2.3 Albumin/Globulin Ratio 1.0 Lipase Acetone Level Blood Type Antibody Screen 07/15/18 07/15/18 07/15/18 06:44 06:44 11:22 WBC RBC Hgb 11.3 L Hct 34.8 L MCV MCH MCHC RDW RDW Differential Plt Count Immature Gran % (Auto) Neut % (Auto) Lymph % (Auto) Wallace % (Auto) Eos % (Auto) Baso % (Auto) Absolute Neuts (auto) Absolute Lymphs (auto) Total Counted Differential Comment Platelet Estimate Plt Morphology Comment PT INR APTT Sodium Potassium Chloride Carbon Dioxide Anion Gap BUN Creatinine Estim Creat Clear Calc Est GFR (MDRD) Af Amer Est GFR (MDRD) Non-Af BUN/Creatinine Ratio Glucose Lactic Acid 1.4 Calcium Magnesium 1.5 L Total Bilirubin AST ALT Alkaline Phosphatase Total Protein Albumin Globulin Albumin/Globulin Ratio Lipase Acetone Level Blood Type Antibody Screen Assessment/Plan This patient was seen in conjunction with LAMONT Grijalva . I have independently interviewed and examined the patient and reviewed pertinent historical, laboratory, and other data. Please refer to LAMONT Grijalva note for details of this patient's presentation, findings, and recommendations. I have reviewed LAMONT Grijalva note and concur with documented findings. In brief, patient is 63-year-old lady who appears much older than her stated age presented with abdominal discomfort associated with nausea and vomiting and coffee-ground emesis Physical Examination: GENERAL: cooperative HEENT: Atraumatic; EYES; Anicteric, NECK; supple, normal thyroid, . RESPIRATORY: Diminished to auscultation bilaterally, CARDIOVASCULAR: Regular S1 S2, s GI: soft, non-tender, normoactive bowel sounds, SKIN: No Rash PSYCH; Normal affect Assessment: 1. Suspected upper GI bleed 2. Anemia secondary to anemia of chronic disorder/acute blood loss from upper GI bleed 3. PSVT 4. Severe protein calorie malnutrition with decreased energy level and low BMI of 19 5. Depression with anxiety 6. GERD Recommendations: 1. I have discussed the results of my overview and impressions with the patient 2. Options for management were reviewed Code Visit Inpatient E&M: 11022 Subs Hosp L3
--- NOTE | 2018-07-15 10:53 | PN_ITS ---
Addendum entered and electronically signed by LAMONT Grijalva 07/15/18 11:32: Code Visit Telemetry with intermittent SVT, nonsustained-asymptomatic. Check magnesium, TSH. Still remains mildly tachycardic. PO metoprolol 25mg X1. Continue to monitor. Original Note: <aKit Rodriguez - Last Filed: 07/15/18 11:28> Patient Problems: Active and Suspected Problems GI bleed (Acute) Subjective: Patient seen and examined. Drowsy this morning. Denies further emesis. - Physical Exam General: Oriented x3, Cooperative, Lethargic HEENT: Atraumatic, PERRLA, EOMI, Normocephalic Neck: Supple, No JVD, Negative Carotid Bruits Lungs: Clear to auscultation, Normal air movement Cardiovascular: Regular rate, Regular Rhythm, Normal S1, Normal S2, No murmurs Abdomen: Bowel Sounds Present, Soft, Non Tender, Non-Distended Extremities: No clubbing, No cyanosis, No edema, Capillary Refill Less than 3 Seconds Skin: No rashes, No breakdown Musculoskeletal: No Tenderness to Palpation of Joints or Extremities Neurological: Cranial nerves II-XII grossly intact, Neuro grossly intact Psych/Mental Status: Normal Affect, Appropriate Vital Signs Temp Pulse Resp BP Pulse Ox 98.0 F 104 H 16 130/73 H 100 07/15/18 08:34 07/15/18 08:34 07/15/18 08:34 07/15/18 08:34 07/15/18 08:34 Oxygen Delivery Method Room Air Weight: 97 lb 7.109 oz Body Mass Index (BMI) 19.0 Intake and Output for Last 24 Hours 07/13/18 07/14/18 07/15/18 23:59 23:59 23:59 Intake Total 412 / 412 Output Total 0 / 0 Balance 412 / 412 Laboratory Tests Past 24 Hrs 07/15/18 07/15/18 07/15/18 00:20 00:20 00:20 WBC 14.4 H RBC 4.67 Hgb 13.2 Hct 40.5 MCV 86.7 MCH 28.3 MCHC 32.6 RDW 16.9 H RDW Differential 53.5 H Plt Count 155 Immature Gran % (Auto) 0.400 Neut % (Auto) 78.8 H Lymph % (Auto) 10.7 L Brewster % (Auto) 9.9 Eos % (Auto) 0.1 Baso % (Auto) 0.1 Absolute Neuts (auto) 11.4 H Absolute Lymphs (auto) 1.55 Total Counted Not Reportable Differential Comment SCAN Platelet Estimate ADEQUATE Plt Morphology Comment LARGE PT INR APTT Sodium 134 L Potassium 4.0 Chloride 97 L Carbon Dioxide 18.0 L Anion Gap 19 H BUN 26 H Creatinine 1.02 Estim Creat Clear Calc 39.50 Est GFR (MDRD) Af Amer 70 Est GFR (MDRD) Non-Af 58 L BUN/Creatinine Ratio 25.5 H Glucose 81 Lactic Acid Calcium 8.8 Total Bilirubin 0.80 AST 14 L ALT 20 Alkaline Phosphatase 76 Total Protein 6.1 L Albumin 3.1 L Globulin 3.0 Albumin/Globulin Ratio 1.0 Lipase 87 Acetone Level SMALL H Blood Type Antibody Screen 07/15/18 07/15/18 07/15/18 00:20 00:50 00:50 WBC RBC Hgb Hct MCV MCH MCHC RDW RDW Differential Plt Count Immature Gran % (Auto) Neut % (Auto) Lymph % (Auto) Brewster % (Auto) Eos % (Auto) Baso % (Auto) Absolute Neuts (auto) Absolute Lymphs (auto) Total Counted Differential Comment Platelet Estimate Plt Morphology Comment PT 16.7 H INR 1.4 APTT 23.6 L Sodium Potassium Chloride Carbon Dioxide Anion Gap BUN Creatinine Estim Creat Clear Calc Est GFR (MDRD) Af Amer Est GFR (MDRD) Non-Af BUN/Creatinine Ratio Glucose Lactic Acid 4.4 H* Calcium Total Bilirubin AST ALT Alkaline Phosphatase Total Protein Albumin Globulin Albumin/Globulin Ratio Lipase Acetone Level Blood Type A POSITIVE Antibody Screen NEGATIVE 07/15/18 07/15/18 07/15/18 03:14 06:44 06:44 WBC RBC Hgb 12.3 11.1 L Hct 37.4 34.3 L MCV MCH MCHC RDW RDW Differential Plt Count Immature Gran % (Auto) Neut % (Auto) Lymph % (Auto) Brewster % (Auto) Eos % (Auto) Baso % (Auto) Absolute Neuts (auto) Absolute Lymphs (auto) Total Counted Differential Comment Platelet Estimate Plt Morphology Comment PT INR APTT Sodium 137 Potassium 3.3 L Chloride 108 H Carbon Dioxide 17.0 L Anion Gap 12 BUN 23 H Creatinine 0.79 Estim Creat Clear Calc 49.54 Est GFR (MDRD) Af Amer 94 Est GFR (MDRD) Non-Af 78 BUN/Creatinine Ratio 29.1 H Glucose 83 Lactic Acid Calcium 7.1 L Total Bilirubin 0.50 AST 16 ALT 15 Alkaline Phosphatase 56 Total Protein 4.6 L Albumin 2.3 L Globulin 2.3 Albumin/Globulin Ratio 1.0 Lipase Acetone Level Blood Type Antibody Screen 07/15/18 06:44 WBC RBC Hgb Hct MCV MCH MCHC RDW RDW Differential Plt Count Immature Gran % (Auto) Neut % (Auto) Lymph % (Auto) Brewster % (Auto) Eos % (Auto) Baso % (Auto) Absolute Neuts (auto) Absolute Lymphs (auto) Total Counted Differential Comment Platelet Estimate Plt Morphology Comment PT INR APTT Sodium Potassium Chloride Carbon Dioxide Anion Gap BUN Creatinine Estim Creat Clear Calc Est GFR (MDRD) Af Amer Est GFR (MDRD) Non-Af BUN/Creatinine Ratio Glucose Lactic Acid 1.4 Calcium Total Bilirubin AST ALT Alkaline Phosphatase Total Protein Albumin Globulin Albumin/Globulin Ratio Lipase Acetone Level Blood Type Antibody Screen Medical Necessity - Tobacco Use Smoking Status: Never smoker Tobacco Use: Non-smoker Assessment/Plan All Active Problems GI bleed (Acute) Incomplete bladder emptying (Acute) Vaginal atrophy (Acute) Urinary incontinence (Acute) Weakness (Acute) RADHA (acute kidney injury) (Resolved) CAP (community acquired pneumonia) (Resolved) Gastroenteritis (Resolved) Lactic acidosis (Resolved) SIRS (systemic inflammatory response syndrome) (Resolved) UGI bleed (Resolved) 1. Acute GI bleed-serial H&H. N.p.o. IV PPI. Dr. Lr, general surgery on consult. Anticipate upper endoscopy tomorrow. No further emesis at this time. 2. Chronic normocytic anemia-stable, trend CBC. 3. Anxiety/depression-continue home Prozac regimen 4. Severe protein calorie malnutrition-BMI 19, cachectic. Nutrition consult. 5. GERD-Protonix drip. DVT prophylaxis-SCDs This patient was seen by LAMONT Grijalva under the supervision of Dr. Alexandre. <Dillan Alexandre - Last Filed: 07/15/18 12:31> - Physical Exam Vital Signs Temp Pulse Resp BP Pulse Ox 98.0 F 99 16 130/73 H 100 07/15/18 08:34 07/15/18 12:04 07/15/18 08:34 07/15/18 08:34 07/15/18 08:34 Oxygen Delivery Method Room Air Weight: 44.2 kg Body Mass Index (BMI) 19.0 Intake and Output for Last 24 Hours 07/13/18 07/14/18 07/15/18 23:59 23:59 23:59 Intake Total 1171 / 1171 Output Total 0 / 0 Balance 1171 / 1171 Laboratory Tests Past 24 Hrs 07/15/18 07/15/18 07/15/18 00:20 00:20 00:20 WBC 14.4 H RBC 4.67 Hgb 13.2 Hct 40.5 MCV 86.7 MCH 28.3 MCHC 32.6 RDW 16.9 H RDW Differential 53.5 H Plt Count 155 Immature Gran % (Auto) 0.400 Neut % (Auto) 78.8 H Lymph % (Auto) 10.7 L Brewster % (Auto) 9.9 Eos % (Auto) 0.1 Baso % (Auto) 0.1 Absolute Neuts (auto) 11.4 H Absolute Lymphs (auto) 1.55 Total Counted Not Reportable Differential Comment SCAN Platelet Estimate ADEQUATE Plt Morphology Comment LARGE PT INR APTT Sodium 134 L Potassium 4.0 Chloride 97 L Carbon Dioxide 18.0 L Anion Gap 19 H BUN 26 H Creatinine 1.02 Estim Creat Clear Calc 39.50 Est GFR (MDRD) Af Amer 70 Est GFR (MDRD) Non-Af 58 L BUN/Creatinine Ratio 25.5 H Glucose 81 Lactic Acid Calcium 8.8 Magnesium Total Bilirubin 0.80 AST 14 L ALT 20 Alkaline Phosphatase 76 Total Protein 6.1 L Albumin 3.1 L Globulin 3.0 Albumin/Globulin Ratio 1.0 Lipase 87 Acetone Level SMALL H Blood Type Antibody Screen 07/15/18 07/15/18 07/15/18 00:20 00:50 00:50 WBC RBC Hgb Hct MCV MCH MCHC RDW RDW Differential Plt Count Immature Gran % (Auto) Neut % (Auto) Lymph % (Auto) Brewster % (Auto) Eos % (Auto) Baso % (Auto) Absolute Neuts (auto) Absolute Lymphs (auto) Total Counted Differential Comment Platelet Estimate Plt Morphology Comment PT 16.7 H INR 1.4 APTT 23.6 L Sodium Potassium Chloride Carbon Dioxide Anion Gap BUN Creatinine Estim Creat Clear Calc Est GFR (MDRD) Af Amer Est GFR (MDRD) Non-Af BUN/Creatinine Ratio Glucose Lactic Acid 4.4 H* Calcium Magnesium Total Bilirubin AST ALT Alkaline Phosphatase Total Protein Albumin Globulin Albumin/Globulin Ratio Lipase Acetone Level Blood Type A POSITIVE Antibody Screen NEGATIVE 07/15/18 07/15/18 07/15/18 03:14 06:44 06:44 WBC RBC Hgb 12.3 11.1 L Hct 37.4 34.3 L MCV MCH MCHC RDW RDW Differential Plt Count Immature Gran % (Auto) Neut % (Auto) Lymph % (Auto) Brewster % (Auto) Eos % (Auto) Baso % (Auto) Absolute Neuts (auto) Absolute Lymphs (auto) Total Counted Differential Comment Platelet Estimate Plt Morphology Comment PT INR APTT Sodium 137 Potassium 3.3 L Chloride 108 H Carbon Dioxide 17.0 L Anion Gap 12 BUN 23 H Creatinine 0.79 Estim Creat Clear Calc 49.54 Est GFR (MDRD) Af Amer 94 Est GFR (MDRD) Non-Af 78 BUN/Creatinine Ratio 29.1 H Glucose 83 Lactic Acid Calcium 7.1 L Magnesium Total Bilirubin 0.50 AST 16 ALT 15 Alkaline Phosphatase 56 Total Protein 4.6 L Albumin 2.3 L Globulin 2.3 Albumin/Globulin Ratio 1.0 Lipase Acetone Level Blood Type Antibody Screen 07/15/18 07/15/18 07/15/18 06:44 06:44 11:22 WBC RBC Hgb 11.3 L Hct 34.8 L MCV MCH MCHC RDW RDW Differential Plt Count Immature Gran % (Auto) Neut % (Auto) Lymph % (Auto) Brewster % (Auto) Eos % (Auto) Baso % (Auto) Absolute Neuts (auto) Absolute Lymphs (auto) Total Counted Differential Comment Platelet Estimate Plt Morphology Comment PT INR APTT Sodium Potassium Chloride Carbon Dioxide Anion Gap BUN Creatinine Estim Creat Clear Calc Est GFR (MDRD) Af Amer Est GFR (MDRD) Non-Af BUN/Creatinine Ratio Glucose Lactic Acid 1.4 Calcium Magnesium 1.5 L Total Bilirubin AST ALT Alkaline Phosphatase Total Protein Albumin Globulin Albumin/Globulin Ratio Lipase Acetone Level Blood Type Antibody Screen Assessment/Plan This patient was seen in conjunction with LAMONT Grijalva . I have independently interviewed and examined the patient and reviewed pertinent historical, laboratory, and other data. Please refer to Kait Michael, LO[employer]ER-C note for details of this patient's presentation, findings, and recommendations. I have reviewed Kait Rodriguez [employer] note and concur with documented findings. In brief, patient is 63-year-old lady who appears much older than her stated age presented with abdominal discomfort associated with nausea and vomiting and coffee-ground emesis Physical Examination: GENERAL: cooperative HEENT: Atraumatic; EYES; Anicteric, NECK; supple, normal thyroid, . RESPIRATORY: Diminished to auscultation bilaterally, CARDIOVASCULAR: Regular S1 S2, s GI: soft, non-tender, normoactive bowel sounds, SKIN: No Rash PSYCH; Normal affect Assessment: 1. Suspected upper GI bleed 2. Anemia secondary to anemia of chronic disorder/acute blood loss from upper GI bleed 3. PSVT 4. Severe protein calorie malnutrition with decreased energy level and low BMI of 19 5. Depression with anxiety 6. GERD Recommendations: 1. I have discussed the results of my overview and impressions with the patient 2. Options for management were reviewed Code Visit Inpatient E&M: 46018 Subs Hosp L3
[2018-07-15] MEDS: FLUoxetine 20 MG Capsule PO (11:00)
[2018-07-15 11:38] LABS: Hematocrit 34.8 % (37-47); Hemoglobin 11.3 g/dl (12.0-15.0)
[2018-07-15 11:49] LABS: Magnesium 1.5 mg/dL (1.6-2.6)
[2018-07-15] MEDS: Metoprolol Tartrate 25 MG Tablet PO (12:04)
--- NOTE | 2018-07-15 13:48 | PCM.CONS.B ---
- Consult Date of Consult: 07/15/18 - Reason for Consult Reason for Consultation: UGI bleeding History of Present Illness: The patient is a 63 year old WF who had presented in May of this year with anemia and was offered upper and lower endoscopy by Dr. Lr, but the patient refused. Has never had a colonoscopy, patient has refused this multiple times in the past, because she doesn't want to drink the colon cleansing preparation solution. Has had coffee grounds emesis. Presents with Hgb of 11.3 Has chronic nausea. Denies abdominal pain at present, but has complained of this in the past. Has history of acid reflux and heartburn. Has generalized weakness. Denies fevers. Has decreased appetite. PAST MEDICAL HISTORY: Normochromic normocytic anemia Atrophic vaginitis Poor dental hygiene Fall Depression GERD (gastroesophageal reflux disease) PAST SURGICAL HISTORY: appendectomy EGD 2010 Right hand surgery - multiple tonsillectomy Allergies No Known Allergies Allergy Medication Instructions Recorded Esomeprazole Mag Trihydrate 40 mg PO DAILY Citalopram [Celexa] 40 mg PO DAILY SOCIAL HISTORY Smoking Status: Never smoker Tobacco Use: Non-smoker Alcohol: None Drugs: None - *Family History Maternal History Items: Diabetes Paternal History Items: Cancer - Lung Review of Systems Constitutional: Losing weight, Reports: Malaise, Weakness, Weight Change HEENT: Denies: Head Aches, Sinus Congestion, Sinus Drainage Cardiovascular: Denies: Chest Pain, Palpitations Respiratory: Denies: Cough, Shortness of breath at rest, Sputum production Gastrointestinal: has nausea, Denies: Abdominal Pain Genitourinary: Denies: Dysuria Musculoskeletal: has had several falls at home Psych: known depression - Physical Exam General: Alert, Oriented x3, - - patient does appear somewhat frail Lungs: Clear to auscultation, Diminished Cardiovascular: Regular rate, Regular Rhythm Abdomen: Bowel Sounds Present, Soft, Non Tender Extremities: no pitting edema noted Psych: appropriate Impression: UGI bleed Plan- I plan to perform upper endoscopy tomorrow, patient seems amenable to this. She has been reluctant to do this in the past, however, I have explained the procedure to her and that anesthesia will be used and she will not be aware of any discomfort. I have described the risks of the procedure, including but not limited to: infection, bleeding, perforation of the GI tract, inability to complete the procedure, complications of anesthesia, etc. - she understands. She agrees to proceed. If negative, will try to convince patient for colonoscopy after the EGD to determine source of GI bleed and anemia.
[2018-07-16] VITALS (19 sets, daily range): BP systolic 92–121; BP diastolic 59–74; PULSE 75–103; RESP 16–20; TEMP 36.1–37; O2SAT 95–100; BMI 19.1
[2018-07-16] MEDS: 0.9% Normal Saline 1,000 ML 125 ML IV ×2 (04:36→13:19)
--- NOTE | 2018-07-16 05:55 | EKG12_ITS ---
Test Reason : AM EKG Blood Pressure : / mmHG Vent. Rate : 075 BPM Atrial Rate : 075 BPM P-R Int : 106 ms QRS Dur : 072 ms QT Int : 474 ms P-R-T Axes : 040 030 252 degrees QTc Int : 529 ms Sinus rhythm with short AR with Premature supraventricular complexes ST & T wave abnormality, consider anterior ischemia Prolonged QT Abnormal ECG Confirmed by CARMEN GARZA, LANRE ([id number]), primer expeditor and drier NICOLASA LUEVANO ([id number]) on 07/18/2018 2:04:49 PM Referred By: LAUREN Confirmed By:LANRE MORALES MD
[2018-07-16 06:38] LABS: Hematocrit 31.9 % (37-47); Hemoglobin 10.2 g/dl (12.0-15.0); Mean Corpuscular Hgb 28.7 pg (27.0-32.0); Mean Corpuscular Volume 89.6 fL (81-99); Platelet Count 130 K/mm3 (150-450); RBC Distribution Width CV 17.3 % (11.6-14.6); RBC Distribution Width SD 57.5 fl (35.1-43.9); Red Blood Count 3.56 M/mm3 (4.2-5.4)
[2018-07-16 06:46] LABS: Scan Indicated on CBC? Y/N YES- FLAGS NOTED
[2018-07-16 06:53] LABS: Anion Gap 11 (5-15); BUN 16 mg/dL (7-18); BUN/Creat Ratio 20.4 RATIO (10-20); Calcium,Total 6.8 mg/dL (8.5-10.1); Chloride 113 mmol/L (98-107); Creatinine, Serum 0.78 mg/dL (0.55-1.02); EST Glomerular Filtration Rate 78 mL/min (>60); Est Glom Filt Rate - Afr Amer 95 mL/min (>60); Estimated Creatinine Clearance 50.17 ml/min; Glucose 71 mg/dL (74-106); Magnesium 2.2 mg/dL (1.6-2.6); Sodium Level 143 mmol/L (136-145)
[2018-07-16 06:57] LABS: Differential Comment SCANNED
[2018-07-16] MEDS: FLUoxetine 20 MG Capsule PO (09:26)
--- NOTE | 2018-07-16 09:48 | CASEMGMT ---
Patient has a Healthcare POA and Healthcare LW in her e-chart. SW printed out documents and put them in her chart. Radha MATIAS MSW
[2018-07-16] MEDS: Potassium Chloride 10mEq/100mL 10 MEQ/100 ML IV.SOLN. 100 MEQ IV BOLUS (12:01)
--- NOTE | 2018-07-16 13:26 | PCM.PROGNOTE ---
Patient Problems: Active and Suspected Problems GI bleed (Acute) Subjective: Patient seen and examined. More alert today. Complains of dry mouth. To undergo EGD later today. Denies further nausea, emesis. - Physical Exam General: Alert, Oriented x3, Cooperative HEENT: Atraumatic, PERRLA, EOMI, Normocephalic Oral: Dry Mucosa Neck: Supple, No JVD, Negative Carotid Bruits Lungs: Clear to auscultation, Normal air movement Cardiovascular: Regular rate, Regular Rhythm, Normal S1, Normal S2, No murmurs Abdomen: Bowel Sounds Present, Soft, Non Tender, Non-Distended Extremities: No clubbing, No cyanosis, No edema, Capillary Refill Less than 3 Seconds Skin: No rashes, No breakdown Musculoskeletal: No Tenderness to Palpation of Joints or Extremities Neurological: Cranial nerves II-XII grossly intact, Neuro grossly intact Psych/Mental Status: Normal Affect, Appropriate Vital Signs Temp Pulse Resp BP Pulse Ox 98.6 F 85 16 115/72 96 07/16/18 08:27 07/16/18 11:04 07/16/18 08:27 07/16/18 08:27 07/16/18 08:27 Oxygen Delivery Method Room Air Weight: 97 lb 7.109 oz Body Mass Index (BMI) 19.1 Intake and Output for Last 24 Hours 07/14/18 07/15/18 07/16/18 23:59 23:59 23:59 Intake Total 1171 / 1171 2277.3 / 2277.3 Output Total 0 / 0 500 / 500 Balance 1171 / 1171 1777.3 / 1777.3 Laboratory Tests Past 24 Hrs 07/16/18 07/16/18 06:15 06:15 WBC 10.0 RBC 3.56 L Hgb 10.2 L Hct 31.9 L MCV 89.6 MCH 28.7 MCHC 32.0 RDW 17.3 H RDW Differential 57.5 H Plt Count 130 L Differential Comment SCANNED Sodium 143 Potassium 3.0 L Chloride 113 H Carbon Dioxide 19.0 L Anion Gap 11 BUN 16 Creatinine 0.78 Estim Creat Clear Calc 50.17 Est GFR (MDRD) Af Amer 95 Est GFR (MDRD) Non-Af 78 BUN/Creatinine Ratio 20.4 H Glucose 71 L Calcium 6.8 L Magnesium 2.2 Medical Necessity - Tobacco Use Smoking Status: Never smoker Tobacco Use: Non-smoker Assessment/Plan All Active Problems GI bleed (Acute) Incomplete bladder emptying (Acute) Vaginal atrophy (Acute) Urinary incontinence (Acute) Weakness (Acute) RADHA (acute kidney injury) (Resolved) CAP (community acquired pneumonia) (Resolved) Gastroenteritis (Resolved) Lactic acidosis (Resolved) SIRS (systemic inflammatory response syndrome) (Resolved) UGI bleed (Resolved) 1. Acute Upper GI bleed-serial H&H have remained stable. N.p.o. IV PPI. Patient to undergo EGD with Dr. Lennon. Further disposition pending findings. If EGD is unremarkable, general surgery recommends colonoscopy. 2. PSVT-suspect secondary to electrolyte disturbance. No further episodes. Monitor telemetry. 3. Hypokalemia/hypomagnesia-replaced4. per protocol. Trend BMP. 4. Chronic normocytic anemia-stable, trend CBC. 5. Anxiety/depression-continue home Prozac regimen 6. Severe protein calorie malnutrition-BMI 19, cachectic. Nutrition consult. 7. GERD-Protonix drip. DVT prophylaxis-SCDs This patient was seen by LAMONT Grijalva under the supervision of Dr. Soler.
--- NOTE | 2018-07-16 13:57 | NURSING ---
OFF UNIT TO ENDO AT THIS TIME.
--- NOTE | 2018-07-16 14:45 | EGD_PTH ---
PATIENT: GALILEO THORNTON LOC: PCU U#:[id number] AGE/SX: 63/F ROOM: [facility] RE07/15/[address]: Dr. Dante Soler DO : 1955 BED: 1 DIS: 07/18/2018 SPEC #: [id number] RECD: 07/16/18 15:36 STATUS: ROSA M REQ #: [id number] PARVEZ: 07/16/18 14:[address]: Radha Lennon DEPT: SURGICAL PATHOLOGY RECD BY: Warner Martinez ENTERED: 07/17/18 08:39 SP TYPE: EGD BIOPSY OTHR DR: MD Dr. Dante Ashford MD Dr. Mark Tereletsky, DO Tissues: A - Gastric mucous membrane B - Gastric mucous membrane Procedures: Special Stain Group II Special Stain Group I Surgery Specimen Level IV GMS Stain (control) Alcian Blue/PAS (control) HEADER OPERATION: EGD ([facility] [place]) PRE-OP DIAGNOSIS: GI bleed TISSUE SUBMITTED: A - Biopsy gastric antrum, histo and H. pylori, B - Biopsy GE junction MICROSCOPIC DIAGNOSIS A. Gastric antrum, biopsy: Fragments of squamous mucosa with associated fibrinopurulent exudate consistent with ulcer. Strips of benign superficial gastric mucosa. Negative for fungal organisms. See comment. B. Gastroesophageal junction, biopsy: Fragments of squamous mucosa with associated fibrinopurulent exudate consistent with ulcer. Rare clusters of highly atypical squamoid cells suspicious for squamoid neoplasm. See comment. AM:spring 07/18/18 COMMENT A. The results of immunohistochemistry for Helicobacter pylori will be reported separately ([id number]). GMS stain with matched control supports the above diagnosis. B. Immunohistochemistry ([id number]) supports the above diagnosis. Alcian blue/PAS stain with matched control does not reveal intestinal metaplasia. A small cluster of highly atypical squamoid cells marking strongly for Ki67 are present and suspicious for a squamoid neoplasm. This case is discussed with Dr. Lennon. Case has been reviewed in consultation with Dr. Neri who concurs with the above diagnosis. IDC:CE MICROSCOPIC DESCRIPTION Slides are reviewed. GROSS DESCRIPTION A - Received in fixative is one container labeled with the patient's name and designated biopsy gastric antrum. The specimen consists of multiple irregular fragments of light sims soft tissue that in aggregate measure 0.8 x 0.3 x 0.1 cm. The specimen is totally submitted in one cassette. B - Received in fixative is one container labeled with the patient's name and designated GE junction biopsy. The specimen consists of multiple irregular fragments of light sims soft tissue that in aggregate measure 0.5 x 0.4 x 0.1 cm. The specimen is totally submitted in one cassette. / SJ:rg 07/17/18 TC:4 CPT: 32787 x2, 46051, 03159
--- NOTE | 2018-07-16 14:45 | IMM_PTH ---
PATIENT: GALILEO THORNTON LOC: PCU U#:[id number] AGE/SX: 63/F ROOM: [facility] RE07/15/[address]: Dr. Dante Soler DO : 1955 BED: 1 DIS: 07/18/2018 SPEC #: [id number] RECD: 07/17/18 11:11 STATUS: ROSA M REQ #: [id number] PARVEZ: 07/16/18 14:[address]: Radha Lennon DEPT: IMMUNOHISTOCHEMISTRY RECD BY: Zena Maier ENTERED: 07/17/18 11:12 SP TYPE: IMMUNO OTHR DR: MD Dr. Dante Ashford MD Dr. Mark Tereletsky, DO Tissues: A - Stomach, NOS B - Esophageal mucous membrane Procedures: H Pylori (initial) CK14 (add) CK20 (add) CK5-6 (add) CK7 (add) KI-67 (add) P53 (add) Pankeratin (initial) P40 (add) PHYSICIAN & [address] [address] SPECIMEN INFORMATION: Tissue Source: A - Gastric antrum biopsy, B - Gastroesophageal junction biopsy Clinical Info: GI bleed Specimen Number: [id number] A & B CPT code: 31583 x2, 88009 x7 METHODOLOGY: Deparaffinized sections of prefer/formalin-fixed tissue or PAP/DQ stained slides are incubated with monoclonal/polyclonal antibodies/oligonucleotide probes. Localization is made via biotin free immunoperoxidase method. Appropriate controls are performed and reacted as expected. Results on target cell population are indicated in the following table: RESULTS: ANTIBODY / CLONE RESULT Block A H Pylori (polyclonal) negative Block B AE1-3 (AE1/AE3/PCK26) positive CK7 (OV-TL12/30) negative CK20 (KS20.8) negative P40 (BC28) positive CK5-6 (D5 & 1684) positive CK14 (LL002) positive Ki-67 (30-9) positive, moderate P53 (DO-7) negative These tests were developed and their performance characteristics determined by [facility]. They may not have been cleared or approved by the U.S. Food and Drug Administration. The FDA has determined that such clearance or approval is not necessary. INTERPRETATION: A. Gastric antrum, biopsy: Negative for Helicobacter pylori organisms. B. Gastroesophageal junction, biopsy: Highly atypical degenerating squamoid cells suspicious for malignant neoplasm. AM:srping 07/20/18
--- NOTE | 2018-07-16 14:55 | CHAPLAIN ---
Type of Pastoral Visit _x__ Initial Visit ___ Follow-up Visit ___ On-call Visit ___ General Patient Visit ___ Spiritual Assessment ___ Family Conference ___ Bereavement ___ Rapid Response ___ Code Blue ___ Other (describe below) Pastoral Care Referral From _x__ Patient ___ Family ___ Nurse ___ Physician ___ Tortilla Maker ___ Speeder Hand ___ Other (describe below) Sacrament/Intervention ___ Active listening ___ Anointing ___ Religious ___ Bereavement ___ Communion ___ Jerica exploration ___ ___ Life review _x__ Prayer ___ Reconciliation ___ Sacrament of Sick ___ Supportive presence ___ Wedding ___ Other (describe below) Pastoral Comments Pre-surgery greeting and prayer; pt requests visit of corporation officer again later
--- NOTE | 2018-07-16 15:26 | OP.ENDO_ITS ---
07/16/2018 Dante Mclaughlin [address] [place] [address] Re : Upper GI endoscopy procedure for Cheli Lagos Dear Dr. Mclaughlin This procedure was performed on Monday, July 16, 2018. My impressions and recommendations are as follows: Impressions : - Normal first portion of the duodenum and second portion of the duodenum. - Erythematous mucosa in the stomach. Biopsied. - LA Grade D reflux esophagitis. Rule out Navarro's esophagus. Biopsied. - Esophagitis. Recommendations : - Continue present medications. My findings are described in the full procedure note, which is enclosed. If I can be of further assistance, please feel free to contact me at Doctor phone number(s): , Work: . Sincerely, MD Radha Swift MD 07/16/2018 3:25:40 PM This report has been signed electronically.
--- NOTE | 2018-07-16 15:26 | PCM.PN.BLA ---
Progress Note Severe distal esophagitis noted with bleeding, injected with epinephrine and no active bleeding noted after this. Patient to continue on PPI, can start soft mechanical diet and advance as tolerated.
[2018-07-16] MEDS: Ondansetron 4 MG/2 ML Vial IV (17:20)
[2018-07-16] MEDS: 0.9% Normal Saline 1,000 ML 100 ML IV (19:48)
[2018-07-17] VITALS (18 sets, daily range): BP systolic 114–136; BP diastolic 57–80; PULSE 93–146; RESP 16–20; TEMP 36.7–37; O2SAT 91–100
[2018-07-17] MEDS: 0.9% Normal Saline 1,000 ML 100 ML IV ×3 (06:02→23:51)
[2018-07-17 07:21] LABS: Anion Gap 14 (5-15); BUN 9 mg/dL (7-18); Calcium,Total 6.6 mg/dL (8.5-10.1); Chloride 112 mmol/L (98-107); Creatinine, Serum 0.64 mg/dL (0.55-1.02); EST Glomerular Filtration Rate 99 mL/min (>60); Est Glom Filt Rate - Afr Amer 119 mL/min (>60); Estimated Creatinine Clearance 61.15 ml/min; Glucose 63 mg/dL (74-106); Potassium 3.1 mmol/L (3.5-5.1); Sodium Level 142 mmol/L (136-145)
[2018-07-17 07:27] LABS: Hematocrit 30.7 % (37-47); Hemoglobin 9.7 g/dl (12.0-15.0); Mean Corp Hgb Conc 31.6 g/gl (32-36); Mean Corpuscular Volume 88.7 fL (81-99); Platelet Count 84 K/mm3 (150-450); RBC Distribution Width CV 17.6 % (11.6-14.6); RBC Distribution Width SD 57.2 fl (35.1-43.9); Red Blood Count 3.46 M/mm3 (4.2-5.4)
[2018-07-17 07:29] LABS: Scan Indicated on CBC? Y/N YES- FLAGS NOTED
--- NOTE | 2018-07-17 09:50 | CASEMGMT ---
Addendum entered by Radha Jerez 07/17/18 10:39: Received call from Anabelle and she said TCU will have a bed for patient. She will start the pre-cert. SW let patient know that TCU will have a bed for her and she will stay in the hospital until insurance gives an answer. Radha HANSEN Original Note: Nurse Practitioner spoke with patient and she agreed to go to [facility] TCU. SW called Yamile in TCU and left her a voice mail asking if she is able to take patient. Patient will need insurance authorization. Radha HANSEN
[2018-07-17] MEDS: FLUoxetine 20 MG Capsule PO (09:57)
[2018-07-17] MEDS: Potassium Chloride 10mEq/100mL 10 MEQ/100 ML IV.SOLN. 100 MEQ IV BOLUS ×3 (10:47→13:17)
[2018-07-17] MEDS: Ondansetron 4 MG/2 ML Vial IV (11:37)
[2018-07-17] MEDS: Morphine 2 MG/ML Syringe IV ×2 (12:43→21:17)
--- NOTE | 2018-07-17 12:46 | NURSING ---
Bladder scan completed for c/o unable to void, 585 ml retained. Order for Lerma catheter, inserted pt tolerated well with a return of 400cc yellow urine. Secured lerma tube to pts leg with cath secure.
--- NOTE | 2018-07-17 12:46 | CHAPLAIN ---
Type of Pastoral Visit ___ Initial Visit _x__ Follow-up Visit ___ On-call Visit ___ General Patient Visit ___ Spiritual Assessment ___ Family Conference ___ Bereavement ___ Rapid Response ___ Code Blue ___ Other (describe below) Pastoral Care Referral From _x__ Patient ___ Family ___ Nurse ___ Physician ___ Child Care Education Coordinator ___ Aviation Technician Aircraft ___ Other (describe below) Sacrament/Intervention _x__ Active listening ___ Anointing ___ Episcopalian ___ Bereavement ___ Communion ___ Jerica exploration ___ ___ Life review _x__ Prayer ___ Reconciliation ___ Sacrament of Sick _x__ Supportive presence ___ Wedding ___ Other (describe below) Pastoral Comments
--- NOTE | 2018-07-17 13:48 | PCM.PROGNOTE ---
Patient Problems: Active and Suspected Problems GI bleed (Acute) Subjective: Patient seen and examined. Denies further nausea, emesis. Complains of sore, dry mouth. Reports poor appetite. - Physical Exam General: Alert, Oriented x3, Cooperative HEENT: Atraumatic, PERRLA, EOMI, Normocephalic Oral: Dry Mucosa, - - Thrush Neck: Supple, No JVD, Negative Carotid Bruits Lungs: Clear to auscultation, Normal air movement Cardiovascular: Regular rate, Regular Rhythm, Normal S1, Normal S2, No murmurs Abdomen: Bowel Sounds Present, Soft, Non Tender, Non-Distended Extremities: No clubbing, No cyanosis, No edema, Capillary Refill Less than 3 Seconds Skin: No rashes, No breakdown Musculoskeletal: No Tenderness to Palpation of Joints or Extremities Neurological: Cranial nerves II-XII grossly intact, Neuro grossly intact Psych/Mental Status: Normal Affect, Appropriate Vital Signs Temp Pulse Resp BP Pulse Ox 98.6 F 96 20 H 136/80 H 100 07/17/18 11:30 07/17/18 11:30 07/17/18 13:00 07/17/18 11:30 07/17/18 13:00 Oxygen Delivery Method Room Air Weight: 97 lb 7.109 oz Body Mass Index (BMI) 19.1 Intake and Output for Last 24 Hours 07/15/18 07/16/18 07/17/18 23:59 23:59 23:59 Intake Total 1171 / 1171 4500.6 / 4500.6 1324 / 1324 Output Total 0 / 0 1175 / 1175 325 / 325 Balance 1171 / 1171 3325.6 / 3325.6 999 / 999 Laboratory Tests Past 24 Hrs 07/17/18 07/17/18 06:55 06:55 WBC 10.0 RBC 3.46 L Hgb 9.7 L Hct 30.7 L MCV 88.7 MCH 28.0 MCHC 31.6 L RDW 17.6 H RDW Differential 57.2 H Plt Count 84 L Differential Comment COMMENT Sodium 142 Potassium 3.1 L Chloride 112 H Carbon Dioxide 16.0 L Anion Gap 14 BUN 9 Creatinine 0.64 Estim Creat Clear Calc 61.15 Est GFR (MDRD) Af Amer 119 Est GFR (MDRD) Non-Af 99 BUN/Creatinine Ratio 14.0 Glucose 63 L Calcium 6.6 L Medical Necessity - Tobacco Use Smoking Status: Never smoker Tobacco Use: Non-smoker Assessment/Plan All Active Problems GI bleed (Acute) Incomplete bladder emptying (Acute) Vaginal atrophy (Acute) Urinary incontinence (Acute) Weakness (Acute) RADHA (acute kidney injury) (Resolved) CAP (community acquired pneumonia) (Resolved) Gastroenteritis (Resolved) Lactic acidosis (Resolved) SIRS (systemic inflammatory response syndrome) (Resolved) UGI bleed (Resolved) 1. Acute Upper GI bleed-serial H&H have remained stable. Dr. Lennon, general surgery consulted. Patient underwent EGD 07/16/2018 which showed erythematous mucosa in the stomach, biopsied. Grade D reflux esophagitis, rule out Navarro's esophagus. Biopsied. Continue IV PPI. Full liquid diet. 2. PSVT-suspect secondary to electrolyte disturbance. No further episodes. Monitor telemetry. 3. Hypokalemia/hypomagnesia-replaced per protocol. Trend BMP. 4. Chronic normocytic anemia-stable, trend CBC. 5. Anxiety/depression-continue home Prozac regimen 6. Severe protein calorie malnutrition-BMI 19, cachectic. Nutrition consult. 7. GERD-Protonix drip. 8. Debility/weakness- PT/OT. SNF pending pre-cert. DVT prophylaxis-SCDs This patient was seen by LAMONT Grijalva under the supervision of Dr. Soler.
[2018-07-17] MEDS: NYSTATIN 500,000 UNIT/5 ML UDC 500000 UNIT PO ×2 (17:51→21:17)
--- NOTE | 2018-07-17 18:13 | NURSING ---
Roshan, son, called for update. Updated on patient's condition. Son questioned patients status and if she is close to 'the end.' Son stated that patient told him that she was ready to . Educated son on options and questioned LIving Will. Son states she does not want resuscitated. He is to bring in paperwork. Will leave note for case management to call [facility] & to discuss further options.
[2018-07-17] MEDS: 0.9% NaCl Peripheral Flush Adult/Peds IV (21:17)
[2018-07-18] VITALS (8 sets, daily range): BP systolic 101–137; BP diastolic 72–92; PULSE 101–115; RESP 16–19; TEMP 36.7–36.8; O2SAT 95–98
--- NOTE | 2018-07-18 04:45 | NURSING ---
Cliff, HVAC FIELD SERVICE TECHNICIAN came down to attempt to insert an IV in patient. even with vein finder RN unable to start new IV. will notify MD. IV fluids on hold at this time.
[2018-07-18 06:21] LABS: Anion Gap 13 (5-15); BUN 5 mg/dL (7-18); BUN/Creat Ratio 7.8 RATIO (10-20); Calcium,Total 6.7 mg/dL (8.5-10.1); Chloride 109 mmol/L (98-107); Creatinine, Serum 0.64 mg/dL (0.55-1.02); EST Glomerular Filtration Rate 99 mL/min (>60); Est Glom Filt Rate - Afr Amer 120 mL/min (>60); Estimated Creatinine Clearance 61.15 ml/min; Glucose 67 mg/dL (74-106); Potassium 3.2 mmol/L (3.5-5.1); Sodium Level 140 mmol/L (136-145)
[2018-07-18 06:27] LABS: Hematocrit 32.3 % (37-47); Hemoglobin 10.4 g/dl (12.0-15.0); Mean Corp Hgb Conc 32.2 g/gl (32-36); Mean Corpuscular Hgb 28.5 pg (27.0-32.0); Mean Corpuscular Volume 88.5 fL (81-99); Platelet Count 115 K/mm3 (150-450); RBC Distribution Width CV 17.4 % (11.6-14.6); RBC Distribution Width SD 54.7 fl (35.1-43.9); Red Blood Count 3.65 M/mm3 (4.2-5.4); White Blood Count 10.4 K/mm3 (4.4-11.0)
[2018-07-18 06:29] LABS: Scan Indicated on CBC? Y/N YES- FLAGS NOTED
[2018-07-18 07:00] LABS: Differential Comment SCANNED
[2018-07-18] MEDS: Pantoprazole Sodium 40 MG Tablet PO (08:48)
[2018-07-18] MEDS: HYDROcodone Bitartrate/Apap 5/325 Tablet PO (08:48)
[2018-07-18] MEDS: NYSTATIN 500,000 UNIT/5 ML UDC 500000 UNIT PO ×2 (08:49→13:30)
[2018-07-18] MEDS: DULoxetine Hcl 60 MG Capsule PO (08:49)
--- NOTE | 2018-07-18 11:12 | PCM.EXTCARCO ---
- Diet 07/16/18 15:27 Diet: Soft mechanical diet, advance as tolerated Is pt able to select menu?: No - Routine Orders/Code Status Enema Type: Fleetz Enema Frequency: Daily PRN Suppository Type: Dulcolax 10mg Suppository Frequency: Daily PRN Routine Lab Work: - - CBC, BMP daily X3 days and then Q week. Code Status: Full Code - Suggestions for Active Care Change Position every (hours): 2 Times a day to sit in chair: 3 - Therapies Physical Therapy: Eval and Treat Occupational Therapy: Eval and Treat - Problem/Diagnosis (1) GI bleed Status: Acute Current Visit: Yes (2) Anxiety and depression Status: Chronic Current Visit: No (3) Uncontrolled depression Status: Chronic Current Visit: No (4) Normochromic normocytic anemia Status: Chronic Current Visit: No (5) Weakness Status: Acute Current Visit: Yes (6) GERD (gastroesophageal reflux disease) Status: Chronic Current Visit: No - Allergies/Procedures Done in Hospital Allergies/Adverse Reactions: Allergies No Known Allergies Allergy (Verified 07/14/18 23:37) Procedures: EGD - Type of Care/Length of Stay Estimated LOS: Convalescent Care Less Than 30 days Type of Care Needed: Skilled Rehab Potential: Fair Prognosis: Fair - Additional Orders/Day of Discharge H&P will serve as current which was dated: 07/15/18 Day of Discharge: 07/18/18 - Dietary and Speech Recommendations Dietitian Recommendations/Changes: As medically able, rec LINH to transitional Regular diet w/ ONS medpass 4x/day. Will provide ensure pudding or magic cup w/ meals for increased nutrition if consumed. - Follow Up Care Primary Care Physician: Dante Mclaughlin MD [Primary Care Provider] - Please follow up with your Primary Care Physician in: 1 Week Please Follow Up With: Radha Lennon MD When: 2-4 weeks
--- NOTE | 2018-07-18 11:24 | PCM.DC.SUM ---
Discharge Date and Diagnosis Date of Admission: 07/15/18 Date of Discharge: 07/18/18 - Primary Discharge Diagnosis Active and Suspected Problems 1. Acute Upper GI bleed, reflux esophagitis 2. PSVT 3. Hypokalemia/hypomagnesia 4. Chronic normocytic anemia 5. Anxiety/depression 6. Severe protein calorie malnutrition 7. GERD 8. Debility/weakness - Secondary Discharge Diagnosis Chronic Problems Anxiety and depression (Chronic) Lethargy (Chronic) Uncontrolled depression (Chronic) Normochromic normocytic anemia (Chronic) Atrophic vaginitis (Chronic) Poor dental hygiene (Chronic) Fall (Chronic) Depression (Chronic) GERD (gastroesophageal reflux disease) (Chronic) Hospital Course and Treatment Dr. Lennon- General Surgery Operations: None Procedures: EGD Summary of Care Provided: The patient is a 63 year old F admitted 07/15/2018 due to intractable nausea, emesis. 1. Acute Upper GI bleed-serial H&H have remained stable. Dr. Lennon, general surgery consulted. Patient underwent EGD 07/16/2018 which showed erythematous mucosa in the stomach, biopsied. Grade D reflux esophagitis, rule out Navarro's esophagus. Biopsied. Continue Protonix 40 mg p.o. twice daily. Soft mechanical diet, advance as tolerated. Follow-up with primary care physician in 1 week, follow-up with general surgery in 2 to 4 weeks. 2. PSVT-suspect secondary to electrolyte disturbance. No further episodes. 3. Hypokalemia/hypomagnesia-replaced per protocol. Trend BMP. 4. Chronic normocytic anemia-stable, trend CBC at [facility]. 5. Anxiety/depression-poorly controlled depression. Change to Cymbalta 60 mg daily. 6. Severe protein calorie malnutrition-BMI 19, cachectic. Nutrition consult. 7. GERD-Protonix 40 mg p.o. twice daily. 8. Debility/weakness- PT/OT. TCU at [place]. General: Alert, Oriented x3, Cooperative HEENT: Atraumatic, PERRLA, EOMI, Normocephalic Oral: Dry Mucosa, Thrush Neck: Supple, No JVD, Negative Carotid Bruits Lungs: Clear to auscultation, Normal air movement Cardiovascular: Regular rate, Regular Rhythm, Normal S1, Normal S2, No murmurs Abdomen: Bowel Sounds Present, Soft, Non Tender, Non-Distended Extremities: No clubbing, No cyanosis, No edema, Capillary Refill Less than 3 Seconds Skin: No rashes, No breakdown Musculoskeletal: No Tenderness to Palpation of Joints or Extremities Neurological: Cranial nerves II-XII grossly intact, Neuro grossly intact Psych/Mental Status: Normal Affect, Appropriate Patient seen and examined prior to discharge. Physical assessment as noted above. Patient is stable for discharge with follow up recommendations as noted above. This patient was seen by LAMONT Grijalva under the supervision of Dr. Soler. - Physical Exam Vital Signs Temp Pulse Resp BP Pulse Ox 98.1 F 113 H 19 H 101/72 95 07/18/18 08:35 07/18/18 11:05 07/18/18 08:35 07/18/18 08:35 07/18/18 08:35 Oxygen Delivery Method Room Air Weight: 97 lb 7.109 oz Body Mass Index (BMI) 19.1 Intake and Output for Last 24 Hours 07/16/18 07/17/18 07/18/18 23:59 23:59 23:59 Intake Total 4500.6 / 4500.6 2392 / 2392 353 / 353 Output Total 1175 / 1175 1325 / 1325 400 / 400 Balance 3325.6 / 3325.6 1067 / 1067 -47 / -47 Laboratory Tests Past 24 Hrs 07/18/18 07/18/18 05:50 05:50 WBC 10.4 RBC 3.65 L Hgb 10.4 L Hct 32.3 L MCV 88.5 MCH 28.5 MCHC 32.2 RDW 17.4 H RDW Differential 54.7 H Plt Count 115 L Differential Comment SCANNED Sodium 140 Potassium 3.2 L Chloride 109 H Carbon Dioxide 18.0 L Anion Gap 13 BUN 5 L Creatinine 0.64 Estim Creat Clear Calc 61.15 Est GFR (MDRD) Af Amer 120 Est GFR (MDRD) Non-Af 99 BUN/Creatinine Ratio 7.8 L Glucose 67 L Calcium 6.7 L Home Medications: Medications to take at Discharge Hydrocodone/Acetaminophen [Hydrocodone-Acetamin 5-325 mg] 1 - 2 each PO Q6H PRN 07/15/18 Duloxetine Hcl [Cymbalta] 60 mg PO DAILY capsule 07/18/18 Nystatin 500,000 unit PO 4X/DAY udc 07/18/18 Pantoprazole Sodium [Protonix] 40 mg PO BID tablet 07/18/18 Primary Care Physician: Dante Mclaughlin MD [Primary Care Provider] - Please follow up with your Primary Care Physician in: 1 Week Please Follow Up With: Radha Lennon MD When: 2-4 weeks Disposition: Halfway facility Minutes spent on discharge:: 35 Patient Condition:: Fair Medical Necessity - Tobacco Use Smoking Status: Never smoker Tobacco Use: Non-smoker Meaningful Use Info Meaningful Use Diagnoses (Choose all that apply): None applicable
[2018-07-18 12:51] LABS: Magnesium 1.4 mg/dL (1.6-2.6)
--- NOTE | 2018-07-18 13:10 | CASEMGMT ---
Insurance approved patient to go to TCU. SW notified patient and PA. SW also notified patient's sister. A message was left for patient's son. He was asking RN about other options such as Hospice or Palliative Care. SW spoke with physician and he spoke with patient's PCP who has Depression as patient's only diagnosis. Therefore, there are no diagnoses for referrals to Palliative or Hospice. SW left this message for patient's son and also let him know she is headed to TCU today. Plan: [facility] TCU under skilled level of care. Radha MATIAS LIVESTOCK SALES REPRESENTATIVE
--- NOTE | 2018-07-18 15:19 | CHAPLAIN ---
Type of Pastoral Visit ___ Initial Visit _x__ Follow-up Visit ___ On-call Visit ___ General Patient Visit ___ Spiritual Assessment ___ Family Conference ___ Bereavement ___ Rapid Response ___ Code Blue ___ Other (describe below) Pastoral Care Referral From _x__ Patient ___ Family ___ Nurse ___ Physician ___ Methods Engineer ___ [place] ___ Other (describe below) Sacrament/Intervention ___ Active listening ___ Anointing ___ Baptist ___ Bereavement ___ Communion ___ Jerica exploration ___ ___ Life review _x__ Prayer ___ Reconciliation ___ Sacrament of Sick _x__ Supportive presence ___ Wedding ___ Other (describe below) Pastoral Comments
[2018-07-18] MEDS: Magnesium Oxide 400 MG Tablet PO (15:46)
== END 2018-07-18 16:42 | disposition skilled nursing facility (03) | DRG 391 ==
LOC: ED 07-15 00:16 → PCU 07-15 02:14
PROVIDERS: Nurse Practitioner Family; Surgery; Admitting Provider Family Medicine; Emergency Provider Emergency Medicine; Family Provider Family Medicine; PCP Family Medicine; Visit Provider Internal Medicine
PROC: 0DJ08ZZ Inspection of Upper Intestinal Tract, Via Natural or Artificial Opening Endoscopic (ICD-10-PCS; CPT 43235; principal; 2018-07-16 14:40)
DX: K20.9 Esophagitis, unspecified (principal); E43 Unspecified severe protein-calorie malnutrition; Z68.1 Body mass index [BMI] 19.9 or less, adult; I47.1 Supraventricular tachycardia; K22.8 Other specified diseases of esophagus; D64.9 Anemia, unspecified; E87.6 Hypokalemia; E83.42 Hypomagnesemia; F32.9 Major depressive disorder, single episode, unspecified; F41.9 Anxiety disorder, unspecified
CPT/HCPCS: 36415; 80048; 80053; 82009; 83605; 83690; 83735; 85014; 85018; 85025; 85027; 85610; 85730; 86850; 86900; 88305; 88312; 88313; 88341; 88342; 93005; 97162; 97166; 97530; 97802; 99285; J7030; J7040; A4216; J2405; J3490

== ENCOUNTER 2018-07-18 17:02 | Inpatient (IN) | payer MEDICARE, SELFPAY ==
[2018-07-16 01:07] VITALS: BMI 19.1
[2018-07-18 17:05] VITALS: BP 89/58; PULSE 110; RESP 18; TEMP 36.6; O2SAT 97; BMI 20.4
--- NOTE | 2018-07-18 17:07 | NURSING ---
pt arrived from [facility] via bed at 1702
[2018-07-18 20:27] VITALS: PULSE 100; O2SAT 99
[2018-07-18] MEDS: NYSTATIN 500,000 UNIT/5 ML UDC 500000 UNIT PO (20:36)
--- NOTE | 2018-07-18 21:17 | PCM.HP.STD ---
Problem List (1) Nausea & vomiting Status: Acute (2) Upper gastrointestinal bleed Status: Acute (3) Anxiety Status: Chronic (4) Esophagitis Status: Acute (5) Gastritis Status: Acute (6) Anemia Status: Chronic (7) Depression Status: Chronic (8) GERD (gastroesophageal reflux disease) Status: Chronic Qualifiers: History of Present Illness Date of Admission: 07/18/18 Chief Complaint: Here for rehabilitation, strengthening, prior to discharge home alone. The patient is a 63 year old Female with below past medical history presented to [facility] Emergency Department 07/15/2018 with nausea, vomiting. Prior history of upper gastrointestinal bleed. Nausea, vomiting of mucous, then coffee ground emesis. EGD, colonoscopy not followed thru in the past. Stool guaiac positive, declined colonoscopy. WBC 14.4, Bicarb 18, INR 1.4. Type and Screen. IV Fluids, Zofran, Protonix bolus, drip, IV Phenergan. 07/15/2018 Admit to Hospital. Declined EGD, colonoscopy multiple times in recent past. Consult general surgery. Transfuse as needed. 07/16/2018 EKG sinus rhythm with shortened ID, premature supraventricular contractions. ST&T wave abnormality, consider anterior ischemia. 07/16/2018 Dr. Lennon performed EGD showing gastritis, esophagitis, biopsies done. Potassium replaced. Magnesium replaced. PSVT secondary to electrolyte disturbance. 07/18/2018 Admit to TCU with debility, here for rehabilitation, strengthening, prior to discharge home alone. Depression untreated, patient continues to mourn her who of cancer 2 years ago. Will adjust depression medications aggressively, consider grief counseling as outpatient. Past Medical History Past Medical History (Chronic Problems): Chronic Problems Anxiety (Chronic) Anemia (Chronic) Anxiety and depression (Chronic) Lethargy (Chronic) Uncontrolled depression (Chronic) Normochromic normocytic anemia (Chronic) Atrophic vaginitis (Chronic) Poor dental hygiene (Chronic) Fall (Chronic) Depression (Chronic) GERD (gastroesophageal reflux disease) (Chronic) Allergies No Known Allergies Allergy (Verified 07/14/18 23:37) Home Medications: Ambulatory Orders Medication Instructions Recorded Hydrocodone/Acetaminophen 1 - 2 each PO Q6H PRN 07/15/18 [Hydrocodone-Acetamin 5-325 mg] Duloxetine Hcl [Cymbalta] 60 mg PO DAILY 07/18/18 Nystatin 500,000 unit PO 4X/DAY 07/18/18 Pantoprazole Sodium [Protonix] 40 mg PO BID 07/18/18 Surgical History: appendectomy, tonsillectomy, - - Hand surgery, back surgery, csection Psychiatric History: Depression FARE ENFORCEMENT OFFICER History: No pertinent FARE ENFORCEMENT OFFICER history, - - atrophic vaginitis Lives: Alone Smoking Status: Never smoker Tobacco Use: Non-smoker, Cigarettes Drugs: None - *Family History Maternal History Items: Diabetes Paternal History Items: Cancer - Lung Review of Systems Constitutional: Denies: Chills, Fever, Weight Change HEENT: Denies: Head Aches, Sinus Congestion, Sinus Drainage Cardiovascular: Denies: Chest Pain, Palpitations Respiratory: Denies: Cough, Shortness of breath at rest, Sputum production Gastrointestinal: Denies: Abdominal Pain, Nausea, Vomiting Genitourinary: Denies: Dysuria Musculoskeletal: Denies: Joint Pain, Joint Tenderness Skin: Denies: Rash, Wounds Neurological: Denies: Numbness, Tingling, Focal weakness Psychiatric: Reports: Depression. Denies: Anxiety, Homicidal Ideations, Suicidal Ideations Hematologic/ Lymphatic: Denies: Easy Bruising, Easy Bleeding VTE Information - Inpt Only VTE Present on Admission: No VTE Mechan Device Prophylaxis: Knee High DAVY Hose VTE Pharm Prophylaxis ordered?: No Reason prophylaxis not ordered:: Medical Contraindication Patient Problems: Active and Suspected Problems Nausea & vomiting (Acute) Upper gastrointestinal bleed (Acute) Esophagitis (Acute) Gastritis (Acute) - Physical Exam General: Alert, Oriented x3, Cooperative HEENT: Atraumatic, PERRLA, EOMI, Normocephalic Neck: Supple, No JVD, Negative Carotid Bruits Lungs: Clear to auscultation, Normal air movement Cardiovascular: Regular rate, No murmurs Abdomen: Bowel Sounds Present, Soft, Non Tender Extremities: No edema, Capillary Refill Less than 3 Seconds Skin: No rashes, No breakdown Musculoskeletal: No Tenderness to Palpation of Joints or Extremities Neurological: Cranial nerves II-XII grossly intact Psych/Mental Status: Normal Affect, Appropriate Vital Signs Temp Pulse Resp BP Pulse Ox 98 F 110 H 18 89/58 L 97 07/18/18 17:05 07/18/18 17:05 07/18/18 17:05 07/18/18 17:05 07/18/18 17:05 Oxygen Delivery Method Room Air Body Mass Index (BMI) 19.1 Assessment/Plan All Active Problems Nausea & vomiting (Acute) Upper gastrointestinal bleed (Acute) Esophagitis (Acute) Gastritis (Acute) GI bleed (Acute) Incomplete bladder emptying (Acute) Vaginal atrophy (Acute) Urinary incontinence (Acute) Weakness (Acute) RADHA (acute kidney injury) (Resolved) CAP (community acquired pneumonia) (Resolved) Gastroenteritis (Resolved) Lactic acidosis (Resolved) SIRS (systemic inflammatory response syndrome) (Resolved) UGI bleed (Resolved) 63 year old female with below past medical history hospitalized for upper gastrointestinal bleeding secondary to gastritis, esophagitis, complicated by intractable depression, admitted to TCU with debility, here for rehabilitation, strengthening, prior to discharge home alone. Debility - PT/OT. Pain - Tylenol 1000MG Q6H PRN mild pain, Oxycodone 5MG Q4H PRN moderate pain. Bowel - Miralax 17GM daily, Dulcolax 10MG daily PRN. Pneumonia vaccination - Administer Prevnar 13 and/or Pneumovax 23 as necessary. DVT prophylaxis - contraindicated with recent gastrointestinal bleeding. Uncontrolled depression - Increase Fluoxetine to 40MG daily, add Bupropion 150MG twice daily, add Cytomel 25MCG daily, Consider referral to Psychiatry for ECT. Thrush - Nystatin 500,000 4x/day thru 07/23/2018. Gastritis/Esophagitis - Pantoprazole 40MG BID, follow biopsy results. Anemia - Follow H&H, transfuse as needed.
--- NOTE | 2018-07-18 21:24 | HP.PCM_ITS ---
Problem List (1) Nausea & vomiting Status: Acute (2) Upper gastrointestinal bleed Status: Acute (3) Anxiety Status: Chronic (4) Esophagitis Status: Acute (5) Gastritis Status: Acute (6) Anemia Status: Chronic (7) Depression Status: Chronic (8) GERD (gastroesophageal reflux disease) Status: Chronic Qualifiers: History of Present Illness Date of Admission: 07/18/18 Chief Complaint: Here for rehabilitation, strengthening, prior to discharge home alone. The patient is a 63 year old Female with below past medical history presented to [facility] Emergency Department 07/15/2018 with nausea, vomiting. Prior history of upper gastrointestinal bleed. Nausea, vomiting of mucous, then coffee ground emesis. EGD, colonoscopy not followed thru in the past. Stool guaiac positive, declined colonoscopy. WBC 14.4, Bicarb 18, INR 1.4. Type and Screen. IV Fluids, Zofran, Protonix bolus, drip, IV Phenergan. 07/15/2018 Admit to Hospital. Declined EGD, colonoscopy multiple times in recent past. Consult general surgery. Transfuse as needed. 07/16/2018 EKG sinus rhythm with shortened CO, premature supraventricular contractions. ST&T wave abnormality, consider anterior ischemia. 07/16/2018 Dr. Lennon performed EGD showing gastritis, esophagitis, biopsies done. Potassium replaced. Magnesium replaced. PSVT secondary to electrolyte disturbance. 07/18/2018 Admit to TCU with debility, here for rehabilitation, strengthening, prior to discharge home alone. Depression untreated, patient continues to mourn her who of cancer 2 years ago. Will adjust depression medications aggressively, consider grief counseling as outpatient. Past Medical History Past Medical History (Chronic Problems): Chronic Problems Anxiety (Chronic) Anemia (Chronic) Anxiety and depression (Chronic) Lethargy (Chronic) Uncontrolled depression (Chronic) Normochromic normocytic anemia (Chronic) Atrophic vaginitis (Chronic) Poor dental hygiene (Chronic) Fall (Chronic) Depression (Chronic) GERD (gastroesophageal reflux disease) (Chronic) Allergies No Known Allergies Allergy (Verified 07/14/18 23:37) Home Medications: Ambulatory Orders Medication Instructions Recorded Hydrocodone/Acetaminophen 1 - 2 each PO Q6H PRN 07/15/18 [Hydrocodone-Acetamin 5-325 mg] Duloxetine Hcl [Cymbalta] 60 mg PO DAILY 07/18/18 Nystatin 500,000 unit PO 4X/DAY 07/18/18 Pantoprazole Sodium [Protonix] 40 mg PO BID 07/18/18 Surgical History: appendectomy, tonsillectomy, - - Hand surgery, back surgery, csection Psychiatric History: Depression PSYCHOLOGICAL ASSISTANT History: No pertinent PSYCHOLOGICAL ASSISTANT history, - - atrophic vaginitis Lives: Alone Smoking Status: Never smoker Tobacco Use: Non-smoker, Cigarettes Drugs: None - *Family History Maternal History Items: Diabetes Paternal History Items: Cancer - Lung Review of Systems Constitutional: Denies: Chills, Fever, Weight Change HEENT: Denies: Head Aches, Sinus Congestion, Sinus Drainage Cardiovascular: Denies: Chest Pain, Palpitations Respiratory: Denies: Cough, Shortness of breath at rest, Sputum production Gastrointestinal: Denies: Abdominal Pain, Nausea, Vomiting Genitourinary: Denies: Dysuria Musculoskeletal: Denies: Joint Pain, Joint Tenderness Skin: Denies: Rash, Wounds Neurological: Denies: Numbness, Tingling, Focal weakness Psychiatric: Reports: Depression. Denies: Anxiety, Homicidal Ideations, Suicidal Ideations Hematologic/ Lymphatic: Denies: Easy Bruising, Easy Bleeding VTE Information - Inpt Only VTE Present on Admission: No VTE Mechan Device Prophylaxis: Knee High DAVY Hose VTE Pharm Prophylaxis ordered?: No Reason prophylaxis not ordered:: Medical Contraindication Patient Problems: Active and Suspected Problems Nausea & vomiting (Acute) Upper gastrointestinal bleed (Acute) Esophagitis (Acute) Gastritis (Acute) - Physical Exam General: Alert, Oriented x3, Cooperative HEENT: Atraumatic, PERRLA, EOMI, Normocephalic Neck: Supple, No JVD, Negative Carotid Bruits Lungs: Clear to auscultation, Normal air movement Cardiovascular: Regular rate, No murmurs Abdomen: Bowel Sounds Present, Soft, Non Tender Extremities: No edema, Capillary Refill Less than 3 Seconds Skin: No rashes, No breakdown Musculoskeletal: No Tenderness to Palpation of Joints or Extremities Neurological: Cranial nerves II-XII grossly intact Psych/Mental Status: Normal Affect, Appropriate Vital Signs Temp Pulse Resp BP Pulse Ox 98 F 110 H 18 89/58 L 97 07/18/18 17:05 07/18/18 17:05 07/18/18 17:05 07/18/18 17:05 07/18/18 17:05 Oxygen Delivery Method Room Air Body Mass Index (BMI) 19.1 Assessment/Plan All Active Problems Nausea & vomiting (Acute) Upper gastrointestinal bleed (Acute) Esophagitis (Acute) Gastritis (Acute) GI bleed (Acute) Incomplete bladder emptying (Acute) Vaginal atrophy (Acute) Urinary incontinence (Acute) Weakness (Acute) RADHA (acute kidney injury) (Resolved) CAP (community acquired pneumonia) (Resolved) Gastroenteritis (Resolved) Lactic acidosis (Resolved) SIRS (systemic inflammatory response syndrome) (Resolved) UGI bleed (Resolved) 63 year old female with below past medical history hospitalized for upper gastrointestinal bleeding secondary to gastritis, esophagitis, complicated by intractable depression, admitted to TCU with debility, here for rehabilitation, strengthening, prior to discharge home alone. * Debility - PT/OT. * Pain - Tylenol 1000MG Q6H PRN mild pain, Oxycodone 5MG Q4H PRN moderate pain. * Bowel - Miralax 17GM daily, Dulcolax 10MG daily PRN. * Pneumonia vaccination - Administer Prevnar 13 and/or Pneumovax 23 as necessary. * DVT prophylaxis - contraindicated with recent gastrointestinal bleeding. * Uncontrolled depression - Increase Fluoxetine to 40MG daily, add Bupropion 150MG twice daily, add Cytomel 25MCG daily, Consider referral to Psychiatry for ECT. * Thrush - Nystatin 500,000 4x/day thru 07/23/2018. * Gastritis/Esophagitis - Pantoprazole 40MG BID, follow biopsy results. * Anemia - Follow H&H, transfuse as needed.
[2018-07-19 06:27] LABS: Absolute Lymphocyte Count 1.32 X10^3/ul (0.83-4.51); Absolute Neutrophil Count 4.6 X10^3/uL (2.0-7.7); Basophil# 0.02 X10^3/uL; Basophil% 0.3 % (0-1); Eosinophil# 0.09 X10^3/uL; Eosinophils% 1.3 % (0-5); Hematocrit 31.6 % (37-47); Hemoglobin 10.3 g/dl (12.0-15.0); Lymphocyte # 1.32 X10^3/ul (4.0); Lymphocyte % 19.6 % (19-41); Mean Corp Hgb Conc 32.6 g/gl (32-36); Mean Corpuscular Hgb 28.9 pg (27.0-32.0); Mean Corpuscular Volume 88.5 fL (81-99); Monocyte# 0.56 X10^3/uL; Monocyte% 8.3 % (0-10); Neutrophil # 4.64 X10^3/uL (2.7-7.7); Platelet Count 104 K/mm3 (150-450); RBC Distribution Width CV 17.4 % (11.6-14.6); Red Blood Count 3.57 M/mm3 (4.2-5.4); White Blood Count 6.7 K/mm3 (4.4-11.0)
[2018-07-19 06:29] LABS: Anion Gap 14 (5-15); BUN 7 mg/dL (7-18); BUN/Creat Ratio 10.6 RATIO (10-20); Calcium,Total 7.3 mg/dL (8.5-10.1); Chloride 106 mmol/L (98-107); Creatinine, Serum 0.66 mg/dL (0.55-1.02); EST Glomerular Filtration Rate 95 mL/min (>60); Est Glom Filt Rate - Afr Amer 115 mL/min (>60); Estimated Creatinine Clearance 61.04 ml/min; Glucose 71 mg/dL (74-106); Potassium 2.8 mmol/L (3.5-5.1); Sodium Level 140 mmol/L (136-145)
[2018-07-19 06:30] LABS: Differential Indicated SCAN CRITERIA MET; POSITIVE COUNT NO; POSITIVE DIFFERENTIAL NO; POSITIVE MORPHOLOGY YES
[2018-07-19] MEDS: FLUoxetine 20 MG Capsule 40 MG PO (06:47)
[2018-07-19] MEDS: buPROPion (SR) 150 MG Tablet.SA PO (06:47)
[2018-07-19] MEDS: Polyethylene Glycol 3350 17 GM PACKET PO (06:47)
[2018-07-19] MEDS: Pantoprazole Sodium 40 MG Tablet PO (06:47)
[2018-07-19] MEDS: NYSTATIN 500,000 UNIT/5 ML UDC 500000 UNIT PO ×2 (06:47→11:18)
[2018-07-19 06:50] LABS: Differential Comment SCANNED
[2018-07-19] MEDS: oxyCODONE 5 MG Tablet PO (07:00)
--- NOTE | 2018-07-19 10:44 | PHA.CONS_ITS ---
<Christiano Hawkins C - Last Filed: 07/19/18 09:35> Progress Note - Pharmacy Subjective: [] TCU Admission Objective: Allergies No Known Allergies Allergy (Verified 07/14/18 23:37) Current Medications Generic Name Dose Route Start Last Admin Trade Name Freq PRN Reason Stop Dose Admin Acetaminophen 1,000 mg 07/18/18 21:33 Tylenol PO Q6H PRN PRN MILD PAIN (1-3/10) Bisacodyl 10 mg 07/18/18 21:33 Dulcolax PO DAILY PRN Constipation Bupropion HCl 150 mg 07/19/18 06:00 07/19/18 06:47 Wellbutrin Sr (150mg Tablets) PO 150 mg BID OFELIA Administration Calamine/Phenol 1 applic 07/19/18 18:00 Calmoseptine Ointment TOPICAL BID [facility] Protocol Fluoxetine HCl 40 mg 07/19/18 06:00 07/19/18 06:47 Prozac PO 40 mg DAILY OFELIA Administration Liothyronine Sodium 25 mcg 07/19/18 06:00 07/19/18 06:47 Cytomel PO 25 mcg DAILY@0600 OFELIA Administration Multi-Ingredient Cream 1 applic 07/18/18 22:40 Eucerin TOPICAL BID PRN PRN Protocol Nystatin 500,000 unit 07/18/18 22:00 07/19/18 06:47 Nystatin PO 07/23/18 22:01 500,000 unit 4X/DAY OFELIA Administration Oxycodone HCl 5 mg 07/18/18 21:33 07/19/18 07:00 Oxyir PO 5 mg Q4H PRN PRN Administration MODERATE PAIN (4-5/10) Pantoprazole Sodium 40 mg 07/19/18 06:00 07/19/18 06:47 Protonix PO 40 mg BID OFELIA Administration Polyethylene Glycol 17 gm 07/19/18 06:00 07/19/18 06:47 Miralax PO 17 gm DAILY OFELIA Administration Potassium Chloride 20 meq 07/19/18 17:00 K-Dur PO BIDCM OFELIA Tuberculin PPD 5 tu 07/19/18 10:00 Tubersol, Aplisol, Ppd ID 07/19/18 10:01 X1 ONE Tuberculin PPD 5 07/26/18 10:00 Tubersol, Aplisol, Ppd ID 07/26/18 10:01 X1 ONE Problem List Nausea & vomiting (Acute) Upper gastrointestinal bleed (Acute) Anxiety (Chronic) Esophagitis (Acute) Gastritis (Acute) Anemia (Chronic) Vital Signs Temp Pulse Resp BP Pulse Ox 98 F 100 18 89/58 L 99 07/18/18 17:05 07/18/18 20:27 07/18/18 17:05 07/18/18 17:05 07/18/18 20:27 Oxygen Delivery Method Room Air Weight: 47.429 kg Body Mass Index (BMI) 20.4 Sodium 140 mmol/L (136-145) 07/19/18 05:27 Potassium 2.8 mmol/L (3.5-5.1) L 07/19/18 05:27 Chloride 106 mmol/L (98-107) 07/19/18 05:27 Carbon Dioxide 20.0 mmol/L (21.0-32.0) L 07/19/18 05:27 Anion Gap 14 (5-15) 07/19/18 05:27 BUN 7 mg/dL (7-18) 07/19/18 05:27 Creatinine 0.66 mg/dL (0.55-1.02) 07/19/18 05:27 Est GFR (MDRD) Af Amer 115 mL/min (>60) 07/19/18 05:27 Est GFR (MDRD) Non-Af 95 mL/min (>60) 07/19/18 05:27 BUN/Creatinine Ratio 10.6 RATIO (10-20) 07/19/18 05:27 Glucose 71 mg/dL (74-106) L 07/19/18 05:27 Assessment/Plan: 1) Pain: Acetaminophen 1000mg po q6h prn for mild pain, Oxycodone 5mg po q4h prn for moderate pain. Please continue to monitor prn usage, and for signs/symptoms of increased/decreased pain. 2) Thrush: Nystatin 500,000 units po 4 times a day thru 07/23/18. Please continue to monitor for worsening signs of thrush 3) Gastritis/Esophagitis: Pantoprazole 40mg po bid. Please continue to monitor for signs/symptoms of gi bleed Psychotropic Medications: Depression: Buproprion SR 150mg po bid, Fluoxetine 40mg po daily, Cytomel 25mg po daily. Please continue to monitor thyroid labs. See progress note about pt's depression and gdr Unnecessary Medications: none Bowel Regimen: Bisacodyl 10mg po daily prn for constipation, Miralax 17gm po daily. Please continue to monitor prn use and for signs/symptoms of constipation/diarrhea. Date of Note:: 07/19/18 - Provider Comments Provider responsibility: Provider responsible to enter orders to implement recommendations <Claudy Ayala Chi - Last Filed: 07/19/18 15:58> Progress Note - Pharmacy Subjective: [] Objective: Allergies No Known Allergies Allergy (Verified 07/14/18 23:37) Current Medications Generic Name Dose Route Start Last Admin Trade Name Freq PRN Reason Stop Dose Admin Acetaminophen 1,000 mg 07/18/18 21:33 Tylenol PO Q6H PRN PRN MILD PAIN (1-3/10) Bisacodyl 10 mg 07/18/18 21:33 Dulcolax PO DAILY PRN Constipation Bupropion HCl 150 mg 07/19/18 06:00 07/19/18 06:47 Wellbutrin Sr (150mg Tablets) PO 150 mg BID OFELIA Administration Calamine/Phenol 1 applic 07/19/18 18:00 Calmoseptine Ointment TOPICAL BID OFELIA Protocol Fluoxetine HCl 40 mg 07/19/18 06:00 07/19/18 06:47 Prozac PO 40 mg DAILY OFELIA Administration Liothyronine Sodium 25 mcg 07/19/18 06:00 07/19/18 06:47 Cytomel PO 25 mcg DAILY@0600 OFELIA Administration Multi-Ingredient Cream 1 applic 07/18/18 22:40 Eucerin TOPICAL BID PRN PRN Protocol Nutritional Formula (Lactose Free) 120 ml 07/19/18 12:00 07/19/18 11:16 Ensure Enlive PO 120 ml 4X/DAY OFELIA Administration Nystatin 500,000 unit 07/18/18 22:00 07/19/18 11:18 Nystatin PO 07/23/18 22:01 500,000 unit 4X/DAY OFELIA Administration Oxycodone HCl 5 mg 07/18/18 21:33 07/19/18 07:00 Oxyir PO 5 mg Q4H PRN PRN Administration MODERATE PAIN (4-5/10) Pantoprazole Sodium 40 mg 07/19/18 06:00 07/19/18 06:47 Protonix PO 40 mg BID OFELIA Administration Polyethylene Glycol 17 gm 07/19/18 06:00 07/19/18 06:47 Miralax PO 17 gm DAILY OFELIA Administration Potassium Chloride 20 meq 07/19/18 17:00 K-Dur PO BIDCM OFELIA Tuberculin PPD 5 tu 07/26/18 10:00 Tubersol, Aplisol, Ppd ID 07/26/18 10:01 X1 ONE Problem List Nausea & vomiting (Acute) Upper gastrointestinal bleed (Acute) Anxiety (Chronic) Esophagitis (Acute) Gastritis (Acute) Anemia (Chronic) Vital Signs Temp Pulse Resp BP Pulse Ox 97.7 F L 109 H 16 101/59 L 97 07/19/18 15:21 07/19/18 15:21 07/19/18 15:21 07/19/18 15:21 07/19/18 15:21 Oxygen Delivery Method Room Air Weight: 47.429 kg Body Mass Index (BMI) 20.4 Sodium 140 mmol/L (136-145) 07/19/18 05:27 Potassium 2.8 mmol/L (3.5-5.1) L 07/19/18 05:27 Chloride 106 mmol/L (98-107) 07/19/18 05:27 Carbon Dioxide 20.0 mmol/L (21.0-32.0) L 07/19/18 05:27 Anion Gap 14 (5-15) 07/19/18 05:27 BUN 7 mg/dL (7-18) 07/19/18 05:27 Creatinine 0.66 mg/dL (0.55-1.02) 07/19/18 05:27 Est GFR (MDRD) Af Amer 115 mL/min (>60) 07/19/18 05:27 Est GFR (MDRD) Non-Af 95 mL/min (>60) 07/19/18 05:27 BUN/Creatinine Ratio 10.6 RATIO (10-20) 07/19/18 05:27 Glucose 71 mg/dL (74-106) L 07/19/18 05:27 Assessment/Plan: Psychotropic Medications: Unnecessary Medications: Bowel Regimen: - Provider Comments Provider responsibility: Provider responsible to enter orders to implement recommendations Provider Comments to Recommendations by Pharmacy: Agree
--- NOTE | 2018-07-19 10:49 | NURSING ---
Pt had small emesis, states she is very nauseous. Ba and feels like she can't take take water without vomiting. Shade VILLASENOR aware
--- NOTE | 2018-07-19 11:13 | CASEMGMT ---
Addendum entered by Tati Macias 07/19/18 12:12: Please note correction: LW is on file in the chart. LOCO Abbasi Original Note: See assessment for further details. SW spoke w/pt in room, pt is nauseous at present. Pt states lives w/grandson and plans to return to home w/grandson at discharge. Pt is open to home health care, states has not had in past. Pt is very hard of hearing, and may have some memory impairment as well. SW spoke w/pt about depression and anxiety, pt confirms has both. Pt denies having ever been in treatment for this, but would like to have counseling in the future. Pt denies wanting to harm herself. SW explained we can assist w/referral at discharge, pt seems open to this. SW spoke w/pt about LW/POA, pt thinks LW on file even though this SW does not see that this is the case. POA is on file however. SW will continue to follow for appropriate discharge needs. Tentative plan: Home w/grandson, possible [facility] referral, referral to counseling for depression/anxiety. LOCO Abbasi
[2018-07-19] MEDS: Tuberculin,Purif.prot.deriv. 50 TU/ML Vial 5 ML ID (11:16)
[2018-07-19] MEDS: Magnesium Citrate 300 ML PO (11:45)
[2018-07-19 14:21] VITALS: BP 86/52; PULSE 114; RESP 16; TEMP 36.1; O2SAT 98
[2018-07-19 14:27] VITALS: BP 95/60
--- NOTE | 2018-07-19 14:38 | NURSING ---
Anabelle and therapy expressed concern about pt's neuro status, confusion. Assessed and pt oriented to person place time, able to states who president is, answers questions appropriately, skin warm and dry, pale, denies pain, sob, chest pain, n/t, hand grasps equal, pedal pushes strong, no drifting or facial droop noted. Please see vital. Shade notified to speak with Dr. Ayala.
[2018-07-19 15:21] VITALS: BP 101/59; PULSE 109; RESP 16; TEMP 36.5; O2SAT 97
--- NOTE | 2018-07-19 16:51 | NURSING ---
Soap suds enema given, small flecks noted, pt unable to hold water in. Also attempted x1 for iv, unsuccessful, will have JACKLYN Laguerre try.
--- NOTE | 2018-07-19 18:13 | NURSING ---
attempted iv x2 unsuccessful oil house attendant renee Banks at bedside aWare she to discuss getting orders for midline or ok for foot iv with primary RN
--- NOTE | 2018-07-19 18:20 | NURSING ---
Dr. Ayala notified of pt condition, multiple iv attempts, low bp and increased hr. Order to send to ED. transferred to ED via bed.
--- NOTE | 2018-07-19 18:36 | NURSING ---
Attempted to call Son, Roshan. left voicemail. Called sister, Chanelle and notified of transfer to ED per Dr. Ayala for LBM 5/8 and multiple brown emesis. decreasing BP, increasing HR, unable to obtain line.
--- NOTE | 2018-07-19 22:45 | DCINST_ITS ---
You will use the following diet at home:: No restrictions, Regular Your food should be the consistency of: Regular Your liquids should be the consistency of: Regular/Thin Discharge Activity: Return to Normal Activity, Use Walker Weight Bearing Status: Weight bearing as tolerated Call your doctor if you observe: Fever of 101 or Higher, Inability to urinate, Inability to have a bowel movement, Shortness of breath, Chest pain, Uncontrol led pain Allergies/Adverse Reactions: Allergies No Known Allergies Allergy (Verified 07/19/18 18:38) Medications to take at Discharge Hydrocodone/Acetaminophen [Hydrocodone-Acetamin 5-325 mg] 1 - 2 each PO Q6H PRN 07/15/18 Duloxetine Hcl [Cymbalta] 60 mg PO DAILY 07/18/18 Nystatin 500,000 unit PO 4X/DAY 07/18/18 Pantoprazole Sodium [Protonix] 40 mg PO BID 07/18/18 Primary Care Physician: Dante Mclaughlin MD [Primary Care Provider] - Please follow up with your Primary Care Physician in: 1 week. Test Results: Test results from this visit will be discussed in further detail at your follow- up appointment, if applicable. Please Follow Up With: Radha Lennon MD Proposed Discharge Date: 07/19/18
--- NOTE | 2018-07-19 22:45 | PCM.DC.SUM ---
Discharge Date and Diagnosis Date of Admission: 07/18/18 Date of Discharge: 07/19/18 - Secondary Discharge Diagnosis Chronic Problems Anxiety (Chronic) Anemia (Chronic) Anxiety and depression (Chronic) Lethargy (Chronic) Uncontrolled depression (Chronic) Normochromic normocytic anemia (Chronic) Atrophic vaginitis (Chronic) Poor dental hygiene (Chronic) Fall (Chronic) Depression (Chronic) GERD (gastroesophageal reflux disease) (Chronic) Hospital Course and Treatment Operations: None Procedures: None Summary of Care Provided: The patient is a 63 year old Female with below past medical history hospitalized for upper gastrointestinal bleeding secondary to gastritis, esophagitis, complicated by intractable depression, admitted to TCU with debility, here for rehabilitation, strengthening, prior to discharge home alone. 07/19/2018 Resident nauseous, vomiting foul material, no BM since 07/11/2018, Magnesium citrate intolerable, Soap Suds enema without results. Resident hypotensive, tachycardic. Discharge to [facility] Emergency Department for evaluation, admission to hospital. - Physical Exam Vital Signs Temp Pulse Resp BP Pulse Ox 97.7 F L 109 H 16 101/59 L 97 07/19/18 15:21 07/19/18 15:21 07/19/18 15:21 07/19/18 15:21 07/19/18 15:21 Oxygen Delivery Method Room Air Weight: 47.429 kg Body Mass Index (BMI) 20.4 Intake and Output for Last 24 Hours 07/17/18 07/18/18 07/19/18 23:59 23:59 23:59 Intake Total 120 / 120 Output Total 100 / 100 200 / 200 Balance -100 / -100 -80 / -80 Laboratory Tests Past 24 Hrs 07/19/18 07/19/18 05:27 05:27 WBC 6.7 RBC 3.57 L Hgb 10.3 L Hct 31.6 L MCV 88.5 MCH 28.9 MCHC 32.6 RDW 17.4 H RDW Differential 57.0 H Plt Count 104 L Immature Gran % (Auto) 1.500 H Neut % (Auto) 69.0 Lymph % (Auto) 19.6 [place] % (Auto) 8.3 Eos % (Auto) 1.3 Baso % (Auto) 0.3 Absolute Neuts (auto) 4.6 Absolute Lymphs (auto) 1.32 Total Counted Not Reportable Differential Comment SCANNED Sodium 140 Potassium 2.8 L Chloride 106 Carbon Dioxide 20.0 L Anion Gap 14 BUN 7 Creatinine 0.66 Estim Creat Clear Calc 61.04 Est GFR (MDRD) Af Amer 115 Est GFR (MDRD) Non-Af 95 BUN/Creatinine Ratio 10.6 Glucose 71 L Calcium 7.3 L Discharge Diet: No Restrictions Discharge Activity: Return to Normal Activity, Use Walker Weight Bearing Status: Weight bearing as tolerated Call your doctor if you observe: Fever of 101 or Higher, Inability to urinate, Inability to have a bowel movement, Shortness of breath, Chest pain, Uncontrolled pain Home Medications: Medications to take at Discharge Hydrocodone/Acetaminophen [Hydrocodone-Acetamin 5-325 mg] 1 - 2 each PO Q6H PRN 07/15/18 Duloxetine Hcl [Cymbalta] 60 mg PO DAILY 07/18/18 Nystatin 500,000 unit PO 4X/DAY 07/18/18 Pantoprazole Sodium [Protonix] 40 mg PO BID 07/18/18 Primary Care Physician: Dante Mclaughlin MD [Primary Care Provider] - Please follow up with your Primary Care Physician in: 1 week. Please Follow Up With: Radha Lennon MD Disposition: Acute care Hospital Minutes spent on discharge:: 30 Patient Condition:: Guarded Medical Necessity - Tobacco Use Smoking Status: Never smoker Tobacco Use: Non-smoker, Cigarettes Meaningful Use Info Meaningful Use Diagnoses (Choose all that apply): None applicable
--- NOTE | 2018-07-20 20:55 | NURSING ---
Patient back on floor at this time from PCU. Per report from [facility] as well as per family patient has been refusing medications. Patient moaning and crying out in pain. Per family nursing over on PCU tried to give patient tylenol before she came back to TCU. Patient refused tylenol. Dr. Ayala notified of this. New orders given.
[2018-07-20 21:34] VITALS: BP 106/59; PULSE 112; RESP 18; TEMP 35.8; O2SAT 98
[2018-07-20] MEDS: Morphine 2 MG/ML Syringe IV (22:06)
[2018-07-20] MEDS: Dext 5%-0.45% NS 1,000 ML 50 ML IV (22:12)
[2018-07-21] MEDS: Morphine 2 MG/ML Syringe IV ×3 (03:50→17:17)
[2018-07-21] MEDS: Menthol/Lanolin/Calamine/Znox 113 GM Tube 1 APPLIC TOPICAL ×2 (04:41→17:22)
[2018-07-21] MEDS: Cephalexin Suspension 250 MG/5 ML PO.SYRINGE 500 MG PO ×2 (05:04→13:37)
[2018-07-21] MEDS: Nystatin Powder 15gm Bottle 1 APPLIC TOPICAL ×2 (05:09→20:46)
[2018-07-21 07:51] LABS: Anion Gap 7 (5-15); BUN 5 mg/dL (7-18); BUN/Creat Ratio 6.8 RATIO (10-20); Calcium,Total 6.7 mg/dL (8.5-10.1); Chloride 113 mmol/L (98-107); Creatinine, Serum 0.74 mg/dL (0.55-1.02); EST Glomerular Filtration Rate 84 mL/min (>60); Est Glom Filt Rate - Afr Amer 101 mL/min (>60); Estimated Creatinine Clearance 54.44 ml/min; Glucose 101 mg/dL (74-106); Potassium 2.9 mmol/L (3.5-5.1); Sodium Level 140 mmol/L (136-145)
--- NOTE | 2018-07-21 09:18 | NURSING ---
New order for KCL 40mEq x1 now then 20mEq daily.
--- NOTE | 2018-07-21 09:31 | NURSING ---
Addendum entered by Renée Strong 07/21/18 09:42: Dr. Ayala made aware that patient vomited up potassium. NNO. Original Note: Patient laying in bed, becomes agitated and moans with any kind of physical stimuli. Responds to questions, but is only alert to self. Was able to get patient to drink a few sips of water. Attempted to give potassium to patient, had emesis a few minutes after administration. Bladder scan shows 0mL. IVF running at 50mL/hr continously.
[2018-07-21 09:48] LABS: Absolute Lymphocyte Count 1.29 X10^3/ul (0.83-4.51); Absolute Neutrophil Count 5.3 X10^3/uL (2.0-7.7); Basophil# 0.02 X10^3/uL; Basophil% 0.3 % (0-1); Eosinophil# 0.05 X10^3/uL; Eosinophils% 0.7 % (0-5); Hematocrit 29.9 % (37-47); Hemoglobin 9.8 g/dl (12.0-15.0); Lymphocyte # 1.29 X10^3/ul (4.0); Lymphocyte % 18.1 % (19-41); Mean Corp Hgb Conc 32.8 g/gl (32-36); Mean Corpuscular Hgb 28.7 pg (27.0-32.0); Mean Corpuscular Volume 87.4 fL (81-99); Monocyte# 0.41 X10^3/uL; Monocyte% 5.8 % (0-10); Neutrophil # 5.26 X10^3/uL (2.7-7.7); Platelet Count 104 K/mm3 (150-450); RBC Distribution Width CV 17.6 % (11.6-14.6); RBC Distribution Width SD 56.3 fl (35.1-43.9); Red Blood Count 3.42 M/mm3 (4.2-5.4); White Blood Count 7.1 K/mm3 (4.4-11.0)
[2018-07-21 09:49] LABS: Absolute Nucleated RBC Count 0.06 10^3/uL (0-5); Differential Indicated SCAN CRITERIA MET; NRBC Flagged by Analyzer 0.9 % (0-5); POSITIVE COUNT NO; POSITIVE DIFFERENTIAL NO; POSITIVE MORPHOLOGY YES
[2018-07-21 09:50] LABS: Hypochromasia 1+; Platelet Estimate MOD DEC (ADEQ); Platelet Morphology LARGE
--- NOTE | 2018-07-21 14:22 | NURSING ---
Pulse ox 88% on RA, placed on 1LO2 NC, pulse ox now 96%. This nurse at bedside, encouraged pt to take a small sip of water. Pt resting in bed, repositioned, will continue to monitor.
[2018-07-21 14:34] VITALS: BP 126/72; PULSE 119; RESP 22; TEMP 36.9; O2SAT 96
--- NOTE | 2018-07-21 18:25 | NURSING ---
Dr. Ayala updated on low urine output for shift. Feels patient is at end of life. Patient's son, MIRELA Islas, updated. Will being coming in tonight to sign DNRCC paperwork so patient can pass comfortably without lifesaving measures, per her wishes. New order to give IV NS 1000mL x1 bag.
[2018-07-21] MEDS: 0.9% Normal Saline 1,000 ML 500 ML IV (18:40)
--- NOTE | 2018-07-21 19:39 | NURSING ---
Dr Ayala called in. N.O. for Atropine and Ativan PRN.
--- NOTE | 2018-07-21 20:05 | NURSING ---
NS bolus complete at this time. Pt resting comfortably in bed with eyes closed. Pulse ox 86% on 1L, oxygen increased to 3L. pulse ox 91%. Will continue to monitor.
[2018-07-21] MEDS: LORazepam 2 MG/ML Syringe 0.5 MG IV (21:47)
[2018-07-21] MEDS: 0.9% NaCl Peripheral Flush Adult/Peds IV (21:50)
--- NOTE | 2018-07-21 22:38 | NURSING ---
Pt noted to have rhonci throughout lungs. Pt not opening mouth for atropine drops.
--- NOTE | 2018-07-21 23:11 | NURSING ---
Pt's son Roshan stating he does not want to come at this time to see him mother stating I said my goodbyes earlier when I came in to sign the paperwork. Pt son wanting to be updated with any further changes with pt. Pt's sister Chanelle stated she will come in to be with her sister. Pt's pulse ox 81% on 6L humidified oxygen, resting with eyes closed, does not appear to be in any pain/discomfort. Will continue to monitor.
--- NOTE | 2018-07-21 23:11 | NURSING ---
Addendum entered by Linda Meade 07/22/18 00:34: Pt's grandson and 2 nieces arrived at this time. Original Note: Addendum entered by Linda Meade 07/22/18 00:09: Pt's sister Chanelle arrived at this time. Original Note: Pt's son Roshan and sister Chanelle updated on pt's condition.
[2018-07-22] MEDS: Morphine 2 MG/ML Syringe IV ×2 (00:23→10:53)
[2018-07-22] MEDS: 0.9% NaCl Peripheral Flush Adult/Peds IV ×2 (00:33→03:33)
[2018-07-22] MEDS: Atropine Sulfate 1% 2 ml Bottle 4 DRP SL/PO ×2 (01:25→04:47)
--- NOTE | 2018-07-22 01:30 | NURSING ---
Pt repositioned at this time, atropine given. Will continue to monitor.
--- NOTE | 2018-07-22 02:30 | NURSING ---
Family remains at pt's bedside. Pt appears to be comfortable, Pulse ox 90% on 6L.
[2018-07-22] MEDS: LORazepam 2 MG/ML Syringe 0.5 MG IV (03:33)
[2018-07-22] MEDS: Nystatin Powder 15gm Bottle 1 APPLIC TOPICAL (04:44)
[2018-07-22] MEDS: Menthol/Lanolin/Calamine/Znox 113 GM Tube 1 APPLIC TOPICAL ×2 (04:44→17:58)
--- NOTE | 2018-07-22 06:47 | NURSING ---
Pt resting comfortably in bed, no discomfort noted.
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
--- NOTE | 2018-07-22 10:55 | NURSING ---
Patient turned to right side, not responsive to verbal/physical stimuli. Breathing labored and irregular, mild mottling to BL heels. Medicated with PRN morphine for labored breathing. Will continue to monitor.
[2018-07-22 16:00] VITALS: BP 103/31; PULSE 52; RESP 30; TEMP 37.3; O2SAT 83
--- NOTE | 2018-07-22 17:59 | NURSING ---
Patient resting in bed with eyes closed, unresponsive. Turned to left side. Respirations mildly labored and irregular.
--- NOTE | 2018-07-22 19:52 | NURSING ---
Addendum entered by Linda Meade 07/22/18 20:08: Dr Ayala notified, pt's son Roshan notified, message left with pt's sister Chanelle and pt's niece Melania notified. Pathology Laboratory Aides Teacher also notified. Per pt's POA son Roshan, would like pt's belongings in a bag and he will pick them up tomorrow. Original Note: RN entered room to find pt's heart sounds absent, respirations absent, pupils dilated and fixed. Verified with Kaela Palomares RN.
--- NOTE | 2018-07-22 20:51 | NURSING ---
[facility] and [facility] called at this time.
--- NOTE | 2018-07-23 01:05 | NURSING ---
[facility] personnel here to transport pt at this time.
--- NOTE | 2018-07-24 10:25 | CASEMGMT ---
Insurance Insurance updated of pt on 07/22/18. Auth# [id number] SAEED Roberts
== END 2018-07-23 01:09 | DRG 948 ==
PROVIDERS: Admitting Provider Family Medicine Geriatric Medicine; Family Provider Family Medicine; PCP Family Medicine; Referring Provider Family Medicine Geriatric Medicine; Visit Provider Family Medicine Geriatric Medicine
DX: R53.81 Other malaise (principal); B37.0 Candidal stomatitis; F32.9 Major depressive disorder, single episode, unspecified; F41.9 Anxiety disorder, unspecified; K21.0 Gastro-esophageal reflux disease with esophagitis; D64.9 Anemia, unspecified; R00.0 Tachycardia, unspecified; I95.9 Hypotension, unspecified; K29.70 Gastritis, unspecified, without bleeding
CPT/HCPCS: 36415; 80048; 85025; 97110; 97162; 97166; 97530; 97535; 97802; J7030; A4216; J7799

== ENCOUNTER 2018-07-19 18:37 | Observation (INO) | payer MEDICARE, SELFPAY ==
[2018-07-18 17:05] VITALS: BMI 20.4
[2018-07-19] VITALS (7 sets, daily range): BP systolic 92–121; BP diastolic 57–87; PULSE 106–117; RESP 16–22; TEMP 36.6–36.8; O2SAT 99–100; BMI 24.5; BMI 22.3
--- NOTE | 2018-07-19 19:25 | EKG12_ITS ---
Test Reason : A-FIB Blood Pressure : / mmHG Vent. Rate : 113 BPM Atrial Rate : 113 BPM P-R Int : 098 ms QRS Dur : 068 ms QT Int : 352 ms P-R-T Axes : 040 042 187 degrees QTc Int : 482 ms Sinus tachycardia with short FL with Premature atrial complexes ST&T abnormality, consider anterior ischemia ST & T wave abnormality, consider inferolateral ischemia Abnormal ECG Confirmed by CARMEN GARZA, LANRE ([id number]), greeting card editor JOSE SOARES ([id number]) on 07/23/2018 4:20:35 PM Referred By: Carmine Foy Confirmed By:LANRE MORALES MD
--- NOTE | 2018-07-19 19:25 | CT_ITS ---
STUDY: CT ABDOMEN AND PELVIS WITHOUT CONTRAST REASON FOR EXAM: Female, 63 years old. Constipation x8 days. Vomiting RADIATION DOSAGE (If Supplied By Facility): CTDIvol = ( 6.35 ) mGy, DLP = ( 290.15 ) mGycm TECHNIQUE: Transaxial images were obtained from the dome of the diaphragm to the symphysis pubis without oral contrast, and without intravenous contrast. Sagittal and coronal images were reconstructed. Individualized dose optimization techniques were used for this CT. COMPARISON: 02/12/2018 FINDINGS: Bibasilar airspace disease with consolidation and small effusion; right greater than left. Mild cardiomegaly Normal liver. Mild distention of the gallbladder with gallstones. No evidence of pericholecystic fluid or wall thickening. Normal spleen. There is diffuse atrophy of the pancreas. Normal bilateral adrenal glands. There is mild cortical atrophy of the right kidney, consistent with chronic medical renal disease. There is mild cortical atrophy of the left kidney, consistent with chronic medical renal disease. There is a small hiatal hernia. Normal small intestine. Mild distended ascending and transverse colon with air-fluid levels. There is an area of segmental wall thickening and edema involving the descending colon. This suggests colitis. Chronic diverticulosis is noted without evidence of acute diverticulitis. There is non-visualization of the appendix. Normal abdominal aorta. Normal inferior vena cava. Normal retroperitoneum. Decompressed via Paul catheter uterine atrophy is noted Normal abdominal wall. There are diffuse degenerative changes of the visualized lumbar spine. Chronic compression fracture of T12, T11 and L1. CT/Abdomen/Pelvis without Cont IMPRESSION: 1. Wall thickening and edema involving the descending colon compatible with colitis. The remainder of the colon demonstrates mild gaseous distention with air-fluid levels. No evidence of acute diverticulitis 2. Bibasilar airspace disease and consolidation with small effusion; right greater than left Electronically Signed: Rashel Feng DO at 20:39 EDT Tel , Service support ,
--- NOTE | 2018-07-19 20:06 | EKG12_ITS ---
Test Reason : A-FIB Blood Pressure : / mmHG Vent. Rate : 117 BPM Atrial Rate : 115 BPM P-R Int : 000 ms QRS Dur : 070 ms QT Int : 346 ms P-R-T Axes : 000 039 214 degrees QTc Int : [address] & T wave abnormality, consider inferior ischemia ST & T wave abnormality, consider anterolateral ischemia Abnormal ECG When compared with ECG of 19-JUL-2018 19:39, MANUAL COMPARISON REQUIRED, DATA IS UNCONFIRMED Confirmed by OLI ASTORGA ([id number]), marketing editor JOSE SOARES ([id number]) on 08/01/2018 1:02:14 PM Referred By: Carmine Foy Confirmed By:KRIS ASTORGA
[2018-07-19 20:16] LABS: Absolute Lymphocyte Count 1.57 X10^3/ul (0.83-4.51); Basophil# 0.02 X10^3/uL; Basophil% 0.2 % (0-1); Differential Indicated SCAN CRITERIA MET; Eosinophil# 0.06 X10^3/uL; Eosinophils% 0.7 % (0-5); Hematocrit 38.8 % (37-47); Hemoglobin 12.6 g/dl (12.0-15.0); Lymphocyte # 1.57 X10^3/ul (4.0); Lymphocyte % 18.5 % (19-41); Mean Corp Hgb Conc 32.5 g/gl (32-36); Mean Corpuscular Hgb 28.3 pg (27.0-32.0); Monocyte# 0.65 X10^3/uL; Monocyte% 7.7 % (0-10); Neutrophil # 6.02 X10^3/uL (2.7-7.7); POSITIVE COUNT NO; POSITIVE DIFFERENTIAL NO; POSITIVE MORPHOLOGY YES; Platelet Count 149 K/mm3 (150-450); RBC Distribution Width CV 17.3 % (11.6-14.6); RBC Distribution Width SD 55.1 fl (35.1-43.9); Red Blood Count 4.46 M/mm3 (4.2-5.4); White Blood Count 8.5 K/mm3 (4.4-11.0)
[2018-07-19] MEDS: Ondansetron 4 MG/2 ML Vial IV (20:24)
[2018-07-19] MEDS: 0.9% Normal Saline 1,000 ML 1000 ML IV (20:24)
[2018-07-19 20:26] LABS: BUN 8 mg/dL (7-18); Creatinine, Serum 0.77 mg/dL (0.55-1.02); Estimated Creatinine Clearance 52.32 ml/min; Glucose 66 mg/dL (74-106)
[2018-07-19 20:27] LABS: ALB/GLOB Ratio 0.9 RATIO (0.9-2.4); AST(SGOT) 27 U/L (15-37); Alanine Aminotransfer ALT/SGPT 23 U/L (13-56); Albumin, Serum 2.3 g/dL (3.2-5.0); Alkaline Phosphatase 67 U/L (45-117); Anion Gap 16 (5-15); BUN/Creat Ratio 10.4 RATIO (10-20); Calcium,Total 7.6 mg/dL (8.5-10.1); Chloride 104 mmol/L (98-107); EST Glomerular Filtration Rate 80 mL/min (>60); Est Glom Filt Rate - Afr Amer 96 mL/min (>60); Globulin 2.7 g/dL (2.2-4.2); Lipase 65 U/L (73-393); Potassium 3.5 mmol/L (3.5-5.1); Sodium Level 136 mmol/L (136-145)
--- NOTE | 2018-07-19 20:49 | ED.RN ---
lab called with positive lab results. Gastric occult positive. Dr. koo made aware no new orders at this time
[2018-07-19] MEDS: fentaNYL 100 MCG/2 ML Ampul 50 MCG IV (20:59)
--- NOTE | 2018-07-19 21:01 | ED.RN ---
lab called with critical lab results. Lactic acid 2.2. Dr. Zafar made aware no new orders at this time
[2018-07-19 21:02] LABS: Lactic Acid 2.2 mmol/L (0.4-2.0)
--- NOTE | 2018-07-19 21:28 | HP.PCM_ITS ---
Problem List (1) Constipation Status: Acute (2) Colitis Status: Acute History of Present Illness Date of Admission: 07/19/18 Chief Complaint: constipation The patient is a 63 year old F who was recently admitted on 07/15/2018 and discharged on 07/18/18 for acute upper GI bleed with reflux esophagitis and eventually transferred to transitional care unit presenting with 8 days of constipation while at the transitional care unit. Also associated with his symptoms is vomiting. At emergency department patient was noted to have brown vomitus which tested positive for occult blood. Patient was subsequently sta rted on a Protonix drip. Dr. Lr, general surgery was consulted and he agreed to follow patient. A CT of abdomen and pelvis was remarkable for colitis. Past Medical History Past Medical History (Chronic Problems): Chronic Problems Anxiety (Chronic) Anemia (Chronic) Anxiety and depression (Chronic) Lethargy (Chronic) Uncontrolled depression (Chronic) Normochromic normocytic anemia (Chronic) Atrophic vaginitis (Chronic) Poor dental hygiene (Chronic) Fall (Chronic) Depression (Chronic) GERD (gastroesophageal reflux disease) (Chronic) Allergies No Known Allergies Allergy (Verified 07/19/18 18:38) Home Medications: Ambulatory Orders Medication Instructions Recorded Nystatin 500,000 unit PO 4X/DAY 07/18/18 Pantoprazole Sodium [Protonix] 40 mg PO BID 07/18/18 Acetaminophen [Tylenol Extra 1,000 mg PO Q6H PRN PRN 07/20/18 Strength] Bisacodyl [Dulcolax] 10 mg PO DAILY PRN 07/20/18 Ensure Enlive 120 ml PO 4X/DAY 07/20/18 Fluoxetine [Prozac] 40 mg PO DAILY 07/20/18 Liothyronine Sodium [Cytomel] 25 mcg PO 0600 07/20/18 Menthol/Lanolin/Calamine/Znox 1 applic TOPICAL BID 07/20/18 [Calmoseptine Ointment] Mineral Oil/Petrolatum,White 1 applic TOPICAL BID PRN PRN 07/20/18 [Eucerin] Oxycodone [Oxyir] 5 mg PO Q4H PRN PRN 07/20/18 Polyethylene Glycol 3350 [Miralax] 17 gm PO DAILY 07/20/18 Potassium Chloride [K-Dur] 20 meq PO BIDCM 07/20/18 buPROPion SR [Wellbutrin SR (150mg 150 mg PO BID 07/20/18 tablets)] Surgical History: appendectomy, tonsillectomy, - - Hand surgery, back surgery, csection Psychiatric History: Depression 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 Smoking Status: Unknown if ever smoked - *Family History Maternal History Items: Diabetes Paternal History Items: Cancer - Lung Review of Systems Unable to obtain accurate/complete ROS d/t: not answering questions VTE Information - Inpt Only VTE Present on Admission: No VTE Mechan Device Prophylaxis: SCD's VTE Pharm Prophylaxis ordered?: No Patient Problems: Active and Suspected Problems Colitis (Acute) - Physical Exam General: Alert, - - Patient is not spontaneously in answering some questions. HEENT: Atraumatic, PERRLA, EOMI, Normocephalic Neck: Supple, No JVD, Negative Carotid Bruits Lungs: Clear to auscultation, Normal air movement Cardiovascular: Regular rate, No murmurs Abdomen: Bowel Sounds Present, Soft, Non Tender Extremities: No edema, Capillary Refill Less than 3 Seconds Skin: No rashes, No breakdown Musculoskeletal: - - Deformity of right side of upper back. Neurological: - - Patient is not spontaneous in answering some questions. Psych/Mental Status: Normal Affect, Appropriate Vital Signs Temp Pulse Resp BP Pulse Ox 98.2 F 117 H 16 121/73 H 100 07/19/18 18:39 07/19/18 21:15 07/19/18 21:15 07/19/18 21:15 07/19/18 21:15 Oxygen Delivery Method Room Air Weight: 57 kg Body Mass Index (BMI) 24.5 Microbiology Past 72 Hours 07/19/18 20:30 Gastric Occult Blood - Final Gastric Fluid/Contents Occult Blood Positive Laboratory Tests Past 24 Hrs 07/19/18 07/19/18 07/19/18 19:00 19:00 20:20 WBC 8.5 RBC 4.46 Hgb 12.6 Hct 38.8 MCV 87.0 MCH 28.3 MCHC 32.5 RDW 17.3 H RDW Differential 55.1 H Plt Count 149 L MPV TNP Immature Gran % (Auto) 1.900 H Neut % (Auto) 71.0 H Lymph % (Auto) 18.5 L [place] % (Auto) 7.7 Eos % (Auto) 0.7 Baso % (Auto) 0.2 Absolute Neuts (auto) 6.0 Absolute Lymphs (auto) 1.57 Total Counted Not Reportable Differential Comment Sodium 136 Potassium 3.5 Chloride 104 Carbon Dioxide 16.0 L Anion Gap 16 H BUN 8 Creatinine 0.77 Estim Creat Clear Calc 52.32 Est GFR (MDRD) Af Amer 96 Est GFR (MDRD) Non-Af 80 BUN/Creatinine Ratio 10.4 Glucose 66 L Lactic Acid 2.2 H Calcium 7.6 L Total Bilirubin 0.80 AST 27 ALT 23 Alkaline Phosphatase 67 Troponin I 0.024 Total Protein 5.0 L Albumin 2.3 L Globulin 2.7 Albumin/Globulin Ratio 0.9 Lipase 65 L Assessment/Plan All Active Problems Nausea & vomiting (Acute) Upper gastrointestinal bleed (Acute) Esophagitis (Acute) Gastritis (Acute) Colitis (Acute) GI bleed (Acute) Incomplete bladder emptying (Acute) Vaginal atrophy (Acute) Urinary incontinence (Acute) Constipation (Acute) Weakness (Acute) RADHA (acute kidney injury) (Resolved) CAP (community acquired pneumonia) (Resolved) Gastroenteritis (Resolved) Lactic acidosis (Resolved) SIRS (systemic inflammatory response syndrome) (Resolved) UGI bleed (Resolved) The patient is a 63 year old F who was recently admitted on 07/15/2018 and discharged on 07/18/18 for acute upper GI bleed with reflux esophagitis and eventually transferred to transitional care unit presenting with 8 days of constipation while at the transitional care unit; and found to have positive occult blood in a CT scan finding of colitis. Acute GI bleed Patient noted to have a positive gastric occult blood. Started on Protonix drip at the emergency department; continued Serial H&H ordered. Type and screen ordered. Trend blood pressures. Supportive treatment with IV fluids. Acute constipation Reportedly patient received enema which was nonproductive at the emergency depa rtment. Emergency department doctor reported that patient had no impaction on rectal exams. Discussed with Dr. Lr general surgery about GoLYTELY. Dr. Lr to see patient in a.m. and make further recommendations. Meanwhile we will continue daily MiraLAX. Will check TSH. Colitis Likely due to constipation. Management as above. Initially with lactic acidosis which resolved with IV fluids.. Patient with no abdominal pain making ischemic colitis unlikely. Hypoglycemia On presentation her glucose on BMP was 66; and had a potassium was low border. D5 half-normal saline with potassium infusion ordered. Serial Accu-Cheks ordered. Depression/Anxiety Fluoxetine continued Hypothyroidism Liothyronine continued DVT prophylaxis No chemical chemoprophylaxis time due to GI bleed SCD ordered. Code Visit Inpatient E&M: 67954 Init Hosp L3
[2018-07-19] MEDS: 0.9% Normal Saline 1,000 ML 999 ML IV (21:38)
--- NOTE | 2018-07-19 21:39 | ED.DCSUM_ITS ---
- ER Visit Summary Date of Service: 07/19/18 Chief Complaint: [Vomiting] History of Present Illness: The patient is a 63 F [Zentz to the emergency department complaint of vomiting that started today. Patient is in the transitional care unit rehabbing after being admitted to the hospital several weeks ago for upper GI bleed. Patient denies any abdominal pain. She denies any chest pain or shortness of breath. I was told patient has not had a bowel movement in about 8 days and they attempted to give her an enema today. Patient was vomiting brown type material. Patient does have a history of anxiety and depression as well as the GI bleed history. Patient did have an EGD during her last visit that showed some gastritis and possible Navarro's esophagitis.] Physical Examination: [HEENT-PERRLA, EOMI. Cranial nerves II through XII grossly intact. TMs clear. Mucous membranes dry. No adenopathy. Cardiovascular-regular rate and rhythm without murmur or ectopy Lungs-clear to auscultation, chest wall stable without crepitus or subcu emphysema Abdomen-normoactive bowel sounds, soft, nontender, no rebound or rigidity, no peritoneal signs. Rectal exam-no impaction. Stool was brown. Extremities-intact ?4, normal range of motion, normal pulses, atraumatic] Test Results: [CBC with differential obtained showed a white count of 8.5, hemoglobin 12.6, hematocrit 39, platelets 149. Chemistries unremarkable. LFTs unremarkable. Lactate was elevated 2.2. Troponin was 0.024. CT scan of the abdomen pelvis without contrast showed distention of the gallbladder with gallstones without evidence of wall thickening or pericholecystic fluid. Patient did have some wall thickening and edema involving the descending colon compatible with colitis the remainder of the colon demonstrates mild gaseous distention with air-fluid levels. No evidence of acute diverticulitis. Patient also had bibasilar airspace disease and consolidation with small effusion right greater than left. EKG obtained showed sinus rhythm with a ventricular rate of [address] depression anterior laterally with concern for possible posterior ND.] Emergency Department Course and Treatment: [Patient case was discussed with Dr. Knight who evaluated the EKGs and given the patient is not having any chest pain no intervention was undertaken at this time. Was recommended that we do serial troponins. Patient was given normal saline and also ordered Protonix IV. Patient was given fentanyl for some abdominal discomfort that she eventually developed.] Treatment Plan: [Patient will be admitted to hospitalist service. Case also was discussed with Dr. Khoi Larsen who is the surgeon on-call.] Disposition: [Admit] Impression: [Upper GI bleed Colitis Abnormal EKG Dehydration] This note was generated with [employer] dictation software. It may contain incorrect words, spelling, and punctuation that were not noted in review of the chart prior to signing ED Disposition - Plan for ED Patient: Referrals: Dante Mclaughlin MD [Primary Care Provider] -
[2018-07-19 21:41] LABS: Mucous, Urine 0 SEEN /hpf (<or=2+)
[2018-07-19 21:48] LABS: Color, Urine Yellow (Yellow); Glucose, Dipstick Normal (Normal); Leukocyte Esterase-Dipstick 500 /ul (Negative); Nitrite-Dipstick Negative (Negative); Occult Blood-Urine 50 /ul (Negative); Protein-Dipstick 15 mg/dl (Negative); Urine Clarity Sl. Cloudy (Clear); Urine Urobilinogen 1 mg/dl (Normal)
[2018-07-19 21:49] LABS: Urine Bilirubin Dipstick 1 mg/dL (Negative)
[2018-07-19 21:50] LABS: Ketone-Dipstick 150 mg/dl (Negative)
[2018-07-19 22:14] LABS: Amorphous Sediment 1+ URATE; Bacteria 3+ /hpf (None Seen); Red Blood Cells-Urine 5-10 SEEN /hpf (0-5); Squamous Epithelial Cells - UA 0-5 SEEN /hpf (5-10); White Blood Cells 50-100 SEEN /hpf (0-5)
[2018-07-19] MEDS: Acetaminophen 325 MG Tablet 650 MG PO (23:13)
[2018-07-19] MEDS: Potassium Chloride 40 MEQ in Dext 5%-0.45% NS 1,000 ML 100 MEQ IV (23:43)
[2018-07-20] VITALS (15 sets, daily range): BP systolic 93–116; BP diastolic 48–71; PULSE 106–115; RESP 14–18; TEMP 36.1–37.1; O2SAT 94–100; BMI 22.4
--- NOTE | 2018-07-20 | GASB_PTH ---
PATIENT: GALILEO THORNTON LOC: [facility] U#:[id number] AGE/SX: 63/F ROOM: [facility] [place] RE07/19/[address]: Dr. Dante Soler DO : 1955 BED: 1 DIS: 07/20/2018 SPEC #: [id number] RECD: 07/20/18 12:42 STATUS: ROSA M REQ #: [id number] PARVEZ: 07/20/18 00:[address]: Khoi Lr DEPT: SURGICAL PATHOLOGY RECD BY: Vasile Chao ENTERED: 07/20/18 12:43 SP TYPE: Gastric Bx OTHR DR: MD Dr. Dante Singh MD Dr. Mark Tereletsky, DO Dr. Richard Guttman, MD Tissues: A - Gastric mucous membrane B - Esophagus, NOS C - COLON BIOPSY Procedures: PAS Fungus (control) Special Stain Group I Surgery Specimen Level IV Comments: @ Ordering doctor for SUIV edited from to @ by ELZA at 07/23/18825 @ Submitting doctor edited from to [email or web address] Juan by ELZA at 07/23/18825 HEADER OPERATION: Colonoscopy, EGD ([facility] [place]) PRE-OP DIAGNOSIS: Screening TISSUE SUBMITTED: A - Antral biopsy for H. pylori and pathology, B - Distal esophageal biopsy, rule out Amparo, C - Random colon biopsies MICROSCOPIC DIAGNOSIS A. Gastric antrum, biopsy: Minimal chronic inflammation. B. Distal esophagus, biopsy: Fibrinopurulent exudate Detached squamous epithelium with atypia, favor reactive. Negative for fungal organisms. See comment. C. Colon, random biopsy: Mild melanosis coli. AM:[facility] 07/23/18 COMMENT A. The results of immunohistochemistry for Helicobacter pylori will be reported separately ([id number]). B. PASF stain with matched control supports the above diagnosis. MICROSCOPIC DESCRIPTION Slides are reviewed. GROSS DESCRIPTION A - Received in fixative is one container labeled with the patient's name and designated antral biopsy for H. pylori. The specimen consists of one irregular fragment of light sims soft tissue that measures 0.2 x 0.1 x 0.1 cm. The specimen is totally submitted in one cassette. B - Received in fixative is one container labeled with the patient's name and designated distal esophageal biopsy. The specimen consists of one irregular fragment of light sims soft tissue that measures 0.1 x 0.1 x 0.05 cm. The specimen is totally submitted in one cassette. C - Received in fixative is one container labeled with the patient's name and designated random colon biopsies. The specimen consists of four irregular fragments of light sims soft tissue that in aggregate measure 0.4 x 0.2 x 0.1 cm. The specimen is totally submitted in one cassette. / CE:spring 07/20/18 TC:2 CPT: 93642 x3, 35735
[2018-07-20 00:24] LABS: Reflex Lactate? Y
[2018-07-20 01:05] LABS: Hemoglobin 9.6 g/dl (12.0-15.0)
[2018-07-20 01:24] LABS: Lactic Acid 1.7 mmol/L (0.4-2.0)
[2018-07-20 01:31] LABS: Bedside Glucose 72 mg/dL (70-110)
[2018-07-20 01:31] LABS: Bedside Glucose 93 mg/dL (70-110)
[2018-07-20 01:51] LABS: Bedside Glucose 112 mg/dL (70-110)
[2018-07-20 03:51] LABS: Bedside Glucose 113 mg/dL (70-110)
[2018-07-20 06:31] LABS: Hematocrit 28.9 % (37-47); Hemoglobin 9.6 g/dl (12.0-15.0)
[2018-07-20 06:53] LABS: Thyroid Stim Hormone (TSH) 1.96 uIU/mL (0.358-3.74)
[2018-07-20 07:05] LABS: Bedside Glucose 119 mg/dL (70-110)
[2018-07-20] MEDS: Fleet Enema 1 ML RECTAL (09:20)
--- NOTE | 2018-07-20 09:27 | CASEMGMT ---
Patient has a Healthcare POA and Healthcare LW on file. SW printed them from e-chart on her last admission earlier this week and put in her chart. Radha MATAIS MSW
--- NOTE | 2018-07-20 09:40 | PCM.CONS.GEN ---
Reason for Consult Date of Consultation: 07/20/18 Reason for Consultation: heme positive emesis, ? colitis History of Present Illness: The patient is a 63 year old F with a recent history of heme positive stools. She has no obvious significant medial history listed other than reflux and depression. I was consulted 2 months previously for GI bleeding. The patient declined endoscopy at that time. She was noted to have a flat affect at that visit. She has since been readmitted for failure to thrive and hematemesis. She underwent upper endoscopy by Dr. Lennon who found gastritis and esophagitis on July 16, 2018. The patient was found to have erythematous mucosa in the stomach which was biopsied and was felt to be significant reflux esophagitis. The patient was transferred to transitional care unit. At transitional care unit the patient apparently still had failure to thrive. it is unknown what her degree of oral intake was but it was noted that she again had some nausea and vomited some material that didn't look like vincent coffee grounds but tested Hemoccult positive. He was also noted the patient had not had a bowel movement but was felt to be for approximately at least 5-8 days. With these complaints the patient was transferred to the emergency department on July 19. In the emergency garment the patient's WBC count was 8.5. Hemoglobin was initially 12.6 but a repeat hemoglobin at 4 AM returned as 9.6. Patient's platelet count was 149. temperature metabolic panel was obtained which was generally unremarkable with normal BUN and creatinine. The patient's protein and albumin levels were low with a protein of 5.0 albumin of 2.3.initial lactic acid level returned at 2.2 at 8 PM. This had decrease to 1.7 at 1 AM[address] the patient [address] scan of the abdomen and pelvis. findings included mild cardiomegaly, bilateral pleural effusions, mild gallbladder distention with gallstones without other evidence of acute cholecystitis. Small hiatal hernia, normal small intestine, was felt to be mild distention of the ascending and transverse colon with an area of segmental thickening and edema felt to be in the wall of the descending colon suggesting colitis. my review the CAT scan demonstrated the above findings and what I felt to have significant edema of the fat both intra-abdominally and at the buttock area consistent with either a degree of heart failure or more likely anasarca. The patient was admitted to the medicine service. Overnight the patient was relatively nonverbal to the nurse noting that she would say she wanted to go home and would seem like she was in pain but would not specify what hurt. Overnight it was felt that she was mostly having leg cramps. The nurse stated she did have a bowel movement overnight that did not appear to be melena. I evaluated the patient in the morning. At the time she again was relatively nonverbally communicative but would respond to yes and no questions although still somewhat vaguely. As I had seen the patient 2 months previously when she declined endoscopy at that time, I asked that she would consider both upper and lower endoscopy without bowel prep at this time she nodded inside yes. She was having what seemed to be intermittent cramping pain but exactly where that pain was hard to elucidate. She would not say whether this was her abdomen or legs over the morning. In discussions with her hospitalist who had spoken with her primary care provider, Dr. Mclaughlin, -there is a question of underlying significant depression and possibly other psychiatric disorders. In speaking with one of the other nurses, she knows of the patient through community interaction. She understands that the patient's in the past was an alcoholic and had previously. The patient was noted to be relatively passive and had a flat affect even in the distant past. Past Medical History Past Medical History (Chronic Problems): Chronic Problems Anxiety (Chronic) Anemia (Chronic) Anxiety and depression (Chronic) Lethargy (Chronic) Uncontrolled depression (Chronic) Normochromic normocytic anemia (Chronic) Atrophic vaginitis (Chronic) Poor dental hygiene (Chronic) Fall (Chronic) Depression (Chronic) GERD (gastroesophageal reflux disease) (Chronic) Allergies No Known Allergies Allergy (Verified 07/19/18 18:38) Home Medications: Ambulatory Orders Medication Instructions Recorded Nystatin 500,000 unit PO 4X/DAY 07/18/18 Pantoprazole Sodium [Protonix] 40 mg PO BID 07/18/18 Acetaminophen [Tylenol Extra 1,000 mg PO Q6H PRN PRN 07/20/18 Strength] Bisacodyl [Dulcolax] 10 mg PO DAILY PRN 07/20/18 Ensure Enlive 120 ml PO 4X/DAY 07/20/18 Fluoxetine [Prozac] 40 mg PO DAILY 07/20/18 Liothyronine Sodium [Cytomel] 25 mcg PO 0600 07/20/18 Menthol/Lanolin/Calamine/Znox 1 applic TOPICAL BID 07/20/18 [Calmoseptine Ointment] Mineral Oil/Petrolatum,White 1 applic TOPICAL BID PRN PRN 07/20/18 [Eucerin] Oxycodone [Oxyir] 5 mg PO Q4H PRN PRN 07/20/18 Polyethylene Glycol 3350 [Miralax] 17 gm PO DAILY 07/20/18 Potassium Chloride [K-Dur] 20 meq PO BIDCM 07/20/18 buPROPion SR [Wellbutrin SR (150mg 150 mg PO BID 07/20/18 tablets)] Surgical History: appendectomy, tonsillectomy, - - Hand surgery, back surgery, csection Psychiatric History: Depression PHYSICAL THERAPY NURSE History: No pertinent PHYSICAL THERAPY NURSE history, - - atrophic vaginitis Lives: - - Came from our transitional care unit. Smoking Status: Unknown if ever smoked - *Family History Maternal History Items: Diabetes Paternal History Items: Cancer - Lung Review of Systems Unable to obtain accurate/complete ROS d/t: patient's noncooperation Patient Problems: Active and Suspected Problems Colitis (Acute) - Physical Exam General: Cooperative, - - noting discomfort poorly communicative, poorly nourished poorly developed, apparently well hydrated, appears much older than her stated age HEENT: - - significant alopecia, Lungs: Diminished - bases Cardiovascular: Tachycardic Abdomen: Bowel Sounds Present, Soft, - - no peritoneal signs, difficult to assess tenderness based on above noted concerns Extremities: No cyanosis, - - poor muscle mass in the extremities, IV in the right lower extremity, significant bruising in the left inguinal region Vital Signs Temp Pulse Resp BP Pulse Ox 98.3 F 114 H 17 109/48 L 100 07/20/18 09:12 07/20/18 09:12 07/20/18 09:12 07/20/18 09:12 07/20/18 09:12 Oxygen Flow Rate (L/min) 2 Oxygen Delivery Method Room Air Weight: 51.8 kg Body Mass Index (BMI) 22.3 Intake and Output for Last 24 Hours 07/18/18 07/19/18 07/20/18 23:59 23:59 23:59 Intake Total 1040.6 / 1040.6 Output Total 225 / 225 Balance 815.6 / 815.6 Microbiology Past 72 Hours 07/19/18 20:30 Gastric Occult Blood - Final Gastric Fluid/Contents Occult Blood Positive Laboratory Tests Past 24 Hrs 07/19/18 07/19/18 07/19/18 19:00 19:00 20:20 WBC 8.5 RBC 4.46 Hgb 12.6 Hct 38.8 MCV 87.0 MCH 28.3 MCHC 32.5 RDW 17.3 H RDW Differential 55.1 H Plt Count 149 L MPV TNP Immature Gran % (Auto) 1.900 H Neut % (Auto) 71.0 H Lymph % (Auto) 18.5 L Merrick % (Auto) 7.7 Eos % (Auto) 0.7 Baso % (Auto) 0.2 Absolute Neuts (auto) 6.0 Absolute Lymphs (auto) 1.57 Total Counted Not Reportable Differential Comment Sodium 136 Potassium 3.5 Chloride 104 Carbon Dioxide 16.0 L Anion Gap 16 H BUN 8 Creatinine 0.77 Estim Creat Clear Calc 52.32 Est GFR (MDRD) Af Amer 96 Est GFR (MDRD) Non-Af 80 BUN/Creatinine Ratio 10.4 Glucose 66 L Lactic Acid 2.2 H Calcium 7.6 L Total Bilirubin 0.80 AST 27 ALT 23 Alkaline Phosphatase 67 Troponin I 0.024 Total Protein 5.0 L Albumin 2.3 L Globulin 2.7 Albumin/Globulin Ratio 0.9 Lipase 65 L TSH Urine Color Urine Clarity Urine pH Ur Specific Owings Urine Protein Urine Glucose (UA) Urine Ketones Urine Occult Blood Urine Nitrite Urine Bilirubin Urine Urobilinogen Ur Leukocyte Esterase Urine RBC Urine WBC Ur Squamous Epith Cells Amorphous Sediment Urine Bacteria Urine Mucus Blood Type Antibody Screen 07/19/18 07/19/18 07/20/18 21:30 22:00 00:53 WBC RBC Hgb 9.6 L Hct 30.0 L MCV MCH MCHC RDW RDW Differential Plt Count MPV Immature Gran % (Auto) Neut % (Auto) Lymph % (Auto) Merrick % (Auto) Eos % (Auto) Baso % (Auto) Absolute Neuts (auto) Absolute Lymphs (auto) Total Counted Differential Comment Sodium Potassium Chloride Carbon Dioxide Anion Gap BUN Creatinine Estim Creat Clear Calc Est GFR (MDRD) Af Amer Est GFR (MDRD) Non-Af BUN/Creatinine Ratio Glucose Lactic Acid Calcium Total Bilirubin AST ALT Alkaline Phosphatase Troponin I 0.027 Total Protein Albumin Globulin Albumin/Globulin Ratio Lipase TSH Urine Color Yellow Urine Clarity Sl. Cloudy Urine pH 6.0 Ur Specific Owings 1.020 Urine Protein 15 H Urine Glucose (UA) Normal Urine Ketones 150 H Urine Occult Blood 50 H Urine Nitrite Negative Urine Bilirubin 1 H Urine Urobilinogen 1 H Ur Leukocyte Esterase 500 H Urine RBC 5-10 SEEN Urine WBC 50-100 SEEN Ur Squamous Epith Cells 0-5 SEEN Amorphous Sediment 1+ URATE Urine Bacteria 3+ Urine Mucus 0 SEEN Blood Type Antibody Screen 07/20/18 07/20/18 07/20/18 00:53 00:53 06:15 WBC RBC Hgb 9.6 L Hct 28.9 L MCV MCH MCHC RDW RDW Differential Plt Count MPV Immature Gran % (Auto) Neut % (Auto) Lymph % (Auto) Merrick % (Auto) Eos % (Auto) Baso % (Auto) Absolute Neuts (auto) Absolute Lymphs (auto) Total Counted Differential Comment Sodium Potassium Chloride Carbon Dioxide Anion Gap BUN Creatinine Estim Creat Clear Calc Est GFR (MDRD) Af Amer Est GFR (MDRD) Non-Af BUN/Creatinine Ratio Glucose Lactic Acid 1.7 Calcium Total Bilirubin AST ALT Alkaline Phosphatase Troponin I 0.038 Total Protein Albumin Globulin Albumin/Globulin Ratio Lipase TSH Urine Color Urine Clarity Urine pH Ur Specific Owings Urine Protein Urine Glucose (UA) Urine Ketones Urine Occult Blood Urine Nitrite Urine Bilirubin Urine Urobilinogen Ur Leukocyte Esterase Urine RBC Urine WBC Ur Squamous Epith Cells Amorphous Sediment Urine Bacteria Urine Mucus Blood Type Antibody Screen 07/20/18 07/20/18 07/20/18 06:15 06:15 06:15 WBC RBC Hgb Hct MCV MCH MCHC RDW RDW Differential Plt Count MPV Immature Gran % (Auto) Neut % (Auto) Lymph % (Auto) Merrick % (Auto) Eos % (Auto) Baso % (Auto) Absolute Neuts (auto) Absolute Lymphs (auto) Total Counted Differential Comment Sodium Potassium Chloride Carbon Dioxide Anion Gap BUN Creatinine Estim Creat Clear Calc Est GFR (MDRD) Af Amer Est GFR (MDRD) Non-Af BUN/Creatinine Ratio Glucose Lactic Acid 2.0 Calcium Total Bilirubin AST ALT Alkaline Phosphatase Troponin I Total Protein Albumin Globulin Albumin/Globulin Ratio Lipase TSH 1.96 Urine Color Urine Clarity Urine pH Ur Specific Owings Urine Protein Urine Glucose (UA) Urine Ketones Urine Occult Blood Urine Nitrite Urine Bilirubin Urine Urobilinogen Ur Leukocyte Esterase Urine RBC Urine WBC Ur Squamous Epith Cells Amorphous Sediment Urine Bacteria Urine Mucus Blood Type A POSITIVE Antibody Screen NEGATIVE POC Glucose 07/20/18 07/20/18 07/20/18 07:02 03:44 01:43 POC Glucose 119 H 113 H 112 H 07/19/18 07/19/18 23:42 22:41 POC Glucose 93 72 Assessment/Plan All Active Problems Nausea & vomiting (Acute) Upper gastrointestinal bleed (Acute) Esophagitis (Acute) Gastritis (Acute) Colitis (Acute) GI bleed (Acute) Incomplete bladder emptying (Acute) Vaginal atrophy (Acute) Urinary incontinence (Acute) Constipation (Acute) Weakness (Acute) RADHA (acute kidney injury) (Resolved) CAP (community acquired pneumonia) (Resolved) Gastroenteritis (Resolved) Lactic acidosis (Resolved) SIRS (systemic inflammatory response syndrome) (Resolved) UGI bleed (Resolved) failure to thrive, malnutrition, heme positive vomiting, ? colitis descending colon, anasarca I plan to perform EGD and unprepped colonoscopy. The patient had declined endoscopy 2 months previously. She verbally agrees to endoscopy at this time. We had discussed the risks, benefits, alternatives and complications. clinically the patient has significant malnutrition there to thrive and likely anasarca. I would recommend the patient have calorie counts and oral supplements. In discussions with other caregivers, its possible that all this relates to significant depression now relating to her overall failure to thrive. I would recommend psychiatric evaluation of is not really been done. Addendum- Upper and lower endoscopy was performed. Upper endoscopy demonstrated mild irritation at the pylorus and stomach in the antral region. There was significant irritation the distal esophagus which appeared to be consistent with Amparo esophagitis. Colonoscopy demonstrated no signs of colitis and the scope was advanced all the way to the base of the cecum. There was some liquid stool and some amount of solid stool but given the fact that the patient had a bowel movement for quite some time per records this is more likely related to failure to have any significant oral intake then truly constipation and obstipation. It should incidentally be noted that the patient seemed to have a very long circulation time from when she was given medications to initiate sedation and when she actually became sedated. The patient also had some degree of hypoxia, and with respiratory support seemed to take a protracted amount of time to improve her oxygenation status. I discussed these findings with Dr. Joshi and recommended echocardiogram given the bilateral effusions and suggestion based on these findings that the patient might have a degree of decreased cardiac output.
[2018-07-20 10:25] LABS: Reflex Lactate? Y
--- NOTE | 2018-07-20 11:00 | IMM_PTH ---
PATIENT: GALILEO THORNTON LOC: [facility] U#:[id number] AGE/SX: 63/F ROOM: [facility] RE07/19/[address]: Dr. Dante Soler DO : 1955 BED: 1 DIS: 07/20/2018 SPEC #: [id number] RECD: 07/23/18 10:36 STATUS: SOUSuri REQ #: [id number] PARVEZ: 07/20/18 11:[address]: Khoi Lr DEPT: IMMUNOHISTOCHEMISTRY RECD BY: Zena Maier ENTERED: 07/23/18 10:38 SP TYPE: IMMUNO OTHR DR: DO Dr. Carmine Guillen MD Dr. Mark Elderbrock, MD Dr. Mark Tereletsky, DO Tissues: A - Stomach, NOS Procedures: H Pylori (initial) PHYSICIAN & INSTITUTION [place] [id number] SPECIMEN INFORMATION: Tissue Source: A - Antral biopsy Clinical Info: Screening Specimen Number: [id number] CPT code: 40263 METHODOLOGY: Deparaffinized sections of prefer/formalin-fixed tissue or PAP/DQ stained slides are incubated with monoclonal/polyclonal antibodies/oligonucleotide probes. Localization is made via biotin free immunoperoxidase method. Appropriate controls are performed and reacted as expected. Results on target cell population are indicated in the following table: RESULTS: ANTIBODY / CLONE RESULT Block A H Pylori (polyclonal) negative These tests were developed and their performance characteristics determined by [facility]. They may not have been cleared or approved by the [place]. Food and Drug Administration. The FDA has determined that such clearance or approval is not necessary. INTERPRETATION: A. Antral biopsy: Negative for Helicobacter pylori organisms. AM:spring 07/23/18
--- NOTE | 2018-07-20 11:53 | OP.ENDO_ITS ---
07/20/2018 Dante Mclaughlin [address] [place] [address] Re : Upper GI endoscopy procedure for Cheli Lagos Dear Dr. Mclaughlin This procedure was performed on Friday, July 20, 2018. My impressions and recommendations are as follows: Impressions : - Normal examined jejunum. - Gastritis. Biopsied. - Moderately severe candidiasis esophagitis. Biopsied. Recommendations : - Return patient to hospital [facility] for ongoing care. - Continue present medications. My findings are described in the full procedure note, which is enclosed. If I can be of further assistance, please feel free to contact me at Doctor phone number(s): , Work: . Sincerely, Khoi Lr MD 07/20/2018 11:53:36 AM This report has been signed electronically.
--- NOTE | 2018-07-20 11:56 | OP.ENDO_ITS ---
07/20/2018 Dante Mclaughlin [address] [place] [address] Re : Colonoscopy procedure for Cheli Lagos Dear Dr. Mclaughlin This procedure was performed on Friday, July 20, 2018. My impressions and recommendations are as follows: Impressions : - Preparation of the colon was fair. - The entire examined colon is normal. Biopsied. Recommendations : - Return patient to hospital [facility] for ongoing care. - No repeat colonoscopy due to no evidence of mucosal or other abnormalities on today's exam. - Continue present medications. My findings are described in the full procedure note, which is enclosed. If I can be of further assistance, please feel free to contact me at Doctor phone number(s): , Work: . Sincerely, Khoi Lr MD 07/20/2018 11:55:46 AM This report has been signed electronically.
[2018-07-20 12:28] LABS: Hematocrit 31.4 % (37-47); Hemoglobin 10.4 g/dl (12.0-15.0)
--- NOTE | 2018-07-20 13:47 | ECHOCS_ITS ---
Reason For Study: ABN EKG Procedure This was a 2D Doppler, Color Flow transthoracic echocardiogram. The study was technically difficult. Contrast injection was performed. Exam performed portable in patient room. Left Ventricle Normal LV size. Left ventricular systolic function is normal. The estimated ejection fraction is 65 %. Diastolic function is indeterminate. No regional wall motion abnormalities noted. Right Ventricle Normal RV size. Normal systolic function. Atria The left atrium is severely enlarged. Normal right atrium. No doppler evidence for ASD. Mitral Valve There is no mitral annular calcification. Mild diffuse mitral valve thickening. Moderate mitral valve prolapse. Moderate (2+) eccentric mitral valve insufficiency. Tricuspid Valve Normal tricuspid valve. Mild tricuspid valve insufficiency. Right ventricular systolic pressure estimated to be 45 mmHg. Aortic Valve Trisinus/trileaflet aortic valve. Normal aortic valve. Pulmonic Valve The pulmonic valve is not well visualized. Great Vessels Normal sized aortic root. Pericardium/Pleural No pericardial effusion. Epicardial fat. Medication Diluted definity 2ml given slow IV push to enhance endocardial definition. MMode/2D Measurements & Calculations LVIDd: 3.9 cm IVSd: 0.81 cm Ao root diam: 2.9 cm LVIDs: 2.6 cm LVPWd: 0.85 cm RVDd: 2.9 cm FS: 32.7 % LAV(MOD-bp): 63.3 ml LVAd ap4: 21.4 cm2 SV(MOD-sp4): 35.8 ml LAV(MOD-bp) Indexed: 43.6 ml/m2 EDV(MOD-sp4): 62.2 ml LAV(MOD-sp2): 60.2 ml EDV(sp4-el): 66.2 ml LAV(MOD-sp4): 62.5 ml LVAs ap4: 12.8 cm2 ESV(MOD-sp4): 26.4 ml ESV(sp4-el): 28.9 ml EF(MOD-sp4): 57.5 % EF(sp4-el): 56.4 % SV(sp4-el): 37.4 ml LA A4 area: 21.4 cm2 LA dimension(2D): 4.0 cm RA A4 area: 12.1 cm2 Doppler Measurements & Calculations MV E max meagan: 86.3 cm/sec Ao V2 max: 109.5 cm/sec LV V1 max: 111.9 cm/sec MV A max meagan: 104.1 cm/sec Ao max P.8 mmHg LV V1 max P.0 mmHg MV E/A: 0.83 PA V2 max: 56.1 cm/sec TR max meagan: 301.5 cm/sec TR max P.5 mmHg Interpretation Summary The study was technically difficult. Contrast injection was performed. Left ventricular systolic function is normal. The estimated ejection fraction is 65 %. The left atrium is severely enlarged. Mild diffuse mitral valve thickening. Moderate mitral valve prolapse. Moderate (2+) eccentric mitral valve insufficiency. Mild tricuspid valve insufficiency. Epicardial fat. Right ventricular systolic pressure estimated to be 45 mmHg. Diastolic function is indeterminate. Ordering Physician: Gigi Soler Referring Physician: GIGI RAWLS Performed By: Lacy Proctor, KATHERINE, RVT
--- NOTE | 2018-07-20 13:53 | CASEMGMT ---
Patient will be discharged back to TCU under skilled level of care. Radha HANSEN
[2018-07-20] MEDS: buPROPion (SR) 150 MG Tablet.SA PO (13:57)
[2018-07-20] MEDS: Menthol/Lanolin/Calamine/Znox 113 GM Tube 1 APPLIC TOPICAL (13:57)
[2018-07-20] MEDS: FLUoxetine 20 MG Capsule 40 MG PO (13:57)
[2018-07-20] MEDS: Polyethylene Glycol 3350 17 GM PACKET PO (13:57)
[2018-07-20] MEDS: NYSTATIN 500,000 UNIT/5 ML UDC 500000 UNIT PO (13:57)
[2018-07-20] MEDS: Acetaminophen 500 MG Tablet 1000 MG PO (14:00)
--- NOTE | 2018-07-20 14:06 | PN_ITS ---
Patient Problems: Active and Suspected Problems Colitis (Acute) Subjective: Pt resting comfortably in bed. She is minimally responsive. She wakes up and opens her eyes. Sometimes she answers questions, other times she stares and does not respond. She states she did move her bowels. She has no abdominal pain. She denies LH/dizziness. She was recently here with esophagitis. She was agreeable to colon/egd with Dr. Lr which was performed today. Revlead candidal esophagitis. She is debilitated, does not get out of bed. - Physical Exam General: Alert, Oriented x3, Cooperative HEENT: Atraumatic, PERRLA, EOMI, Normocephalic Neck: Supple, No JVD, Negative Carotid Bruits Lungs: Clear to auscultation, Normal air movement Cardiovascular: Regular rate, No murmurs Abdomen: Bowel Sounds Present, Soft, Non Tender Extremities: No edema, Capillary Refill Less than 3 Seconds Skin: No rashes, No breakdown Musculoskeletal: No Tenderness to Palpation of Joints or Extremities Neurological: Cranial nerves II-XII grossly intact Psych/Mental Status: Appropriate, Flat Affect, Depressed Vital Signs Temp Pulse Resp BP Pulse Ox 97.8 F 106 H 17 102/54 L 97 07/20/18 13:15 07/20/18 13:15 07/20/18 13:15 07/20/18 13:15 07/20/18 13:15 Oxygen Flow Rate (L/min) 2 Oxygen Delivery Method Nasal Cannula Weight: 114 lb 3.191 oz Body Mass Index (BMI) 22.4 Intake and Output for Last 24 Hours 07/18/18 07/19/18 07/20/18 23:59 23:59 23:59 Intake Total 1702.6 / 1702.6 Output Total 275 / 275 Balance 1427.6 / 1427.6 Microbiology Past 72 Hours 07/19/18 20:30 Gastric Occult Blood - Final Gastric Fluid/Contents Occult Blood Positive Laboratory Tests Past 24 Hrs 07/19/18 07/19/18 07/19/18 19:00 19:00 20:20 WBC 8.5 RBC 4.46 Hgb 12.6 Hct 38.8 MCV 87.0 MCH 28.3 MCHC 32.5 RDW 17.3 H RDW Differential 55.1 H Plt Count 149 L MPV TNP Immature Gran % (Auto) 1.900 H Neut % (Auto) 71.0 H Lymph % (Auto) 18.5 L [place] % (Auto) 7.7 Eos % (Auto) 0.7 Baso % (Auto) 0.2 Absolute Neuts (auto) 6.0 Absolute Lymphs (auto) 1.57 Total Counted Not Reportable Differential Comment Sodium 136 Potassium 3.5 Chloride 104 Carbon Dioxide 16.0 L Anion Gap 16 H BUN 8 Creatinine 0.77 Estim Creat Clear Calc 52.32 Est GFR (MDRD) Af Amer 96 Est GFR (MDRD) Non-Af 80 BUN/Creatinine Ratio 10.4 Glucose 66 L Lactic Acid 2.2 H Calcium 7.6 L Total Bilirubin 0.80 AST 27 ALT 23 Alkaline Phosphatase 67 Troponin I 0.024 Total Protein 5.0 L Albumin 2.3 L Globulin 2.7 Albumin/Globulin Ratio 0.9 Lipase 65 L TSH Urine Color Urine Clarity Urine pH Ur Specific [place] Urine Protein Urine Glucose (UA) Urine Ketones Urine Occult Blood Urine Nitrite Urine Bilirubin Urine Urobilinogen Ur Leukocyte Esterase Urine RBC Urine WBC Ur Squamous Epith Cells Amorphous Sediment Urine Bacteria Urine Mucus Blood Type Antibody Screen 07/19/18 07/19/18 07/20/18 21:30 22:00 00:53 WBC RBC Hgb 9.6 L Hct 30.0 L MCV MCH MCHC RDW RDW Differential Plt Count MPV Immature Gran % (Auto) Neut % (Auto) Lymph % (Auto) [place] % (Auto) Eos % (Auto) Baso % (Auto) Absolute Neuts (auto) Absolute Lymphs (auto) Total Counted Differential Comment Sodium Potassium Chloride Carbon Dioxide Anion Gap BUN Creatinine Estim Creat Clear Calc Est GFR (MDRD) Af Amer Est GFR (MDRD) Non-Af BUN/Creatinine Ratio Glucose Lactic Acid Calcium Total Bilirubin AST ALT Alkaline Phosphatase Troponin I 0.027 Total Protein Albumin Globulin Albumin/Globulin Ratio Lipase TSH Urine Color Yellow Urine Clarity Sl. Cloudy Urine pH 6.0 Ur Specific [place] 1.020 Urine Protein 15 H Urine Glucose (UA) Normal Urine Ketones 150 H Urine Occult Blood 50 H Urine Nitrite Negative Urine Bilirubin 1 H Urine Urobilinogen 1 H Ur Leukocyte Esterase 500 H Urine RBC 5-10 SEEN Urine WBC 50-100 SEEN Ur Squamous Epith Cells 0-5 SEEN Amorphous Sediment 1+ URATE Urine Bacteria 3+ Urine Mucus 0 SEEN Blood Type Antibody Screen 0507/20/18 07/20/18 00:53 00:53 06:15 WBC RBC Hgb 9.6 L Hct 28.9 L MCV MCH MCHC RDW RDW Differential Plt Count MPV Immature Gran % (Auto) Neut % (Auto) Lymph % (Auto) [place] % (Auto) Eos % (Auto) Baso % (Auto) Absolute Neuts (auto) Absolute Lymphs (auto) Total Counted Differential Comment Sodium Potassium Chloride Carbon Dioxide Anion Gap BUN Creatinine Estim Creat Clear Calc Est GFR (MDRD) Af Amer Est GFR (MDRD) Non-Af BUN/Creatinine Ratio Glucose Lactic Acid 1.7 Calcium Total Bilirubin AST ALT Alkaline Phosphatase Troponin I 0.038 Total Protein Albumin Globulin Albumin/Globulin Ratio Lipase TSH Urine Color Urine Clarity Urine pH Ur Specific [place] Urine Protein Urine Glucose (UA) Urine Ketones Urine Occult Blood Urine Nitrite Urine Bilirubin Urine Urobilinogen Ur Leukocyte Esterase Urine RBC Urine WBC Ur Squamous Epith Cells Amorphous Sediment Urine Bacteria Urine Mucus Blood Type Antibody Screen 07/20/18 07/20/18 07/20/18 06:15 06:15 06:15 WBC RBC Hgb Hct MCV MCH MCHC RDW RDW Differential Plt Count MPV Immature Gran % (Auto) Neut % (Auto) Lymph % (Auto) [place] % (Auto) Eos % (Auto) Baso % (Auto) Absolute Neuts (auto) Absolute Lymphs (auto) Total Counted Differential Comment Sodium Potassium Chloride Carbon Dioxide Anion Gap BUN Creatinine Estim Creat Clear Calc Est GFR (MDRD) Af Amer Est GFR (MDRD) Non-Af BUN/Creatinine Ratio Glucose Lactic Acid 2.0 Calcium Total Bilirubin AST ALT Alkaline Phosphatase Troponin I Total Protein Albumin Globulin Albumin/Globulin Ratio Lipase TSH 1.96 Urine Color Urine Clarity Urine pH Ur Specific [place] Urine Protein Urine Glucose (UA) Urine Ketones Urine Occult Blood Urine Nitrite Urine Bilirubin Urine Urobilinogen Ur Leukocyte Esterase Urine RBC Urine WBC Ur Squamous Epith Cells Amorphous Sediment Urine Bacteria Urine Mucus Blood Type A POSITIVE Antibody Screen NEGATIVE 07/20/18 12:10 WBC RBC Hgb 10.4 L Hct 31.4 L MCV MCH MCHC RDW RDW Differential Plt Count MPV Immature Gran % (Auto) Neut % (Auto) Lymph % (Auto) [place] % (Auto) Eos % (Auto) Baso % (Auto) Absolute Neuts (auto) Absolute Lymphs (auto) Total Counted Differential Comment Sodium Potassium Chloride Carbon Dioxide Anion Gap BUN Creatinine Estim Creat Clear Calc Est GFR (MDRD) Af Amer Est GFR (MDRD) Non-Af BUN/Creatinine Ratio Glucose Lactic Acid Calcium Total Bilirubin AST ALT Alkaline Phosphatase Troponin I Total Protein Albumin Globulin Albumin/Globulin Ratio Lipase TSH Urine Color Urine Clarity Urine pH Ur Specific [place] Urine Protein Urine Glucose (UA) Urine Ketones Urine Occult Blood Urine Nitrite Urine Bilirubin Urine Urobilinogen Ur Leukocyte Esterase Urine RBC Urine WBC Ur Squamous Epith Cells Amorphous Sediment Urine Bacteria Urine Mucus Blood Type Antibody Screen POC Glucose 07/20/18 07/20/18 07/20/18 07:02 03:44 01:43 POC Glucose 119 H 113 H 112 H 07/19/18 07/19/18 23:42 22:41 POC Glucose 93 72 Medical Necessity - Tobacco Use Smoking Status: Unknown if ever smoked Assessment/Plan All Active Problems Nausea & vomiting (Acute) Upper gastrointestinal bleed (Acute) Esophagitis (Acute) Gastritis (Acute) Colitis (Acute) GI bleed (Acute) Incomplete bladder emptying (Acute) Vaginal atrophy (Acute) Urinary incontinence (Acute) Constipation (Acute) Weakness (Acute) RADHA (acute kidney injury) (Resolved) CAP (community acquired pneumonia) (Resolved) Gastroenteritis (Resolved) Lactic acidosis (Resolved) SIRS (systemic inflammatory response syndrome) (Resolved) UGI bleed (Resolved) 1. Acute GI bleed - H/H stable. gastritis, candidal esophagitis - protonix, nystatin swish and swallow. Supportive care. 2. Acute constipation - bowels were cleared, underwent colonoscopy/egd this AM with Dr. Lr 3. Colitis - constipation induced. See CT abdomen. Abx not indicated 4. Hypoglycemia - d5. Advance diet as tolerated. 5. Anx/Depression - prozac, wellbutrin 6. Hypothyroidism - t3 replacement 7. Debility - PTOT DVT ppx: SCDs DC planning: PTOT, back to TCU. This patient was seen by Chintan Chilel PA-C under the supervision of Dr. Soler.
--- NOTE | 2018-07-20 14:31 | CHAPLAIN ---
two attempts made - first one pt is out of room; second one RN is busy with pt
--- NOTE | 2018-07-20 16:20 | PCM.TXEXTCAR ---
- Diet 07/19/18 22:31 Diet: Clear Liquid Food consistency:: N/A - Liquid only Liquid Consistency:: Regular/Thin - Routine Orders/Code Status Code Status: DNRCC-A - Wound(s) L ELBOW Wound Type: Abrasion - Therapies Physical Therapy: Eval and Treat Occupational Therapy: Eval and Treat Speech Therapy: Eval and Treat - Problem/Diagnosis (1) Dementia Status: Chronic Current Visit: Yes (2) Nausea & vomiting Status: Acute Current Visit: No (3) Anxiety Status: Chronic Current Visit: No (4) Esophagitis Status: Acute Comment: ? Amparo Current Visit: No (5) Anxiety and depression Status: Chronic Current Visit: No (6) Weakness Status: Acute Current Visit: No - Allergies/Procedures Done in Hospital Allergies/Adverse Reactions: Allergies No Known Allergies Allergy (Verified 07/19/18 18:38) Procedures: 2-D Echocardiogram, Colonoscopy, EGD - Type of Care/Length of Stay Estimated LOS: Convalescent Care Less Than 30 days Type of Care Needed: Skilled Rehab Potential: Fair Prognosis: Fair - Additional Orders/Day of Discharge H&P will serve as current which was dated: 07/19/18 Day of Discharge: 07/20/18 - Follow Up Care Primary Care Physician: Dante Mclaughlin MD [Primary Care Provider] -
[2018-07-20] MEDS: Potassium Chloride 40 MEQ in Dext 5%-0.45% NS 1,000 ML 100 MEQ IV (16:57)
[2018-07-20 17:35] LABS: Bedside Glucose 84 mg/dL (70-110)
--- NOTE | 2018-07-20 18:00 | PCM.DC.SUM ---
Discharge Date and Diagnosis Date of Admission: 07/19/18 Date of Discharge: 07/21/18 - Primary Discharge Diagnosis Acute GI bleed 2/2 candidal esophagitis Acute blood loss anemia 2/2 above Acute constipation Colitis 2/2 constipation Hypoglycemia Anx/depression Hypothyroidism Debility - Secondary Discharge Diagnosis Chronic Problems Anxiety (Chronic) Anemia (Chronic) Dementia (Chronic) Anxiety and depression (Chronic) Lethargy (Chronic) Uncontrolled depression (Chronic) Normochromic normocytic anemia (Chronic) Atrophic vaginitis (Chronic) Poor dental hygiene (Chronic) Fall (Chronic) Depression (Chronic) GERD (gastroesophageal reflux disease) (Chronic) Hospital Course and Treatment Imaging Results: IMAGING: CT/Abdomen/Pelvis without Cont IMPRESSION: 1. Wall thickening and edema involving the descending colon compatible with colitis. The remainder of the colon demonstrates mild gaseous distention with air-fluid levels. No evidence of acute diverticulitis 2. Bibasilar airspace disease and consolidation with small effusion; right greater than left Echo: Interpretation Summary The study was technically difficult. Contrast injection was performed. Left ventricular systolic function is normal. The estimated ejection fraction is 65 %. The left atrium is severely enlarged. Mild diffuse mitral valve thickening. Moderate mitral valve prolapse. Moderate (2+) eccentric mitral valve insufficiency. Mild tricuspid valve insufficiency. Epicardial fat. Right ventricular systolic pressure estimated to be 45 mmHg. Diastolic function is indeterminate. Consults: Be - Gen Surg Operations: None Procedures: Colonoscopy, EGD Summary of Care Provided: Hospital Course: The patient is a 63 year old F who was recently admitted to the hospital discharged to TCU several days prior to this presentation, who was sent from TCU to the ER with severe constipation. She was found to be anemic and blood in her vomitis On the last stay she was treated for acute upper GI bleed with reflux esophagitis. She then could not move her bowels and was vomiting. CT abdomen showed colitis felt to be 2/2 severe constipation. She admitted to the PCU and placed on protonix drip, given D5 for mild hypoglycemia, made NPO, and gen surgery was consulted. Her bowels were successfully prepped and she was taken for EGD/colonoscopy. This revealed candidal esophagitis and gastritis. She was placed on nystatin swish and swollow. Post colonoscopy she had difficulty recovering normal breathing and requires bag valve mask to sustain her airway. Echo was obtained with normal EF and moderate pulmonary htn. She did stabilize and returned to the PCU on nasal cannula. The patient had expressed to the physician and to family members that she wanted to and wanted hospice. Her son was also agreeable to hospice. This was felt appropriate as she was felt to have declining dementia. Hospice was called, however did not accept the patinet at the inpatient facility. She was returned to TCU in stable condition. She will follow up with Gen surgery as directed, her PCP in 1-2 weeks, and with hospice as appropriate. This patient was seen by Chintan Chilel PA-C under the suprevision of Dr. Soler. [] - Physical Exam General: Alert, Cooperative, Confused, Lethargic HEENT: Atraumatic, PERRLA, EOMI, Normocephalic Neck: Supple, No JVD, Negative Carotid Bruits Lungs: Clear to auscultation, Normal air movement Cardiovascular: Regular rate, No murmurs Abdomen: Bowel Sounds Present, Soft, Non Tender Extremities: No edema, Capillary Refill Less than 3 Seconds Skin: No rashes, No breakdown Musculoskeletal: No Tenderness to Palpation of Joints or Extremities Neurological: Cranial nerves II-XII grossly intact Psych/Mental Status: Appropriate, Flat Affect Vital Signs Temp Pulse Resp BP Pulse Ox 98.4 F 114 H 14 116/59 L 98 07/20/18 20:07 07/20/18 20:07 07/20/18 20:07 07/20/18 20:07 07/20/18 20:07 Oxygen Flow Rate (L/min) 2 Oxygen Delivery Method Room Air Weight: 114 lb 3.191 oz Body Mass Index (BMI) 22.4 Intake and Output for Last 24 Hours 07/19/18 07/20/18 07/21/18 23:59 23:59 23:59 Intake Total 1832.6 / 1832.6 Output Total 400 / 400 Balance 1432.6 / 1432.6 Microbiology Past 72 Hours 07/19/18 20:30 Gastric Occult Blood - Final Gastric Fluid/Contents Occult Blood Positive Laboratory Tests Past 24 Hrs 07/20/18 07/20/18 12:10 18:10 Hgb 10.4 L 10.5 L Hct 31.4 L 32.0 L POC Glucose 07/20/18 17:07 POC Glucose 84 Discharge Diet: Low fat/ Low Cholesterol, 2000 mg Sodium Diet Discharge Activity: Return to Normal Activity Home Medications: Medications to take at Discharge Pantoprazole Sodium [Protonix] 40 mg PO BID 07/18/18 Cephalexin Suspension [Keflex Suspension] 500 mg PO Q8 07/20/18 Menthol/Lanolin/Calamine/Znox [Calmoseptine Ointment] 1 applic TOPICAL BID 07/20/18 Mineral Oil/Petrolatum,White [Eucerin] 1 applic TOPICAL BID PRN PRN 07/20/18 Primary Care Physician: Dante Mclaughlin MD [Primary Care Provider] - Please follow up with your Primary Care Physician in: 1-2 weeks Please Follow Up With: Kohi Lr MD When: as directed Disposition: Penitentiary facility Minutes spent on discharge:: 40 Patient Condition:: Stable Medical Necessity - Tobacco Use Smoking Status: Unknown if ever smoked Meaningful Use Info Meaningful Use Diagnoses (Choose all that apply): None applicable
[2018-07-20 18:27] LABS: Hemoglobin 10.5 g/dl (12.0-15.0)
== END 2018-07-20 20:45 | disposition skilled nursing facility (03) ==
LOC: ED 19:54 → PCU 22:09 → TCU 07-20 14:40 → PCU 07-20 19:10
PROVIDERS: Surgery; Admitting Provider Hospitalist; Emergency Provider Emergency Medicine; Family Provider Family Medicine; PCP Family Medicine; Referring Provider Hospitalist; Visit Provider Internal Medicine
PROC: 0DJD8ZZ Inspection of Lower Intestinal Tract, Via Natural or Artificial Opening Endoscopic (ICD-10-PCS; CPT 45378; principal; 2018-07-20 10:55)
DX: K52.9 Noninfective gastroenteritis and colitis, unspecified (principal); K59.09 Other constipation; K21.0 Gastro-esophageal reflux disease with esophagitis; K92.2 Gastrointestinal hemorrhage, unspecified; B37.81 Candidal esophagitis; D62 Acute posthemorrhagic anemia; E03.9 Hypothyroidism, unspecified; F41.9 Anxiety disorder, unspecified; F32.9 Major depressive disorder, single episode, unspecified; Z79.899 Other long term (current) drug therapy; E16.2 Hypoglycemia, unspecified; E86.0 Dehydration; R94.31 Abnormal electrocardiogram [ECG] [EKG]; R62.7 Adult failure to thrive; R09.02 Hypoxemia; I27.20 Pulmonary hypertension, unspecified
CPT/HCPCS: 43239; 45380; 36415; 74176; 80053; 81001; 82271; 82962; 83605; 83690; 84443; 84484; 85014; 85018; 85025; 86850; 86900; 88305; 88312; 88342; 93005; 93306; 96365; 96366; 96375; 97802; 99285; J7030; Q9957; A4216; C8929; J2405; J7799